=== PATIENT | male | born 1965 | race Caucasian/White ===

== ENCOUNTER 2019-07-18 13:20 | Inpatient (IN) | payer MEDICARE, OTHER ==
--- NOTE | 2019-07-18 14:57 | ED ---
Arrhythmia/Palpitations HPI - General Chief Complaint: Arrhythmia/Palpitations Stated Complaint: A FIB Time Seen by Provider: 07/18/19 13:25 Source: patient, EMS Mode of arrival: EMS Limitations: no limitations - History of Present Illness Initial Comments: The patient is a 54-year-old male with past medical history of coronary artery disease and reflux who presents to the emergency room from [facility]. He saw his primary care physician in office today. He was recently diagnosed with a peptic ulcer and gastritis. States that as of recently he's been having worsening reflux and trouble breathing. States that after food ingestion he will have acute left upper quadrant abdominal pain which is graded as 10 out of 10. It is causing decreased appetite. He is supposed been having a endoscopy by Dr. Skinner within the next month. Because his pain was getting worse he did go into his primary care office. This is where it was found the patient had an elevated heart rate. EKG is performed the patient was found to be in A. fib. Was sent into [facility] related place him on a Cardizem drip and transferred him to our facility. He denies any chest pain or shortness of breath even though transfer paperwork does demonstrate an elevated BNP and signs of fluid overload on chest x-ray. He denies any lower extremity swelling. Marino es any current abdominal pain. No ripping or tearing sensation to his back. He denies any palpitations. No fevers or chills. There are no other alleviating, Perceptin or modifying factors - Related Data Home Medications Medication Instructions Recorded Confirmed Levothyroxine Sodium [Synthroid] 50 mcg PO DAILY 08/28/17 07/18/19 Loratadine [Claritin] 10 mg PO DAILY 08/28/17 07/18/19 Multivitamins, Thera [Multivitamin 1 tab PO DAILY 08/28/17 07/18/19 (formulary)] Ascorbic Acid [Vitamin C] 500 mg PO DAILY 07/18/19 07/18/19 Atorvastatin [Lipitor] 20 mg PO DAILY 07/18/19 07/18/19 Esomeprazole Magnesium [NexIUM] 40 mg PO DAILY 07/18/19 07/18/19 Ranitidine HCl [Zantac] 150 mg PO DAILY 07/18/19 07/18/19 Sucralfate [Carafate] 1 gram PO AC-TID 07/18/19 07/18/19 Previous Rx's Medication Instructions Recorded Aspirin 325 mg PO DAILY tab 08/29/17 Carvedilol [Coreg] 6.25 mg PO BID-W/MEALS #60 tab 08/29/17 Enalapril [Vasotec] 2.5 mg PO DAILY #30 tab 08/29/17 Furosemide [Lasix] 20 mg PO DAILY #30 tab 08/29/17 Potassium Chloride [K-Tab ER] 10 meq PO DAILY #30 tablet.er 08/29/17 Allergies Allergy/AdvReac Type Severity Reaction Status Date / Time No Known Allergies Allergy Verified 07/18/19 14:31 Review of Systems ROS Statement: Those systems with pertinent positive or pertinent negative responses have been documented in the HPI. ROS Other: All systems not noted in ROS Statement are negative. Past Medical History Past Medical History: Coronary Artery Disease (CAD), Chest Pain / Angina, GERD/Reflux, Thyroid Disorder Additional Past Medical History / Comment(s): hypotension History of Any Multi-Drug Resistant Organisms: None Reported Past Surgical History: Coronary Bypass/CABG Additional Past Surgical History / Comment(s): Valve fixed, hiatal hernia Past Anesthesia/Blood Transfusion Reactions: No Reported Reaction Past Psychological History: No Psychological Hx Reported Smoking Status: Current every day smoker Past Alcohol Use History: None Reported Past Drug Use History: None Reported - Past Family History Mother Additional Family Medical History / Comment(s): heart conditions Father Family Medical History: Cancer Additional Family Medical History / Comment(s): Lung CA General Exam Limitations: no limitations Course Vital Signs 07/18/19 07/18/19 07/18/19 13:23 13:25 13:30 Temperature 97.7 F Pulse Rate 92 89 106 H Respiratory 18 18 17 Rate Blood Pressure 102/71 102/71 102/71 O2 Sat by Pulse 91 L 84 L 85 L Oximetry 07/18/19 07/18/19 07/18/19 14:00 14:30 15:00 Temperature Pulse Rate 106 H 83 Respiratory 19 20 21 Rate Blood Pressure 106/76 106/76 O2 Sat by Pulse 91 L Oximetry 07/18/19 07/18/19 07/18/19 15:03 15:30 16:00 Temperature 98.1 F Pulse Rate 112 H 100 70 Respiratory 18 18 23 Rate Blood Pressure 122/45 122/45 82/72 O2 Sat by Pulse 96 93 L 94 L Oximetry 07/18/19 07/18/19 07/18/19 16:30 17:00 17:30 Temperature Pulse Rate 92 80 83 Respiratory 26 H 21 20 Rate Blood Pressure 105/81 124/78 90/54 O2 Sat by Pulse 95 94 L 97 Oximetry 07/18/19 07/18/19 18:00 18:30 Temperature Pulse Rate 105 H 75 Respiratory 19 24 Rate Blood Pressure 86/57 112/76 O2 Sat by Pulse 95 95 Oximetry EKG Findings - EKG Comments: EKG Findings:: EKG demonstrates H or fibrillation with a rate of 110. QRS 106. QTC 470. Inverted T-wave and ST depression in leads V2 through V6. Compared to previous EKG from August of [address] depression T-wave inversions were similar in V4 through V6 Medical Decision Making - Medical Decision Making Upon arrival of the patient was placed into room 9. His transfer packet was reviewed. His chest x-ray demonstrated bilateral infiltrates and pleural effusions a cardio medically. Mag 2.5, phosphorus 4, CPK 149, BNP 6020, sodium 138, potassium 4.4, chloride 108, CO2 24, glucose 113, Min 20, creatinine 0.9, alkaline negative, INR 1.2, white blood cell count 6.6, hemoglobin 13.9, platelets 157, troponin 0.024, I did recommend repeat laboratory studies to include a troponin. CBC shows a platelet of 147. CMP is unremarkable. Troponin is 0.022. I did perform a rectal exam as the patient is reporting recent black stools within the past week. It is negative. Did continue the patient's order for Cardizem. His heart rate is improved in the 70s. I did recommend heparinizing the patient however he is refusing anticoagulation. Reports a history of peptic ulcer disease and states that he can't be on any blood thinners. I did recommend hospital admission for which the patient did agree. Call discuss case with Dr. Gaitan admission for the patient. Bridging order to place the patient was transferred form stable condition - Lab Data Result diagrams: 07/18/19 14:59 07/18/19 14:59 Lab Results 07/18/19 07/18/19 07/18/19 Range/Units 14:59 14:59 14:59 WBC 6.3 (3.8-10.6) k/uL RBC 4.70 (4.30-5.90) m/uL Hgb 14.5 (13.0-17.5) gm/dL Hct 44.1 (39.0-53.0) % MCV 93.9 (80.0-100.0) fL MCH 30.8 (25.0-35.0) pg MCHC 32.8 (31.0-37.0) g/dL RDW 13.4 (11.5-15.5) % Plt Count 147 L (150-450) k/uL Neutrophils % 65 % Lymphocytes % 23 % Monocytes % 9 % Eosinophils % 2 % Basophils % 1 % Neutrophils # 4.1 (1.3-7.7) k/uL Lymphocytes # 1.4 (1.0-4.8) k/uL Monocytes # 0.6 (0-1.0) k/uL Eosinophils # 0.1 (0-0.7) k/uL Basophils # 0.0 (0-0.2) k/uL PT (9.0-12.0) sec INR (<1.2) APTT (22.0-30.0) sec Sodium 140 (137-145) mmol/L Potassium 4.2 (3.5-5.1) mmol/L Chloride 111 H (98-107) mmol/L Carbon Dioxide 22 (22-30) mmol/L Anion Gap 7 mmol/L BUN 19 (9-20) mg/dL Creatinine 0.83 (0.66-1.25) mg/dL Est GFR (CKD-EPI)AfAm >90 (>60 ml/min/1.73 sqM) Est GFR (CKD-EPI)NonAf >90 (>60 ml/min/1.73 sqM) Glucose 93 (74-99) mg/dL Calcium 9.2 (8.4-10.2) mg/dL Troponin I 0.022 (0.000-0.034) ng/mL TSH 3.870 (0.465-4.680) mIU/L 07/18/19 Range/Units 14:59 WBC (3.8-10.6) k/uL RBC (4.30-5.90) m/uL Hgb (13.0-17.5) gm/dL Hct (39.0-53.0) % MCV (80.0-100.0) fL MCH (25.0-35.0) pg MCHC (31.0-37.0) g/dL RDW (11.5-15.5) % Plt Count (150-450) k/uL Neutrophils % % Lymphocytes % % Monocytes % % Eosinophils % % Basophils % % Neutrophils # (1.3-7.7) k/uL Lymphocytes # (1.0-4.8) k/uL Monocytes # (0-1.0) k/uL Eosinophils # (0-0.7) k/uL Basophils # (0-0.2) k/uL PT 11.2 (9.0-12.0) sec INR 1.1 (<1.2) APTT 26.1 (22.0-30.0) sec Sodium (137-145) mmol/L Potassium (3.5-5.1) mmol/L Chloride (98-107) mmol/L Carbon Dioxide (22-30) mmol/L Anion Gap mmol/L BUN (9-20) mg/dL Creatinine (0.66-1.25) mg/dL Est GFR (CKD-EPI)AfAm (>60 ml/min/1.73 sqM) Est GFR (CKD-EPI)NonAf (>60 ml/min/1.73 sqM) Glucose (74-99) mg/dL Calcium (8.4-10.2) mg/dL Troponin I (0.000-0.034) ng/mL TSH (0.465-4.680) mIU/L Disposition Clinical Impression: Atrial fibrillation, Abdominal pain Disposition: [facility] Condition: Stable Is patient prescribed a controlled substance at d/c from ED?: No Decision to Admit Reason: Admit from EC Decision Date: 07/18/19 Decision Time: 17:13
[2019-07-18] MEDS: DILTIAZEM 125 MG in SODIUM CHLORIDE 0.9% 100 ML IV SCH (15:01)
[2019-07-18 15:12] LABS: Basophils % (A) 1 %; Eosinophils # (A) 0.1 k/uL (0-0.7); Eosinophils % (A) 2 %; HCT 44.1 % (39.0-53.0); HGB 14.5 gm/dL (13.0-17.5); Lymphocytes # (A) 1.4 k/uL (1.0-4.8); Lymphocytes % (A) 23 %; MCH 30.8 pg (25.0-35.0); MCHC 32.8 g/dL (31.0-37.0); MCV 93.9 fL (80.0-100.0); Mean Platelet Volume 6.7; Monocytes # (A) 0.6 k/uL (0-1.0); Monocytes % (A) 9 %; Neutrophils # (A) 4.1 k/uL (1.3-7.7); Neutrophils % (A) 65 %; Platelet Count 147 k/uL (150-450); RDW 13.4 % (11.5-15.5); WBC 6.3 k/uL (3.8-10.6)
[2019-07-18 15:20] LABS: African American GFR (CKD) >90 (>60 ml/min/1.73 sqM); Anion Gap 7 mmol/L; Blood Urea Nitrogen 19 mg/dL (9-20); Calcium 9.2 mg/dL (8.4-10.2); Carbon Dioxide 22 mmol/L (22-30); Chloride 111 mmol/L (98-107); Glucose 93 mg/dL (74-99); INR 1.1 (<1.2); Non-African American GFR(CKD) >90 (>60 ml/min/1.73 sqM); Partial Thromboplastin Time 26.1 sec (22.0-30.0); Potassium 4.2 mmol/L (3.5-5.1); Prothrombin Time 11.2 sec (9.0-12.0); Sodium 140 mmol/L (137-145)
[2019-07-18] MEDS ORDERED: NALOXONE 0.4 MG/ML 1 ML VIAL IV PRN (17:28)
[2019-07-18] MEDS: SODIUM CHLORIDE 0.9% 1,000 ML IV SCH (17:40)
--- NOTE | 2019-07-18 21:11 | P.HPIM ---
History of Present Illness H&P Date: 07/18/19 Chief Complaint: Heart racing History of presenting complaint: This is a very pleasant 54-year-old patient of Dr. Smyth. Patient being troubled quite quite some time with GI symptoms that include abdominal distention and bloating severe heartburns a lot of burping. Occasionally getting diarrhea. States she had EGD about a year ago not sure where but did have a bleeding u lcer. Afraid patient GI symptoms have been bothering him more supposed to follow with Dr. Anabell Beltran. Went to see his family doctor. Was found to be in atrial fibrillation with a rapid ventricular rate send him to the ER. Patient started on IV Cardizem. Patient states she's had 2 valves repaired back in 2012. Cannot give any other details. Denies any coronary artery disease otherwise. Review of systems: GEN.: None EYES: Right a while see HEENT: None NECK: None RESPIRATORY: None CARDIOVASCULAR: Palpitation GASTROINTESTINAL: Heartburn and bloating as above GENITOURINARY: None MUSCULOSKELETAL: None LYMPHATICS: None HEMATOLOGICAL: None PSYCHIATRY: None NEUROLOGICAL: None Past medical history to include: GERD, bleeding peptic ulcer, 2 valves replaced, hypothyroid Social history: Smokes 7 cigarettes a day used to smoke much more for many years. . Does not drink alcohol. Not employed Physical examination: VITAL SIGNS: 97.7, 92, 18, 102/71, 91% room air GENERAL: 25.8 BMI, sitting up but anxious. EYES: Pupils equal. Conjunctiva brent, with right eye strabismus l. HEENT: External appearance of nose and ears normal, oral cavity grossly normal. NECK: JVD not raised; masses not palpable. HEART: Heart sounds irregular; no edema]. LUNGS: Respiratory rate normal; slightly decreased breath sounds. ABDOMEN: Soft, mild epigastric tenderness liver spleen not palpable, no masses palpable. PSYCH: [Alert and oriented x3; mood and affect anxious NEUROLOGICAL: Cranial nerves grossly intact; no facial asymmetry, power and sensation grossly intact. LYMPHATICS: No lymph nodes palpable in the axilla and neck INVESTIGATIONS, reviewed in the clinical context: EKG tracing personally reviewed by me-atrial fibrillation with a rate of 100 Assessment: -New diagnosis of atrial fibrillation, rate uncontrolled unknown about the onset. Patient declined anticoagulant ER because of bleeding peptic ulcer. In the past. -Peptic ulcer disease with increasing distention and bloating GERD -GERD uncontrolled -Chronic nicotine dependence patient cigarette smoker -Right eye strabismus -Hypothyroid, rule out over replacement Plan: Patient started and IV Cardizem drip in the ER. Continue on patient's home dose of Coreg. Anticoagulation is being held. Poor GI and cardiology or consulted. We'll order 2-D echocardiogram. Also check patient's thyroid status. Patient may be over replaced. Does not appear to be hypothyroid clinically. Smoke cessation counseling: This was done with the patient. Patient does not want nicotine patch. More than 3 minutes was spent for this Past Medical History Past Medical History: Coronary Artery Disease (CAD), Chest Pain / Angina, GERD/Reflux, Thyroid Disorder Additional Past Medical History / Comment(s): hypotension History of Any Multi-Drug Resistant Organisms: None Reported Past Surgical History: Coronary Bypass/CABG Additional Past Surgical History / Comment(s): Valve fixed 2012, hiatal hernia Past Anesthesia/Blood Transfusion Reactions: No Reported Reaction Past Psychological History: Bipolar Additional Psychological History / Comment(s): Pt states he was diagnosed as bipolar but no longer takes medication. Smoking Status: Current every day smoker Past Alcohol Use History: None Reported Past Drug Use History: None Reported - Past Family History Mother Family Medical History: COPD, Diabetes Mellitus, Osteoarthritis (OA) Additional Family Medical History / Comment(s): heart conditions Father Family Medical History: Cancer Additional Family Medical History / Comment(s): Lung CA Medications and Allergies Home Medications Medication Instructions Recorded Confirmed Type Levothyroxine Sodium [Synthroid] 50 mcg PO DAILY 08/28/17 07/18/19 History Loratadine [Claritin] 10 mg PO DAILY 08/28/17 07/18/19 History Multivitamins, Thera [Multivitamin 1 tab PO DAILY 08/28/17 07/18/19 History (formulary)] Aspirin 325 mg PO DAILY tab 08/29/17 07/18/19 Rx Carvedilol [Coreg] 6.25 mg PO BID-W/MEALS #60 tab 08/29/17 07/18/19 Rx Enalapril [Vasotec] 2.5 mg PO DAILY #30 tab 08/29/17 07/18/19 Rx Furosemide [Lasix] 20 mg PO DAILY #30 tab 08/29/17 07/18/19 Rx Potassium Chloride [K-Tab ER] 10 meq PO DAILY #30 tablet.er 08/29/17 07/18/19 Rx Ascorbic Acid [Vitamin C] 500 mg PO DAILY 07/18/19 07/18/19 History Atorvastatin [Lipitor] 20 mg PO DAILY 07/18/19 07/18/19 History Esomeprazole Magnesium [NexIUM] 40 mg PO DAILY 07/18/19 07/18/19 History Ranitidine HCl [Zantac] 150 mg PO DAILY 07/18/19 07/18/19 History Sucralfate [Carafate] 1 gram PO AC-TID 07/18/19 07/18/19 History Allergies Allergy/AdvReac Type Severity Reaction Status Date / Time No Known Allergies Allergy Verified 07/18/19 14:31 Physical Exam Vitals: Vital Signs Temp Pulse Resp BP Pulse Ox 07/18/19 18:30 75 24 112/76 95 07/18/19 18:00 105 H 19 86/57 95 07/18/19 17:30 83 20 90/54 97 07/18/19 17:00 80 21 124/78 94 L 07/18/19 16:30 92 26 H 105/81 95 07/18/19 16:00 70 23 82/72 94 L 07/18/19 15:30 100 18 122/45 93 L 07/18/19 15:03 98.1 F 112 H 18 122/45 96 07/18/19 15:00 83 21 07/18/19 14:30 106 H 20 106/76 91 L 07/18/19 14:00 19 106/76 07/18/19 13:30 106 H 17 102/71 85 L 07/18/19 13:25 89 18 102/71 84 L 07/18/19 13:23 97.7 F 92 18 102/71 91 L Intake and Output 07/18/19 07/18/19 07/18/19 06:59 14:59 22:59 Other: Weight 86.183 kg Results CBC & Chem 7: 07/18/19 14:59 07/18/19 14:59 Labs: Abnormal Lab Results - Last 24 Hours (Table) 07/18/19 07/18/19 Range/Units 14:59 14:59 Plt Count 147 L (150-450) k/uL Chloride 111 H (98-107) mmol/L Thrombosis Risk Factor Assmnt - Choose All That Apply Any of the Below Risk Factors Present?: Yes Each Factor Represents 1 point: Age 41-60 years Other Risk Factors: No Other congenital or acquired thrombophilia - If yes, enter type in comment: No Thrombosis Risk Factor Assessment Total Risk Factor Score: 1 Thrombosis Risk Factor Assessment Level: Low Risk
[2019-07-18] MEDS: PANTOPRAZOLE 40 MG TABLET PO SCH (22:31)
[2019-07-18] MEDS: CALCIUM CARBONATE LIQUID 500 MG/5 ML CUP PO SCH (22:31)
[2019-07-18] MEDS: CARVEDILOL 6.25 MG TAB PO SCH (22:31)
[2019-07-19 00:14] LABS: Magnesium 2.2 mg/dL (1.6-2.3); Potassium 3.7 mmol/L (3.5-5.1)
[2019-07-19 03:56] LABS: Basophils # (A) 0.1 k/uL (0-0.2); Basophils % (A) 1 %; Eosinophils # (A) 0.2 k/uL (0-0.7); Eosinophils % (A) 3 %; HCT 43.1 % (39.0-53.0); HGB 13.8 gm/dL (13.0-17.5); Lymphocytes # (A) 1.1 k/uL (1.0-4.8); Lymphocytes % (A) 20 %; MCH 30.3 pg (25.0-35.0); MCHC 32.1 g/dL (31.0-37.0); MCV 94.5 fL (80.0-100.0); Monocytes # (A) 0.5 k/uL (0-1.0); Monocytes % (A) 9 %; Neutrophils # (A) 3.7 k/uL (1.3-7.7); Neutrophils % (A) 65 %; Platelet Count 134 k/uL (150-450); RBC 4.56 m/uL (4.30-5.90); RDW 13.5 % (11.5-15.5); WBC 5.7 k/uL (3.8-10.6)
[2019-07-19 04:07] LABS: African American GFR (CKD) >90 (>60 ml/min/1.73 sqM); Anion Gap 4 mmol/L; Blood Urea Nitrogen 21 mg/dL (9-20); Calcium 9.1 mg/dL (8.4-10.2); Carbon Dioxide 27 mmol/L (22-30); Chloride 108 mmol/L (98-107); Glucose 95 mg/dL (74-99); Non-African American GFR(CKD) 88 (>60 ml/min/1.73 sqM); Potassium 4.3 mmol/L (3.5-5.1); Sodium 139 mmol/L (137-145)
[2019-07-19] MEDS: CALCIUM CARBONATE LIQUID 500 MG/5 ML CUP PO SCH ×4 (06:38→21:16)
[2019-07-19] MEDS: LEVOTHYROXINE 50 MCG TAB PO SCH (06:38)
[2019-07-19] MEDS: CARVEDILOL 6.25 MG TAB PO SCH ×2 (06:38→16:46)
[2019-07-19] MEDS: PANTOPRAZOLE 40 MG TABLET PO SCH ×2 (06:38→16:46)
[2019-07-19] MEDS: SODIUM CHLORIDE 0.9% 1,000 ML IV SCH (06:44)
[2019-07-19] MEDS ORDERED: PANTOPRAZOLE 40 MG TABLET PO SCH (07:30)
--- NOTE | 2019-07-19 07:42 | XR ---
EXAMINATION TYPE: XR chest 2V DATE OF EXAM: 07/19/2019 COMPARISON: Prior chest x-ray dated 07/18/2019, chest x-ray 08/28/2017 HISTORY: Cough, smoker TECHNIQUE: Frontal and lateral views of the chest are obtained. FINDINGS: Heart appears enlarged, patient is rotated which makes accentuate appearance. Patient is p ost median sternotomy. No evident pneumothorax. Patchy bibasilar increased density is noted. Intersti tium is increased. Central vascularity is similar. Patient shows cardiac valve replacement change. In creased AP diameter chest suggests underlying COPD with flattening of hemidiaphragms. IMPRESSION: Correlate for congestive heart failure although there is underlying interstitial lung di sease may be present. Pneumonia not excluded.
[2019-07-19] MEDS: ATORVASTATIN 20 MG TAB PO SCH (08:49)
[2019-07-19] MEDS ORDERED: ASPIRIN 325 MG TAB PO SCH (09:00)
[2019-07-19] MEDS ORDERED: FUROSEMIDE 20 MG TAB PO SCH (09:00)
[2019-07-19] MEDS ORDERED: FAMOTIDINE 20 MG TAB PO SCH (09:00)
--- NOTE | 2019-07-19 10:50 | P.CRDCN ---
History of Present Illness Consult date: 07/19/19 Chief complaint: Abdominal discomfort History of present illness: This is a pleasant 54-year-old gentleman who sees Dr. Beltran in the office on re gular basis with a past medical history significant for valvular heart disease with the patient underwent in the past valve surgery at [facility] and he states he underwent a surgery back in 2012, the details are unknown at this point, long-standing persistent atrial fibrillation not on any oral anticoagulation, as well as peptic ulcer disease, presented to the hospital complaining of abdominal discomfort. The patient was diagnosed with peptic ulcer disease in the past and for the last several months, he has been experiencing abdominal discomfort. The discomfort is in the mid abdomen without any radiation to the chest and without any associated symptoms. The patient scheduled to see a childhood teacher in July some time and he states he cannot wait that long and because of that he presented to the hospital. Upon presenting to the hospital, he was found to be in atrial fibrillation with slightly uncontrolled heart rate. The patient is known to have long-standing pe rsistent atrial fibrillation. He was started on Cardizem drip and subsequently the Cardizem drip was stopped and currently he is on Coreg 6.25 mg by mouth twice a day was controlled heart rate on it. The blood pressure seems to be within normal limits. The patient denies having any symptoms of chest pain or chest discomfort, shortness of breath, dizziness, heart racing, or lower extremities edema. The chest x-ray did not show any acute abnormalities. He does not look to be in any acute chest pain or chest discomfort nor in any congestive heart failure when he was seen and examined this morning. The troponin came in to be unremarkable. The EKG showed atrial fibrillation was controlled heart rate. The patient is quite concerned about his abdominal discomfort and he would like to see a childhood teacher as soon as possible. On examination, the abdomen is soft and nontender this morning. He was seen by our service back in 2018 where an echocardiogram revealed moderate to severe MR without any pointing toward repaired valve. At that point also he underwent a stress test which showed small area of ischemia. Subsequently the patient was seen by Dr. Beltran in the office. We'll obtain a copy of the previous medical records. Past Medical History Past Medical History: Coronary Artery Disease (CAD), Chest Pain / Angina, GERD/Reflux, Thyroid Disorder Additional Past Medical History / Comment(s): hypotension History of Any Multi-Drug Resistant Organisms: None Reported Past Surgical History: Coronary Bypass/CABG Additional Past Surgical History / Comment(s): Valve fixed 2012, hiatal hernia Past Anesthesia/Blood Transfusion Reactions: No Reported Reaction Past Psychological History: Bipolar Additional Psychological History / Comment(s): Pt states he was diagnosed as bipolar but no longer takes medication. Smoking Status: Current every day smoker Past Alcohol Use History: None Reported Past Drug Use History: None Reported - Past Family History Mother Family Medical History: COPD, Diabetes Mellitus, Osteoarthritis (OA) Additional Family Medical History / Comment(s): heart conditions Father Family Medical History: Cancer Additional Family Medical History / Comment(s): Lung CA Medications and Allergies Home Medications Medication Instructions Recorded Confirmed Type Levothyroxine Sodium [Synthroid] 50 mcg PO DAILY 08/28/17 07/18/19 History Loratadine [Claritin] 10 mg PO DAILY 08/28/17 07/18/19 History Multivitamins, Thera [Multivitamin 1 tab PO DAILY 08/28/17 07/18/19 History (formulary)] Aspirin 325 mg PO DAILY tab 08/29/17 07/18/19 Rx Carvedilol [Coreg] 6.25 mg PO BID-W/MEALS #60 tab 08/29/17 07/18/19 Rx Enalapril [Vasotec] 2.5 mg PO DAILY #30 tab 08/29/17 07/18/19 Rx Furosemide [Lasix] 20 mg PO DAILY #30 tab 08/29/17 07/18/19 Rx Potassium Chloride [K-Tab ER] 10 meq PO DAILY #30 tablet.er 08/29/17 07/18/19 Rx Ascorbic Acid [Vitamin C] 500 mg PO DAILY 07/18/19 07/18/19 History Atorvastatin [Lipitor] 20 mg PO DAILY 07/18/19 07/18/19 History Esomeprazole Magnesium [NexIUM] 40 mg PO DAILY 07/18/19 07/18/19 History Ranitidine HCl [Zantac] 150 mg PO DAILY 07/18/19 07/18/19 History Sucralfate [Carafate] 1 gram PO AC-TID 07/18/19 07/18/19 History Allergies Allergy/AdvReac Type Severity Reaction Status Date / Time No Known Allergies Allergy Verified 07/18/19 14:31 Physical Exam Vitals: Vital Signs Temp Pulse Pulse Resp BP BP Pulse Ox 07/19/19 08:00 96.3 F L 61 16 92/54 92 L 07/19/19 04:00 97.7 F 100 18 119/77 92 L 07/19/19 00:00 97.8 F 65 18 106/50 89 L 07/18/19 20:00 97.8 F 91 22 106/55 87 L 07/18/19 18:30 75 24 112/76 95 07/18/19 18:00 105 H 19 86/57 95 07/18/19 17:30 83 20 90/54 97 07/18/19 17:00 80 21 124/78 94 L 07/18/19 16:30 92 26 H 105/81 95 07/18/19 16:00 70 23 82/72 94 L 07/18/19 15:30 100 18 122/45 93 L 07/18/19 15:03 98.1 F 112 H 18 122/45 96 07/18/19 15:00 83 21 07/18/19 14:30 106 H 20 106/76 91 L 07/18/19 14:00 19 106/76 07/18/19 13:30 106 H 17 102/71 85 L 07/18/19 13:25 89 18 102/71 84 L 07/18/19 13:23 97.7 F 92 18 102/71 91 L Intake and Output 07/18/19 07/19/19 07/19/19 22:59 06:59 14:59 Intake Total 381.833 Output Total 500 Balance -118.167 Intake: Intake, IV Titration 381.833 Amount Diltiazem 125 mg In 81.833 Sodium Chloride 0.9% 100 ml @ 10 MG/HR 10 mls/hr IV .[id number] KAYLA Rx#: [id number] Sodium Chloride 0.9% 1, 300 000 ml @ 75 mls/hr IV . [id number] KAYLA Rx#:[id number] Output: Urine 500 Other: Voiding Method Toilet Toilet # Voids 1 # Bowel Movements 2 Weight 86.4 kg - Constitutional General appearance: no acute distress - Respiratory Respiratory: bilateral: CTA - Cardiovascular Rhythm: irregularly irregular Heart sounds: normal: S1, S2 Abnormal Heart Sounds: systolic murmur Results 07/19/19 03:14 07/19/19 03:14 Cardiac Enzymes 07/18/19 07/18/19 07/19/19 Range/Units 14:59 22:07 03:14 Troponin I 0.022 0.025 0.029 (0.000-0.034) ng/mL Coagulation 07/18/19 Range/Units 14:59 PT 11.2 (9.0-12.0) sec APTT 26.1 (22.0-30.0) sec CBC 07/18/19 07/19/19 Range/Units 14:59 03:14 WBC 6.3 5.7 (3.8-10.6) k/uL RBC 4.70 4.56 (4.30-5.90) m/uL Hgb 14.5 13.8 (13.0-17.5) gm/dL Hct 44.1 43.1 (39.0-53.0) % Plt Count 147 L 134 L (150-450) k/uL Comprehensive Metabolic Panel 07/18/19 07/18/19 07/19/19 Range/Units 14:59 23:42 03:14 Sodium 140 139 (137-145) mmol/L Potassium 4.2 3.7 4.3 (3.5-5.1) mmol/L Chloride 111 H 108 H (98-107) mmol/L Carbon Dioxide 22 27 (22-30) mmol/L BUN 19 21 H (9-20) mg/dL Creatinine 0.83 0.98 (0.66-1.25) mg/dL Glucose 93 95 (74-99) mg/dL Calcium 9.2 9.1 (8.4-10.2) mg/dL Current Medications Generic Name Dose Route Start Last Admin Trade Name Freq PRN Reason Stop Dose Admin Atorvastatin Calcium 20 mg 07/19/19 09:00 07/19/19 08:49 Lipitor PO 20 mg DAILY KAYLA Administration Calcium Carbonate/Glycine 500 mg 07/18/19 21:15 07/18/19 22:31 Tums Liquid PO 500 mg HS KAYLA Administration Calcium Carbonate/Glycine 500 mg 07/19/19 07:30 07/19/19 06:38 Tums Liquid PO 500 mg TID-W/MEALS KAYLA Administration Carvedilol 6.25 mg 07/18/19 21:15 07/19/19 06:38 Coreg PO 6.25 mg BID-W/MEALS KAYLA Administration Diltiazem HCl 125 mg/ Sodium 125 mls @ 10 mls/hr 07/18/19 14:45 07/18/19 23:12 Chloride IV 0 mg/hr .[id number] KAYLA 0 mls/hr Infusion 10 MG/HR Sodium Chloride 1,000 mls @ 75 mls/hr 07/18/19 17:30 07/19/19 06:44 Saline 0.9% IV 75 mls/hr .[id number] KAYLA Administration Levothyroxine Sodium 50 mcg 07/19/19 06:30 07/19/19 06:38 Synthroid PO 50 mcg DAILY@0630 KAYLA Administration Naloxone HCl 0.2 mg 07/18/19 17:28 Narcan IV Q2M PRN Opioid Reversal Pantoprazole Sodium 40 mg 07/18/19 21:15 07/19/19 06:38 Protonix PO 40 mg AC-BID KAYLA Administration Intake and Output 07/18/19 07/19/19 07/19/19 22:59 06:59 14:59 Intake Total 381.833 Output Total 500 Balance -118.167 Intake: Intake, IV Titration 381.833 Amount Diltiazem 125 mg In 81.833 Sodium Chloride 0.9% 100 ml @ 10 MG/HR 10 mls/hr IV .[id number] KAYLA Rx#: [id number] Sodium Chloride 0.9% 1, 300 000 ml @ 75 mls/hr IV . [id number] KAYLA Rx#:[id number] Output: Urine 500 Other: Voiding Method Toilet Toilet # Voids 1 # Bowel Movements 2 Weight 86.4 kg 07/19/19 03:14 07/19/19 03:14 Assessment and Plan Assessment: Assessment #1 abdominal discomfort #2 known peptic ulcer disease #3 long-standing persistent atrial fibrillation #4 valvular heart disease and status post open heart surgery #5 multiple comorbid conditions Plan #1 the patient is not a candidate to receive anticoagulation in view of the peptic ulcer disease #2 his heart rate seems to be under good control on the current dose of Coreg #3 he does not look in any overt congestive heart failure at this point #4 acute coronary event was ruled out #5 no need for any further cardiac workup at this point. We'll follow-up with the patient on when necessary case
--- NOTE | 2019-07-19 12:00 | ECHOF ---
Referral Reason:A. fib MEASUREMENTS -------- HEIGHT: 182.9 cm WEIGHT: 86.2 kg BP: 119/77 RVIDd: 3.8 cm (< 3.3) IVSd: 1.7 cm (0.6 - 1.1) LVIDd: 6.8 cm (3.9 - 5.3) LVPWd: 1.7 cm (0.6 - 1.1) IVSs: 2.1 cm LVIDs: 6.7 cm LVPWs: 2.0 cm LA Diam: 3.9 cm (2.7 - 3.8) LAESV Index (A-L): 77.93 ml/m Ao Diam: 3.7 cm (2.0 - 3.7) AV Cusp: 2.7 cm (1.5 - 2.6) MV EXCURSION: 19.297 mm (> 18.000) MV EF SLOPE: 86 mm/s (70 - 150) EPSS: 2.6 cm FINDINGS -------- Atrial fibrillation. This was a technically adequate study. The left ventricle is moderately dilated. There is severe concentric left ventricular hypertrophy. Overall left ventricular systolic function is severely impaired with, an EF between 20 - 25 %. The right ventricle is mild to moderately enlarged. LA is severely dilated >40 ml/m2 The right atrium is normal in size. Interatrial and interventricular septum intact. Aortic valve is trileaflet and is mildly thickened. Trace amount of aortic regurgitation. Moderate mitral regurgitation is present. The peak and mean MV gradients are 13.09mmHg 3.05mmHg as measured by doppler. Mild mitral stenosis. MV Repair. The pulmonic valve was not well visualized. The aortic root size is normal. Normal inferior vena cava with normal inspiratory collapse consistent with estimated right atrial pre ssure of 5 mmHg. The inferior vena cava is mildly dilated. There is no pericardial effusion. CONCLUSIONS -------- 1. Atrial fibrillation. 2. This was a technically adequate study. 3. The left ventricle is moderately dilated. 4. There is severe concentric left ventricular hypertrophy. 5. Overall left ventricular systolic function is severely impaired with, an EF between 20 - 25 %. 6. The right ventricle is mild to moderately enlarged. 7. LA is severely dilated >40 ml/m2 8. The right atrium is normal in size. 9. Interatrial and interventricular septum intact. 10. Aortic valve is trileaflet and is mildly thickened. 11. Trace amount of aortic regurgitation. 12. Moderate mitral regurgitation is present. 13. The peak and mean MV gradients are 13.09mmHg 3.05mmHg as measured by doppler. 14. Mild mitral stenosis. 15. MV Repair. 16. The pulmonic valve was not well visualized. 17. The aortic root size is normal. 18. Normal inferior vena cava with normal inspiratory collapse consistent with estimated right atrial pressure of 5 mmHg. 19. The inferior vena cava is mildly dilated. 20. There is no pericardial effusion. CLIENT CONSULTANT: MEG Yun
[2019-07-19] MEDS ORDERED: PROPOFOL 10 MG/ML 20 ML VIAL IV ONE (14:44)
[2019-07-19] MEDS ORDERED: ePHEDrine SULFATE/0.9% NACL/PF 50 MG/5 ML SYRINGE IV ONE (14:44)
[2019-07-19] MEDS ORDERED: KETAMINE 10 MG/ML 20 ML VIAL ONE (14:44)
[2019-07-19] MEDS ORDERED: LIDOCAINE 1% INJ 10MG/ML (20 ML MDV) ONE (14:44)
[2019-07-19] MEDS ORDERED: IV FLUID CONTINUATION 1,000 ML IV ONE (14:49)
--- NOTE | 2019-07-19 15:00 | P.PCN ---
Date of Procedure: 07/19/19 Procedure(s) Performed: BRIEF HISTORY: Patient is a 54-year-old, pleasant, white male admitted hospital with upper GI symptoms. He is complaining of epigastric pain, heartburn and abdominal bloating for the last 1 week duration. History of GERD and has been on now Nexium as well as Carafate an outpatient basis. He states he had an upper endoscopy revealed and was diagnosed with peptic ulcer disease.. PROCEDURE PERFORMED: Esophagogastroduodenoscopy with biopsy. PREOPERATIVE DIAGNOSIS: Epigastric pain/severe heartburn/abdominal bloating. IV sedation per anesthesia. PROCEDURE: After informed consent was obtained, the patient was brought into the endoscopy unit. IV sedation was administered by Anesthesia under continuous monitoring. Initially the Olympus GIF-140 video endoscope was inserted into the mouth. Esophagus intubated without any difficulty. It was gradually advanced into the stomach and duodenum and carefully examined. The bulb and the second part of the duodenum appeared normal. Biopsies were done from this area to rule out celiac disease.. The scope at this time was withdrawn to the stomach, adequately insufflated with air, and upon careful examination, mucosa of the antrum had minimal gastritis and biopsies were done from this area. The, body, cardia and the fundus appeared normal. The scope was then withdrawn into the esophagus. The GE junction was located at 39 cm from the incisors. It appeared regular but there was no evidence of esophagitis or Herrera's esophagus. The rest of the esophagus appeared normal. There were no erosions or ulcerations seen and the patient tolerated the procedure well. IMPRESSION: 1. Minimal antral gastritis. 2. No evidence of esophagitis or peptic ulcer disease. RECOMMENDATIONS: The findings of this examination were discussed with the patient. He will be continued on Protonix 40 mg daily and Carafate 1 g 4 times daily. Anticoagulation can be started if indicated for atrial fibrillation. Diet will be advanced as tolerated.
--- NOTE | 2019-07-19 15:29 | CONS ---
CONSULTATION DATE OF SERVICE: 07/19/2019 REASON FOR CONSULTATION: Heartburn, abdominal pain, abdominal distention. HISTORY OF PRESENT ILLNESS: The patient is a 54-year-old white male who was admitted to the hospital with AFIB and rapid ventricular heart rate. The patient has been having upper GI symptoms with abdominal pain, abdominal distention, severe heartburn, nausea but no emesis on and off for the last one week duration. Patient went to see his PCP, [GENARO] and he was noted to have AFIB with RVR and hence he was sent to the emergency room and subsequently admitted to the hospital for further evaluation. Patient has an appointment to see them in 2 weeks from now. In the meantime, because of his ongoing symptoms, we are consulted. The patient says that he was diagnosed with GERD in the past. On review of his records, he did have an upper endoscopy by Dr. Chavez in 2014 that showed erosive esophagitis. Patient thinks that he had an upper endoscopy about a year ago that revealed peptic ulcer disease. He denies any NSAID use. PAST MEDICAL HISTORY: Significant for GERD, peptic ulcer disease, valve replacement, hypothyroidism. PAST SURGICAL HISTORY: EGD in the past, valve repair. SOCIAL HISTORY: Chronic smoker. No alcohol use. FAMILY HISTORY: Mother had some heart conditions, father had lung cancer. MEDICATIONS: At home include Claritin, multivitamin, vitamin C, Lipitor, Nexium, Zantac, Carafate, and Synthroid. ALLERGIES: To ASPIRIN, COREG, VASOTEC, LASIX, and K-DUR. REVIEW OF SYSTEMS: CARDIOPULMONARY: Shortness of breath. GENITOURINARY: No dysuria, hematuria. MUSCULOSKELETAL: Unremarkable. SKIN: Unremarkable. ENDOCRINE: Unremarkable. PSYCHIATRIC: Unremarkable. NEUROLOGY: Unremarkable. ENT/VISION: Unremarkable. CONSTITUTIONAL: No recent weight loss. No fever, chills, night sweats. PHYSICAL EXAMINATION: He appears comfortable, in no apparent distress. Vital signs are stable, blood pressure is 130/82 pulse, pulse is 113 per minute and afebrile. HEENT: Examination unremarkable. Conjunctivae are pink, sclerae nonicteric. ORAL CAVITY: No lesions. NECK: No JVD or lymph node enlargement. CHEST: Clear to auscultation. HEART: Regular rate and rhythm. ABDOMEN: Soft. Bowel sounds are positive. Mild tenderness in the epigastric area. BOTH EXTREMITIES: No pedal edema. SKIN: No rashes. NEUROLOGIC: Alert and oriented x3. No focal deficits. LABS: WBC 5.7, hemoglobin 13.8, platelets normal. Basic metabolic panel is within normal limits. Stool occult blood was negative. IMPRESSION: 1. Atrial fibrillation with rapid ventricular rate, presently on Cardizem drip. 2. Upper gastrointestinal symptoms with epigastric discomfort, abdominal bloating, nausea and heartburn for the last 1 week duration. Patient has been on Nexium, Carafate on an outpatient basis, despite this continues to be asymptomatic. He thinks he had an upper endoscopy a year ago and was diagnosed with peptic ulcer disease. RECOMMENDATION: 1. Will proceed with an EGD today. Discussed with him risks, benefits, and complications of the procedure and he has agreed to do it. 2. In the meantime, continue with Protonix 40 mg daily and further recommendations will follow based on the . Thank you for this consultation. MMJOCELYN / KARINN: [id number] /
[2019-07-19] MEDS: DILTIAZEM 125 MG in SODIUM CHLORIDE 0.9% 100 ML IV SCH (15:55)
[2019-07-19] MEDS ORDERED: RIVAROXABAN 20 MG TAB PO SCH (17:30)
[2019-07-20 02:26] LABS: African American GFR (CKD) >90 (>60 ml/min/1.73 sqM); Anion Gap 4 mmol/L; Blood Urea Nitrogen 21 mg/dL (9-20); Calcium 8.8 mg/dL (8.4-10.2); Carbon Dioxide 27 mmol/L (22-30); Chloride 109 mmol/L (98-107); Glucose 93 mg/dL (74-99); Magnesium 2.1 mg/dL (1.6-2.3); Non-African American GFR(CKD) 83 (>60 ml/min/1.73 sqM); Potassium 4.1 mmol/L (3.5-5.1); Sodium 140 mmol/L (137-145)
[2019-07-20] MEDS: CALCIUM CARBONATE LIQUID 500 MG/5 ML CUP PO SCH (06:51)
[2019-07-20] MEDS: CARVEDILOL 6.25 MG TAB PO SCH (06:51)
[2019-07-20] MEDS: LEVOTHYROXINE 50 MCG TAB PO SCH (06:52)
[2019-07-20] MEDS: PANTOPRAZOLE 40 MG TABLET PO SCH (06:52)
[2019-07-20] MEDS: SODIUM CHLORIDE 0.9% 1,000 ML IV SCH (08:37)
[2019-07-20] MEDS: DILTIAZEM 125 MG in SODIUM CHLORIDE 0.9% 100 ML IV SCH (08:37)
[2019-07-20] MEDS: ATORVASTATIN 20 MG TAB PO SCH (08:39)
[2019-07-20 08:52] VITALS: BP 96/55; PULSE 90; RESP 18; TEMP 97.6
--- NOTE | 2019-07-22 15:37 | P.DS ---
Providers Date of admission: 07/18/19 17:28 Expected date of discharge: 07/20/19 Attending physician: Lamine Gaitan Consults: 07/18/19 17:28 Consult Physician Urgent Consulting Provider: [facility] Consult Reason/Comments: new onset afib with rvr Do you want consulting provider notified?: Yes 07/18/19 17:29 Consult Physician Urgent Consulting Provider: Shelbi Beltran Consult Reason/Comments: acute epigastric pain Do you want consulting provider notified?: Yes Primary care physician: [facility] Course: Chief Complaint: Heart racing History of presenting complaint: This is a very pleasant 54-year-old patient of Dr. Smyth. Patient being troubled quite quite some time with GI symptoms that include abdominal distention and bloating severe heartburns a lot of burping. Occasionally getting diarrhea. States she had EGD about a year ago not sure where but did have a bleeding ulcer. Afraid patient GI symptoms have been bothering him more supposed to follow with Dr. Anabell Beltran. Went to see his family doctor. Was found to be in atrial fibrillation with a rapid ventricular rate send him to the ER. Patient started on IV Cardizem. Patient states she's had 2 valves repaired back in 2012. Cannot give any other details. Denies any coronary artery disease otherwise. EGD showed mild gastritis. Patient was started on Xarelto. Consultation: Dr. Mayes from cardiology Dr. Anabell Beltran from GI. Physical examination: VITAL SIGNS: 97.5, 69, 16, 107/68, 93% on 2 L GENERAL: Sitting up, got in distress. EYES: Pupils equal. Conjunctiva brent, with right eye strabismus l. HEENT: External appearance of nose and ears normal, oral cavity grossly normal. NECK: JVD not raised; masses not palpable. HEART: Heart sounds irregular; no edema LUNGS: Respiratory rate normal; slightly decreased breath sounds. ABDOMEN: Soft, mild epigastric tenderness liver spleen not palpable, no masses palpable. PSYCH: Alert and oriented x3; mood and affect anxious INVESTIGATIONS, reviewed in the clinical context: EKG tracing personally reviewed by me-atrial fibrillation with a rate of 100 Hemoglobin 13.8 percussion 4.3 creatinine 0.98 TSH normal Assessment: -New diagnosis of atrial fibrillation, rate uncontrolled, unknown about the time of onset. . -GERD uncontrolled -Chronic nicotine dependence patient cigarette smoker -Right eye strabismus -Hypothyroid, rule out over replacement Disposition: Home Patient Condition at Discharge: Stable Plan - Discharge Summary Discharge Rx Participant: No New Discharge Prescriptions: New Rivaroxaban [Xarelto] 20 mg PO W/SUPPER #30 tab Continue Multivitamins, Thera [Multivitamin (formulary)] 1 tab PO DAILY Levothyroxine Sodium [Synthroid] 50 mcg PO DAILY Carvedilol [Coreg] 6.25 mg PO BID-W/MEALS #60 tab Esomeprazole Magnesium [NexIUM] 40 mg PO DAILY Ascorbic Acid [Vitamin C] 500 mg PO DAILY Atorvastatin [Lipitor] 20 mg PO DAILY Discontinued Loratadine [Claritin] 10 mg PO DAILY Aspirin 325 mg PO DAILY tab Enalapril [Vasotec] 2.5 mg PO DAILY #30 tab Furosemide [Lasix] 20 mg PO DAILY #30 tab Potassium Chloride [K-Tab ER] 10 meq PO DAILY #30 tablet.er Ranitidine HCl [Zantac] 150 mg PO DAILY Sucralfate [Carafate] 1 gram PO AC-TID Discharge Medication List Levothyroxine Sodium [Synthroid] 50 mcg PO DAILY 08/28/17 [History] Multivitamins, Thera [Multivitamin (formulary)] 1 tab PO DAILY 08/28/17 [History] Carvedilol [Coreg] 6.25 mg PO BID-W/MEALS #60 tab 08/29/17 [Rx] Ascorbic Acid [Vitamin C] 500 mg PO DAILY 07/18/19 [History] Atorvastatin [Lipitor] 20 mg PO DAILY 07/18/19 [History] Esomeprazole Magnesium [NexIUM] 40 mg PO DAILY 07/18/19 [History] Rivaroxaban [Xarelto] 20 mg PO W/SUPPER #30 tab 07/19/19 [Rx] Follow up Appointment(s)/Referral(s): Earnest Mayes MD [STAFF PHYSICIAN] - 3 Weeks ([employer] Engineer - please call for a follow up appointment for 2-3 weeks post hospital discharge. ) Juancoh Smyth MD [Primary Care Provider] - 3 Days (Please call on Monday and schedule follow up appointment with Dr. 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 ) [facility], [NON-STAFF] - () Patient Instructions/Handouts: A-fib (Atrial Fibrillation) (DC), Safe Use of Anticoagulants (DC) Discharge Disposition: HOME SELF-CARE
== END 2019-07-20 11:25 | disposition home health service (06) | DRG 310 ==
LOC: EC 13:20 → SUPCPDRO 13:20 → 3SCARD 17:28
PROVIDERS: ADMIT Hospitalist; ATTEND Hospitalist
PROC: 0DB78ZX Excision of Stomach, Pylorus, Via Natural or Artificial Opening Endoscopic, Diagnostic (ICD-10-PCS; 2019-07-19)
PROC: 0DB58ZX Excision of Esophagus, Via Natural or Artificial Opening Endoscopic, Diagnostic (ICD-10-PCS; 2019-07-19)
PROC: 0DB98ZX Excision of Duodenum, Via Natural or Artificial Opening Endoscopic, Diagnostic (ICD-10-PCS; principal; 2019-07-19 08:35)
DX: I48.11 Longstanding persistent atrial fibrillation (principal); E03.9 Hypothyroidism, unspecified; I25.10 Atherosclerotic heart disease of native coronary artery without angina pectoris; H50.9 Unspecified strabismus; K29.70 Gastritis, unspecified, without bleeding; K21.9 Gastro-esophageal reflux disease without esophagitis; F17.210 Nicotine dependence, cigarettes, uncomplicated; Z71.6 Tobacco abuse counseling; Z79.82 Long term (current) use of aspirin; Z79.890 Hormone replacement therapy; Z79.899 Other long term (current) drug therapy; Z95.1 Presence of aortocoronary bypass graft; Z95.2 Presence of prosthetic heart valve; Z87.19 Personal history of other diseases of the digestive system; Z80.1 Family history of malignant neoplasm of trachea, bronchus and lung; Z82.49 Family history of ischemic heart disease and other diseases of the circulatory system; Z82.5 Family history of asthma and other chronic lower respiratory diseases; Z83.3 Family history of diabetes mellitus; Z82.61 Family history of arthritis
CPT/HCPCS: 36415; 43239; 71046; 80048; 82272; 83735; 84132; 84443; 84484; 85025; 85610; 85730; 88305; 93005; 93306; 96365; 96366; 99285

== ENCOUNTER 2019-08-24 12:49 | Inpatient (IN) | payer MEDICARE, OTHER ==
--- NOTE | 2019-08-24 14:28 | ED ---
General Adult HPI - General Chief complaint: Shortness of Breath Stated complaint: pneumonia Time Seen by Provider: 08/24/19 13:00 Source: patient, RN notes reviewed, old records reviewed Mode of arrival: EMS Limitations: no limitations - History of Present Illness Initial comments: This is a 54-year-old male who was transferred from [facility] for bilateral pneumonia and mildly elevated troponin. Patient states started with left-sided chest pain this morning and difficulty breathing that is white went to the emergency department. Patient states currently he is having no chest pain or difficulty breathing. Patient denies any fever or chills. Patient denies any lightheadedness or dizziness. Patient has a swollen to the legs or calf tenderness. - Related Data Home Medications Medication Instructions Recorded Confirmed Levothyroxine Sodium [Synthroid] 50 mcg PO DAILY 08/28/17 07/18/19 Multivitamins, Thera [Multivitamin 1 tab PO DAILY 08/28/17 07/18/19 (formulary)] Ascorbic Acid [Vitamin C] 500 mg PO DAILY 07/18/19 07/18/19 Atorvastatin [Lipitor] 20 mg PO DAILY 07/18/19 07/18/19 Esomeprazole Magnesium [NexIUM] 40 mg PO DAILY 07/18/19 07/18/19 Previous Rx's Medication Instructions Recorded Carvedilol [Coreg] 6.25 mg PO BID-W/MEALS #60 tab 08/29/17 Rivaroxaban [Xarelto] 20 mg PO W/SUPPER #30 tab 07/19/19 Allergies Allergy/AdvReac Type Severity Reaction Status Date / Time No Known Allergies Allergy Verified 08/24/19 13:05 Review of Systems ROS Statement: Those systems with pertinent positive or pertinent negative responses have been documented in the HPI. ROS Other: All systems not noted in ROS Statement are negative. Past Medical History Past Medical History: Coronary Artery Disease (CAD), Chest Pain / Angina, GERD/Reflux, Thyroid Disorder Additional Past Medical History / Comment(s): hypotension History of Any Multi-Drug Resistant Organisms: None Reported Past Surgical History: Coronary Bypass/CABG Additional Past Surgical History / Comment(s): Valve fixed, hiatal hernia Past Anesthesia/Blood Transfusion Reactions: No Reported Reaction Past Psychological History: Anxiety, Depression Smoking Status: Current every day smoker Past Alcohol Use History: None Reported Past Drug Use History: None Reported - Past Family History Mother Additional Family Medical History / Comment(s): heart conditions Father Family Medical History: Cancer Additional Family Medical History / Comment(s): Lung CA General Exam - General Exam Comments Initial Comments: GENERAL: Patient is well-developed and well-nourished. Patient is nontoxic and well- hydrated and is in no acute distress. ENT: Neck is soft and supple. No significant lymphadenopathy is noted. Oropharynx is clear. Moist mucous membranes. Neck has full range of motion without eliciting any pain. EYES: The sclera were anicteric and conjunctiva were pink and moist. Extraocular movements were intact and pupils were equal round and reactive to light. Eyelids were unremarkable. PULMONARY: Unlabored respirations. Good breath sounds bilaterally. No audible rales rhonchi or wheezing was noted. CARDIOVASCULAR: There is a regular rate and rhythm without any murmurs gallops or rubs. ABDOMEN: Soft and nontender with normal bowel sounds. SKIN: Skin is clear with no lesions or rashes and otherwise unremarkable. NEUROLOGIC: Patient is alert and oriented x3. Cranial nerves II through XII are grossly intact. Motor and sensory are also intact. Normal speech, volume and content. Symmetrical smile. MUSCULOSKELETAL: Normal extremities with adequate strength and full range of motion. No lower extremity swelling or edema. No calf tenderness. LYMPHATICS: No significant lymphadenopathy is noted PSYCHIATRIC: Normal psychiatric evaluation. Limitations: no limitations Course Vital Signs 08/24/19 08/24/19 08/24/19 12:58 13:10 14:27 Temperature 97.1 F L Pulse Rate 99 78 Respiratory 20 20 Rate Blood Pressure 98/72 103/65 O2 Sat by Pulse 89 L 94 L 93 L Oximetry Medical Decision Making - Medical Decision Making I reviewed the material from [facility]. I also reviewed the chest x-ray I believe the chest x-ray is more consistent with congestive heart failure. BNP was ordered it was very elevated. I gave the patient Lasix and nitro glycerin. I spoke with Dr. moore takes agreed to admit the patient admitted the patient wrote admitting orders I consult cardiology. - Lab Data Lab Results 08/24/19 08/24/19 Range/Units 14:20 14:20 Troponin I 0.035 H* (0.000-0.034) ng/mL NT-Pro-B Natriuret Pep 60921 pg/mL Critical Care Time Critical Care Time: Yes Total Critical Care Time: 35 Disposition Clinical Impression: Acute pulmonary edema Disposition: ADMITTED IP TO THIS [facility] Referrals: Juancho Smyth MD [Primary Care Provider] - 1-2 days Time of Disposition: 15:25
[2019-08-24] MEDS ORDERED: NITROGLYCERIN OINT 1 INCH/GM PACKET TOPICAL STA (15:23)
[2019-08-24] MEDS ORDERED: FUROSEMIDE 10 MG/ML 10 ML VIAL IV STA (15:23)
[2019-08-24] MEDS ORDERED: ACETAMINOPHEN TAB 500 MG TAB PO PRN (21:29)
[2019-08-24] MEDS ORDERED: TEMAZEPAM 15 MG CAP PO PRN (21:29)
[2019-08-24 21:56] LABS: Chloride 113 mmol/L (98-107)
--- NOTE | 2019-08-24 22:01 | XR ---
EXAMINATION TYPE: XR chest 1V portable DATE OF EXAM: 08/24/2019 COMPARISON: Today HISTORY: Short of breath TECHNIQUE: Single view FINDINGS: There is pulmonary interstitial and alveolar edema. There are sternal wires. There are ches t leads. There is mild blunting of the costophrenic angles. Heart is probably enlarged. IMPRESSION: Pulmonary edema and pleural fluid consistent with congestive heart failure that is the sa me or slightly improved compared to exam this morning.
[2019-08-24] MEDS: DOXYCYCLINE 100 MG CAP PO SCH (22:12)
[2019-08-24] MEDS: RIVAROXABAN 20 MG TAB PO SCH (22:12)
[2019-08-24] MEDS: CARVEDILOL 6.25 MG TAB PO SCH (22:13)
[2019-08-24] MEDS: NITROGLYCERIN OINT 1 INCH/GM PACKET TOPICAL SCH (22:16)
[2019-08-24 22:46] LABS: ALT 39 U/L (4-49); AST 38 U/L (17-59); African American GFR (CKD) >90 (>60 ml/min/1.73 sqM); Albumin 3.2 g/dL (3.5-5.0); Alkaline Phosphatase 80 U/L (38-126); Anion Gap 7 mmol/L; Blood Urea Nitrogen 24 mg/dL (9-20); Calcium 8.8 mg/dL (8.4-10.2); Carbon Dioxide 20 mmol/L (22-30); Glucose 100 mg/dL (74-99); Non-African American GFR(CKD) 81 (>60 ml/min/1.73 sqM); Potassium 4.5 mmol/L (3.5-5.1); Sodium 140 mmol/L (137-145); Total Bilirubin 1.1 mg/dL (0.2-1.3); Total Protein 5.8 g/dL (6.3-8.2)
[2019-08-24 23:44] LABS: Magnesium 2.2 mg/dL (1.6-2.3)
--- NOTE | 2019-08-25 00:25 | HP ---
HISTORY AND PHYSICAL DATE OF SERVICE: 08/24/2019 CHIEF COMPLAINT: Shortness of breath and chest pain. HISTORY OF PRESENT ILLNESS: This 54-year-old gentleman with a past medical history of multiple medical problems including history of CAD, history of chest pain, GERD, hypothyroidism, hypertension, history of CAD, CABG, anxiety, depression, being followed by Dr. Smyth in the outpatient setting was complaining of shortness of breath, chest pain. Patient came to the [facility] and patient was subsequently referred to [facility] for further evaluation and treatment. Troponin mildly elevated at 0.035. NT proBNP is elevated at 12, 800. Chest x-ray showed features of CHF and Cardiology consultation was sought. Patient admitted for further evaluation and treatment. There is no history of fever, rigors or chills. No history of headache, loss of consciousness, seizures at this time. PAST MEDICAL HISTORY: History of CAD, history of chest pain, GERD, hypothyroidism, hypertension, CAD, CABG, anxiety, depression. MEDICATIONS: Home medications are: 1. Zestril 2.5 mg p.o. daily. 2. Lasix 20 mg q.48 hours. 3. Trazodone 25 mg q.h.s. 4. Xarelto 20 mg supper. 5. Multivitamins 1 p.o. daily. 6. Nexium 40 mg p.o. daily. 7. Lipitor 20 mg p.o. daily. 8. Synthroid 50 mcg p.o. 9. Coreg 6.25 mg p.o. b.i.d. 10.Doxycycline 100 mg p.o. b.i.d. 11.Albuterol inhaler 1-2 puffs q.4 p.r.n. ALLERGIES: None. FAMILY HISTORY: History of heart condition, cancer. SOCIAL HISTORY: History of smoking daily ongoing. REVIEW OF SYSTEMS: ENT: Diminished hearing, diminished vision. CARDIOVASCULAR SYSTEM: As mentioned earlier. RESPIRATORY: As mentioned earlier. GI no nausea or vomiting. no dysuria. CENTRAL NERVOUS SYSTEM: No numbness or weakness. ALLERGY/IMMUNOLOGY: No asthma or hay fever. MUSCULOSKELETAL as mentioned earlier. HEMATOLOGY/ONCOLOGY: No history of anemia. ENDOCRINE: No history of diabetes or hypothyroidism. CONSTITUTIONAL: As mentioned earlier. DERMATOLOGY: Negative. RHEUMATOLOGY: Negative. PSYCHIATRIC: As mentioned earlier. PHYSICAL EXAMINATION: Alert and oriented times three. Pulse 76, blood pressure 98/60, respirations 16, temperature 97.8, pulse ox 91 percent on 3 L. 89% on room air. HEENT is conjunctivae normal. Oral mucosa moist. NECK is no jugular venous distention. No carotid bruit. No lymph node enlargement. CARDIOVASCULAR: S1, S2 muffled. Otherwise lesions from murmur present. Chest is deformed, pectoris excavatum with healed scar also present. ABDOMEN: Soft, scaphoid, nontender. No mass palpable. LEGS: No edema. No swelling. NERVOUS SYSTEM: Higher functions as mentioned earlier. Moves all 4 limbs. No focal motor or sensory deficits. SKIN: No ulcer, no rash and no bleeding. JOINTS: No active deforming arthropathy. LABS: At this time shows troponin 0.06. NT proBNP is elevated. Other labs are noted as not available. ASSESSMENT: 1. Congestive heart failure acute exacerbation ejection fraction unknown. 2. Chest pain possible unstable angina. Rule out acute llo-XJ-hicdeid-elevation myocardial infarction with troponin 0.0335. 3. History of valve replacement coronary artery disease/coronary artery bypass grafting in [facility]. 4. History of gastroesophageal reflux disease. 5. Hypothyroidism. 6. History of hypertension. 7. Anxiety, depression. 8. History of bipolar. 9. History of continued ongoing nicotine dependence. RECOMMENDATIONS AND DISCUSSION: In this 54-year-old gentleman who presented with multiple complex medical issues, we will monitor the patient closely, continue the current medications, management and symptomatic treatment. Otherwise, I would recommend cardiology consultation. IV diuretics. Monitor fluid and electrolytes balance closely. Restrict fluid intake to 1200 mL per 24 hours. Resume the home medications. Guarded prognosis because of multiple complex medical issues. Further recommendations to follow. A copy of this dictation being forwarded to Dr. Smyth who is the primary physician. See orders for details. We will obtain a 2D echo with Doppler as well. Try to obtain old records regarding the cardiac surgery and followup as well. MMODL / IJN: [id number] / MTDD
[2019-08-25] MEDS: traZODone HCL 50 MG TAB PO SCH ×2 (00:49→21:34)
[2019-08-25] MEDS: FUROSEMIDE 10 MG/ML 4 ML VIAL IV SCH ×3 (00:50→12:48)
[2019-08-25] MEDS: ALPRAZolam 0.25 MG TAB PO PRN (03:35)
[2019-08-25 04:55] LABS: Appearance,Urine Clear (Clear); Bilirubin,Urine Negative (Negative); Blood,Urine Negative (Negative); Color,Urine Yellow; Glucose,Urine (UA) Negative (Negative); Ketones,Urine Negative (Negative); Leukocyte Esterase,Urine Negative (Negative); Nitrite,Urine Negative (Negative); PH, Urine 6.5 (5.0-8.0); Protein,Urine Negative (Negative); Specific Gravity,Urine 1.019 (1.001-1.035); Urobilinogen,Urine <2.0 mg/dL (<2.0)
[2019-08-25] MEDS: LEVOTHYROXINE 50 MCG TAB PO SCH (06:42)
[2019-08-25] MEDS: PANTOPRAZOLE 40 MG TABLET PO SCH (06:42)
[2019-08-25] MEDS: CARVEDILOL 6.25 MG TAB PO SCH (06:43)
[2019-08-25 07:18] LABS: Basophils % (A) 0 %; Eosinophils # (A) 0.1 k/uL (0-0.7); Eosinophils % (A) 2 %; HCT 44.2 % (39.0-53.0); HGB 13.8 gm/dL (13.0-17.5); Hypochromasia Slight; Lymphocytes # (A) 1.1 k/uL (1.0-4.8); Lymphocytes % (A) 17 %; MCH 28.6 pg (25.0-35.0); MCHC 31.1 g/dL (31.0-37.0); MCV 91.7 fL (80.0-100.0); Mean Platelet Volume 8.6; Monocytes # (A) 0.6 k/uL (0-1.0); Monocytes % (A) 9 %; Neutrophils # (A) 4.7 k/uL (1.3-7.7); Neutrophils % (A) 70 %; Platelet Count 121 k/uL (150-450); RBC 4.82 m/uL (4.30-5.90); WBC 6.7 k/uL (3.8-10.6)
[2019-08-25 07:37] LABS: Calcium 8.9 mg/dL (8.4-10.2); Potassium 4.5 mmol/L (3.5-5.1)
[2019-08-25] MEDS: NITROGLYCERIN OINT 1 INCH/GM PACKET TOPICAL SCH (08:18)
[2019-08-25] MEDS: NICOTINE 14MG/24HR PATCH TRANSDERM SCH (08:19)
[2019-08-25] MEDS: ATORVASTATIN 20 MG TAB PO SCH (08:23)
[2019-08-25] MEDS: DOXYCYCLINE 100 MG CAP PO SCH ×2 (08:23→21:34)
[2019-08-25] MEDS: MULTIVITAMINS, THERA 1 EACH TAB PO SCH (08:23)
[2019-08-25] MEDS ORDERED: LISINOPRIL 2.5 MG TAB PO SCH (09:00)
[2019-08-25] MEDS: CARVEDILOL 1.563 MG TAB PO SCH (13:25)
--- NOTE | 2019-08-25 14:53 | P.CNPUL ---
History of Present Illness Consult date: 08/25/19 Requesting physician: Alexa Barron Reason for consult: dyspnea Chief complaint: Shortness of breath and chest pain. History of present illness: This is a 54-year-old white male with history of multiple medical problems including valvular heart disease, ischemic cardiomyopathy and LV dysfunction, history of previous valve repair. At the [facility] back over 8 years ago, patient normally sees Dr. Skinner for his cardiac issues on a regular basis. 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 Patient has history of hypertension, presented to [facility] with 1 day history of increased shortness of breath and left-sided chest pain. Patient described the pain as severe, pressure over the left side of the chest, not associated with any diaphoresis. His chest x-ray showed evidence of pulmonary edema. BNP level was extremely elevated. EKG was supposedly done at [place], and was not repeated here in our facility. Patient was already seen by cardiology, and his admitting diagnosis is consistent with acute systolic congestive heart failure. And possible non-ST elevation myocardial infarction. Troponin level was 0.035. Patient was given Lasix by the ER physician, and he improved significantly with one dose of Lasix given earlier. Again his chest x-ray is clearly consistent with congestive heart failure/pulmonary edema. Looking back at a previous echocardiogram, patient clearly had history of LV dysfunction with ejection fraction of 25%. The echocardiogram was dated 07/19/2019. His echocardiogram also showed moderate mitral regurgitation, mild mitral stenosis, and clearly evidence of mitral valve repair. Based on previous documentation, patient had normal coronaries based on previous coronary angiography. This was in 2014, by the time I saw the patient, patient had no chest pain, he was on few liters nasal cannula, and he was feeling much better especially after he received a dose of Lasix. Patient is maintained on Lasix IV push every 8 hours, patient had no symptoms to suggest pneumonia, no fever no chills and no purulent sputum production. And there was no evidence of leukocytosis based on his CBC. Review of Systems Constitutional: Denies fever chills or weight loss. Describes generalized weakness. HEENT: Patient is hard of hearing, he had multiple facial surgeries on his nose, maxillofacial, vocal cords, and palate. Cardiac: As noted in HPI, Pulmonary: As noted in HPI. Neurologic: Denies any headache blurred vision dizziness. GI: Had recent EGD and biopsy showing mostly gastritis. Presently asymptomatic. No nausea no vomiting no abdominal pain no melena no hematemesis. Genitourinary: Denies any dysuria frequency hematuria or urgency. Skin: Denies any rashes. Endocrine: Denies any heat or cold intolerance. Musculoskeletal: Denies any myalgia, arthralgia, or any deformities. Psychiatric: Denies any symptoms of active depression Hematologic: Denies any clotting bleeding or bruising. Past Medical History Past Medical History: Coronary Artery Disease (CAD), Chest Pain / Angina, GERD/Reflux, Thyroid Disorder Additional Past Medical History / Comment(s): hypotension History of Any Multi-Drug Resistant Organisms: None Reported Past Surgical History: Coronary Bypass/CABG Additional Past Surgical History / Comment(s): Valve fixed, hiatal hernia Past Anesthesia/Blood Transfusion Reactions: No Reported Reaction Past Psychological History: Anxiety, Depression Additional Psychological History / Comment(s): Pt states he was diagnosed as bipolar but no longer takes medication. Smoking Status: Current every day smoker Past Alcohol Use History: None Reported Past Drug Use History: None Reported - Past Family History Mother Additional Family Medical History / Comment(s): heart conditions Father Family Medical History: Cancer Additional Family Medical History / Comment(s): Lung CA Medications and Allergies Home Medications Medication Instructions Recorded Confirmed Type Levothyroxine Sodium [Synthroid] 50 mcg PO DAILY@0600 08/28/17 08/24/19 History Multivitamins, Thera [Multivitamin 1 tab PO DAILY@0900 08/28/17 08/24/19 History (formulary)] Carvedilol [Coreg] 6.25 mg PO BID-W/MEALS #60 tab 08/29/17 08/24/19 Rx Atorvastatin [Lipitor] 20 mg PO DAILY@0900 07/18/19 08/24/19 History Esomeprazole Magnesium [NexIUM] 40 mg PO DAILY@0900 07/18/19 08/24/19 History Rivaroxaban [Xarelto] 20 mg PO W/SUPPER #30 tab 07/19/19 08/24/19 Rx Albuterol Inhaler [Ventolin Hfa 1 - 2 puff INHALATION RT-Q4H PRN 08/24/19 08/24/19 History Inhaler] Doxycycline Hyclate 100 mg PO BID 08/24/19 08/24/19 History Furosemide [Lasix] 20 mg PO Q48H 08/24/19 08/24/19 History Lisinopril [Zestril] 2.5 mg PO DAILY@0900 08/24/19 08/24/19 History traZODone HCL 25 mg PO HS 08/24/19 08/24/19 History Allergies Allergy/AdvReac Type Severity Reaction Status Date / Time No Known Allergies Allergy Verified 08/24/19 17:55 Physical Exam Vitals: Vital Signs Temp Pulse Pulse Resp BP BP Pulse Ox 08/25/19 12:00 63 16 109/44 92 L 08/25/19 08:00 97.1 F L 83 16 82/60 94 L 08/25/19 04:00 97.9 F 116 H 20 110/61 92 L 08/25/19 00:00 97.6 F 91 20 87/51 93 L 08/24/19 20:00 97.5 F L 64 18 100/56 88 L 08/24/19 17:17 76 16 98/69 91 L 08/24/19 16:38 81 18 105/88 93 L 08/24/19 15:45 97.8 F 80 20 98/73 93 L Intake and Output 08/24/19 08/25/19 08/25/19 22:59 06:59 14:59 Intake Total 240 Output Total 600 200 Balance 240 -600 -200 Intake: Oral 240 Output: Urine 600 200 Other: Voiding Method Toilet Toilet Toilet # Bowel Movements 1 Weight 86.046 kg 77.9 kg Physical exam revealed a 54-year-old white male, hard of hearing, garbled speech, in no form of respiratory distress, on 2 L nasal cannula. HEENT: Atraumatic, normocephalic, PERRLA, EOMI, no icterus, moist mucous membranes. Neck reveals no JVD, carotid bruits, or thyromegaly. CHEST EXAMINATION: Trachea is central. Symmetrical expansion. Crackles at the bases bilaterally. No rhonchi no wheezes. CARDIAC: Normal S1, S2 with no gallops. 2/6 systolic murmur thought the precordium. Best served at the left lower sternal border. ABDOMEN: Soft. Bowel sounds normal. No organomegaly. No abdominal bruits. Extremities: No clubbing edema or cyanosis. Good pulses bilaterally. Neurologic: Alert and oriented 3, no gross focal neurologic deficits. Skin: No rash or skin lesions. Psychiatric: Normal mood affect and normal mental status examination. Musculoskeletal: No joint swelling or deformity. Normal range of motion. Lymphatics: No lymphadenopathy. Results - Laboratory Findings CBC and BMP: 08/25/19 05:59 08/25/19 05:59 Abnormal lab findings: Abnormal Labs 08/24/19 08/24/19 08/25/19 14:20 14:20 05:59 Plt Count 121 L Chloride 113 H Carbon Dioxide 20 L BUN 24 H Glucose 100 H Troponin I 0.035 H* Total Protein 5.8 L Albumin 3.2 L 08/25/19 05:59 Plt Count Chloride 109 H Carbon Dioxide BUN 30 H Glucose 104 H Troponin I Total Protein Albumin - Diagnostic Findings Chest x-ray: image reviewed (Chest x-ray is mostly consistent with pulmonary edema.) Assessment and Plan Assessment: Impression: Acute hypoxic respiratory failure secondary to systolic congestive heart failure and LV dysfunction. Elevated troponin, cannot rule out non-ST elevation myocardial infarction, being addressed by cardiology. Chest pain consistent with unstable angina, again being addressed by cardiology. May eventually require cardiac catheterization. History of valvular heart disease, previous mitral valve repair at the [facility] in 2009. History of GERD and gastritis. 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 Recommendation: Continue diuretics. Continue cardiac meds. Including Coreg. Continue bronchodilators. Continue nicotine patch. Cardiology to address and possibly consider cardiac catheterization. Or at least repeat echocardiogram. His last echocardiogram did show evidence of severe LV dysfunction with ejection fraction of 25%. Continue Xarelto. Continue Protonix. Resume home meds including thyroid medication. Repeat chest x-ray in a.m. We'll continue to follow. Time with Patient: Greater than 30
[2019-08-25 15:20] VITALS: BMI 23.3
[2019-08-25] MEDS: RIVAROXABAN 20 MG TAB PO SCH (16:24)
--- NOTE | 2019-08-25 21:38 | PN ---
PROGRESS NOTE DATE OF SERVICE: 08/25/2019. This 54-year-old gentleman who was admitted with shortness of breath and chest pain has features of CHF. The patient also had hypotension last night. Medication adjusted today. The patient is slightly better. Patient had significant increased cardiac history previously with replacement of at least 2 valves and the patient also had a troponin elevated up to 0.035. Cardiology evaluation in progress at this time. PAST MEDICAL HISTORY: Reviewed. REVIEW OF SYSTEMS: CARDIOVASCULAR: As mentioned earlier. RESPIRATORY: As mentioned earlier. GI no nausea or vomiting. no dysuria. CENTRAL NERVOUS SYSTEM: No numbness or weakness. CURRENT MEDICATIONS: Reviewed and include: 1. Tylenol p.r.n. 2. Xanax 0.5 t.i.d. 3. Lipitor 20 mg p.o. 4. Coreg 1.63 p.o. b.i.d. 5. Vibramycin 100 mg p.o. b.i.d. 6. Lasix 40 mg IV q.h.s. 7. Synthroid 50 mcg daily. 8. Multivitamins. 9. Habitrol 14 daily. 10.Protonix 40 daily. 11.Xarelto 20 mg. 12.Restoril. 13.Desyrel. PHYSICAL EXAMINATION: The patient is alert and oriented x2. Pulse is 102. Blood pressure 105/49, respirations 16, temperature normal, pulse ox 93% on 4 L. HEENT is conjunctivae normal. NECK: No jugular venous distention. CARDIOVASCULAR: S1, S2 muffled. Ejection systolic murmur. Status post cardiac surgery RESPIRATION: Breath sounds diminished in the bases. Chest emphysematous, pectus excavatum present. Otherwise bilateral scattered rhonchi and crackles. ABDOMEN: Scaphoid. Nontender. No mass palpable. LEGS: No edema. No swelling. NERVOUS SYSTEM: Higher functions as mentioned earlier. Moves all four limbs. No focal motor or sensory deficits. LYMPHATICS: No lymph nodes palpable in the neck, axillae or groin. SKIN: No ulcer, rash or bleeding. JOINTS: No active deforming arthropathy. LABS: CBC normal except platelets 121. Troponin noted. Otherwise, chest x-ray which was personally reviewed by me showed evidence of CHF. ASSESSMENT: 1. Congestive heart failure, acute exacerbation with ejection fraction unknown. 2. Cardiogenic shock and hypotension. 3. Chest pain possible unstable angina. Rule out acute rln-NZ-bdagezu-elevation myocardial infarction with troponin 0.0335. 4. History of multiple valve replacement and possible coronary artery bypass grafting done at [facility]. 5. History of gastroesophageal reflux disease. 6. Hypothyroidism. 7. History of hypertension. 8. Anxiety/depression. 9. History of bipolar. 10.History of continued ongoing nicotine dependence. 11.Thrombocytopenia mild. 12.Increased BUN. RECOMMENDATIONS AND DISCUSSION: This 54-year-old gentleman who presented with multiple complex medical issues, we will monitor the patient closely, continue the current medications, management and symptomatic treatment. Continue the diuretics closely. Adjust medications. Coreg dose adjusted. DVT prophylaxis. Otherwise symptomatic treatment. Proton pump inhibitors. Guarded prognosis because of multiple complex medical issues. Closely follow with Cardiology and Pulmonology. Further recommendations to follow. We will try to obtain the old records also regarding the surgery as well. Further recommendations to follow. MMCOREYL / IJN: [id number] /
--- NOTE | 2019-08-25 22:23 | CONS ---
CONSULTATION Jun Mejia is a 54-year-old gentleman with a known history of what seems to be a nonischemic cardiomyopathy with a history of mitral and tricuspid valve repair in the past with ejection fraction in the 20-25%. He comes into the hospital with increasing shortness of breath transferred from [facility]. He is resting comfortably, but appears to be short of breath. He is on IV Lasix with modest improvement. He has underlying atrial fibrillation. He sees Dr. Beltran in the outpatient setting. He was last seen here in June of this year. His surgery was performed at the [facility] sometime in 2012 with a mitral and tricuspid valve repair. He is known to have congestive heart failure, recurrent episodes. He comes in this time with increasing shortness of breath. At the time of my evaluation he is still short of breath with activity, but at rest he seems to be comfortable. PAST MEDICAL HISTORY: Remarkable for nonischemic cardiomyopathy, evidence of prior mitral and tricuspid valve repair, unremarkable stress test in terms of ischemia about a year ago. MEDICATIONS: At home include Lasix, Zestril, trazodone, Xarelto, multivitamin, Synthroid, Lipitor, Coreg. PHYSICAL EXAMINATION: Blood pressure is about 98/60, pulse rate is about 63 per minute. EKG revealed atrial fib, controlled ventricular rate, nonspecific ST changes. HEENT unremarkable fundus was not examined by me. Neck is supple. There is JVD of 1-2 cm. No carotid bruit. Heart exam reveals S1, S2 with a regular rhythm. Short systolic murmur at the apex and left lower sternal border. Lungs reveal diminished air entry. Fine rales over both bases. Abdomen is soft. Lower extremities reveal bilateral 1+ edema. Central nervous system grossly no focal deficits. IMPRESSION: 1. Exacerbation of systolic heart failure in a patient with chronic systolic heart failure. 2. Probable associated pneumonia. 3. History of mitral and tricuspid valve repair. RECOMMENDATION: I am recommending that we continue IV Lasix, decrease Coreg and cautiously diurese him and based on clinical course I will make further recommendations. Prognosis remains quite poor given his multiple comorbid conditions. Thank you very much for the consult. MMODL / IJN: [id number] /
[2019-08-26] MEDS: FUROSEMIDE 10 MG/ML 4 ML VIAL IV SCH ×3 (00:20→22:03)
[2019-08-26] MEDS: ALPRAZolam 0.25 MG TAB PO PRN (04:21)
[2019-08-26 06:28] LABS: Basophils % (A) 0 %; Eosinophils # (A) 0.1 k/uL (0-0.7); Eosinophils % (A) 2 %; HCT 46.9 % (39.0-53.0); HGB 14.7 gm/dL (13.0-17.5); Hypochromasia Moderate; Lymphocytes # (A) 1.4 k/uL (1.0-4.8); Lymphocytes % (A) 16 %; MCH 28.5 pg (25.0-35.0); MCHC 31.3 g/dL (31.0-37.0); MCV 90.9 fL (80.0-100.0); Mean Platelet Volume 8.1; Monocytes # (A) 0.8 k/uL (0-1.0); Monocytes % (A) 9 %; Neutrophils # (A) 6.4 k/uL (1.3-7.7); Neutrophils % (A) 72 %; Platelet Count 152 k/uL (150-450); RBC 5.15 m/uL (4.30-5.90); RDW 13.8 % (11.5-15.5); WBC 8.9 k/uL (3.8-10.6)
[2019-08-26] MEDS: CARVEDILOL 1.563 MG TAB PO SCH ×2 (06:32→19:08)
[2019-08-26] MEDS: PANTOPRAZOLE 40 MG TABLET PO SCH (06:32)
[2019-08-26] MEDS: LEVOTHYROXINE 50 MCG TAB PO SCH (06:32)
[2019-08-26 06:38] LABS: African American GFR (CKD) >90 (>60 ml/min/1.73 sqM); Anion Gap 7 mmol/L; Blood Urea Nitrogen 28 mg/dL (9-20); Calcium 9.5 mg/dL (8.4-10.2); Carbon Dioxide 30 mmol/L (22-30); Chloride 103 mmol/L (98-107); Glucose 107 mg/dL (74-99); Non-African American GFR(CKD) 81 (>60 ml/min/1.73 sqM); Sodium 140 mmol/L (137-145)
[2019-08-26] MEDS: MULTIVITAMINS, THERA 1 EACH TAB PO SCH (09:11)
[2019-08-26] MEDS: DOXYCYCLINE 100 MG CAP PO SCH ×2 (09:11→22:04)
[2019-08-26] MEDS: ATORVASTATIN 20 MG TAB PO SCH (09:11)
[2019-08-26] MEDS: NICOTINE 14MG/24HR PATCH TRANSDERM SCH ×2 (09:11→09:13)
--- NOTE | 2019-08-26 11:10 | XR ---
EXAMINATION TYPE: XR chest 1V portable DATE OF EXAM: 08/26/2019 COMPARISON: 08/24/2019 HISTORY: Shortness of breath TECHNIQUE: Single frontal view of the chest is obtained. FINDINGS: The heart is enlarged and is postoperative change. Coarsened interstitium seen with tiny b ilateral effusions. No pneumothorax. Hyperinflation suggests COPD. IMPRESSION: 1. COPD with suspected mild pulmonary venous congestion slightly improved from the prior exam.
[2019-08-26 11:53] LABS: Glucose,Whole Blood 101 mg/dL (75-99)
[2019-08-26] MEDS ORDERED: IPRATROPIUM-ALBUTEROL 3 ML NEB INHALATION PRN ×2 (13:00)
[2019-08-26] MEDS ORDERED: SENNOSIDES 8.6 MG TAB PO PRN (13:02)
[2019-08-26] MEDS ORDERED: AMIODARONE 360 MG in DEXTROSE 5% IN WATER 200 ML IV ONE ×2 (14:03)
[2019-08-26] MEDS ORDERED: DEXTROSE 5% IN WATER 100 ML with AMIODARONE 150 MG IV ONE (14:03)
--- NOTE | 2019-08-26 15:26 | P.PN ---
Subjective Progress Note Date: 08/26/19 is a 54-year-old gentleman with known history of nonischemic cardio myopathy with history of mitral and tricuspid valve repair in the past at [facility], prior documented ejection fraction 20-25%. He presented to [facility] with symptoms of progressively worsening shortness of breath. 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 Patient does have history of paroxysmal atrial fibrillation, hypothyroidism, hypertension, hyperlipidemia.patient was transferred here to [facility], currently is receiving treatment for congestive cardiac failure, continues to be on IV Lasix at this time and appears to be diuresing well. He was noted on the monitor this afternoon to have runs of nonsustained ventricular tachycardia.his blood pressure continues to run on the low side, he 89/50, 98/60. Earlier today he was in A. fib with rapid ventricular response, after receiving his oral medications a heart rate came down nicely. He is currently 95% on 4 L of oxygen.his white blood cell count is 8.9, hemoglobin 14.7, platelet count 152. Sodium 140, potassium 5.0, BUN 28, and creatinine 1.0. Magnesium was 2.2 on the which we will repeat.patient's overall feeling quite well today, he denies any shortness of breath dizziness or lightheadedness, he states that he is having some yellow- colored diarrhea stools. Objective - Vital Signs Vital signs: Vital Signs Temp 97.3 F L 08/26/19 12:15 Pulse 127 H 08/26/19 12:15 Resp 18 08/26/19 12:15 BP 83/50 08/26/19 12:15 Pulse Ox 95 08/26/19 12:15 Intake & Output 08/25/19 08/26/19 08/26/19 18:59 06:59 18:59 Intake Total 402 1200 Output Total 1149 2024 100 Balance - 1100 Weight 77.9 kg 80.2 kg Intake: Oral 402 1200 Output: Urine 1149 2024 100 Other: Voiding Method Toilet Urinal # Voids 3 2 1 # Bowel Movements 2 1 - Exam Physical exam revealed a 54-year-old white male, hard of hearing, garbled speech, in no form of respiratory distress, on 2 L nasal cannula. HEENT: Atraumatic, normocephalic, PERRLA, EOMI, no icterus, moist mucous membranes. Neck reveals no JVD, carotid bruits, or thyromegaly. CHEST EXAMINATION: Trachea is central. Symmetrical expansion. Crackles at the bases bilaterally. No rhonchi no wheezes. CARDIAC: Normal S1, S2 with no gallops. 2/6 systolic murmur thought the precordium. Best served at the left lower sternal border. ABDOMEN: Soft. Bowel sounds normal. No organomegaly. No abdominal bruits. Extremities: No clubbing edema or cyanosis. Good pulses bilaterally. Neurologic: Alert and oriented 3, no gross focal neurologic deficits. Skin: No rash or skin lesions. Psychiatric: Normal mood affect and normal mental status examination. Musculoskeletal: No joint swelling or deformity. Normal range of motion. Lymphatics: No lymphadenopathy. - Labs CBC & Chem 7: 08/26/19 05:47 08/26/19 05:47 Labs: Abnormal Lab Results - Last 24 Hours (Table) 08/26/19 08/26/19 Range/Units 05:47 11:51 BUN 28 H (9-20) mg/dL Glucose 107 H (74-99) mg/dL POC Glucose (mg/dL) 101 H (75-99) mg/dL Assessment and Plan Plan: Impressionand plan: #1Acute hypoxic respiratory failure secondary to systolic congestive heart failure and LV dysfunction.acute on chronic #2Elevated troponin, cannot rule out non-ST elevation myocardial infarction #3History of valvular heart disease, previous mitral valve repair at the [facility] in 2009. #4History of GERD and gastritis. As well as esophagitis presently asymptomatic #History of hypothyroidism #6Benign essential hypertension #7History of bipolar disorder #8Nicotine dependence syndrome #9nonsustained ventricular tachycardia Plan We will start the patient on IV amiodarone discontinue IV Lasix, monitor the intake and output along with daily weights and daily lytes BUN and creatinine. We will also check a magnesium level. DNP note has been reviewed, I agree with a documented findings and plan of care. Patient was seen and examined.
--- NOTE | 2019-08-26 15:42 | P.PN ---
Subjective Progress Note Date: 08/26/19 Principal diagnosis: Shortness of breath This is a 54-year-old white male with history of multiple medical problems including valvular heart disease, ischemic cardiomyopathy and LV dysfunction, history of previous valve repair. At the [facility] back over 8 years ago, patient normally sees Dr. Skinner for his cardiac issues on a regular basis. 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 Patient has history of hypertension, presented to [facility] with 1 day history of increased shortness of breath and left-sided chest pain. Patient described the pain as severe, pressure over the left side of the chest, not associated with any diaphoresis. His chest x-ray showed evidence of pulmonary edema. BNP level was extremely elevated. EKG was supposedly done at [facility], and was not repeated here in our facility. Patient was already seen by cardiology, and his admitting diagnosis is consistent with acute systolic congestive heart failure. And possible non-ST elevation myocardial infarction. Troponin level was 0.035. Patient was given Lasix by the ER physician, and he improved significantly with one dose of Lasix given earlier. Again his chest x-ray is clearly consistent with congestive heart failure/pulmonary edema. Looking back at a previous echocardiogram, patient clearly had history of LV dysfunction with ejection fraction of 25%. The echocardiogram was dated 07/19/2019. His echocardiogram also showed moderate mitral regurgitation, mild mitral stenosis, and clearly evidence of mitral valve repair. Based on previous documentation, patient had normal coronaries based on previous coronary angiography. This was in 2014, by the time I saw the patient, patient had no chest pain, he was on few liters nasal cannula, and he was feeling much better especially after he received a dose of Lasix. Patient is maintained on Lasix IV push every 8 hours, patient had no symptoms to suggest pneumonia, no fever no chills and no purulent sputum production. And there was no evidence of leukocytosis based on his CBC. On 08/26/2019 patient has been seen and follow-up on selective care unit, he is awake and alert, in no acute distress, he is on 4 L of oxygen with a pulse ox of 92-95%, in no acute distress, he is afebrile, blood pressures 82/52, patient has been ambulating with therapy and a walker, tolerating activity very well. Denies any chest pain, denies any lightheadedness, denies any cough or congestion, follow-up chest x-ray today showed COPD with suspected mild pulmonary venous congestion. he continues on IV Lasix of 40 mg every 8 hours, patient is maintaining negative fluid balance, -2773 mL over the last 24 hours, no peripheral edema on today's exam. Today's labs have been reviewed, CBC is within normal limits, electrolytes are within normal limits, B1 is 28 creatinine is 1.05. Objective - Vital Signs Vital signs: Vital Signs Temp 97.3 F L 08/26/19 12:15 Pulse 127 H 08/26/19 12:15 Resp 18 08/26/19 12:15 BP 83/50 08/26/19 12:15 Pulse Ox 95 08/26/19 12:15 Intake & Output 08/25/19 08/26/19 08/26/19 18:59 06:59 18:59 Intake Total 402 1200 Output Total 1150 2024 100 Balance - 1100 Weight 77.9 kg 80.2 kg Intake: Oral 402 1200 Output: Urine 1150 2024 100 Other: Voiding Method Toilet Urinal # Voids 3 2 1 # Bowel Movements 2 1 - Exam GENERAL EXAM: Alert, very pleasant, 54-year-old white male, on 4 L of oxygen with a pulse ox of 94% comfortable in no apparent distress. HEAD: Normocephalic/atraumatic. EYES: Normal reaction of pupils, equal size. Conjunctiva pink, sclera white. NOSE: Clear with pink turbinates. THROAT: No erythema or exudates. NECK: No masses, no JVD, no thyroid enlargement, no adenopathy. CHEST: No chest wall deformity. Symmetrical expansion. LUNGS: Equal air entry with no crackles, wheeze, rhonchi or dullness. CVS: Regular rate and rhythm, normal S1 and S2, no gallops, no murmurs, no rubs ABDOMEN: Soft, nontender. No hepatosplenomegaly, normal bowel sounds, no guarding or rigidity. EXTREMITIES: No clubbing, no edema, no cyanosis, 2+ pulses and upper and lower extremities. MUSCULOSKELETAL: Muscle strength and tone normal. SPINE: No scoliosis or deformity SKIN: No rashes CENTRAL NERVOUS SYSTEM: Alert and oriented -3. No focal deficits, tone is normal in all 4 extremities. PSYCHIATRIC: Alert and oriented -3. Appropriate affect. Intact judgment and insight. - Labs CBC & Chem 7: 08/26/19 05:47 08/26/19 05:47 Labs: Abnormal Lab Results - Last 24 Hours (Table) 08/26/19 08/26/19 Range/Units 05:47 11:51 BUN 28 H (9-20) mg/dL Glucose 107 H (74-99) mg/dL POC Glucose (mg/dL) 101 H (75-99) mg/dL Assessment and Plan Plan: Assessment: #1. Acute hypoxic respiratory failure secondary to acute exacerbation of CHF with systolic dysfunction #2. Elevated troponin, cannot rule out non-ST elevated myocardial infarction, being followed by cardiology #3. Chest pain consistent with unstable angina, being addressed by cardiology #4. History of valvular heart disease, previous mitral valve repair at the [facility] in 2009 #5. History of GERD and gastritis and esophagitis, currently asymptomatic #6. History of hypothyroidism #7. History of benign essential hypertension #8. History of bipolar disorder #9. History of nicotine dependence syndrome #10. 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 Episode of V. tach, currently on amiodarone Plan: Patient is diuresing, maintaining negative fluid balance, breathing easier, no complaints of worsening shortness of breath or chest pain, myositis stable, weaning FiO2, patient is tolerating ambulation, no lightheadedness or dizziness, continue with diuretics, continue with nebulized bronchodilators, antibiotics, did have an episode of V. tach, and hypotension, we'll decrease the dose of IV Lasix to 40 mg every 12 hours, patient has been initiated on amiodarone drip per cardiology, we will continue to follow I performed a history & physical examination of the patient and discussed their management with my nurse practitioner, Tereza Javier. I reviewed the nurse practitioner's note and agree with the documented findings and plan of care. Lung sounds are positive for bibasilar crackles. The findings and the impression was discussed with the patient. I attest to the documentation by the nurse practitioner. Time with Patient: Less than 30
[2019-08-26] MEDS: IPRATROPIUM-ALBUTEROL 3 ML NEB INHALATION SCH ×2 (15:46→19:52)
[2019-08-26] MEDS: RIVAROXABAN 20 MG TAB PO SCH (19:09)
[2019-08-26] MEDS: traZODone HCL 50 MG TAB PO SCH (22:03)
[2019-08-26] MEDS: AMIODARONE 300 MG in DEXTROSE 5% IN WATER 250 ML IV SCH ×2 (22:31)
--- NOTE | 2019-08-27 00:08 | PN ---
PROGRESS NOTE DATE OF SERVICE: 08/26/2019 This 54-year-old gentleman who was admitted with CHF, acute exacerbation, is being closely monitored at this time. A 2D echo with Doppler which was done last month, June, showed ejection fraction about 20% to 25%, indicating severe systolic dysfunction. The patient also had mitral and tricuspid valve repair. The patient is being closely monitored at this time. Patient also has periodic hypotension. His renal function is well maintained except for some minimally elevated BUN. Cardiology is following the patient closely. The troponin is indeterminate at 0.035. Past medical history reviewed. The patient has had episodes of ventricular tachycardia. REVIEW OF SYSTEMS: CARDIOVASCULAR SYSTEM: No angina, palpitations. RESPIRATORY SYSTEM: As mentioned earlier. GI: As mentioned earlier. : No dysuria or retention. NERVOUS SYSTEM: No numbness, weakness. CURRENT MEDICATIONS: Reviewed. They include: 1. Tylenol p.r.n. 2. DuoNeb q.i.d. and p.r.n. 3. Xanax. 4. Amiodarone drip. 5. Lipitor 20 mg daily. 6. Coreg. 7. Lasix 40 mg IV b.i.d. 8. Synthroid 50 mcg daily. 9. Multivitamins 1 p.o. daily. 10.Habitrol 14 daily. 11.Protonix. 12.Xarelto 20 mg daily. 13.Restoril. 14.Desyrel. PHYSICAL EXAMINATION: Patient is alert, oriented x2. Pulse 79, blood pressure 99/60, respiration 18, pulse ox 93% on 4 L. HEENT: Conjunctivae normal. Oral mucosa moist. NECK: No jugular venous distention. No carotid bruit. No lymph node enlargement. CARDIOVASCULAR SYSTEM: S1, S2 muffled. Ejection systolic murmur present, especially in the apical area. Chest deformity present. RESPIRATORY SYSTEM: Breath sounds diminished at the bases. A few scattered rhonchi. No crackles. ABDOMEN: Soft, scaphoid. Non-tender. NERVOUS SYSTEM: No focal deficit. LABS: Labs at this time show WBC 8.9, hemoglobin 14.7. BUN is 28, creatinine 1.05, as mentioned earlier; otherwise glucose noted. ASSESSMENT: 1. Congestive heart failure, acute exacerbation, with acute on chronic systolic dysfunction with ejection fraction 20% to 25%. 2. Possible cardiomyopathy. 3. Status post mitral and tricuspid valve repair. 4. Cardiogenic shock and severe hypotension. 5. Chest pain; possible unstable angina. Rule out acute ixj-CG-[id number]-elevation myocardial infarction with troponin 0.035 with possible type 2 myocardial infarction. 6. History of gastroesophageal reflux disease. 7. Hypothyroidism. 8. History of hypertension. 9. Anxiety, depression. 10.History of bipolar. 11.Continued ongoing nicotine dependence. 12.History of thrombocytopenia, mild. 13.Increased BUN. 14.Symptomatic ventricular tachycardia. RECOMMENDATIONS AND DISCUSSION: In this 54-year-old gentleman who presented with multiple complex medical issues, we will monitor the patient closely, continue the current medications, continue symptomatic treatment. Otherwise at this time monitor blood pressure closely. Amiodarone drip was initiated for symptomatic ventricular tachycardia. Will closely monitor. Continue the rest of medications. Prognosis is guarded because of multiple complex medical issues. Further recommendations to follow. Closely follow with Pulmonary and Cardiology. MMODL / IJN: [id number] /
[2019-08-27] MEDS: CARVEDILOL 1.563 MG TAB PO SCH ×3 (06:47→17:44)
[2019-08-27] MEDS: PANTOPRAZOLE 40 MG TABLET PO SCH (06:47)
[2019-08-27] MEDS: LEVOTHYROXINE 50 MCG TAB PO SCH (06:47)
[2019-08-27] MEDS: IPRATROPIUM-ALBUTEROL 3 ML NEB INHALATION SCH ×4 (06:55→19:06)
--- NOTE | 2019-08-27 07:18 | ECHOF ---
Referral Reason:chf MEASUREMENTS -------- HEIGHT: 182.9 cm WEIGHT: 79.8 kg BP: 99/58 IVSd: 2.4 cm (0.6 - 1.1) LVIDd: 6.2 cm (3.9 - 5.3) LVPWd: 2.5 cm (0.6 - 1.1) IVSs: 2.9 cm LVIDs: 5.0 cm LVPWs: 2.6 cm IVSd: 1.1 cm (0.6 - 1.1) LVIDd: 7.7 cm (3.9 - 5.3) LVPWd: 1.3 cm (0.6 - 1.1) IVSs: 1.9 cm LVIDs: 6.3 cm LVPWs: 2.3 cm EDV(Teich): 317 ml ESV(Teich): 202 ml EF(Teich): 36 % %FS: 18 % SV(Teich): 116 ml FINDINGS -------- Atrial fibrillation. Limited Study There is severe global hypokinesis of LV . Overall left ventricular systolic function is severely i mpaired with, an EF between 20 - 25 %. [id number] mitral regurgitation is present. Mitral ring annulloplasty is in place. CONCLUSIONS -------- 1. Atrial fibrillation. 2. Limited Study 3. There is severe global hypokinesis of LV . 4. Overall left ventricular systolic function is severely impaired with, an EF between 20 - 25 %. 5. Yjlqfhkx-ik-oaspiw mitral regurgitation is present. 6. Mitral ring annulloplasty is in place. INSULATION CUPOLA CHARGER: Fern Cooper RDCS
[2019-08-27 07:39] LABS: African American GFR (CKD) >90 (>60 ml/min/1.73 sqM); Anion Gap 8 mmol/L; Blood Urea Nitrogen 30 mg/dL (9-20); Calcium 9.7 mg/dL (8.4-10.2); Carbon Dioxide 31 mmol/L (22-30); Chloride 101 mmol/L (98-107); Glucose 110 mg/dL (74-99); Non-African American GFR(CKD) 79 (>60 ml/min/1.73 sqM); Potassium 4.1 mmol/L (3.5-5.1); Sodium 140 mmol/L (137-145)
[2019-08-27 07:49] LABS: Basophils % (A) 0 %; Eosinophils # (A) 0.2 k/uL (0-0.7); Eosinophils % (A) 2 %; HCT 51.1 % (39.0-53.0); HGB 15.7 gm/dL (13.0-17.5); Hypochromasia Slight; Lymphocytes # (A) 1.6 k/uL (1.0-4.8); Lymphocytes % (A) 17 %; MCH 27.9 pg (25.0-35.0); MCHC 30.6 g/dL (31.0-37.0); Mean Platelet Volume 8.6; Monocytes # (A) 0.7 k/uL (0-1.0); Monocytes % (A) 8 %; Neutrophils # (A) 6.7 k/uL (1.3-7.7); Neutrophils % (A) 71 %; Platelet Count 178 k/uL (150-450); RBC 5.62 m/uL (4.30-5.90); RDW 14.1 % (11.5-15.5); WBC 9.4 k/uL (3.8-10.6)
[2019-08-27] MEDS: AMIODARONE 300 MG in DEXTROSE 5% IN WATER 250 ML IV SCH ×2 (09:11)
[2019-08-27] MEDS: ATORVASTATIN 20 MG TAB PO SCH (10:01)
[2019-08-27] MEDS: NICOTINE 14MG/24HR PATCH TRANSDERM SCH ×2 (10:01→10:02)
[2019-08-27] MEDS: MULTIVITAMINS, THERA 1 EACH TAB PO SCH (10:01)
[2019-08-27] MEDS: FUROSEMIDE 10 MG/ML 4 ML VIAL IV SCH (10:01)
[2019-08-27 11:08] LABS: Glucose,Whole Blood 140 mg/dL (75-99)
[2019-08-27 11:33] VITALS: RESP 18
[2019-08-27] MEDS: AMIODARONE 200 MG TAB PO SCH ×3 (11:34→21:41)
--- NOTE | 2019-08-27 14:16 | P.PN ---
Subjective Progress Note Date: 08/27/19 is a 54-year-old gentleman with known history of nonischemic cardio myopathy with history of mitral and tricuspid valve repair in the past at [facility], prior documented ejection fraction 20-25%. He presented to [facility] with symptoms of progressively worsening shortness of breath. 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 Patient does have history of paroxysmal atrial fibrillation, hypothyroidism, hypertension, hyperlipidemia.patient was transferred here to [facility], currently is receiving treatment for congestive cardiac failure, continues to be on IV Lasix at this time and appears to be diuresing well. He was noted on the monitor this afternoon to have runs of nonsustained ventricular tachycardia.his blood pressure continues to run on the low side, he 89/50, 98/60. Earlier today he was in A. fib with rapid ventricular response, after receiving his oral medications a heart rate came down nicely. He is currently 95% on 4 L of oxygen.his white blood cell count is 8.9, hemoglobin 14.7, platelet count 152. Sodium 140, potassium 5.0, BUN 28, and creatinine 1.0. Magnesium was 2.2 on the which we will repeat.patient's overall feeling quite well today, he denies any shortness of breath dizziness or lightheadedness, he states that he is having some yellow- colored diarrhea stools. 08/27/2019 Patient was seen and examined this morning, he diuresed very well through the night last night. His weight is down 1 kg today.White blood cell count 9.4, hemoglobin 15.7, platelet count 178. Sodium 140, potassium 4.1, BUN 30, creati nine 1.0.once the IV amiodarone has infused we will start the patient on 200 mg of amiodarone 3 times a day. We'll discontinue the IV Lasix today and record changer to oral diuretics. And discontinue to monitor for another 24 hours. Objective - Vital Signs Vital signs: Vital Signs Temp 96.2 F L 08/27/19 08:21 Pulse 56 L 08/27/19 11:34 Resp 18 12/31/19 11:34 BP 94/44 08/27/19 11:31 Pulse Ox 99 08/27/19 11:31 Intake & Output 08/26/19 08/27/19 08/27/19 18:59 06:59 18:59 Intake Total 1440 850 Output Total 100 1700 950 Balance 1340 -1700 -100 Weight 79.2 kg Intake: Intake, IV Titration 250 Amount Amiodarone 300 mg In 250 Dextrose 5% in Water 250 ml @ 0.5 MG/MIN 25 mls/hr IV .Q10H KAYLA Rx#: [id number] Oral 1440 600 Output: Urine 100 1700 950 Other: # Voids 1 1 1 - Exam Physical exam revealed a 54-year-old white male, hard of hearing, garbled speech, in no form of respiratory distress, on 2 L nasal cannula. HEENT: Atraumatic, normocephalic, PERRLA, EOMI, no icterus, moist mucous membranes. Neck reveals no JVD, carotid bruits, or thyromegaly. CHEST EXAMINATION: Trachea is central. Symmetrical expansion. Crackles at the bases bilaterally. No rhonchi no wheezes. CARDIAC: Normal S1, S2 with no gallops. 2/6 systolic murmur thought the precordium. Best served at the left lower sternal border. ABDOMEN: Soft. Bowel sounds normal. No organomegaly. No abdominal bruits. Extremities: No clubbing edema or cyanosis. Good pulses bilaterally. Neurologic: Alert and oriented 3, no gross focal neurologic deficits. Skin: No rash or skin lesions. Psychiatric: Normal mood affect and normal mental status examination. Musculoskeletal: No joint swelling or deformity. Normal range of motion. Lymphatics: No lymphadenopathy. - Labs CBC & Chem 7: 08/27/19 05:39 08/27/19 05:39 Labs: Abnormal Lab Results - Last 24 Hours (Table) 08/27/19 08/27/19 08/27/19 Range/Units 05:39 05:39 11:05 MCHC 30.6 L (31.0-37.0) g/dL Carbon Dioxide 31 H (22-30) mmol/L BUN 30 H (9-20) mg/dL Glucose 110 H (74-99) mg/dL POC Glucose (mg/dL) 140 H (75-99) mg/dL Assessment and Plan Plan: Impressionand plan: #1Acute hypoxic respiratory failure secondary to systolic congestive heart failure and LV dysfunction.acute on chronic #2Elevated troponin, cannot rule out non-ST elevation myocardial infarction #3History of valvular heart disease, previous mitral valve repair at the [facility] in 2009. #4History of GERD and gastritis. As well as esophagitis presently asymptomatic #History of hypothyroidism #6Benign essential hypertension #7History of bipolar disorder #8Nicotine dependence syndrome #9nonsustained ventricular tachycardia Plan once the IV amiodarone has been confused, we will start the patient on amiodarone 100 mg one tablet by mouth 3 times a day. Discontinue IV Lasix today and start the patient on oral diuretics. DNP note has been reviewed, I agree with a documented findings and plan of care. Patient was seen and examined.
--- NOTE | 2019-08-27 14:17 | P.PN ---
Subjective Progress Note Date: 08/27/19 Principal diagnosis: Acute hypoxic respiratory failure secondary to an acute exacerbation of systolic congestive heart failure This is a 54-year-old white male with history of multiple medical problems including valvular heart disease, ischemic cardiomyopathy and LV dysfunction, history of previous valve repair. At the [facility] back over 8 years ago, patient normally sees Dr. Skinner for his cardiac issues on a regular basis. 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 Patient has history of hypertension, presented to [facility] with 1 day history of increased shortness of breath and left-sided chest pain. Patient described the pain as severe, pressure over the left side of the chest, not associated with any diaphoresis. His chest x-ray showed evidence of pulmonary edema. BNP level was extremely elevated. EKG was supposedly done at [place], and was not repeated here in our facility. Patient was already seen by cardiology, and his admitting diagnosis is consistent with acute systolic congestive heart failure. And possible non-ST elevation myocardial infarction. Troponin level was 0.035. Patient was given Lasix by the ER physician, and he improved significantly with one dose of Lasix given earlier. Again his chest x-ray is clearly consistent with congestive heart failure/pulmonary edema. Looking back at a previous echocardiogram, patient clearly had history of LV dysfunction with ejection fraction of 25%. The echocardiogram was dated 07/19/2019. His echocardiogram also showed moderate mitral regurgitation, mild mitral stenosis, and clearly evidence of mitral valve repair. Based on previous documentation, patient had normal coronaries based on previous coronary angiography. This was in 2014, by the time I saw the patient, patient had no chest pain, he was on few liters nasal cannula, and he was feeling much better especially after he received a dose of Lasix. Patient is maintained on Lasix IV push every 8 hours, patient had no symptoms to suggest pneumonia, no fever no chills and no purulent sputum production. And there was no evidence of leukocytosis based on his CBC. On 08/26/2019 patient has been seen and follow-up on selective care unit, he is awake and alert, in no acute distress, he is on 4 L of oxygen with a pulse ox of 92-95%, in no acute distress, he is afebrile, blood pressures 82/52, patient has been ambulating with therapy and a walker, tolerating activity very well. Denies any chest pain, denies any lightheadedness, denies any cough or congestion, follow-up chest x-ray today showed COPD with suspected mild pulmonary venous congestion. he continues on IV Lasix of 40 mg every 8 hours, patient is maintaining negative fluid balance, -2773 mL over the last 24 hours, no peripheral edema on today's exam. Today's labs have been reviewed, CBC is within normal limits, electrolytes are within normal limits, B1 is 28 creatinine is 1.05. The patient is seen today 08/27/2019 in follow-up on the selective care unit. He is currently sitting up in a chair at the bedside. Awake and alert in no a cute distress. Maintaining good O2 saturations in the upper 90s on room air. He's been afebrile. White count 9.4. Hemoglobin 15.7. Creatinine 1.07. Continued on bronchodilators, IV diuretics, anticoagulated with Xarelto. NicoDerm patch is in place Objective - Vital Signs Vital signs: Vital Signs Temp 96.2 F L 08/27/19 08:21 Pulse 56 L 08/27/19 11:34 Resp 18 08/27/19 11:34 BP 94/44 08/27/19 11:31 Pulse Ox 99 08/27/19 11:31 Intake & Output 08/26/19 08/27/19 08/27/19 18:59 06:59 18:59 Intake Total 1440 850 Output Total 100 1700 950 Balance 1340 -1700 -100 Weight 79.2 kg Intake: Intake, IV Titration 250 Amount Amiodarone 300 mg In 250 Dextrose 5% in Water 250 ml @ 0.5 MG/MIN 25 mls/hr IV .Q10H KAYLA Rx#: [id number] Oral 1440 600 Output: Urine 100 1700 950 Other: # Voids 1 1 1 - Exam GENERAL EXAM: Alert, very pleasant, 54-year-old male patient, on room air, comfortable in no apparent distress. HEAD: Normocephalic/atraumatic. EYES: Normal reaction of pupils, equal size. Conjunctiva pink, sclera white. NOSE: Clear with pink turbinates. THROAT: No erythema or exudates. NECK: No masses, no JVD, no thyroid enlargement, no adenopathy. CHEST: No chest wall deformity. Symmetrical expansion. LUNGS: Equal air entry with crackles in the posterior bases CVS: Regular rate and rhythm, normal S1 and S2, no gallops, no murmurs, no rubs ABDOMEN: Soft, nontender. No hepatosplenomegaly, normal bowel sounds, no guarding or rigidity. EXTREMITIES: No clubbing, no edema, no cyanosis, 2+ pulses and upper and lower extremities. MUSCULOSKELETAL: Muscle strength and tone normal. SPINE: No scoliosis or deformity SKIN: No rashes CENTRAL NERVOUS SYSTEM: No focal deficits, tone is normal in all 4 extremities. PSYCHIATRIC: Alert and oriented -3. Appropriate affect. Intact judgment and insight. - Labs CBC & Chem 7: 08/27/19 05:39 08/27/19 05:39 Labs: Abnormal Lab Results - Last 24 Hours (Table) 08/27/19 08/27/19 08/27/19 Range/Units 05:39 05:39 11:05 MCHC 30.6 L (31.0-37.0) g/dL Carbon Dioxide 31 H (22-30) mmol/L BUN 30 H (9-20) mg/dL Glucose 110 H (74-99) mg/dL POC Glucose (mg/dL) 140 H (75-99) mg/dL Assessment and Plan Assessment: #1. Acute hypoxic respiratory failure secondary to acute exacerbation of systolic congestive heart failure, severely impaired left ventricular systolic function with ejection fraction 20-25% #2. Elevated troponin, cannot rule out non-ST elevated myocardial infarction, being followed by cardiology #3. Chest pain consistent with unstable angina, being addressed by cardiology #4. History of valvular heart disease, previous mitral valve repair at the [facility] in 2009, recent echo reveals moderate to severe mitral regurgitation #5. History of GERD and gastritis and esophagitis, currently asymptomatic #6. History of hypothyroidism #7. History of benign essential hypertension #8. History of bipolar disorder #9. History of nicotine dependence syndrome #10. 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 Episode of V. tach, currently on amiodarone Plan: The patient was seen and evaluated by Dr. Foote. He is currently stable from the pulmonary standpoint. Maintaining O2 saturations in the 90s on room air. Recent chest x-ray showed improvement. We'll continue with the current treatment plan. Increase his activity as tolerated. We'll continue to follow. I, the cosigning physician, performed a history & physical examination of the patient. Lungs sounds with crackles in the posterior bases Maintaining good O2 saturations in the 90s on room air. I discussed the assessment and plan of care with my nurse practitioner, Jennifer Thakur. I attest to the above note as dictated by her.
[2019-08-27] MEDS: FUROSEMIDE 40 MG TAB PO SCH (15:13)
[2019-08-27] MEDS: RIVAROXABAN 20 MG TAB PO SCH (17:44)
[2019-08-27] MEDS: traZODone HCL 50 MG TAB PO SCH (21:41)
--- NOTE | 2019-08-27 22:15 | PN ---
PROGRESS NOTE DATE OF SERVICE: 08/27/2019 This 54-year-old gentleman who was admitted with CHF, acute exacerbation, also had possible cardiomyopathy. The patient is being closely monitored at this time. The patient has also issues with hypotension, which is improving at this time. No fever. No cough. PHYSICAL EXAMINATION: Alert and oriented x2. Pulse is 79, blood pressure 105/53, respiration 18, temperature 97 degrees, pulse ox ntd. HEENT: Conjunctivae normal. NECK: No jugular venous distention. CARDIOVASCULAR SYSTEM: S1, S2 muffled. Ejection systolic murmur present. RESPIRATORY SYSTEM: Breath sounds diminished at the bases. A few scattered rhonchi and crackles. ABDOMEN: Soft, non-tender. NERVOUS SYSTEM: Diffusely weak. LABS: CBC within normal limits. Sodium 140, potassium 4.1. ASSESSMENT: 1. Congestive heart failure, acute exacerbation, with acute on chronic systolic dysfunction, ejection fraction 20% to 25%. 2. Possible cardiomyopathy. 3. Status post mitral and tricuspid valve repair. 4. Cardiogenic shock and severe hypotension, present on admission. 5. Chest pain; possible unstable angina or type 2 myocardial infarction with troponin 0.035. 6. History of gastroesophageal reflux disease. 7. Hypothyroidism. 8. History of hypertension. 9. Anxiety, depression, history of bipolar. 10.Continued ongoing nicotine dependence. 11.History of thrombocytopenia, mild. 12.Increased BUN. 13.Symptomatic ventricular tachycardia. RECOMMENDATIONS AND DISCUSSION: I recommend to continue current medications, continue with the monitoring, symptomatic treatment. Cardiology input appreciated. Otherwise, we will continue to monitor. Adjust the blood pressure medications. P.o. diuretics. If the patient is stable, the patient might be able to be discharged in the next 24 to 48 hours. Guarded prognosis. Further recommendations to follow. MMODL / IJN: [id number] / MTDD
[2019-08-28] MEDS: PANTOPRAZOLE 40 MG TABLET PO SCH (07:04)
[2019-08-28] MEDS: LEVOTHYROXINE 50 MCG TAB PO SCH (07:04)
[2019-08-28] MEDS: CARVEDILOL 1.563 MG TAB PO SCH (07:04)
[2019-08-28] MEDS: IPRATROPIUM-ALBUTEROL 3 ML NEB INHALATION SCH ×2 (09:19→12:49)
[2019-08-28] MEDS: FUROSEMIDE 40 MG TAB PO SCH (09:21)
[2019-08-28] MEDS: AMIODARONE 200 MG TAB PO SCH (09:21)
[2019-08-28] MEDS: ATORVASTATIN 20 MG TAB PO SCH (09:21)
[2019-08-28] MEDS: MULTIVITAMINS, THERA 1 EACH TAB PO SCH (09:21)
[2019-08-28] MEDS: NICOTINE 14MG/24HR PATCH TRANSDERM SCH (09:22)
[2019-08-28] MEDS ORDERED: METOPROLOL TARTRATE 12.5 MG TAB PO ONE (09:30)
[2019-08-28 12:08] VITALS: BP 117/69; TEMP 98.1
[2019-08-28 13:00] VITALS: PULSE 80
--- NOTE | 2019-08-28 13:55 | P.PN ---
Subjective Patient is resting comfortably in bed. He has no symptoms no chest discomfort dizziness or lightheadedness. He remains in atrial fibrillation with heart rates that are somewhat elevated Afebrile 98.1F pulse rate in the 80s, respirations Blood pressure 117/69 mmHg Breath sounds are difficult to no rhonchi no crackles Systolic murmur audible over the precordium Rhythm is irregular Abdomen soft and extremity are warm no edema Impression atrial fibrillation with RVR Nonischemic cardiomyopathy Mitral and tricuspid valve repair Ejection fraction 20-35% Presented with increased shortness of breath Found to be in atrial fibrillation with RVR He also had runs of nonsustained ventricular tachycardia Borderline low blood pressure Yesterday IV Lasix was switched to by mouth Lasix Is currently on amiodarone We will switch to by mouth metoprolol for better rate control and reduce dose of oral amiodarone Continue VIJI Patient to go home from a cardiac standpoint and follow up with cardiology within 1 week Objective - Vital Signs Vital signs: Vital Signs Temp 98.1 F 08/28/19 12:03 Pulse 80 08/28/19 13:00 Resp 18 08/28/19 12:03 BP 117/69 08/28/19 12:03 Pulse Ox 96 08/28/19 12:03 Intake & Output 08/27/19 08/28/19 08/28/19 18:59 06:59 18:59 Intake Total 1330 120 Output Total 1500 600 600 Balance -170 -600 -480 Weight 77.8 kg Intake: Intake, IV Titration 250 Amount Amiodarone 300 mg In 250 Dextrose 5% in Water 250 ml @ 0.5 MG/MIN 25 mls/hr IV .Q10H KAYLA Rx#: [id number] Oral 1080 120 Output: Urine 1500 600 600 Other: Voiding Method Urinal # Voids 1 1 2 - Labs CBC & Chem 7: 08/27/19 05:39 08/27/19 05:39
--- NOTE | 2019-08-28 16:00 | P.PN ---
Subjective Progress Note Date: 08/28/19 Principal diagnosis: Acute hypoxic respiratory failure secondary to an acute exacerbation of systolic congestive heart failure This is a 54-year-old white male with history of multiple medical problems including valvular heart disease, ischemic cardiomyopathy and LV dysfunction, history of previous valve repair. At the [facility] back over 8 years ago, patient normally sees Dr. Skinner for his cardiac issues on a regular basis. 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 Patient has history of hypertension, presented to [facility] with 1 day history of increased shortness of breath and left-sided chest pain. Patient described the pain as severe, pressure over the left side of the chest, not associated with any diaphoresis. His chest x-ray showed evidence of pulmonary edema. BNP level was extremely elevated. EKG was supposedly done at [place], and was not repeated here in our facility. Patient was already seen by cardiology, and his admitting diagnosis is consistent with acute systolic congestive heart failure. And possible non-ST elevation myocardial infarction. Troponin level was 0.035. Patient was given Lasix by the ER physician, and he improved significantly with one dose of Lasix given earlier. Again his chest x-ray is clearly consistent with congestive heart failure/pulmonary edema. Looking back at a previous echocardiogram, patient clearly had history of LV dysfunction with ejection fraction of 25%. The echocardiogram was dated 07/19/2019. His echocardiogram also showed moderate mitral regurgitation, mild mitral stenosis, and clearly evidence of mitral valve repair. Based on previous documentation, patient had normal coronaries based on previous coronary angiography. This was in 2014, by the time I saw the patient, patient had no chest pain, he was on few liters nasal cannula, and he was feeling much better especially after he received a dose of Lasix. Patient is maintained on Lasix IV push every 8 hours, patient had no symptoms to suggest pneumonia, no fever no chills and no purulent sputum production. And there was no evidence of leukocytosis based on his CBC. On 08/26/2019 patient has been seen and follow-up on selective care unit, he is awake and alert, in no acute distress, he is on 4 L of oxygen with a pulse ox of 92-95%, in no acute distress, he is afebrile, blood pressures 82/52, patient has been ambulating with therapy and a walker, tolerating activity very well. Denies any chest pain, denies any lightheadedness, denies any cough or congestion, follow-up chest x-ray today showed COPD with suspected mild pulmonary venous congestion. he continues on IV Lasix of 40 mg every 8 hours, patient is maintaining negative fluid balance, -2773 mL over the last 24 hours, no peripheral edema on today's exam. Today's labs have been reviewed, CBC is within normal limits, electrolytes are within normal limits, B1 is 28 creatinine is 1.05. The patient is seen today 08/27/2019 in follow-up on the selective care unit. He is currently sitting up in a chair at the bedside. Awake and alert in no a cute distress. Maintaining good O2 saturations in the upper 90s on room air. He's been afebrile. White count 9.4. Hemoglobin 15.7. Creatinine 1.07. Continued on bronchodilators, IV diuretics, anticoagulated with Xarelto. NicoDerm patch is in place. The patient is seen today 08/28/2019 in follow-up on the selective care unit. He is awake and alert in no acute distress sitting up at the bedside. Maintaining good O2 saturations in the 90s on room air. He denies any shortness of breath, cough or congestion. No chills or night sweats. He is afebrile. Hemodynamically stable. He is anxious to go home. Objective - Vital Signs Vital signs: Vital Signs Temp 98.1 F 08/28/19 12:03 Pulse 80 08/28/19 13:00 Resp 18 08/28/19 12:03 BP 117/69 08/28/19 12:03 Pulse Ox 96 08/28/19 12:03 Intake & Output 08/27/19 08/28/19 08/28/19 18:59 06:59 18:59 Intake Total 1330 120 Output Total 1500 600 600 Balance -170 -600 -480 Weight 77.8 kg Intake: Intake, IV Titration 250 Amount Amiodarone 300 mg In 250 Dextrose 5% in Water 250 ml @ 0.5 MG/MIN 25 mls/hr IV .Q10H KAYLA Rx#: [id number] Oral 1080 120 Output: Urine 1500 600 600 Other: Voiding Method Urinal # Voids 1 1 2 - Exam GENERAL EXAM: Alert, very pleasant, 54-year-old male patient, on room air, comfortable in no apparent distress. HEAD: Normocephalic/atraumatic. EYES: Normal reaction of pupils, equal size. Conjunctiva pink, sclera white. NOSE: Clear with pink turbinates. THROAT: No erythema or exudates. NECK: No masses, no JVD, no thyroid enlargement, no adenopathy. CHEST: No chest wall deformity. Symmetrical expansion. LUNGS: Equal air entry with crackles in the posterior bases CVS: Regular rate and rhythm, normal S1 and S2, no gallops, no murmurs, no rubs ABDOMEN: Soft, nontender. No hepatosplenomegaly, normal bowel sounds, no guarding or rigidity. EXTREMITIES: No clubbing, no edema, no cyanosis, 2+ pulses and upper and lower extremities. MUSCULOSKELETAL: Muscle strength and tone normal. SPINE: No scoliosis or deformity SKIN: No rashes CENTRAL NERVOUS SYSTEM: No focal deficits, tone is normal in all 4 extremities. PSYCHIATRIC: Alert and oriented -3. Appropriate affect. Intact judgment and insight. - Labs CBC & Chem 7: 08/27/19 05:39 08/27/19 05:39 Assessment and Plan Assessment: #1. Acute hypoxic respiratory failure secondary to acute exacerbation of systolic congestive heart failure, severely impaired left ventricular systolic function with ejection fraction 20-25% #2. Elevated troponin, cannot rule out non-ST elevated myocardial infarction, being followed by cardiology #3. Chest pain consistent with unstable angina, being addressed by cardiology #4. History of valvular heart disease, previous mitral valve repair at the [facility] in 2009, recent echo reveals moderate to severe mitral regurgitation #5. History of GERD and gastritis and esophagitis, currently asymptomatic #6. History of hypothyroidism #7. History of benign essential hypertension #8. History of bipolar disorder #9. History of nicotine dependence syndrome #10. 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 Episode of V. tach, currently on amiodarone Plan: The patient was seen and evaluated by Dr. Foote. He is currently stable from the pulmonary standpoint. Maintaining O2 saturations in the 90s on room air. He is cleared for discharge from pulmonary standpoint. I, the cosigning physician, performed a history & physical examination of the patient. Lungs sounds with crackles in the posterior bases Maintaining good O2 saturations in the 90s on room air. I discussed the assessment and plan of care with my nurse practitioner, Jennifer Thakur. I attest to the above note as dictated by her.
[2019-08-28] MEDS ORDERED: METOPROLOL TARTRATE 12.5 MG TAB PO SCH (21:00)
--- NOTE | 2019-08-29 11:18 | DS ---
DISCHARGE SUMMARY DATE OF SERVICE: 08/28/2019. FINAL DIAGNOSES: 1. Congestive heart failure acute exacerbation with acute on chronic systolic dysfunction, ejection fraction 20% to 25%. 2. Possible cardiomyopathy. 3. Status post mitral and tricuspid valve repair. 4. Cardiogenic shock and severe hypotension, present on admission. 5. Chest pain possible unstable angina or type 2 myocardial infarction with troponin 0.035. 6. History of gastroesophageal reflux disease. 7. Hypothyroidism. 8. History of hypertension. 9. History of anxiety, depression. 10.History of bipolar. 11.Continued ongoing nicotine dependence. 12.History of thrombocytopenia, mild. 13.Increased BUN. 14.Asymptomatic ventricular tachycardia. DISCHARGE DISPOSITION: The patient will be discharged in stable condition with guarded prognosis. HISTORY OF PRESENT ILLNESS: This 54-year-old gentleman with a past medical history of multiple medical problems admitted with CHF acute exacerbation and multiple other complex medical issues as listed above. The patient monitored closely. Cardiology saw the patient and patient improved significantly. Medication adjusted. Cardiology recommended amiodarone otherwise. On exam, vitals are stable. CARDIOVASCULAR: S1, S2 muffled. ABDOMEN: Soft. NERVOUS SYSTEM: No focal deficit. Pulmonary also saw the patient. DISCHARGE ADVICE AND MEDICATIONS: 1. Diet is cardiac. 2. Activity limited followup. 3. Follow up with Dr. Smyth in 2 to 3 days. 4. Follow up with Cardiology as recommended. MEDICATIONS: 1. Lasix 20 mg p.o. q.48h hours. 2. Lipitor 20 mg p.o. daily. 3. Multivitamins 1 p.o. daily. 4. Esomeprazole 40 mg p.o. daily. 5. Synthroid 50 mcg p.o. daily. 6. Trazodone 25 mg at bedtime. 7. Albuterol 1 to 2 puffs q.6 p.r.n. 8. DuoNeb q.i.d. and p.r.n. 9. Lasix 40 mg p.o. b.i.d. 10.Lopressor 12.5 mg p.o. b.i.d. 11.Senokot 8.6 mg p.o. daily. 12.Xarelto 20 mg with supper. Amiodarone taper per Cardiology. MMODL / IJN: [id number] / [facility]
== END 2019-08-28 15:53 | disposition home health service (06) | DRG 280 ==
LOC: EC 12:49 → 3SCARD 15:25
PROVIDERS: ADMIT Internal Medicine; ATTEND Internal Medicine
DX: I11.0 Hypertensive heart disease with heart failure (principal); J18.9 Pneumonia, unspecified organism; I21.A1 Myocardial infarction type 2; J96.01 Acute respiratory failure with hypoxia; R57.0 Cardiogenic shock; I47.2 Ventricular tachycardia; D69.6 Thrombocytopenia, unspecified; E03.9 Hypothyroidism, unspecified; E78.5 Hyperlipidemia, unspecified; F17.200 Nicotine dependence, unspecified, uncomplicated; F31.9 Bipolar disorder, unspecified; F41.9 Anxiety disorder, unspecified; I25.110 Atherosclerotic heart disease of native coronary artery with unstable angina pectoris; I25.5 Ischemic cardiomyopathy; I34.0 Nonrheumatic mitral (valve) insufficiency; I42.8 Other cardiomyopathies; I48.0 Paroxysmal atrial fibrillation; I50.23 Acute on chronic systolic (congestive) heart failure; K20.9 Esophagitis, unspecified; Z79.01 Long term (current) use of anticoagulants; Z79.890 Hormone replacement therapy; Z79.899 Other long term (current) drug therapy; Z80.1 Family history of malignant neoplasm of trachea, bronchus and lung; Z95.1 Presence of aortocoronary bypass graft; Z95.2 Presence of prosthetic heart valve
CPT/HCPCS: 36415; 71045; 80048; 80053; 81003; 83735; 83880; 84132; 84484; 85025; 93308; 94640; 94760; 96374; 99291

== ENCOUNTER 2019-09-19 16:45 | Inpatient (IN) | payer MEDICARE, OTHER ==
[2019-09-19] MEDS ORDERED: ASPIRIN 81 MG PO STA (17:17)
[2019-09-19] MEDS ORDERED: NALOXONE 0.4 MG/ML 1 ML VIAL IV PRN (17:18)
[2019-09-19] MEDS ORDERED: POTASSIUM CHLORIDE ER 20 MEQ TAB.ER PO STA (17:25)
--- NOTE | 2019-09-19 17:25 | ED ---
General Adult HPI - General Chief complaint: Chest Pain Stated complaint: chest pain Time Seen by Provider: 09/19/19 16:59 Source: patient, EMS, RN notes reviewed, old records reviewed Mode of arrival: EMS Limitations: no limitations - History of Present Illness Initial comments: 54-year-old presenting for evaluation of chest pain. Patient was transferred from an outside facility for evaluation by cardiology. He is a known patient cardiology, he has congestive heart failure with plans for AICD placement. He is currently on Xarelto. He had an episode of chest pain this morning which was nonexertional. He has been chest pain-free since the time of transfer. He has no complaints time my evaluation. He states the chest pain was left-sided rad iating to his left arm. He was found to have a troponin elevation of 0.057. - Related Data Home Medications Medication Instructions Recorded Confirmed Levothyroxine Sodium [Synthroid] 50 mcg PO DAILY@0600 08/28/17 08/24/19 Multivitamins, Thera [Multivitamin 1 tab PO DAILY@0900 08/28/17 08/24/19 (formulary)] Atorvastatin [Lipitor] 20 mg PO DAILY@0900 07/18/19 08/24/19 Esomeprazole Magnesium [NexIUM] 40 mg PO DAILY@0900 07/18/19 08/24/19 Albuterol Inhaler [Ventolin Hfa 1 - 2 puff INHALATION RT-Q4H PRN 08/24/19 08/24/19 Inhaler] Furosemide [Lasix] 20 mg PO Q48H 08/24/19 08/24/19 traZODone HCL 25 mg PO HS 08/24/19 08/24/19 Previous Rx's Medication Instructions Recorded Rivaroxaban [Xarelto] 20 mg PO W/SUPPER #30 tab 07/19/19 Furosemide [Lasix] 40 mg PO BID@0900,1600 #60 tab 08/28/19 Ipratropium-Albuterol Nebulize 3 ml INHALATION RT-QID ampul.neb 08/28/19 [Duoneb 0.5 mg-3 mg/3 ml Soln] Metoprolol Tartrate [Lopressor] 12.5 mg PO BID #60 tab 08/28/19 Sennosides [Senokot] 8.6 mg PO DAILY PRN #30 tab 08/28/19 Allergies Allergy/AdvReac Type Severity Reaction Status Date / Time No Known Allergies Allergy Verified 09/19/19 17:00 Review of Systems ROS Statement: Those systems with pertinent positive or pertinent negative responses have been documented in the HPI. ROS Other: All systems not noted in ROS Statement are negative. Past Medical History Past Medical History: Coronary Artery Disease (CAD), Chest Pain / Angina, GERD/Reflux, Thyroid Disorder Additional Past Medical History / Comment(s): hypotension History of Any Multi-Drug Resistant Organisms: None Reported Past Surgical History: Coronary Bypass/CABG Additional Past Surgical History / Comment(s): Valve fixed, hiatal hernia Past Anesthesia/Blood Transfusion Reactions: No Reported Reaction Past Psychological History: Anxiety, Depression Smoking Status: Current every day smoker Past Alcohol Use History: None Reported Past Drug Use History: None Reported - Past Family History Mother Additional Family Medical History / Comment(s): heart conditions Father Family Medical History: Cancer Additional Family Medical History / Comment(s): Lung CA General Exam Limitations: no limitations General appearance: alert Head exam: Present: atraumatic, normocephalic Eye exam: Present: normal appearance, PERRL ENT exam: Present: normal exam Neck exam: Present: normal inspection. Absent: tenderness, meningismus Respiratory exam: Present: rales. Absent: respiratory distress Cardiovascular Exam: Present: tachycardia, irregular rhythm GI/Abdominal exam: Present: soft. Absent: distended, tenderness, guarding Extremities exam: Present: pedal edema Neurological exam: Present: alert, oriented X3, CN II-XII intact. Absent: motor sensory deficit Psychiatric exam: Present: normal affect, normal mood Skin exam: Present: warm, dry, intact. Absent: cyanosis, diaphoretic Course Vital Signs 09/19/19 17:00 Temperature 97.9 F Pulse Rate 109 H Respiratory 17 Rate Blood Pressure 105/69 O2 Sat by Pulse 91 L Oximetry EKG Findings - EKG Comments: EKG Findings:: EKG: A. fib with frequent PVC, rate of 112, QRS duration 106, QTC 45, no ST segment elevation ST segment depression and T-wave inversion in the lateral precordial leads. Medical Decision Making - Medical Decision Making 54-year-old male transferred with troponin elevation, episode of chest pain. Patient is chest pain-free at the time my evaluation. Medical record is reviewed. Patient had a stable hemoglobin 13.7, potassium 3.3 which will be rep laced. Creatinine was 1.3. Troponin was 0.057. He had a chest x-ray showing COPD, cardiomyopathy and bilateral trace effusions and edema. I will repeat all laboratory testing including serial troponins. He will be admitted to telemetry. He is anticoagulated and chest pain-free at the time my evaluation. Cardiology placed on consult, case discussed with the admitting physician Dr. Orozco Disposition Clinical Impression: Chest pain, Atrial fibrillation, Acute non-ST elevation myocardial infarction (NSTEMI), CHF (congestive heart failure) Disposition: ADMITTED IP TO THIS HOSP Condition: Stable Is patient prescribed a controlled substance at d/c from ED?: No Referrals: Madi Mcdonald DO [Primary Care Provider] - 1-2 days Decision to Admit Reason: Admit from EC Decision Date: 09/19/19 Decision Time: 17:25
[2019-09-19 18:21] LABS: Basophils % (A) 0 %; Eosinophils # (A) 0.1 k/uL (0-0.7); Eosinophils % (A) 2 %; HCT 43.6 % (39.0-53.0); HGB 13.4 gm/dL (13.0-17.5); Lymphocytes # (A) 1.5 k/uL (1.0-4.8); Lymphocytes % (A) 24 %; MCH 27.2 pg (25.0-35.0); MCHC 30.8 g/dL (31.0-37.0); MCV 88.5 fL (80.0-100.0); Mean Platelet Volume 9.1; Monocytes # (A) 0.5 k/uL (0-1.0); Monocytes % (A) 8 %; Neutrophils % (A) 64 %; Platelet Count 109 k/uL (150-450); RBC 4.92 m/uL (4.30-5.90); RDW 15.3 % (11.5-15.5); WBC 6.3 k/uL (3.8-10.6)
[2019-09-19 18:30] LABS: INR 1.2 (<1.2); Partial Thromboplastin Time 26.5 sec (22.0-30.0); Prothrombin Time 12.4 sec (9.0-12.0)
[2019-09-19 18:42] LABS: Albumin 3.6 g/dL (3.5-5.0); Calcium 8.6 mg/dL (8.4-10.2); Magnesium 2.4 mg/dL (1.6-2.3); Total Bilirubin 0.8 mg/dL (0.2-1.3); Total Protein 6.2 g/dL (6.3-8.2)
[2019-09-19 18:55] LABS: Potassium 3.6 mmol/L (3.5-5.1)
--- NOTE | 2019-09-19 20:23 | P.HPIM ---
History of Present Illness H&P Date: 09/19/19 Chief Complaint: chest pain Patient is a 54-year-old male with a past medical history of systolic congestive heart failure with ejection fraction 20-25%, coronary artery disease with prior myocardial infarction, GERD, valvular heart disease with mitral and tricuspid repair, hypothyroidism, and tobacco abuse who presented to the emergency department at [facility] with complaints of chest pain. Laboratory analysis done [facility] showed an elevated troponin at 0.057, CBC showed white blood cell count 7.6, hemoglobin 13.7, hematocrit 42.9, and platelets of 135. His PT/INR was slightly elevated at 13.8/1.32. His basic metabolic profile sodium showed 138, potassium 3.3, chloride 105, CO2 26, BUN 32, creatinine 1.3. X-ray was completed which showed mild emphysematous changes with cardiomegaly and tiny bilateral pleural effusions along with interstitial edema and/or infiltrates. He was subsequently transferred here for further cardiac evaluation secondary to his non-STEMI. On arrival to the ER here he is mildly tachycardic with a pulse of 109. He had already been given a dose of potassium, no Aspirin due to hx of severe GI bleed and being on xarelto. Arrangements are made for admission. Patient seen and examined at bedside. He reports that he had some chest pain with radiation to his left arm and shoulder, he felt very dizzy, sweaty, and short of breath. He was sitting down and resting when it started. He reports it did not go away until he got to our hospital here. He has never had anything like this before. He has been taking all his medications as prescribed, he started 2 new medications today. No aspirin and was taken off this due to bleeding. One time during this episode his eyes went black and he tought he was going to pass out but he shook his head and it went away. He was seen by Dr. Smith yesterday started on new medications, he reports a plan for stress test on October 01 and ICD on October 27. Patient overall is a poor historian. A record review view was done and his recent hospital stay from 08/24/19 through 08/28/19. He is admitted from [facility] 10 point in time secondary to non-STEMI and acute exacerbation of congestive heart failure. He also had a hospitalization in June 2019 secondary to GI bleed and underwent EGD at that point in time. Review of Systems Pertinent positives and negatives as discussed in HPI, a complete review of systems was performed and all other systems are negative. Past Medical History Past Medical History: Coronary Artery Disease (CAD), Chest Pain / Angina, GERD/Reflux, Thyroid Disorder Additional Past Medical History / Comment(s): hypotension, nonischemic cardiomyopathy with checking fraction 25-30%, atrial fibrillation, GI bleed, thrombocytopenia, ventricular tachycardia History of Any Multi-Drug Resistant Organisms: None Reported Additional Past Surgical History / Comment(s): Mitral and tricuspid heart valve repair no bypassed arteries, hiatal hernia Past Anesthesia/Blood Transfusion Reactions: No Reported Reaction Past Psychological History: Anxiety, Depression Smoking Status: Current every day smoker Past Alcohol Use History: None Reported Past Drug Use History: None Reported Additional History: Lives with his in apartment, uses a walker - Past Family History Mother Additional Family Medical History / Comment(s): heart conditions Father Family Medical History: Cancer Additional Family Medical History / Comment(s): Lung CA Medications and Allergies Home Medications Medication Instructions Recorded Confirmed Type Levothyroxine Sodium [Synthroid] 50 mcg PO DAILY@0600 08/28/17 08/24/19 History Multivitamins, Thera [Multivitamin 1 tab PO DAILY@0900 08/28/17 08/24/19 History (formulary)] Atorvastatin [Lipitor] 20 mg PO DAILY@0900 07/18/19 08/24/19 History Esomeprazole Magnesium [NexIUM] 40 mg PO DAILY@0900 07/18/19 08/24/19 History Rivaroxaban [Xarelto] 20 mg PO W/SUPPER #30 tab 07/19/19 08/24/19 Rx Albuterol Inhaler [Ventolin Hfa 1 - 2 puff INHALATION RT-Q4H PRN 08/24/19 08/24/19 History Inhaler] Furosemide [Lasix] 20 mg PO Q48H 08/24/19 08/24/19 History traZODone HCL 25 mg PO HS 08/24/19 08/24/19 History Furosemide [Lasix] 40 mg PO BID@0900,1600 #60 tab 08/28/19 Rx Ipratropium-Albuterol Nebulize 3 ml INHALATION RT-QID ampul.neb 08/28/19 Rx [Duoneb 0.5 mg-3 mg/3 ml Soln] Metoprolol Tartrate [Lopressor] 12.5 mg PO BID #60 tab 08/28/19 Rx Sennosides [Senokot] 8.6 mg PO DAILY PRN #30 tab 08/28/19 Rx Allergies Allergy/AdvReac Type Severity Reaction Status Date / Time No Known Allergies Allergy Verified 09/19/19 17:00 Physical Exam Osteopathic Statement: *. No significant issues noted on an osteopathic structural exam other than those noted in the History and Physical/Consult. Vitals: Vital Signs Temp Pulse Resp BP Pulse Ox 09/19/19 17:00 97.9 F 109 H 17 105/69 91 L Intake and Output 09/19/19 09/19/19 09/19/19 06:59 14:59 22:59 Other: Weight 81.647 kg General: non toxic, no distress, appears at stated age, normal weight Derm: no unusual rashes/lesions no unusual ecchymoses, warm, dry Head: atraumatic, normocephalic, symmetric Eyes: EOMI, no lid lag, anicteric sclera, pupils equal round reactive to light ENT: Nose and ears atraumatic, no thrush, no pharyngeal erythema Neck: No thyromegaly, no cervical lymphadenopathy, trachea midline, supple Mouth: no lip lesion, mucus membranes moist, poor dentition Cardiovascular: S1S2 irreg, no murmur, positive posterior tibial pulse bilateral, trace edema, capillary refill less than 2 seconds Lungs: CTA bilateral, no rhonchi, no rales , no accessory muscle use Abdominal: soft, nontender to palpation, no guarding, no appreciable organomegaly, normal bowel sounds Ext: no gross muscle atrophy, muscle strength 5 out of 5 in all 4 extremities grossly, no contractures, Neuro: CN II-XI grossly intact, light touch intact all 4 extremities, finger to nose within normal limits, Psych: Alert, oriented, appropriate affect Results CBC & Chem 7: 09/19/19 18:10 09/19/19 18:10 Comments: EKG as reviewed by me shows NSR at 112, with PVC and fusion complex with no significant ST-T changes Chest x-ray: report reviewed Thrombosis Risk Factor Assmnt - DVT/VTE Prophylaxis DVT/VTE Prophylaxis: Pharmacologic Prophylaxis ordered Assessment and Plan Assessment: Chest pain with elevated troponin - nitro - no ASA due to recent GI bleed - BB - statin - serial troponins - cardio consult - tele - obtain recent echo from cardio office Compensated systolic CHF with EF 20-25% - resume lopressor, and lasix, nott on ACEI at baseline and will not add at this point in time Hypokalemia - replace and recheck in AM Hypothyroidism - synthroid Hx of A fib currently in sinus - tele - xarelto - lopressor DVT prophylaxis: Xarelto Discussed with: Patient, ed physician Anticipated discharge: 1-[address]: home with home health A total of 65 minutes was spent on the care of this complex patient more than 50% of the time was spent in counseling and care coordination.
[2019-09-19] MEDS: METOPROLOL TARTRATE 12.5 MG TAB PO SCH (21:32)
--- NOTE | 2019-09-19 22:47 | XR ---
EXAMINATION TYPE: XR chest 1V DATE OF EXAM: 09/19/2019 COMPARISON: Today HISTORY: Short of breath TECHNIQUE: Single view FINDINGS: Heart is enlarged. There is pulmonary edema. There are sternal wires. There is slight blunt ing of the costophrenic angles. IMPRESSION: Congestive heart failure and pulmonary edema and pleural fluid appear worse than exam ear lier today from [facility].
[2019-09-19] MEDS: IPRATROPIUM-ALBUTEROL 3 ML NEB INHALATION PRN (23:18)
[2019-09-19] MEDS ORDERED: HEPARIN SOD,PORK IN 0.45% NACL 25,000 UNIT in 0.45% NACL 1 250ML.BAG IV ONE (23:20)
[2019-09-19] MEDS ORDERED: FUROSEMIDE 10 MG/ML 4 ML VIAL IV STA (23:29)
[2019-09-19] MEDS ORDERED: HEPARIN SOD,PORK IN 0.45% NACL 25,000 UNIT in 0.45% NACL 1 250ML.BAG IV SCH (23:45)
[2019-09-19] MEDS ORDERED: HEPARIN SODIUM,PORCINE 5,000 UNIT/ML 1 ML VIAL IV PRN (23:49)
[2019-09-20] MEDS: AMIODARONE 200 MG TAB PO SCH ×3 (01:44→20:51)
[2019-09-20 06:47] LABS: Basophils % (A) 0 %; Eosinophils % (A) 1 %; HCT 42.5 % (39.0-53.0); HGB 13.2 gm/dL (13.0-17.5); Hypochromasia Slight; Lymphocytes # (A) 1.1 k/uL (1.0-4.8); Lymphocytes % (A) 17 %; MCH 28.1 pg (25.0-35.0); MCV 90.5 fL (80.0-100.0); Mean Platelet Volume 8.9; Monocytes # (A) 0.5 k/uL (0-1.0); Monocytes % (A) 8 %; Neutrophils # (A) 4.8 k/uL (1.3-7.7); Neutrophils % (A) 73 %; Platelet Count 111 k/uL (150-450); RDW 15.1 % (11.5-15.5); WBC 6.6 k/uL (3.8-10.6)
[2019-09-20 06:57] LABS: Calcium 8.6 mg/dL (8.4-10.2); Magnesium 2.4 mg/dL (1.6-2.3); Potassium 4.4 mmol/L (3.5-5.1)
[2019-09-20] MEDS: IPRATROPIUM-ALBUTEROL 3 ML NEB INHALATION PRN ×2 (07:55→11:23)
[2019-09-20] MEDS: METOPROLOL TARTRATE 12.5 MG TAB PO SCH ×2 (08:38→20:51)
[2019-09-20] MEDS: ATORVASTATIN 20 MG TAB PO SCH (08:38)
--- NOTE | 2019-09-20 08:40 | XR ---
EXAMINATION TYPE: XR chest 1V portable DATE OF EXAM: 09/20/2019 COMPARISON: 09/19/2019 HISTORY: Shortness of breath TECHNIQUE: Single frontal view of the chest is obtained. FINDINGS: FINDINGS: The heart is enlarged and is postoperative change. Coarsened interstitium seen w ith tiny bilateral effusions. No pneumothorax. Bibasilar subsegmental consolidation. Hyperinflation s uggests COPD IMPRESSION: COPD with suspected mild pulmonary venous congestion suspected from the prior exam. Diff erential diagnosis also includes interstitial pneumonitis
[2019-09-20] MEDS ORDERED: DOCUSATE 100 MG CAP PO PRN (16:56)
[2019-09-20] MEDS ORDERED: ALBUTEROL NEBULIZED 2.5 MG/3 ML INHALATION PRN (17:44)
--- NOTE | 2019-09-20 17:46 | P.PN ---
Subjective Progress Note Date: 09/20/19 (delayed charting seen at 1030) Principal diagnosis: chest pain Patient is a 54-year-old male with a past medical history of systolic congestive heart failure with ejection fraction 20-25%, coronary artery disease with prior myocardial infarction, GERD, valvular heart disease with mitral and tricuspid repair, hypothyroidism, and tobacco abuse who presented to the [facility] at [place] with complaints of chest pain. Laboratory analysis done [place] showed an elevated troponin at 0.057, CBC showed white blood cell count 7.6, hemoglobin 13.7, hematocrit 42.9, and platelets of 135. His PT/INR was slightly elevated at 13.8/1.32. His basic metabolic profile sodium showed 138, potassium 3.3, chloride 105, CO2 26, BUN 32, creatinine 1.3. X-ray was completed which showed mild emphysematous changes with cardiomegaly and tiny bilateral pleural effusions along with interstitial edema and/or infiltrates. He was subsequently transferred here for further cardiac evaluation secondary to his non-STEMI. On arrival to the ER here he is mildly tachycardic with a pulse of 109. He had already been given a dose of potassium, no Aspirin due to hx of severe GI bleed and being on xarelto. Arrangements were made for admission. His chest pain resolved after admission. Patient seen and examined at bedside. No chest pain or shortness of breath this morning, no palpitations, no nausea or vomiting. Objective - Vital Signs Vital signs: Vital Signs Temp 97.4 F L 09/20/19 16:00 Pulse 99 09/20/19 16:00 Resp 20 09/20/19 16:00 BP 142/49 09/20/19 16:00 Pulse Ox 90 L 09/20/19 16:00 Intake & Output 09/19/19 09/20/19 09/20/19 18:59 06:59 18:59 Intake Total 384.916 Output Total 925 1325 Balance -925 -940.084 Weight 81.647 kg 85 kg Intake: IV 60 0.9 NS 60 Intake, IV Titration 84.916 Amount Heparin Sod,Pork in 0.45% 84.916 NaCl 25,000 unit In 0.45 % NaCl 1 250ml.bag @ 12 UNITS/KG/HR 9.798 mls/hr IV .Q24H KAYLA Rx#: [id number] Oral 240 Output: Urine 925 1325 Other: Voiding Method Urinal Urinal # Voids 1 1 - Exam General: non toxic, no distress, appears older than stated age Derm: warm, dry Head: atraumatic, normocephalic, symmetric Eyes: EOMI, no lid lag, anicteric sclera Mouth: no lip lesion, mucus membranes moist, no teeth Cardiovascular: S1S2 reg, no murmur, positive posterior tibial pulse bilateral, Lungs: Decreased breath sounds bilateral, no rhonchi, no rales , no accessory muscle use Abdominal: soft, nontender to palpation, no guarding, no appreciable organomegaly Ext: no gross muscle atrophy, no edema, no contractures Neuro: CN II-XI grossly intact, no focal neuro deficits Psych: Alert, oriented, appropriate affect - Labs CBC & Chem 7: 09/20/19 06:23 09/20/19 06:23 Labs: Abnormal Lab Results - Last 24 Hours (Table) 09/19/19 09/19/19 09/19/19 Range/Units 18:10 18:10 18:10 MCHC 30.8 L (31.0-37.0) g/dL Plt Count 109 L (150-450) k/uL PT 12.4 H (9.0-12.0) sec INR 1.2 H (<1.2) APTT (22.0-30.0) sec Chloride (98-107) mmol/L BUN 31 H (9-20) mg/dL Glucose (74-99) mg/dL Magnesium 2.4 H (1.6-2.3) mg/dL Troponin I (0.000-0.034) ng/mL Total Protein 6.2 L (6.3-8.2) g/dL 09/19/19 09/19/19 09/20/19 Range/Units 18:10 22:10 00:27 MCHC (31.0-37.0) g/dL Plt Count (150-450) k/uL PT (9.0-12.0) sec INR (<1.2) APTT (22.0-30.0) sec Chloride (98-107) mmol/L BUN (9-20) mg/dL Glucose (74-99) mg/dL Magnesium (1.6-2.3) mg/dL Troponin I 0.060 H* 0.058 H* 0.056 H* (0.000-0.034) ng/mL Total Protein (6.3-8.2) g/dL 09/20/19 09/20/19 09/20/19 Range/Units 06:23 06:23 06:23 MCHC (31.0-37.0) g/dL Plt Count 111 L (150-450) k/uL PT (9.0-12.0) sec INR (<1.2) APTT (22.0-30.0) sec Chloride 109 H (98-107) mmol/L BUN 29 H (9-20) mg/dL Glucose 108 H (74-99) mg/dL Magnesium 2.4 H (1.6-2.3) mg/dL Troponin I 0.039 H* (0.000-0.034) ng/mL Total Protein (6.3-8.2) g/dL 09/20/19 Range/Units 06:23 MCHC (31.0-37.0) g/dL Plt Count (150-450) k/uL PT (9.0-12.0) sec INR (<1.2) APTT 35.9 H (22.0-30.0) sec Chloride (98-107) mmol/L BUN (9-20) mg/dL Glucose (74-99) mg/dL Magnesium (1.6-2.3) mg/dL Troponin I (0.000-0.034) ng/mL Total Protein (6.3-8.2) g/dL Assessment and Plan Assessment: Chest pain with elevated troponin - nitro off - no ASA due to recent GI bleed - BB - statin - serial troponins negative - cardio recs pending - tele Compensated systolic CHF with EF 20-25% - resume lopressor, and lasix, resume home cozaar - hx of hypotension, will monitor BP closelt Hypothyroidism - synthroid Hx of A fib currently in sinus - tele - xarelto - lopressor Hypokalemia - resolved DVT prophylaxis: Xarelto Anticipated discharge: 1-[address]: home with home health A total of 35 minutes was spent on the care of this complex patient more than 50% of the time was spent in counseling and care coordination.
[2019-09-20] MEDS: RIVAROXABAN 20 MG TAB PO SCH (17:47)
[2019-09-20] MEDS: IPRATROPIUM-ALBUTEROL 3 ML NEB INHALATION SCH (19:05)
[2019-09-20] MEDS: traZODone HCL 50 MG TAB PO SCH (20:50)
[2019-09-20] MEDS: LOSARTAN 25 MG TAB PO SCH (20:50)
[2019-09-21] MEDS: LEVOTHYROXINE 50 MCG TAB PO SCH (05:54)
[2019-09-21 06:59] LABS: Basophils % (A) 0 %; Eosinophils # (A) 0.1 k/uL (0-0.7); Eosinophils % (A) 2 %; HCT 43.6 % (39.0-53.0); HGB 13.2 gm/dL (13.0-17.5); Hypochromasia Marked; Lymphocytes # (A) 0.9 k/uL (1.0-4.8); Lymphocytes % (A) 18 %; MCH 27.6 pg (25.0-35.0); MCHC 30.3 g/dL (31.0-37.0); Mean Platelet Volume 8.7; Monocytes # (A) 0.4 k/uL (0-1.0); Monocytes % (A) 8 %; Neutrophils # (A) 3.7 k/uL (1.3-7.7); Neutrophils % (A) 70 %; Platelet Count 135 k/uL (150-450); RBC 4.79 m/uL (4.30-5.90); RDW 14.9 % (11.5-15.5); WBC 5.3 k/uL (3.8-10.6)
[2019-09-21] MEDS: IPRATROPIUM-ALBUTEROL 3 ML NEB INHALATION SCH ×3 (07:16→20:32)
[2019-09-21 07:36] LABS: African American GFR (CKD) >90 (>60 ml/min/1.73 sqM); Anion Gap 8 mmol/L; Blood Urea Nitrogen 25 mg/dL (9-20); Calcium 8.7 mg/dL (8.4-10.2); Carbon Dioxide 25 mmol/L (22-30); Chloride 107 mmol/L (98-107); Glucose 91 mg/dL (74-99); Non-African American GFR(CKD) 81 (>60 ml/min/1.73 sqM); Potassium 3.9 mmol/L (3.5-5.1); Sodium 140 mmol/L (137-145)
[2019-09-21] MEDS: METOPROLOL TARTRATE 12.5 MG TAB PO SCH (09:17)
[2019-09-21] MEDS: FUROSEMIDE 40 MG TAB PO SCH ×2 (09:17→16:21)
[2019-09-21] MEDS: ATORVASTATIN 20 MG TAB PO SCH (09:17)
[2019-09-21] MEDS: MULTIVITAMINS, THERA 1 EACH TAB PO SCH (09:17)
[2019-09-21] MEDS: AMIODARONE 200 MG TAB PO SCH (09:17)
[2019-09-21] MEDS: PANTOPRAZOLE 40 MG TABLET PO SCH (09:17)
[2019-09-21] MEDS ORDERED: BENZOCAINE/MENTHOL LOZENG 1 EACH LOZENGE MUCOUS MEM PRN (10:18)
--- NOTE | 2019-09-21 14:07 | P.PN ---
Subjective Progress Note Date: 09/21/19 (delayed charting seen at 1030) Principal diagnosis: chest pain Patient is a 54-year-old male with a past medical history of systolic congestive heart failure with ejection fraction 20-25%, coronary artery disease with prior myocardial infarction, GERD, valvular heart disease with mitral and tricuspid repair, hypothyroidism, and tobacco abuse who presented to the [facility] department at [place] with complaints of chest pain. Laboratory analysis done [place] showed an elevated troponin at 0.057, CBC showed white blood cell count 7.6, hemoglobin 13.7, hematocrit 42.9, and platelets of 135. His PT/INR was slightly elevated at 13.8/1.32. His basic metabolic profile sodium showed 138, potassium 3.3, chloride 105, CO2 26, BUN 32, creatinine 1.3. X-ray was completed which showed mild emphysematous changes with cardiomegaly and tiny bilateral pleural effusions along with interstitial edema and/or infiltrates. He was subsequently transferred here for further cardiac evaluation secondary to his non-STEMI. On arrival to the ER here he is mildly tachycardic with a pulse of 109. He had already been given a dose of potassium, no Aspirin due to hx of severe GI bleed and being on xarelto. Arrangements were made for admission. His chest pain resolved after admission. His troponin remained flat not consistent with ischemic origin. He did have some frequent PVCs. Patient seen and examined at bedside. Compaains of cough and nasal congestion, no chest pain, breathing at baseline, smiling and happy. Objective - Vital Signs Vital signs: Vital Signs Temp 97.9 F 09/21/19 13:45 Pulse 91 09/21/19 13:45 Resp 16 09/21/19 13:45 BP 91/62 09/21/19 13:45 Pulse Ox 92 L 09/21/19 13:45 Intake & Output 09/20/19 09/21/19 09/21/19 18:59 06:59 18:59 Intake Total 624.916 300 360 Output Total 1325 700 150 Balance -700.084 -400 210 Weight 82.6 kg Intake: IV 60 0.9 NS 60 Intake, IV Titration 84.916 Amount Heparin Sod,Pork in 0.45% 84.916 NaCl 25,000 unit In 0.45 % NaCl 1 250ml.bag @ 12 UNITS/KG/HR 9.798 mls/hr IV .Q24H KAYLA Rx#: [id number] Oral 480 300 360 Output: Urine 1325 700 150 Other: Voiding Method Urinal Urinal Urinal # Voids 1 1 1 # Bowel Movements 1 - Exam General: non toxic, no distress, appears older than stated age Derm: warm, dry Head: atraumatic, normocephalic, symmetric Eyes: EOMI, no lid lag, anicteric sclera Mouth: no lip lesion, mucus membranes moist, no teeth Cardiovascular: S1S2 reg, no murmur, positive posterior tibial pulse bilateral, Lungs: Decreased breath sounds bilateral, no rhonchi, no rales , no accessory muscle use Abdominal: soft, nontender to palpation, no guarding, no appreciable organomegaly Ext: no gross muscle atrophy, no edema, no contractures Neuro: CN II-XI grossly intact, no focal neuro deficits Psych: Alert, oriented, appropriate affect + loud deep dry cough - Labs CBC & Chem 7: 09/21/19 05:48 09/21/19 05:48 Labs: Abnormal Lab Results - Last 24 Hours (Table) 09/21/19 09/21/19 Range/Units 05:48 05:48 MCHC 30.3 L (31.0-37.0) g/dL Plt Count 135 L (150-450) k/uL Lymphocytes # 0.9 L (1.0-4.8) k/uL BUN 25 H (9-20) mg/dL Assessment and Plan Assessment: Chest pain with elevated troponin, trop flat and not consistent with ACS - nitro off - no ASA due to recent GI bleed - BB - statin - serial troponins negative - cardio recs pending - tele NSVT - on BB and amio - cardio recs upper respiratory tract infection - no indication for abx at this point in time - claritin, flonase, and cepachol Acute hypoxic respiratory failure - pulm hygiene - Wean O2 as able Systolic CHF with EF 20-25% - lopressor, lasix, cozaar - hx of hypotension, will monitor BP closely Hypothyroidism - synthroid Hx of A fib currently in sinus - tele - xarelto - lopressor Hypokalemia - resolved DVT prophylaxis: Xarelto Anticipated discharge: 1-[address]: home with home health A total of 35 minutes was spent on the care of this complex patient more than 50% of the time was spent in counseling and care coordination.
--- NOTE | 2019-09-21 16:16 | P.CRDCN ---
History of Present Illness History of present illness: This is Dr. 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 fib with RVR, flat trend PLAN: Increase metoprolol to 50 mrem by mouth daily Continue losartan in the evening Discontinue amiodarone Low dose digoxin 0.125 mg by mouth daily since his blood pressures in the low normal range Continue heart failure cardiac medications TSH HPI patient presented with chest discomfort the left arm and shoulder. He felt dizzy sweaty and short of breath he also felt very dizzy on occasion Past medical history of chronic systolic heart failure with ejection fraction of 20 and 25% history of PA history of mitral valve and tricuspid valve repair Presented to [facility] with abnormal troponin ROS: No fever chills or rigors, no cough, phlegm or expectoration, no nausea, vomiting or diarrhea, no hematuria, dysuria, no musculoskeletal complaints, no strokes or seizures, no skin lesions. EXAMINATION: On examination Blood pressure 110/60. His mercury Pulse rate in the 90s Afebrile 97.9F Systolic murmur audible over the precordium breath sounds are clear no rhonchi no crackles Abdomen soft nontender REVIEW OF LABS, ECG & MEDICAL DATA Abnormal cardiac enzymes, very borderline 0.06, 0.058, 0.056 0.039 Sodium 140 potassium 3.9 BUN 25 creatinine 1.05 Past Medical History Past Medical History: Coronary Artery Disease (CAD), Chest Pain / Angina, GERD/Reflux, Thyroid Disorder Additional Past Medical History / Comment(s): hypotension, nonischemic cardiomyopathy with checking fraction 25-30%, atrial fibrillation, GI bleed, thrombocytopenia, ventricular tachycardia History of Any Multi-Drug Resistant Organisms: None Reported Past Surgical History: Coronary Bypass/CABG Additional Past Surgical History / Comment(s): Mitral and tricuspid heart valve repair no bypassed arteries, hiatal hernia Past Anesthesia/Blood Transfusion Reactions: No Reported Reaction Past Psychological History: Anxiety, Depression Additional Psychological History / Comment(s): Pt states he was diagnosed as bipolar but no longer takes medication. Smoking Status: Current every day smoker Past Alcohol Use History: None Reported Past Drug Use History: None Reported - Past Family History Mother Additional Family Medical History / Comment(s): heart conditions Father Family Medical History: Cancer Additional Family Medical History / Comment(s): Lung CA Medications and Allergies Home Medications Medication Instructions Recorded Confirmed Type Levothyroxine Sodium [Synthroid] 50 mcg PO DAILY@0600 08/28/17 09/19/19 History Multivitamins, Thera [Multivitamin 1 tab PO DAILY 08/28/17 09/19/19 History (formulary)] Atorvastatin [Lipitor] 20 mg PO PC-BRKFST@0900 07/18/19 09/19/19 History Esomeprazole Magnesium [NexIUM] 40 mg PO PC-BRKFST@0900 07/18/19 09/19/19 History Albuterol Inhaler [Ventolin Hfa 1 - 2 puff INHALATION RT-Q4H PRN 08/24/19 09/19/19 History Inhaler] traZODone HCL 25 mg PO HS 08/24/19 09/19/19 History Acetaminophen Tab [Tylenol Tab] 500 - 1,000 mg PO Q6H PRN 09/19/19 09/19/19 History Furosemide [Lasix] 40 mg PO AC-BID@0900,1730 09/19/19 09/19/19 History Ipratropium-Albuterol Nebulize 3 ml INHALATION RT-TID 09/19/19 09/19/19 History [Duoneb 0.5 mg-3 mg/3 ml Soln] Losartan [Cozaar] 25 mg PO HS 09/19/19 09/19/19 History Rivaroxaban [Xarelto] 20 mg PO AC-SUPPER 09/19/19 09/19/19 History Metoprolol Succinate (ER) [Toprol 25 mg PO DAILY 09/20/19 09/20/19 History XL] Allergies Allergy/AdvReac Type Severity Reaction Status Date / Time No Known Allergies Allergy Verified 09/19/19 20:29 Physical Exam Vitals: Vital Signs Temp Pulse Pulse Resp BP BP Pulse Ox 09/21/19 13:45 97.9 F 91 16 91/62 92 L 09/21/19 13:21 84 09/21/19 13:12 88 09/21/19 12:00 97.9 F 91 16 92 L 09/21/19 08:00 97.9 F 85 14 115/87 95 09/21/19 07:30 86 09/21/19 07:20 82 94 L 09/21/19 04:00 97.8 F 103 H 19 90/59 93 L 09/20/19 23:58 81 19 09/20/19 23:50 97.9 F 81 19 103/64 09/20/19 20:00 98.2 F 76 18 113/71 92 L 09/20/19 19:15 110 H 16 09/20/19 19:05 108 H 16 Intake and Output 09/21/19 09/21/19 09/21/19 06:59 14:59 22:59 Intake Total 300 360 Output Total 500 150 840 Balance -200 210 -840 Intake: Oral 300 360 Output: Urine 500 150 840 Other: Voiding Method Urinal Urinal # Voids 1 1 # Bowel Movements 1 Weight 82.6 kg Results 09/21/19 05:48 09/21/19 05:48 CBC 09/21/19 Range/Units 05:48 WBC 5.3 (3.8-10.6) k/uL RBC 4.79 (4.30-5.90) m/uL Hgb 13.2 (13.0-17.5) gm/dL Hct 43.6 (39.0-53.0) % Plt Count 135 L (150-450) k/uL Comprehensive Metabolic Panel 09/21/19 Range/Units 05:48 Sodium 140 (137-145) mmol/L Potassium 3.9 (3.5-5.1) mmol/L Chloride 107 (98-107) mmol/L Carbon Dioxide 25 (22-30) mmol/L BUN 25 H (9-20) mg/dL Creatinine 1.05 (0.66-1.25) mg/dL Glucose 91 (74-99) mg/dL Calcium 8.7 (8.4-10.2) mg/dL Current Medications Generic Name Dose Route Start Last Admin Trade Name Freq PRN Reason Stop Dose Admin Albuterol Sulfate 2.5 mg 09/20/19 17:44 Ventolin Nebulized INHALATION RT-Q4H PRN Shortness Of Breath Albuterol/Ipratropium 3 ml 09/19/19 21:40 09/20/19 11:23 Duoneb 0.5 Mg-3 Mg/3 Ml Soln INHALATION 3 ml RT-QID PRN Administration Shortness Of Breath Or Wheezing Albuterol/Ipratropium 3 ml 09/20/19 20:00 09/21/19 13:10 Duoneb 0.5 Mg-3 Mg/3 Ml Soln INHALATION 3 ml RT-TID KAYLA Administration Atorvastatin Calcium 20 mg 09/20/19 09:00 09/21/19 09:17 Lipitor PO 20 mg DAILY@0900 KAYLA Administration Benzocaine/Menthol 1 each 09/21/19 10:18 Cepacol Lozenge MUCOUS MEM Q4HR PRN Cough Docusate Sodium 100 mg 09/20/19 16:56 09/20/19 17:47 Colace PO 100 mg BID PRN Administration Constipation Fluticasone Propionate 2 spray 09/21/19 10:30 Flonase Nasal [place] EA NOSTRIL DAILY [facility] Furosemide 40 mg 09/21/19 09:00 09/21/19 09:17 Lasix PO 40 mg AC-BID@0900,1730 KAYLA Administration Levothyroxine Sodium 50 mcg 09/21/19 06:00 09/21/19 05:54 Synthroid PO 50 mcg DAILY@0600 KAYLA Administration Loratadine 10 mg 09/21/19 10:30 Claritin PO DAILY [facility] Losartan Potassium 25 mg 09/20/19 21:00 09/20/19 20:50 Cozaar PO 25 mg HS KAYLA Administration Multivitamins 1 each 09/21/19 09:00 09/21/19 09:17 Theragran PO 1 each DAILY KAYLA Administration Naloxone HCl 0.2 mg 09/19/19 17:18 Narcan IV Q2M PRN Opioid Reversal Pantoprazole Sodium 40 mg 09/21/19 09:00 09/21/19 09:17 Protonix PO 40 mg PC-BRKFST@0900 KAYLA Administration Rivaroxaban 20 mg 09/20/19 17:30 09/20/19 17:47 Xarelto PO 20 mg AC-SUPPER KAYLA Administration Trazodone HCl 25 mg 09/20/19 21:00 09/20/19 20:50 Desyrel PO 25 mg HS KAYLA Administration Intake and Output 09/21/19 09/21/19 09/21/19 06:59 14:59 22:59 Intake Total 300 360 Output Total 500 150 840 Balance -200 210 -840 Intake: Oral 300 360 Output: Urine 500 150 840 Other: Voiding Method Urinal Urinal # Voids 1 1 # Bowel Movements 1 Weight 82.6 kg 09/21/19 05:48 09/21/19 05:48
[2019-09-21] MEDS: FLUTICASONE 50MCG/SPRAY NASAL 16GM EA NOSTRIL SCH (16:20)
[2019-09-21] MEDS: LORATADINE 10 MG TAB PO SCH (16:21)
[2019-09-21] MEDS: RIVAROXABAN 20 MG TAB PO SCH (16:21)
[2019-09-21] MEDS: LOSARTAN 25 MG TAB PO SCH (20:38)
[2019-09-21] MEDS: traZODone HCL 50 MG TAB PO SCH (20:38)
[2019-09-22] MEDS: LEVOTHYROXINE 50 MCG TAB PO SCH (06:30)
[2019-09-22 06:51] LABS: Basophils % (A) 0 %; Eosinophils # (A) 0.1 k/uL (0-0.7); Eosinophils % (A) 2 %; HCT 42.1 % (39.0-53.0); HGB 12.8 gm/dL (13.0-17.5); Hypochromasia Slight; Lymphocytes % (A) 14 %; MCH 27.2 pg (25.0-35.0); MCHC 30.3 g/dL (31.0-37.0); MCV 89.9 fL (80.0-100.0); Mean Platelet Volume 8.6; Monocytes # (A) 0.6 k/uL (0-1.0); Monocytes % (A) 9 %; Neutrophils # (A) 5.1 k/uL (1.3-7.7); Neutrophils % (A) 73 %; Platelet Count 107 k/uL (150-450); RBC 4.69 m/uL (4.30-5.90); RDW 15.4 % (11.5-15.5)
[2019-09-22] MEDS: IPRATROPIUM-ALBUTEROL 3 ML NEB INHALATION SCH ×3 (07:12→20:45)
[2019-09-22] MEDS: PANTOPRAZOLE 40 MG TABLET PO SCH (09:19)
[2019-09-22] MEDS: LORATADINE 10 MG TAB PO SCH (09:19)
[2019-09-22] MEDS: MULTIVITAMINS, THERA 1 EACH TAB PO SCH (09:19)
[2019-09-22] MEDS: FUROSEMIDE 40 MG TAB PO SCH ×2 (09:19→18:21)
[2019-09-22] MEDS: ATORVASTATIN 20 MG TAB PO SCH (09:19)
[2019-09-22] MEDS: FLUTICASONE 50MCG/SPRAY NASAL 16GM EA NOSTRIL SCH (09:20)
[2019-09-22] MEDS: DIGOXIN 125 MCG TAB PO SCH (10:23)
[2019-09-22] MEDS: METOPROLOL SUCCINATE (ER) 50 MG TAB.ER.24H PO SCH (10:50)
--- NOTE | 2019-09-22 14:38 | P.PN ---
Subjective Progress Note Date: 09/22/19 (delayed charting seen at 1045) Principal diagnosis: chest pain Patient is a 54-year-old male with a past medical history of systolic congestive heart failure with ejection fraction 20-25%, coronary artery disease with prior myocardial infarction, GERD, valvular heart disease with mitral and tricuspid repair, hypothyroidism, and tobacco abuse who presented to the [facility] department at [place] with complaints of chest pain. Laboratory analysis done [place] showed an elevated troponin at 0.057, CBC showed white blood cell count 7.6, hemoglobin 13.7, hematocrit 42.9, and platelets of 135. His PT/INR was slightly elevated at 13.8/1.32. His basic metabolic profile sodium showed 138, potassium 3.3, chloride 105, CO2 26, BUN 32, creatinine 1.3. X-ray was completed which showed mild emphysematous changes with cardiomegaly and tiny bilateral pleural effusions along with interstitial edema and/or infiltrates. He was subsequently transferred here for further cardiac evaluation secondary to his non-STEMI. On arrival to the ER here he is mildly tachycardic with a pulse of 109. He had already been given a dose of potassium, no Aspirin due to hx of severe GI bleed and being on xarelto. Arrangements were made for admission. His chest pain resolved after admission. His troponin remained flat not consistent with ischemic origin. He did have some frequent PVCs. His heart rate medications were adjusted, he became slightly hypotensive and these were readj usted by cardio. Patient seen and examined at bedside. No chest pain, no shortness of breath, less runny nose. Anxious to go home. but afraid of his blood pressure droppin as he has had multiple episodes of this before. Objective - Vital Signs Vital signs: Vital Signs Temp 97.6 F 09/22/19 12:00 Pulse 74 09/22/19 13:35 Resp 16 09/22/19 12:00 BP 83/56 09/22/19 12:00 Pulse Ox 95 09/22/19 12:00 Intake & Output 09/21/19 09/22/19 09/22/19 18:59 06:59 18:59 Intake Total 1200 480 Output Total 990 695 Balance 210 -695 480 Weight 81.6 kg Intake: Oral 1200 480 Output: Urine 990 695 Other: Voiding Method Urinal Urinal Urinal # Voids 1 - Exam General: non toxic, no distress, appears older than stated age Derm: warm, dry Head: atraumatic, normocephalic, symmetric Eyes: EOMI, no lid lag, anicteric sclera Mouth: no lip lesion, mucus membranes moist, no teeth Cardiovascular: S1S2 reg, no murmur, positive posterior tibial pulse bilateral, Lungs: CTA bilateral, no rhonchi, no rales , no accessory muscle use Abdominal: soft, nontender to palpation, no guarding, no appreciable organomegaly Ext: no gross muscle atrophy, no edema, no contractures Neuro: CN II-XI grossly intact, no focal neuro deficits Psych: Alert, oriented, appropriate affect - Labs CBC & Chem 7: 09/22/19 05:44 09/21/19 05:48 Labs: Abnormal Lab Results - Last 24 Hours (Table) 09/21/19 09/22/19 Range/Units 05:48 05:44 Hgb 12.8 L (13.0-17.5) gm/dL MCHC 30.3 L (31.0-37.0) g/dL Plt Count 107 L (150-450) k/uL TSH 6.540 H (0.465-4.680) mIU/L Assessment and Plan Assessment: Chest pain with elevated troponin, trop flat and not consistent with ACS - no ASA due to recent GI bleed - BB - statin - serial troponins negative - cardio recs appreciated - tele A fib with RVR with frequent PVCs - increased 09/22 and cozaar decreased with borderline hypotension, added on digoxin - tele - xarelto - lopressor upper respiratory tract infection - no indication for abx at this point in time - claritin, flonase, and cepachol Thrmobocytopenia - mild - follow CBC - undetermined etiology Acute hypoxic respiratory failure - pulm hygiene - Wean O2 as able Systolic CHF with EF 20-25% - lopressor, lasix, cozaar - hx of hypotension, will monitor BP closely Hypothyroidism - synthroid Hypokalemia - resolved Home in AM if BP stable DVT prophylaxis: Xarelto Anticipated discharge: in AM Anticipated discharge place: home A total of 35 minutes was spent on the care of this complex patient more than 50% of the time was spent in counseling and care coordination.
--- NOTE | 2019-09-22 14:41 | P.PN ---
Subjective Patient evaluated and examined He has cardio myopathy and he is awaiting single-chamber ICD implant However he has atrial fibrillation with RVR and has low blood pressure and his rates are very difficult to control. I have increased metoprolol to 50 g by mouth daily long-acting and also added digoxin 0.125 g by mouth daily Because of his low blood pressure and backed off on the dose of lisinopril If his rates are not well controlled I would recommend a biventricular ICD followed by AV node ablation Please see full dictation by Ivis Sparks NP Objective - Vital Signs Vital signs: Vital Signs Temp 97.6 F 09/22/19 12:00 Pulse 74 09/22/19 13:35 Resp 16 09/22/19 12:00 BP 83/56 09/22/19 12:00 Pulse Ox 95 09/22/19 12:00 Intake & Output 09/21/19 09/22/19 09/22/19 18:59 06:59 18:59 Intake Total 1200 480 Output Total 990 695 Balance 210 -695 480 Weight 81.6 kg Intake: Oral 1200 480 Output: Urine 990 695 Other: Voiding Method Urinal Urinal Urinal # Voids 1 - Labs CBC & Chem 7: 09/22/19 05:44 09/21/19 05:48 Labs: Abnormal Lab Results - Last 24 Hours (Table) 09/21/19 09/22/19 Range/Units 05:48 05:44 Hgb 12.8 L (13.0-17.5) gm/dL MCHC 30.3 L (31.0-37.0) g/dL Plt Count 107 L (150-450) k/uL TSH 6.540 H (0.465-4.680) mIU/L
--- NOTE | 2019-09-22 15:38 | P.PN ---
Subjective Progress Note Date: 09/22/19 The patient is currently resting comfortably in bed. He is currently on 8 L high flow nasal cannula. He states he would like to get up and walk the halls, as he is feeling well. He denies any chest pain or chest pressure, palpitations, dizziness, or lightheadedness. He does have some shortness of breath with exertion, however he has been able to exert himself. GENERAL: Well-appearing, well-nourished and in no acute distress. NECK: Supple without JVD or thyromegaly. LUNGS: Breath sounds diminished to auscultation bilaterally. Respiration equal and unlabored. No wheezes, rales or rhonchi. HEART: Irregular rate and rhythm without murmurs, rubs or gallops. S1 and S2 heard. Elevated heart rate EXTREMITIES: Normal range of motion, no edema. No clubbing or cyanosis. Peripheral pulses intact and strong. Telemetry reading show A. fib/atrial tachycardia with RVR. Rates consistently in the 130s to 150s with one 9 beat run of NSVT. Twelve-lead EKG shows atrial flutter with RVR Labs: WBC 7.0, hemoglobin 12.8, hematocrit 42.1, platelet 107 Impression/plan: #1 elevated troponins, likely related to A. fib with RVR #2 persistent atrial fibrillation/atrial tachycardia with RVR, currently on digoxin and beta blockers #3 systolic heart failure, EF 20-25% #4 valvular heart disease, status post mitral valve and tricuspid valve repair #5 hypertension #6 hypothyroidism #7 current smoker Plan: Continue current medication regimen. Patient will undergo biventricular AICD with follow-up AV node ablation, as his atrial flutter/atrial fibrillation is uncontrolled with antiarrhythmic and beta skyler therapy. Objective - Vital Signs Vital signs: Vital Signs Temp 97.6 F 09/22/19 12:00 Pulse 74 09/22/19 13:35 Resp 16 09/22/19 12:00 BP 83/56 09/22/19 12:00 Pulse Ox 95 09/22/19 12:00 Intake & Output 09/21/19 09/22/19 09/22/19 18:59 06:59 18:59 Intake Total 1200 480 Output Total 257 392 7609 Balance 210 -292 -486 Weight 81.6 kg Intake: Oral 1200 480 Output: Urine 957 168 9278 Other: Voiding Method Urinal Urinal Urinal # Voids 1 - Labs CBC & Chem 7: 09/22/19 05:44 09/21/19 05:48 Labs: Abnormal Lab Results - Last 24 Hours (Table) 09/21/19 09/22/19 Range/Units 05:48 05:44 Hgb 12.8 L (13.0-17.5) gm/dL MCHC 30.3 L (31.0-37.0) g/dL Plt Count 107 L (150-450) k/uL TSH 6.540 H (0.465-4.680) mIU/L
[2019-09-22] MEDS: RIVAROXABAN 20 MG TAB PO SCH (18:21)
[2019-09-22] MEDS ORDERED: LOSARTAN 25 MG TAB PO SCH (21:00)
[2019-09-22] MEDS: traZODone HCL 50 MG TAB PO SCH (21:21)
[2019-09-23] MEDS: LEVOTHYROXINE 50 MCG TAB PO SCH (05:51)
[2019-09-23 07:01] LABS: HCT 44.4 % (39.0-53.0); HGB 13.2 gm/dL (13.0-17.5); Hypochromasia Slight; MCH 26.5 pg (25.0-35.0); MCHC 29.7 g/dL (31.0-37.0); MCV 89.5 fL (80.0-100.0); Mean Platelet Volume 8.3; Platelet Count 119 k/uL (150-450); RBC 4.96 m/uL (4.30-5.90); RDW 15.5 % (11.5-15.5); WBC 6.9 k/uL (3.8-10.6)
[2019-09-23] MEDS: IPRATROPIUM-ALBUTEROL 3 ML NEB INHALATION SCH ×2 (07:11→11:27)
[2019-09-23] MEDS: DIGOXIN 125 MCG TAB PO SCH (08:35)
[2019-09-23] MEDS: MULTIVITAMINS, THERA 1 EACH TAB PO SCH (08:35)
[2019-09-23] MEDS: ATORVASTATIN 20 MG TAB PO SCH (08:35)
[2019-09-23] MEDS: PANTOPRAZOLE 40 MG TABLET PO SCH (08:35)
[2019-09-23] MEDS: METOPROLOL SUCCINATE (ER) 50 MG TAB.ER.24H PO SCH (08:36)
[2019-09-23] MEDS: LORATADINE 10 MG TAB PO SCH (08:36)
[2019-09-23] MEDS: FLUTICASONE 50MCG/SPRAY NASAL 16GM EA NOSTRIL SCH (08:36)
[2019-09-23] MEDS: FUROSEMIDE 40 MG TAB PO SCH (08:36)
--- NOTE | 2019-09-23 10:42 | P.PN ---
Subjective Chart was reviwed and pt examined. He has no complaints. He wants to go home. He wants me to call his daughter in law to come and pick him up. He states that his ICD placement was scheduled for beginning of October. Objective - Vital Signs Vital signs: Vital Signs Temp 97.7 F 09/23/19 04:00 Pulse 70 09/23/19 07:18 Resp 17 09/23/19 04:00 BP 110/71 09/23/19 04:00 Pulse Ox 96 09/23/19 04:00 Intake & Output 09/22/19 09/23/19 09/23/19 18:59 06:59 18:59 Intake Total 480 320 Output Total 2400 1150 Balance -1920 -1150 320 Weight 78.9 kg Intake: Oral 480 320 Output: Urine 2400 1150 Other: Voiding Method Urinal Urinal # Voids 1 1 - Exam Vital Signs: I have reviewed the vital signs. GENERAL: Well-nourished, Well-developed , no apparent distress, cooperative Eyes: PERRL, extraoculry movements intact, clear conjunctiva Head: : Atraumatic external nose and ears, oropharyngeal mucosa is moist without lesions or exudates Neck: Symmetric, trachea midline, No thyromegaly, no masses or neck vain pulsation, no neck rigidity CVS: +S1/S2, No murmurs or gallops. Peripheral pulses 2+ and equal in all extremities. RESP: Unlabored respiratory effort. Clear to auscultation bilaterally. Abdomen: Bowel sounds present in all 4 quadrants, Soft to palpation, Nontender/Nondistended, No hepatosplenomegaly, no hernias or masses, no CVA tnderness Musculoskeletal: Extremities w/o deformity, No cyanosis or clubbing, no joint swelling - Labs CBC & Chem 7: 09/23/19 05:47 09/21/19 05:48 Labs: Abnormal Lab Results - Last 24 Hours (Table) 09/23/19 Range/Units 05:47 MCHC 29.7 L (31.0-37.0) g/dL Plt Count 119 L (150-450) k/uL Assessment and Plan Assessment: Chest pain with elevated troponin, trop flat and not consistent with ACS - no ASA due to recent GI bleed - BB - statin - serial troponins negative - cardio recs appreciated - tele A fib with RVR with frequent PVCs - increased 09/22 and cozaar decreased with borderline hypotension, added on digoxin - tele - xarelto - lopressor upper respiratory tract infection - no indication for abx at this point in time - claritin, flonase, and cepachol Thrmobocytopenia - mild - follow CBC - undetermined etiology This has been stable Acute hypoxic respiratory failure - pulm hygiene - Wean O2 as able Systolic CHF with EF 20-25% - lopressor, lasix, cozaar - hx of hypotension, will monitor BP closely Hypothyroidism - synthroid Hypokalemia - resolved
[2019-09-23 11:00] VITALS: RESP 14; TEMP 98
--- NOTE | 2019-09-23 11:07 | P.PN ---
Subjective Progress Note Date: 09/23/19 This is a 54-year-old gentleman with known history of valvular heart disease, history of mitral and tricuspid valve repair, nonischemic cardiomyopathy, chronic congestive heart failure, persistent atrial fibrillation, who presented to [facility] with symptoms of chest discomfort and left arm and shoulder discomfort. Patient was found to be in atrial fibrillation with a rapid ventricular response, he was also noted to have abnormality in troponin with no significant rise and fall pattern, not suggestive of acute coronary syndrome. The patient was seen by Dr. Smith in consultation, his metoprolol was increased, amiodarone was discontinued, patient was also given a low dose of Lanoxin. The patient was seen and examined this morning, overall he feels well, he is quite eager to be discharged home. Blood pressure 110/70 with a heart rate of 116 this morning, 96% on 4 L nasal cannula. White blood cell count 6.9, hemoglobin 13.2, platelet count 119. Objective - Vital Signs Vital signs: Vital Signs Temp 97.7 F 09/23/19 04:00 Pulse 70 09/23/19 07:18 Resp 17 09/23/19 04:00 BP 110/71 09/23/19 04:00 Pulse Ox 96 09/23/19 04:00 Intake & Output 09/22/19 09/23/19 09/23/19 18:59 06:59 18:59 Intake Total 480 320 Output Total 2400 1150 Balance -1920 -1150 320 Weight 78.9 kg Intake: Oral 480 320 Output: Urine 2400 1150 Other: Voiding Method Urinal Urinal # Voids 1 1 - Exam PHYSICAL EXAMINATION: GENERAL: 54-year-old gentleman in no acute distress at the time of my examination HEENT: Head is atraumatic, normocephalic. Pupils equal, round. Sclera anicteric. Conjunctiva are clear. Mucous membranes of the mouth are moist. Neck is supple. There is no elevated jugular venous pressure. No carotid bruit is heard. HEART EXAMINATION: Heart S1, S2 irregularly irregular a systolic murmur is heard . CHEST EXAMINATION: Lungs are clear to auscultation and precussion. No chest wall tenderness is noted on palpation or with deep breathing. ABDOMEN: Soft, nontender. Bowel sounds are heard. No organomegaly noted. EXTREMITIES: 2+ peripheral pulses with no evidence of peripheral edema and no calf tenderness noted. NEUROLOGIC patient is awake, alert and oriented 3 . . - Labs CBC & Chem 7: 09/23/19 05:47 09/21/19 05:48 Labs: Abnormal Lab Results - Last 24 Hours (Table) 09/23/19 Range/Units 05:47 MCHC 29.7 L (31.0-37.0) g/dL Plt Count 119 L (150-450) k/uL Assessment and Plan Plan: Impression/plan: #1 elevated troponins, likely related to A. fib with RVR, not suggestive of acute coronary syndrome with no significant rise and fall pattern #2 persistent atrial fibrillation/atrial tachycardia with RVR, currently on dig oxin and beta blockers #3 systolic heart failure, EF 20-25% #4 valvular heart disease, status post mitral valve and tricuspid valve repair #5 hypertension #6 hypothyroidism #7 current smoker Plan From cardiology's perspective, patient may be able to be discharged home today. He will undergo by [facility] as an outpatient with follow-up AV node ablation. Follow-up in the office with Dr. Beltran. DNP note has been reviewed, I agree with a documented findings and plan of care. Patient was seen and examined.
[2019-09-23 12:25] VITALS: BP 86/61; PULSE 112
--- NOTE | 2019-09-25 15:52 | P.DS ---
Providers Date of admission: 09/19/19 17:18 Attending physician: Fabiola Orozco DO Consults: 09/19/19 17:19 Consult Physician Routine Consulting Provider: Abhijeet Beltran Consult Reason/Comments: CHF, troponin elevation Do you want consulting provider notified?: Yes Primary care physician: MAURY Villela Hospital Course: Date of admission: 09/19/2019 Date of discharge: 09/23/19 Admission diagnosis: Chest pain Discharge diagnosis Chest pain, atypical Atrial fibrillation with RVR Elevated troponin with a flat trend likely related to A. fib with RVR Chronic systolic CHF with EF of 20-25%, compensated Coronary artery disease History of mitral and tricuspid valve repair Recent GI bleed Hypothyroidism URI Mild trauma cytopenia Acute on chronic hypoxic respiratory failure of unclear etiology resolved with pulmonary toilet Consults: Dr. Ortega cardiology History of present illness: 54-year-old male with extensive cardiac history was transferred from outside hospital due to chest pain and elevated troponin. Chest pain was defined as a midsternal discomfort with radiation to the left arm and shoulder. He had some dizziness and sweating and shortness of breath occasionally. Hospital course: Cardiology valid to the patient and felt that troponin elevation and chest discomfort were related to A. fib with RVR. Metoprolol was increased to 50 mg twice a day, losartan dose was decreased to allow more space for blood pressure, amiodarone discontinued and patient started on a low dose of digoxin of 0.125 mg daily. Patient was continued off of antiplatelets due to recent GI bleed. Xarelto was continued. With this management his symptoms are controlled and today of discharge in shortness of breath or chest discomfort. He was cleared by cardiology for discharge Disposition and plan: Patient was discharged home with family care He is to follow with Dr. Skinner for V AICD and AV node ablation as scheduled. 45 minutes spent with the discharge Patient Condition at Discharge: Stable Plan - Discharge Summary Discharge Rx Participant: No New Discharge Prescriptions: New Digoxin [Lanoxin] 62.5 mcg PO DAILY #30 tab Metoprolol Succinate (ER) [Toprol XL] 50 mg PO DAILY #30 tab.er.24h Losartan [Cozaar] 12.5 mg PO HS tab Continue Multivitamins, Thera [Multivitamin (formulary)] 1 tab PO DAILY Levothyroxine Sodium [Synthroid] 50 mcg PO DAILY@0600 Esomeprazole Magnesium [NexIUM] 40 mg PO PC-BRKFST@0900 Atorvastatin [Lipitor] 20 mg PO PC-BRKFST@0900 traZODone HCL 25 mg PO HS Albuterol Inhaler [Ventolin Hfa Inhaler] 1 - 2 puff INHALATION RT-Q4H PRN PRN Reason: Shortness Of Breath Acetaminophen Tab [Tylenol] 500 - 1,000 mg PO Q6H PRN PRN Reason: Severe Pain Ipratropium-Albuterol Nebulize [Duoneb 0.5 mg-3 mg/3 ml Soln] 3 ml INHALATION RT-TID Rivaroxaban [Xarelto] 20 mg PO AC-SUPPER Furosemide [Lasix] 40 mg PO AC-BID@0900,173 Discontinued Losartan [Cozaar] 25 mg PO HS Metoprolol Succinate (ER) [Toprol XL] 25 mg PO DAILY Discharge Medication List Levothyroxine Sodium [Synthroid] 50 mcg PO DAILY@0600 08/28/17 [History] Multivitamins, Thera [Multivitamin (formulary)] 1 tab PO DAILY 08/28/17 [His tory] Atorvastatin [Lipitor] 20 mg PO PC-BRKFST@0900 07/18/19 [History] Esomeprazole Magnesium [NexIUM] 40 mg PO PC-BRKFST@0900 07/18/19 [History] Albuterol Inhaler [Ventolin Hfa Inhaler] 1 - 2 puff INHALATION RT-Q4H PRN 08/24/19 [History] traZODone HCL 25 mg PO HS 08/24/19 [History] Acetaminophen Tab [Tylenol] 500 - 1,000 mg PO Q6H PRN 09/19/19 [History] Furosemide [Lasix] 40 mg PO AC-BID@09,1730 09/19/19 [History] Ipratropium-Albuterol Nebulize [Duoneb 0.5 mg-3 mg/3 ml Soln] 3 ml INHALATION RT-TID 09/19/19 [History] Rivaroxaban [Xarelto] 20 mg PO AC-SUPPER 09/19/19 [History] Digoxin [Lanoxin] 62.5 mcg PO DAILY #30 tab 09/23/19 [Rx] Losartan [Cozaar] 12.5 mg PO HS tab 09/23/19 [Rx] Metoprolol Succinate (ER) [Toprol XL] 50 mg PO DAILY #30 tab.er.24h 09/23/19 [Rx] Follow up Appointment(s)/Referral(s): Abida Talley NPC [Primary Care Provider] - 09/26/19 2:30 pm () [facility], [NON-STAFF] - Abhijeet Beltran MD [STAFF PHYSICIAN] - 10/01/19 9:45 am (Stress test of October 01 at 9:45 Then hospital follow up with Dr. Beltran in afternoon at 2:30 PM. AICD October 27- Defibrillator implant.) Ambulatory/Diagnostic Orders: Basic Metabolic Panel [LAB.AMB] Time Frame: 2 Days, Location: None Selected Magnesium [LAB.AMB] Location: None Selected Patient Instructions/Handouts: Heart Failure (DC), Implantable Cardioverter Defibrillator (GEN) Discharge Disposition: HOME SELF-CARE
== END 2019-09-23 15:27 | disposition home health service (06) | DRG 308 ==
LOC: EC 16:45 → 3SCARD 17:18
PROVIDERS: ADMIT Internal Medicine; ATTEND Internal Medicine
DX: I48.19 Other persistent atrial fibrillation (principal); J96.21 Acute and chronic respiratory failure with hypoxia; I50.22 Chronic systolic (congestive) heart failure; I48.92 Unspecified atrial flutter; I49.3 Ventricular premature depolarization; D69.6 Thrombocytopenia, unspecified; E03.9 Hypothyroidism, unspecified; E87.6 Hypokalemia; F17.210 Nicotine dependence, cigarettes, uncomplicated; F41.9 Anxiety disorder, unspecified; F31.9 Bipolar disorder, unspecified; I11.0 Hypertensive heart disease with heart failure; I25.10 Atherosclerotic heart disease of native coronary artery without angina pectoris; I25.2 Old myocardial infarction; I42.8 Other cardiomyopathies; I47.1 Supraventricular tachycardia; J06.9 Acute upper respiratory infection, unspecified; J43.9 Emphysema, unspecified; Z79.01 Long term (current) use of anticoagulants; Z79.890 Hormone replacement therapy; Z79.899 Other long term (current) drug therapy; Z80.1 Family history of malignant neoplasm of trachea, bronchus and lung; Z95.1 Presence of aortocoronary bypass graft; I08.1 Rheumatic disorders of both mitral and tricuspid valves; R79.89 Other specified abnormal findings of blood chemistry; Z87.19 Personal history of other diseases of the digestive system; Z82.49 Family history of ischemic heart disease and other diseases of the circulatory system
CPT/HCPCS: 71045; 80048; 80053; 80061; 83735; 83880; 84443; 84484; 85025; 85027; 85610; 85730; 93005; 94640; 94660; 94760; 96374; 99285

== ENCOUNTER 2019-10-19 18:14 | Observation (INO) | payer MEDICARE, OTHER ==
[2019-10-19] MEDS ORDERED: ALBUTEROL NEBULIZED 2.5 MG/3 ML INHALATION PRN (21:18)
[2019-10-19] MEDS ORDERED: traZODone HCL 50 MG TAB PO SCH (22:00)
[2019-10-19] MEDS ORDERED: RIVAROXABAN 20 MG TAB PO SCH (22:00)
[2019-10-19] MEDS ORDERED: ACETAMINOPHEN TAB 500 MG TAB PO PRN (22:00)
[2019-10-19] MEDS ORDERED: LOSARTAN 25 MG TAB PO SCH (22:00)
[2019-10-19 22:20] VITALS: RESP 18
[2019-10-19] MEDS: FUROSEMIDE 40 MG TAB PO SCH (22:36)
[2019-10-20] MEDS ORDERED: LEVOTHYROXINE 50 MCG TAB PO SCH (06:00)
[2019-10-20 06:04] LABS: Basophils % (A) 0 %; Eosinophils # (A) 0.1 k/uL (0-0.7); Eosinophils % (A) 2 %; HCT 43.7 % (39.0-53.0); HGB 13.6 gm/dL (13.0-17.5); Hypochromasia Slight; Lymphocytes # (A) 1.1 k/uL (1.0-4.8); Lymphocytes % (A) 16 %; MCH 27.1 pg (25.0-35.0); MCHC 31.1 g/dL (31.0-37.0); MCV 87.1 fL (80.0-100.0); Mean Platelet Volume 7.8; Monocytes # (A) 0.5 k/uL (0-1.0); Monocytes % (A) 7 %; Neutrophils # (A) 5.1 k/uL (1.3-7.7); Neutrophils % (A) 73 %; Platelet Count 151 k/uL (150-450); RBC 5.02 m/uL (4.30-5.90); RDW 15.7 % (11.5-15.5)
[2019-10-20 06:20] LABS: ALT 22 U/L (4-49); AST 33 U/L (17-59); African American GFR (CKD) >90 (>60 ml/min/1.73 sqM); Albumin 3.5 g/dL (3.5-5.0); Alkaline Phosphatase 87 U/L (38-126); Anion Gap 8 mmol/L; Blood Urea Nitrogen 24 mg/dL (9-20); Calcium 8.7 mg/dL (8.4-10.2); Carbon Dioxide 25 mmol/L (22-30); Chloride 105 mmol/L (98-107); Glucose 96 mg/dL (74-99); Non-African American GFR(CKD) >90 (>60 ml/min/1.73 sqM); Sodium 138 mmol/L (137-145); Total Bilirubin 0.7 mg/dL (0.2-1.3); Total Protein 6.3 g/dL (6.3-8.2)
--- NOTE | 2019-10-20 08:13 | P.CRDCN ---
History of Present Illness Consult date: 10/20/19 Requesting physician: Rae Stevens Consult reason: chest pain Chief complaint: Chest pain History of present illness: This is a 54-year-old gentleman who follows with Dr. Skinner in the [facility]. Patient has known nonischemic cardiomyopathy, persistent atrial fibrillation, patient also has a history of hypertension, COPD, hyperlipidemia, hypothyroidism, borderline diabetes. history of mitral and tricuspid valve repair, this is his third recent admission to the hospital. He is also s cheduled this to undergo implantation of an AICD. His most recent echo was performed in July 2019 which revealed an ejection fraction of 20-25% moderate to severe mitral regurgitation mitral ring annuloplasty is in place. He presented to [facility] with symptoms of midsternal chest discomfort he states that on Monday he had this discomfort off and on throughout the day, on Monday the pain was more persistent, mainly in the epigastric area radiating through to his back. His blood pressure on arrival to [place] 100/70, heart rate in the 90s, afebrile laboratory data from [place] showed a troponin of 0.036, white blood cell count 6.1 hemoglobin 12.9, hematocrit 41.2, platelet count 149, sodium 135, potassium 3.5, chloride 106, CO2 24, BUN 24, creatinine 0.9, magnesium 2.2, BNP level 8820. He was transferred here to [facility] for further evaluation and treatment. His EKG performed at [facility] showed atrial fibrillation with PACs and PVCs, nonspecific ST-T wave changes. Chest x-ray performed there showed increased interstitial infiltrates in the lower lobes and small pleural effusions. Lab data on arrival here, white blood cell count 7.0, hemoglobin 13.6, platelet count 151. Sodium 138, potassium 4.0, BUN 24, creatinine 0.9. No troponins performed here. No EKG performed. At the time of my examination this morning, patient is sitting up in bed, comfortable, denies any chest discomfort. Blood pressure this morning 132/70 with a heart rate in the 50s, 98% on 4 L of oxygen. Past Medical History Past Medical History: Coronary Artery Disease (CAD), Chest Pain / Angina, GERD/Reflux, Thyroid Disorder Additional Past Medical History / Comment(s): hypotension, nonischemic cardi omyopathy with ejection fraction 25-30%, atrial fibrillation, GI bleed, thrombocytopenia, ventricular tachycardia History of Any Multi-Drug Resistant Organisms: None Reported Past Surgical History: Coronary Bypass/CABG Additional Past Surgical History / Comment(s): Mitral and tricuspid heart valve repair no bypassed arteries, hiatal hernia Past Anesthesia/Blood Transfusion Reactions: No Reported Reaction Past Psychological History: Anxiety, Depression Additional Psychological History / Comment(s): Pt states he was diagnosed as bipolar but no longer takes medication. Smoking Status: Current every day smoker Past Alcohol Use History: None Reported Past Drug Use History: None Reported - Past Family History Mother Additional Family Medical History / Comment(s): heart conditions Father Family Medical History: Cancer Additional Family Medical History / Comment(s): Lung CA Medications and Allergies Home Medications Medication Instructions Recorded Confirmed Type Levothyroxine Sodium [Synthroid] 50 mcg PO DAILY@0600 08/28/17 09/19/19 History Multivitamins, Thera [Multivitamin 1 tab PO DAILY 08/28/17 09/19/19 History (formulary)] Atorvastatin [Lipitor] 20 mg PO PC-BRKFST@0900 07/18/19 09/19/19 History Esomeprazole Magnesium [NexIUM] 40 mg PO PC-BRKFST@0900 07/18/19 09/19/19 History Albuterol Inhaler [Ventolin Hfa 1 - 2 puff INHALATION RT-Q4H PRN 08/24/19 09/19/19 History Inhaler] traZODone HCL 25 mg PO HS 08/24/19 09/19/19 History Acetaminophen Tab [Tylenol] 500 - 1,000 mg PO Q6H PRN 09/19/19 09/19/19 History Furosemide [Lasix] 40 mg PO AC-BID@0900,1730 09/19/19 09/19/19 History Ipratropium-Albuterol Nebulize 3 ml INHALATION RT-TID 09/19/19 09/19/19 History [Duoneb 0.5 mg-3 mg/3 ml Soln] Rivaroxaban [Xarelto] 20 mg PO AC-SUPPER 09/19/19 09/19/19 History Digoxin [Lanoxin] 62.5 mcg PO DAILY #30 tab 09/23/19 Rx Losartan [Cozaar] 12.5 mg PO HS tab 09/23/19 Rx Metoprolol Succinate (ER) [Toprol 50 mg PO DAILY #30 tab.er.24h 09/23/19 Rx XL] Allergies Allergy/AdvReac Type Severity Reaction Status Date / Time aspirin Allergy Unknown Verified 10/19/19 20:43 NSAIDS (Non-Steroidal Allergy Unknown Verified 10/19/19 20:43 Anti-Inflamma Physical Exam Vitals: Vital Signs Temp Pulse Resp BP Pulse Ox 10/20/19 03:11 98 F 57 L 18 132/71 98 10/19/19 23:10 98.4 F 61 18 94/60 97 10/19/19 20:30 98.3 F 69 18 100/63 93 L Intake and Output 10/19/19 10/20/19 10/20/19 22:59 06:59 14:59 Output Total 1800 Balance -1800 Output: Urine 1800 Other: Weight 73 kg 78.4 kg PHYSICAL EXAMINATION: GENERAL: 44-year-old gentleman in no acute distress at the time of my examination HEENT: Head is atraumatic, normocephalic. Pupils equal, round. Sclera anicteric. Conjunctiva are clear. Mucous membranes of the mouth are moist. Neck is supple. There is no elevated jugular venous pressure. No carotid bruit is heard. HEART EXAMINATION: S1 and S2 irregularly irregular a systolic murmur is heard CHEST EXAMINATION: Lungs are clear with mild diminished air entry to the bases . No chest wall tenderness is noted on palpation or with deep breathing. ABDOMEN: Soft, nontender. Bowel sounds are heard. No organomegaly noted. EXTREMITIES: 2+ peripheral pulses with no evidence of peripheral edema and no calf tenderness noted. NEUROLOGIC patient is awake, alert and oriented 3 . . Results 10/20/19 05:38 10/20/19 05:38 Cardiac Enzymes 10/20/19 Range/Units 05:38 AST 33 (17-59) U/L CBC 10/20/19 Range/Units 05:38 WBC 7.0 (3.8-10.6) k/uL RBC 5.02 (4.30-5.90) m/uL Hgb 13.6 (13.0-17.5) gm/dL Hct 43.7 (39.0-53.0) % Plt Count 151 (150-450) k/uL Comprehensive Metabolic Panel 10/20/19 Range/Units 05:38 Sodium 138 (137-145) mmol/L Potassium 4.0 (3.5-5.1) mmol/L Chloride 105 (98-107) mmol/L Carbon Dioxide 25 (22-30) mmol/L BUN 24 H (9-20) mg/dL Creatinine 0.92 (0.66-1.25) mg/dL Glucose 96 (74-99) mg/dL Calcium 8.7 (8.4-10.2) mg/dL AST 33 (17-59) U/L ALT 22 (4-49) U/L Alkaline Phosphatase 87 (38-126) U/L Total Protein 6.3 (6.3-8.2) g/dL Albumin 3.5 (3.5-5.0) g/dL Current Medications Generic Name Dose Route Start Last Admin Trade Name Freq PRN Reason Stop Dose Admin Acetaminophen 1,000 mg 10/19/19 22:00 Tylenol Tab PO Q6H PRN Severe Pain Albuterol Sulfate 2.5 mg 10/19/19 21:18 Ventolin Nebulized INHALATION RT-Q4H PRN Shortness Of Breath Albuterol/Ipratropium 3 ml 10/20/19 08:00 Duoneb 0.5 Mg-3 Mg/3 Ml Soln INHALATION RT-TID [facility] Atorvastatin Calcium 20 mg 10/20/19 09:00 Lipitor PO PC-BRKFST@0900 [facility] Digoxin 62.5 mcg 10/20/19 09:00 Lanoxin PO DAILY [facility] Furosemide 40 mg 10/19/19 22:00 10/19/19 22:36 Lasix PO 40 mg AC-BID@0900,1730 [facility] Administration Levothyroxine Sodium 50 mcg 10/20/19 06:00 10/20/19 05:57 Synthroid PO 50 mcg DAILY@0600 [facility] Administration Losartan Potassium 12.5 mg 10/19/19 22:00 10/19/19 22:36 Cozaar PO 12.5 mg HS [facility] Administration Metoprolol Succinate 50 mg 10/20/19 09:00 Toprol Xl PO DAILY [facility] Multivitamins 1 each 10/20/19 09:00 Theragran PO DAILY [facility] Pantoprazole Sodium 40 mg 10/20/19 09:00 Protonix PO PC-BRKFST@0900 [facility] Rivaroxaban 20 mg 10/19/19 22:00 10/19/19 22:36 Xarelto PO 20 mg AC-SUPPER [facility]AYLA Administration Trazodone HCl 25 mg 10/19/19 22:00 10/19/19 22:36 Desyrel PO 25 mg HS [facility]LA Administration Intake and Output 10/19/19 10/20/19 10/20/19 22:59 06:59 14:59 Output Total 1800 Balance -1800 Output: Urine 1800 Other: Weight 73 kg 78.4 kg 10/20/19 05:38 10/20/19 05:38 EKG Interpretations (text) EKG at [place] revealed atrial fibrillation with occasional PVCs and PACs Assessment and Plan Plan: Assessment and plan #1 chest pain, atypical in nature troponins 0.03, 0.03. EKG shows atrial fibrillation with occasional PVCs and PACs. On review of recent hospitalizations, patient is noted to have abnormality in troponin within the same range. #2 persistent atrial fibrillation #3 systolic heart failure, acute on chronic EF 20-25%. Patient is scheduled to undergo implantation of an AICD on October 27 #4 valvular heart disease, status post mitral valve and tricuspid valve repair #5 hypertension #6 hypothyroidism #7 current smoker Plan We will obtain a subsequent troponin here. Patient just recently had an echo performed in July we will not repeat that on this admission. It revealed an ejection fraction of 20-25% with severe mitral regurgitation. We will also obtain an EKG. Continue current medications. Further recommendations to follow. DNP note has been reviewed, I agree with a documented findings and plan of care. Patient was seen and examined.
[2019-10-20] MEDS: IPRATROPIUM-ALBUTEROL 3 ML NEB INHALATION SCH ×2 (08:50→13:10)
[2019-10-20 08:54] VITALS: BP 95/60; TEMP 98.1
[2019-10-20] MEDS ORDERED: DIGOXIN 125 MCG TAB PO SCH (09:00)
[2019-10-20] MEDS ORDERED: PANTOPRAZOLE 40 MG TABLET PO SCH (09:00)
[2019-10-20] MEDS ORDERED: MULTIVITAMINS, THERA 1 EACH TAB PO SCH (09:00)
[2019-10-20] MEDS ORDERED: ATORVASTATIN 20 MG TAB PO SCH (09:00)
[2019-10-20] MEDS ORDERED: METOPROLOL SUCCINATE (ER) 50 MG TAB.ER.24H PO SCH (09:00)
[2019-10-20] MEDS: FUROSEMIDE 40 MG TAB PO SCH (09:17)
[2019-10-20] MEDS ORDERED: FUROSEMIDE 10 MG/ML 4 ML VIAL IV STA (10:51)
--- NOTE | 2019-10-20 10:53 | P.HPIM ---
History of Present Illness 54-year-old male with nonischemic myopathy scheduled for AICD placement the next Monday came in because of chest pain nonspecific episodic and characterizable nonradiating mild chest pain which resolved at this time. Patient doesn't have any significant EKG changes patient is not in heart failure at this time patient chest pain is in with left-sided chest area just above the epigastric area just pain is nonpleuritic not associated with food not get gastroesophageal reflux disease. Patient has been completely resolved BNP is bit elevated but clinically patient is not in heart failure exacerbation patient has a small pleural effusions bilaterally patient was evaluated by cardiology. Cleared him for discharge asked him to take Tylenol as-needed basis for chest pain. Patient has musculoskeletal chest pain patient is not wearing also at this time. Patient will be discharged today to follow up on Monday for AICD. Patient's troponins are mildly elevated but that chronic elevations Review of Systems REVIEW OF SYSTEMS: CONSTITUTIONAL: No fever, no malaise, no fatigue. HEENT: No recent visual problems or hearing problems. Denied any sore throat. CARDIOVASCULAR: No orthopnea, PND, no palpitations, no syncope. PULMONARY: No shortness of breath, no cough, no hemoptysis. GASTROINTESTINAL: No diarrhea, no nausea, no vomiting, no abdominal pain. NEUROLOGICAL: No headaches, no weakness, no numbness. HEMATOLOGICAL: Denies any bleeding or petechiae. GENITOURINARY: Denies any burning micturition, frequency, or urgency. MUSCULOSKELETAL/RHEUMATOLOGICAL: Denies any joint pain, swelling, or any muscle pain. ENDOCRINE: Denies any polyuria or polydipsia. The rest of the 14-point review of systems is negative. Past Medical History Past Medical History: Coronary Artery Disease (CAD), Chest Pain / Angina, GERD/Reflux, Thyroid Disorder Additional Past Medical History / Comment(s): hypotension, nonischemic cardio myopathy with ejection fraction 25-30%, atrial fibrillation, GI bleed, thrombocytopenia, ventricular tachycardia History of Any Multi-Drug Resistant Organisms: None Reported Past Surgical History: Coronary Bypass/CABG Additional Past Surgical History / Comment(s): Mitral and tricuspid heart valve repair no bypassed arteries, hiatal hernia Past Anesthesia/Blood Transfusion Reactions: No Reported Reaction Past Psychological History: Anxiety, Depression Additional Psychological History / Comment(s): Pt states he was diagnosed as bipolar but no longer takes medication. Smoking Status: Current every day smoker Past Alcohol Use History: None Reported Past Drug Use History: None Reported - Past Family History Mother Additional Family Medical History / Comment(s): heart conditions Father Family Medical History: Cancer Additional Family Medical History / Comment(s): Lung CA Medications and Allergies Home Medications Medication Instructions Recorded Confirmed Type Levothyroxine Sodium [Synthroid] 50 mcg PO DAILY@0600 08/28/17 09/19/19 History Multivitamins, Thera [Multivitamin 1 tab PO DAILY 08/28/17 09/19/19 History (formulary)] Atorvastatin [Lipitor] 20 mg PO PC-BRKFST@0900 07/18/19 09/19/19 History Esomeprazole Magnesium [NexIUM] 40 mg PO PC-BRKFST@0900 07/18/19 09/19/19 History Albuterol Inhaler [Ventolin Hfa 1 - 2 puff INHALATION RT-Q4H PRN 08/24/19 09/19/19 History Inhaler] traZODone HCL 25 mg PO HS 08/24/19 09/19/19 History Acetaminophen Tab [Tylenol] 500 - 1,000 mg PO Q6H PRN 09/19/19 09/19/19 History Furosemide [Lasix] 40 mg PO AC-BID@0900,1730 09/19/19 09/19/19 History Ipratropium-Albuterol Nebulize 3 ml INHALATION RT-TID 09/19/19 09/19/19 History [Duoneb 0.5 mg-3 mg/3 ml Soln] Rivaroxaban [Xarelto] 20 mg PO AC-SUPPER 09/19/19 09/19/19 History Digoxin [Lanoxin] 62.5 mcg PO DAILY #30 tab 09/23/19 Rx Losartan [Cozaar] 12.5 mg PO HS tab 09/23/19 Rx Metoprolol Succinate (ER) [Toprol 50 mg PO DAILY #30 tab.er.24h 09/23/19 Rx XL] Allergies Allergy/AdvReac Type Severity Reaction Status Date / Time aspirin Allergy Unknown Verified 10/19/19 20:43 NSAIDS (Non-Steroidal Allergy Unknown Verified 10/19/19 20:43 Anti-Inflamma Physical Exam Vitals: Vital Signs Temp Pulse Pulse Resp BP Pulse Ox 10/20/19 09:03 66 10/20/19 08:53 62 96 10/20/19 08:00 98.1 F 62 18 95/60 96 10/20/19 03:11 98 F 57 L 18 132/71 98 10/19/19 23:10 98.4 F 61 18 94/60 97 10/19/19 20:30 98.3 F 69 18 100/63 93 L Intake and Output 10/19/19 10/20/19 10/20/19 22:59 06:59 14:59 Intake Total 240 Output Total 1800 Balance -1800 240 Intake: Oral 240 Output: Urine 1800 Other: Weight 73 kg 78.4 kg PHYSICAL EXAMINATION: GENERAL: The patient is alert and oriented x3, not in any acute distress. Well developed, well nourished. HEENT: Pupils are round and equally reacting to light. EOMI. No scleral icterus. No conjunctival pallor. Normocephalic, atraumatic. No pharyngeal erythema. No thyromegaly. CARDIOVASCULAR: S1 and S2 present. No murmurs, rubs, or gallops. PULMONARY: Chest is clear to auscultation, no wheezing or crackles. ABDOMEN: Soft, nontender, nondistended, normoactive bowel sounds. No palpable organomegaly. MUSCULOSKELETAL: No joint swelling or deformity. EXTREMITIES: No cyanosis, clubbing, or pedal edema. NEUROLOGICAL: Gross neurological examination did not reveal any focal deficits. SKIN: No rashes. Results CBC & Chem 7: 10/20/19 05:38 10/20/19 05:38 Labs: Abnormal Lab Results - Last 24 Hours (Table) 10/20/19 10/20/19 Range/Units 05:38 05:38 RDW 15.7 H (11.5-15.5) % BUN 24 H (9-20) mg/dL Thrombosis Risk Factor Assmnt - Choose All That Apply Any of the Below Risk Factors Present?: Yes Each Factor Represents 1 point: Age 41-60 years, Medical pt on bed rest Other Risk Factors: No Other congenital or acquired thrombophilia - If yes, enter type in comment: No Thrombosis Risk Factor Assessment Total Risk Factor Score: 2 Thrombosis Risk Factor Assessment Level: Low Risk Assessment and Plan Plan: -chest pain rule out acute coronary syndromes with musculoskeletal origin patient was cleared by cardiology patient will be discharged - congestive heart failure EF of 25-30% not in significant exacerbation may be mild. Which we'll give a dose of IV Lasix after that patient will be resumed on his home dose and will be discharged atrial fibrillation chronic patient is still in A. fib but rate controlled. Patient will continue his anti-correlation and continue the present regimen -hypothyroidism next -Hypertension -COPD without any acute exacerbation Mitral valvular disc and tricuspid valvular disease with repair next and heparin coronary disease history of CABG in the past
--- NOTE | 2019-10-20 10:53 | P.DS ---
Providers Date of admission: 10/19/19 20:15 Attending physician: Rae Stevens MD Consults: 10/19/19 21:58 Consult Physician Routine Consulting Provider: Earnest Mayes Consult Reason/Comments: chest pain, CHF Do you want consulting provider notified?: Yes, Notify in am Primary care physician: Stated None Hospital Course: please refer to [facility] further details Plan - Discharge Summary Discharge Rx Participant: No New Discharge Prescriptions: Continue Multivitamins, Thera [Multivitamin (formulary)] 1 tab PO DAILY Levothyroxine Sodium [Synthroid] 50 mcg PO DAILY@0600 Esomeprazole Magnesium [NexIUM] 40 mg PO PC-BRKFST@0900 Atorvastatin [Lipitor] 20 mg PO PC-BRKFST@0900 traZODone HCL 25 mg PO HS Albuterol Inhaler [Ventolin Hfa Inhaler] 1 - 2 puff INHALATION RT-Q4H PRN PRN Reason: Shortness Of Breath Acetaminophen Tab [Tylenol] 500 - 1,000 mg PO Q6H PRN PRN Reason: Severe Pain Ipratropium-Albuterol Nebulize [Duoneb 0.5 mg-3 mg/3 ml Soln] 3 ml INHALATION RT-TID Rivaroxaban [Xarelto] 20 mg PO AC-SUPPER Furosemide [Lasix] 40 mg PO AC-BID@0900,1730 Digoxin [Lanoxin] 62.5 mcg PO DAILY #30 tab Metoprolol Succinate (ER) [Toprol XL] 50 mg PO DAILY #30 tab.er.24h Losartan [Cozaar] 12.5 mg PO HS tab Discharge Medication List Levothyroxine Sodium [Synthroid] 50 mcg PO DAILY@0600 08/28/17 [History] Multivitamins, Thera [Multivitamin (formulary)] 1 tab PO DAILY 08/28/17 [History] Atorvastatin [Lipitor] 20 mg PO PC-BRKFST@0900 07/18/19 [History] Esomeprazole Magnesium [NexIUM] 40 mg PO PC-BRKFST@0900 07/18/19 [History] Albuterol Inhaler [Ventolin Hfa Inhaler] 1 - 2 puff INHALATION RT-Q4H PRN 08/24/19 [History] traZODone HCL 25 mg PO HS 08/24/19 [History] Acetaminophen Tab [Tylenol] 500 - 1,000 mg PO Q6H PRN 09/19/19 [History] Furosemide [Lasix] 40 mg PO AC-BID@0900,1730 09/19/19 [History] Ipratropium-Albuterol Nebulize [Duoneb 0.5 mg-3 mg/3 ml Soln] 3 ml INHALATION RT-TID 09/19/19 [History] Rivaroxaban [Xarelto] 20 mg PO AC-SUPPER 09/19/19 [History] Digoxin [Lanoxin] 62.5 mcg PO DAILY #30 tab 09/23/19 [Rx] Losartan [Cozaar] 12.5 mg PO HS tab 09/23/19 [Rx] Metoprolol Succinate (ER) [Toprol XL] 50 mg PO DAILY #30 tab.er.24h 09/23/19 [Rx] Discharge Disposition: HOME SELF-CARE
[2019-10-20 13:22] VITALS: PULSE 60
== END 2019-10-20 14:05 | disposition home or self-care (01) ==
LOC: INTOOBSV 20:15 → 3SCARD 20:15 → OBSVTOIN 20:15 → UNDODISIN 10-20 14:05 → UNDODISOB 10-20 14:05
PROVIDERS: ADMIT Internal Medicine; ATTEND Internal Medicine
DX: R07.89 Other chest pain (principal); R10.13 Epigastric pain; I48.19 Other persistent atrial fibrillation; I42.8 Other cardiomyopathies; J44.9 Chronic obstructive pulmonary disease, unspecified; E78.5 Hyperlipidemia, unspecified; E03.9 Hypothyroidism, unspecified; R73.03 Prediabetes; I11.0 Hypertensive heart disease with heart failure; I50.23 Acute on chronic systolic (congestive) heart failure; R79.89 Other specified abnormal findings of blood chemistry; I25.10 Atherosclerotic heart disease of native coronary artery without angina pectoris; K21.9 Gastro-esophageal reflux disease without esophagitis; I49.3 Ventricular premature depolarization; I08.1 Rheumatic disorders of both mitral and tricuspid valves; I47.2 Ventricular tachycardia; Z95.1 Presence of aortocoronary bypass graft; F41.9 Anxiety disorder, unspecified; F31.9 Bipolar disorder, unspecified; F17.200 Nicotine dependence, unspecified, uncomplicated; Z87.19 Personal history of other diseases of the digestive system; Z79.890 Hormone replacement therapy; Z79.899 Other long term (current) drug therapy; Z79.01 Long term (current) use of anticoagulants; Z88.8 Allergy status to other drugs, medicaments and biological substances; Z88.6 Allergy status to analgesic agent; Z80.1 Family history of malignant neoplasm of trachea, bronchus and lung; D69.6 Thrombocytopenia, unspecified; Z82.49 Family history of ischemic heart disease and other diseases of the circulatory system
CPT/HCPCS: 94640 ×2; 94760; 80053; 85025; G0378 ×2; G0379

== ENCOUNTER 2019-10-28 13:50 | Day surgery (SDC) | payer MEDICARE, OTHER ==
[~2019-10-28 13:50] MED LIST: LACTATED RINGERS 1,000 ML IV SCH; ceFAZolin 1,000 MG in SODIUM CHLORIDE 0.9% IRRIGATIO 250 ML IRRIGATION ONE
[2019-10-28] MEDS: SODIUM CHLORIDE 0.9% 1,000 ML IV SCH (14:27)
[2019-10-28] MEDS ORDERED: LIDOCAINE 1% INJ 10MG/ML (20 ML MDV) ONE ×3 (18:14→18:56)
[2019-10-28] MEDS ORDERED: fentaNYL (PF) 50 MCG/ML 2 ML AMP ONE (18:56)
[2019-10-28] MEDS ORDERED: PROPOFOL 10 MG/ML 20 ML VIAL IV ONE (18:56)
[2019-10-28] MEDS ORDERED: MIDAZOLAM 2 MG/2 ML VIAL ONE (18:56)
[2019-10-28] MEDS ORDERED: IOPAMIDOL-250 50ML BTL IV ONE (19:14)
[2019-10-28] MEDS ORDERED: LIDOCAINE 1% INJ 10MG/ML (20 ML MDV) SQ ONE ×3 (19:39→19:47)
[2019-10-28] MEDS ORDERED: ACETAMINOPHEN TAB 325 MG TAB PO PRN (20:47)
--- NOTE | 2019-10-28 20:47 | P.PCN ---
Preoperative Diagnosis: Clarification from Dr. Smith Mr. Jun Diana was admitted for treatment of risk of future sudden cardiac and I had obtained informed consent for single-chamber ICD. He has severe cardio myopathy ejection fraction 25% secondary to valvular heart disease, nonischemic with occasional PVCs and class II CHF. [facility] there was an error. A biventricular ICD was mistakenly entered history of single chamber ICD. The original consent the patient had given was for single-chamber ICD At the time of " timeout" I reevaluated the need for ICD implant and proceeded with a single chamber ICD as per my original consent. BEATRISS TO OUR TIMEOUT!!
[2019-10-28] MEDS ORDERED: traZODone HCL 50 MG TAB PO SCH (21:00)
[2019-10-28] MEDS ORDERED: LOSARTAN 25 MG TAB PO SCH (21:00)
[2019-10-28] MEDS ORDERED: ACETAMINOPHEN IV (For NPO) 1,000 MG in EMPTY BAG 1 BAG IVPB ONE (21:00)
[2019-10-28] MEDS: FUROSEMIDE 40 MG TAB PO SCH (23:05)
[2019-10-29] MEDS: SODIUM CHLORIDE 0.9% 1,000 ML IV SCH (02:53)
[2019-10-29] MEDS: HYDROcodone/APAP 5-325MG 1 EACH TAB PO PRN ×2 (05:57→16:02)
[2019-10-29] MEDS ORDERED: LEVOTHYROXINE 50 MCG TAB PO SCH (06:00)
[2019-10-29] MEDS: IPRATROPIUM-ALBUTEROL 3 ML NEB INHALATION SCH ×2 (07:42→16:30)
--- NOTE | 2019-10-29 07:56 | XR ---
EXAMINATION TYPE: XR chest 2V DATE OF EXAM: 10/29/2019 COMPARISON: 09/20/2019 TECHNIQUE: PA and lateral views submitted. HISTORY: Shortness of breath FINDINGS: Diffuse interstitial pattern seen with small bilateral effusions and cardiomegaly. Cardiac device and postsurgical changes. No pneumothorax. Hyperinflation suggests COPD. Persistent stable elevation lef t hemidiaphragm. Degenerative changes of the spine. IMPRESSION: 1. COPD with superimposed CHF favored over interstitial pneumonitis stable in appearance.
[2019-10-29 08:00] VITALS: RESP 18
--- NOTE | 2019-10-29 08:15 | CE ---
CARDIAC ELECTROPHYSIOLOGY REPORT This is a 54-year-old male patient with valvular heart disease with mitral and tricuspid valve repair with severe cardiomyopathy, class 2 CHF, brought in for single- chamber ICD implantation. He has permanent atrial fibrillation, rate controlled and has PVCs. Patient was brought to the EP lab in a fasting state. Written informed consent was obtained prior to the procedure. The left shoulder area was prepped and draped as per protocol and 1% lidocaine was used for local anesthesia. A 4 cm incision was made parallel to the deltopectoral groove and incision was carried down to the level of the pectoralis muscle. A subfascial pocket was made. Hemostasis was assured. The left axillary vein was accessed at a single point under fluoroscopy via an appropriately- sized introducer sheath. The lead was positioned in the low RV septum. It was unstable in the high RV septum. The lead was very stable post implant. R-waves were 4 to 5 mV with a current of injury present. Pacing threshold 0.7 V at 0.5 milliseconds. Ten volt test negative. A single coil ICD lead was placed. This was a [employer], model #[id number], 58 cm in length and serial #[id number]. The lead was secured to the underlying pectoralis muscle using 2 nonabsorbable sutures. Pocket was irrigated with antibiotic solution. Lead was connected to a 36 joule ICD generator. When DFT testing was performed, high DFTs were found and unsuccessful shock at 20 joules in anodal configuration as well as in cathodal configuration. Therefore, the device was changed to a high-output device. This was a [employer] [address], model #CD 2357-40Q, serial #[id number]. The lead and the generator were then placed in subfascial pocket. The wound was closed in 3 layers and dressed per protocol. DFT testing was once again performed and this time in the cathodal polarity a 25 joule shock defibrillated the patient successfully with a type 2 conversion. Shocking impedance 68 ohms. Charge time 4.8 seconds. No post shock noise. No drop outs. The device was then programmed to the MADIT-RIT programming with VVI 40 pacing on backup. Appropriate antitachycardia pacing, cardioversion defibrillation was programmed. Maximum output shocks were programmed. The patient tolerated the procedure well without any acute complications. IMPRESSION: 1. Single-chamber ICD implantation for valvular heart disease. 2. High DFT. PLAN: Yearly DFTs. MMCOREYL / KARINN: [id number] /
--- NOTE | 2019-10-29 08:21 | LTR ---
October 28, 2019 Re: Jun eMjia Dear Dr. Cummings: Jun Mejia underwent a single-chamber ICD implantation for primary prevention of sudden cardiac . He will continue to see you and Dr. Beltran as before and will continue his cardiac medications unchanged. Thank you for entrusting us with the care of your patient. Warm regards. Sincerely, MD LUDWIG Abdul / BEST: [id number] /
[2019-10-29] MEDS ORDERED: ATORVASTATIN 20 MG TAB PO SCH (09:00)
[2019-10-29] MEDS ORDERED: METOPROLOL SUCCINATE (ER) 50 MG TAB.ER.24H PO SCH (09:00)
[2019-10-29] MEDS: FUROSEMIDE 40 MG TAB PO SCH (09:08)
[2019-10-29 11:51] VITALS: BMI 23.5
--- NOTE | 2019-10-29 12:02 | P.DS ---
Providers Attending physician: Leo Smith Primary care physician: [facility] Course: Patient is a 54-year-old male with valvular heart disease status post mitral and tricuspid valve repair, severe cardiomyopathy, CHF class II, persistent atrial fibrillation who presented for single-chamber ICD implantation. Yesterday he underwent successful implantation of a single-chamber ICD. DFT testing was performed and high DFTs were noted. Patient has done well post procedure. Patient seen and examined resting in bed. States his shoulder is mildly sore. Denies any difficulty breathing. No chest pain. No dizziness or syncope. Chest x-ray today does not show any pneumothorax. Device check today shows normally functioning device Patient is afebrile, pulse in the 60s, respirations 18, blood pressure 99/57, oxygen saturation 91% on room air Patient seen and examined resting in bed, in no acute distress Dressing clean dry and intact Lungs clear to auscultation bilaterally Heart is irregular, systolic murmur audible No elevated JVD or lower extremity edema Impression Severe cardiomyopathy status post single-chamber ICD implantation high DFT Class II chronic CHF, systolic Persistent atrial fibrillation and anticoagulated with Xarelto valvular heart disease status post mitral and tricuspid valve repair Plan Continue cardiomyopathy medications, patient educated and instructed on the importance of compliance with his heart medications including his metoprolol Follow-up in the device clinic and follow-up with his primary clinical researcher Yearly DFTs Plan - Discharge Summary Discharge Rx Participant: No New Discharge Prescriptions: Continue Multivitamins, Thera [Multivitamin (formulary)] 1 tab PO DAILY Levothyroxine Sodium [Synthroid] 50 mcg PO DAILY@0600 Esomeprazole Magnesium [NexIUM] 40 mg PO DAILY Atorvastatin [Lipitor] 20 mg PO PC-BRKFST@0900 traZODone HCL 25 mg PO HS Acetaminophen Tab [Tylenol] 500 - 1,000 mg PO Q6H PRN PRN Reason: Severe Pain Ipratropium-Albuterol Nebulize [Duoneb 0.5 mg-3 mg/3 ml Soln] 3 ml INHALATION RT-TID Rivaroxaban [Xarelto] 20 mg PO AC-SUPPER Furosemide [Lasix] 40 mg PO BID Digoxin [Lanoxin] 62.5 mcg PO DAILY #30 tab Losartan [Cozaar] 12.5 mg PO HS tab Cholecalciferol [Vitamin D3 (25 Mcg = 1000 Iu)] 2,000 unit PO DAILY Esomeprazole Magnesium [NexIUM] 40 mg PO DAILY Metoprolol Succinate [Toprol XL] 50 mg PO DAILY Discharge Medication List Levothyroxine Sodium [Synthroid] 50 mcg PO DAILY@0600 08/28/17 [History] Multivitamins, Thera [Multivitamin (formulary)] 1 tab PO DAILY 08/28/17 [History] Atorvastatin [Lipitor] 20 mg PO PC-BRKFST@0900 07/18/19 [History] Esomeprazole Magnesium [NexIUM] 40 mg PO DAILY 07/18/19 [History] traZODone HCL 25 mg PO HS 08/24/19 [History] Acetaminophen Tab [Tylenol] 500 - 1,000 mg PO Q6H PRN 09/19/19 [History] Furosemide [Lasix] 40 mg PO BID 09/19/19 [History] Ipratropium-Albuterol Nebulize [Duoneb 0.5 mg-3 mg/3 ml Soln] 3 ml INHALATION R T-TID 09/19/19 [History] Rivaroxaban [Xarelto] 20 mg PO AC-SUPPER 09/19/19 [History] Digoxin [Lanoxin] 62.5 mcg PO DAILY #30 tab 09/23/19 [Rx] Losartan [Cozaar] 12.5 mg PO HS tab 09/23/19 [Rx] Cholecalciferol [Vitamin D3 (25 Mcg = 1000 Iu)] 2,000 unit PO DAILY 10/20/19 [History] Esomeprazole Magnesium [NexIUM] 40 mg PO DAILY 10/28/19 [History] Metoprolol Succinate [Toprol XL] 50 mg PO DAILY 10/28/19 [History] Follow up Appointment(s)/Referral(s): Leo Smith MD [STAFF PHYSICIAN] - As Needed (As needed only) Abhijeet Beltran MD [STAFF PHYSICIAN] - 1 Week (Device clinic follow-up within [address] Beltran as previously scheduled) Activity/Diet/Wound Care/Special Instructions: PATIENT EDUCATION MATERIAL Instructions following a heart rhythm device implant. 1. Keep dressing DRY for 5 DAYS. You may cover the area with Saran or Cling Wrap, prior to a shower. 2. The dressing will be removed in the Device Clinic at [facility]. Absorbable sutures were used to close the wound. 3. Avoid raising the left arm above the shoulder level. 4 week restriction 4. Avoid arm movements, like backscratching, rubbing the head, or pulling on a cord. 4 weeks restriction 5. Gentle range of motion movements of the shoulder, closest to the incision should be performed to avoid a frozen shoulder. (Pendulum exercises of the shoulder) 6. The opposite arm may be used freely. 7. Avoid driving for 7 days. 8. Avoid activities such as golfing, swimming, weed whacking, lifting more than 10 pounds weight, bowling, gymnastics and weight training/lifting. (6 weeks restriction) 9. Activities such as wood chopping with an axe, pull-ups in the gymnasium, power lifting, arc-welding, being close to home induction cooktops will always be a problem. 10. Arm sling is only a reminder not to raise the arm above the head. You do not need to keep the arm completely immobilized. Your free to move the arm and use it and for normal activities. In case of any problems, please call [facility], Miguel Hernandez, @ [phone], Attention: Device Clinic Device clinic follow-up in 5 days Follow-up with primary clinical researcher in 2-3 months No change in that
[2019-10-29 15:39] VITALS: BP 84/60; TEMP 98.4
[2019-10-29 16:34] VITALS: PULSE 62
[2019-10-29] MEDS ORDERED: RIVAROXABAN 20 MG TAB PO SCH (17:30)
== END 2019-10-29 17:47 | disposition home or self-care (01) ==
LOC: CATHEP 13:50 → 1SOBS 20:43 → CATHEP 10-29 17:47
PROVIDERS: ATTEND Internal Medicine Clinical Cardiac Electrophysiology
DX: I42.0 Dilated cardiomyopathy (principal); I49.3 Ventricular premature depolarization; I50.22 Chronic systolic (congestive) heart failure; I48.19 Other persistent atrial fibrillation; F17.200 Nicotine dependence, unspecified, uncomplicated; E07.9 Disorder of thyroid, unspecified; K21.9 Gastro-esophageal reflux disease without esophagitis; I34.0 Nonrheumatic mitral (valve) insufficiency; E78.5 Hyperlipidemia, unspecified; Z79.899 Other long term (current) drug therapy; Z79.890 Hormone replacement therapy; Z79.01 Long term (current) use of anticoagulants; Z98.890 Other specified postprocedural states; Z97.2 Presence of dental prosthetic device (complete) (partial); Z82.49 Family history of ischemic heart disease and other diseases of the circulatory system
CPT/HCPCS: 94640 ×2; 93641; 33249; 71046; C1769; C1892; C1722; C1721; C1777; J2250; J0690 ×3; J2001; J3010; J0131; J2704; Q9966

== ENCOUNTER 2021-09-18 22:53 | Inpatient (IN) | payer MEDICARE, OTHER ==
[2021-09-19 00:15] LABS: Basophils % (A) 1 %; Eosinophils % (A) 0 %; HCT 46.6 % (39.0-53.0); HGB 15.6 gm/dL (13.0-17.5); Lymphocytes # (A) 0.4 k/uL (1.0-4.8); Lymphocytes % (A) 9 %; MCH 32.4 pg (25.0-35.0); MCHC 33.4 g/dL (31.0-37.0); MCV 97.1 fL (80.0-100.0); Mean Platelet Volume 8.2; Monocytes # (A) 0.8 k/uL (0-1.0); Monocytes % (A) 16 %; Neutrophils # (A) 3.7 k/uL (1.3-7.7); Neutrophils % (A) 73 %; Platelet Count 115 k/uL (150-450); RBC 4.81 m/uL (4.30-5.90); WBC 5.1 k/uL (3.8-10.6)
[2021-09-19 00:27] LABS: Calcium 8.7 mg/dL (8.4-10.2)
--- NOTE | 2021-09-19 01:04 | CT ---
EXAMINATION TYPE: CT brain cspine wo con DATE OF EXAM: 09/19/2021 COMPARISON: None HISTORY: fall CT DLP: 1411.8 mGycm Automated exposure control for dose reduction was used. Images of the brain and cervical spine obtained without contrast. Ventricles have normal size. There is no mass effect or midline shift. There is no sign of intracrani al hemorrhage. Calvarium is intact. Skull base is intact. There is incomplete pneumatization of the m astoid sinuses. This could be some mastoiditis. There is mucous retention cyst left maxillary sinus. The cervical vertebra have normal alignment. Posterior elements are intact. There is no compression f racture. Disc spaces are normal. Facet joints are intact. IMPRESSION: Normal CT scan of the cervical spine. Negative CT scan of the brain. There is probably some bilateral mastoiditis.
--- NOTE | 2021-09-19 01:06 | XR ---
EXAMINATION TYPE: XR chest 1V portable DATE OF EXAM: 09/19/2021 COMPARISON: 04/03/2021 HISTORY: Fall. Injury. TECHNIQUE: Single view FINDINGS: Heart appears enlarged. There are sternal wires. There is coarse interstitial density in th e lungs. There is left axillary pacemaker. There is no definite pleural effusion. There is no pneumot horax. IMPRESSION: Cardiomegaly. Congestive heart failure and interstitial edema mostly cleared compared to old exam.
[2021-09-19] MEDS ORDERED: FUROSEMIDE 10 MG/ML 4 ML VIAL IV STA (04:13)
[2021-09-19] MEDS ORDERED: MORPHINE SULFATE 4 MG/ML SYRINGE IV STA (04:13)
[2021-09-19] MEDS ORDERED: ONDANSETRON 4 MG/2 ML VIAL IVP PRN (05:20)
[2021-09-19] MEDS ORDERED: NALOXONE 0.4 MG/ML 1 ML VIAL IV PRN (05:20)
[2021-09-19] MEDS ORDERED: ACETAMINOPHEN TAB 325 MG TAB PO PRN (05:20)
[2021-09-19] MEDS ORDERED: SODIUM CHLORIDE 0.9% 1,000 ML IV SCH ×2 (05:30→17:30)
[2021-09-19] MEDS ORDERED: DIGOXIN 125 MCG TAB PO SCH (11:00)
[2021-09-19] MEDS: ALBUTEROL HFA INHALER INHALATION PRN (11:55)
[2021-09-19] MEDS: SYMBICORT 80-4.5 MCG INHALER INHALATION SCH ×2 (11:55→21:07)
[2021-09-19] MEDS: ASCORBIC ACID 500 MG TAB PO SCH (12:14)
[2021-09-19] MEDS: LEVOTHYROXINE 50 MCG TAB PO SCH (12:14)
[2021-09-19] MEDS: CALCIUM CARB-VIT D 500 MG-5 MCG TAB PO SCH (12:14)
[2021-09-19] MEDS ORDERED: LACTULOSE 20 GM/30 ML CUP PO PRN (17:30)
[2021-09-19] MEDS ORDERED: CALCIUM CARBONATE 500 MG CHEWABLE PO PRN (17:30)
[2021-09-19] MEDS ORDERED: MELATONIN 3 MG TABLET PO PRN (17:30)
[2021-09-19] MEDS: PANTOPRAZOLE 40 MG TABLET PO SCH ×2 (17:49→17:50)
[2021-09-19] MEDS: RIVAROXABAN 20 MG TAB PO SCH (17:51)
[2021-09-19] MEDS: ATORVASTATIN 20 MG TAB PO SCH (17:53)
--- NOTE | 2021-09-19 19:39 | P.HPIM ---
History of Present Illness H&P Date: 09/19/21 Chief Complaint: Past out History of presenting complaint: This is a very pleasant 56-year-old patient of Dr. Smyth. Chronic stable medical conditions include hypothyroid, hyperlipidemia, bipolar disorder, hypertension, dilated cardiomyopathy 20-25%, paroxysmal atrial fibrillation, GERD, some rectal prolapse. Patient has some mental impairment. Lives by himself. Yesterday evening patient of flesh-colored bit lightheaded and dizzy. Sent down. Put his head between his legs. Didn't feel right decided to get up next thing he knew he had gone down. When he caught a preventative the bathroom he had a gash between the forehead and the bridge of the nose. No chest pain or palpitation. No fever no chills. His appetite is good. No change in bowel pattern. He also tested positive for COVID-19 in the ER. Denies any respiratory symptoms. No fever no chills. No loss of taste or smell. No diarrhea. Blood pressure was noted to be in the lower side. Patient had no focal weakness. No changes each vision. Review of systems: GEN.: Tired EYES: Right eye deviated laterally HEENT: Bruising on the forehead and breakdown of skin on the upper part of the bridge of the nose NECK: None RESPIRATORY: As above CARDIOVASCULAR: None GASTROINTESTINAL: Heartburn GENITOURINARY: None MUSCULOSKELETAL: None LYMPHATICS: None HEMATOLOGICAL: None PSYCHIATRY: Anxious NEUROLOGICAL: No tongue biting. No incontinence. No focal symptoms. Past medical history to include: GERD, bleeding peptic ulcer, mitral and tricuspid valve repair, hypothyroid, hyperlipidemia, bipolar, dilated cardiomyopathy EF 20-25%, paroxysmal atrial fibrillation, GERD rectal prolapse, pacemaker Social history: Smokes about 8 cigarettes a day used to smoke much more for many years. Has some help at home. Does not drink alcohol. Not employed Physical examination: VITAL SIGNS: 99.9, 56, 18, 102/66, 94% room air GENERAL: BMI 24.4 declining in bed, slightly anxious EYES: Pupils equal. Conjunctiva normal, with right eye strabismus . HEENT: External appearance of nose and ears normal, oral cavity grossly normal.Breakdown of skin on the upper part of the bridge of the nose. Bruising on the forehead. NECK: JVD not raised; masses not palpable. HEART: Heart sounds irregular; no edema]. LUNGS: Respiratory rate normal. breath sounds decreased ABDOMEN: Soft, mild epigastric tenderness liver spleen not palpable, no masses palpable. PSYCH: Alert and oriented x3; mood and affect anxious NEUROLOGICAL: Cranial nerves grossly intact; no facial asymmetry, power and sensation grossly intact. LYMPHATICS: No lymph nodes palpable in the axilla and neck INVESTIGATIONS, reviewed in the clinical context: White count 5.1 hemoglobin 15.6 platelets 115 potassium 4 creatinine 1.11 Troponin I 0.059, 0.069, 0.074 ProBNP 28511 Coronavirus [PCR]: Detected EKG tracing personally reviewed by me-left bundle-branch block. Frequent PVCs Chest x-ray film personally reviewed by me-cardiomegaly. Questionable peripheral infiltrate Previous testin-D echocardiogram [February 2021] EF 20-25% severe MR mild to moderate TR Assessment and plan: -This is a patient is feeling lightheaded and dizzy then passed out. No focal neurological symptoms. No tongue biting or incontinence. No other neurological symptoms. Patient is noted to be hypotensive. Most likely vasovagal. Rule out bradycardia. Telemetry. -Hypotension from volume loss likely from diuretics Hold Lasix today. Gentle hydration. Reevaluate in the morning. - chronic congestive heart failure, from systolic dysfunction EF 20-25%: Improved Aldactone 25 mg. Hold Lasix until blood pressure comes up -Persistent atrial fibrillation, rate controlled, Telemetry. DC digoxin. Lopressor 12.5 by mouth twice a day. Xarelto 20 mg with supper -COPD in a current smoker Symbicort. Ventolin HFA -GERD Protonix -Chronic nicotine dependence patient cigarette smoker Nicotine patch -Right eye strabismus -Hypothyroid Synthroid 50 g -Moderate to severe mitral and tricuspid regurgitation Follow clinically Gentle hydration. Telemetry. Hold Lasix. Saline at 50 mL an hour overnight. DC digoxin. Continue Aldactone. Other medications to continue. Discussed with patient. Past Medical History Past Medical History: Atrial Fibrillation, Coronary Artery Disease (CAD), Chest Pain / Angina, GERD/Reflux, Thyroid Disorder Additional Past Medical History / Comment(s): hypotension, nonischemic cardiomyopathy with ejection fraction 25-30%, atrial fibrillation, GI bleed, thrombocytopenia, ventricular tachycardia History of Any Multi-Drug Resistant Organisms: None Reported Past Surgical History: Coronary Bypass/CABG, Pacemaker, Tonsillectomy Additional Past Surgical History / Comment(s): Mitral and tricuspid heart valve repair no bypassed arteries, hiatal hernia Past Anesthesia/Blood Transfusion Reactions: No Reported Reaction Type of Cardiac Device: Permanent Pacemaker Device Placement Date:: october 2019 Past Psychological History: Anxiety, Depression Additional Psychological History / Comment(s): Pt states he was diagnosed as bipolar but no longer takes medication. Smoking Status: Current every day smoker Past Alcohol Use History: None Reported Additional Past Alcohol Use History / Comment(s): started smoking at age 12,<1ppd Past Drug Use History: None Reported - Past Family History Mother Additional Family Medical History / Comment(s): heart conditions Father Family Medical History: Cancer Additional Family Medical History / Comment(s): Lung CA Medications and Allergies Home Medications Medication Instructions Recorded Confirmed Type Levothyroxine Sodium [Synthroid] 50 mcg PO AC-BRKFST 08/28/17 09/19/21 History Atorvastatin [Lipitor] 20 mg PO W/SUPPER 07/18/19 09/19/21 History Furosemide [Lasix] 40 mg PO AC-BID 09/19/19 09/19/21 History Rivaroxaban [Xarelto] 20 mg PO W/SUPPER 09/19/19 09/19/21 History traZODone HCL 25 mg PO HS 05/19/20 09/19/21 History Digoxin [Lanoxin] 125 mcg PO DAILY 02/08/21 09/19/21 History Gabapentin [Neurontin] 100 mg PO HS 02/08/21 09/19/21 History Loratadine [Claritin] 10 mg PO HS 02/08/21 09/19/21 History Losartan [Cozaar] 12.5 mg PO W/SUPPER 02/09/21 09/19/21 History Pantoprazole [Protonix] 40 mg PO AC-BID #60 tablet. 02/12/21 09/19/21 Rx Calcium Carbonate/Vitamin D3 1 tab PO DAILY 04/03/21 09/19/21 History [Calcium 600 mg-Vit D3 5 mcg (200 unit)] Metoprolol Succinate (ER) [Toprol 25 mg PO DAILY 04/03/21 09/19/21 History XL] Metoprolol Succinate (ER) [Toprol 50 mg PO W/SUPPER 04/03/21 09/19/21 History XL] Spironolactone [Aldactone] 25 mg PO DAILY #30 tablet 04/05/21 09/19/21 Rx Albuterol Sulfate [Albuterol 1 puff INHALATION RT-Q4H PRN 09/19/21 09/19/21 History Sulfate Hfa] Ascorbic Acid [Vitamin C] 500 mg PO DAILY 09/19/21 09/19/21 History Budesonide/Formoterol Fumarate 1 puff INHALATION RT-BID 09/19/21 09/19/21 History [Symbicort 80-4.5 Mcg Inhaler] Dicyclomine [Bentyl] 10 mg PO TID PRN 09/19/21 09/19/21 History Allergies Allergy/AdvReac Type Severity Reaction Status Date / Time aspirin Allergy "has Verified 09/19/21 09:14 stomach problems" NSAIDS (Non-Steroidal Allergy "has Verified 09/19/21 09:14 Anti-Inflamma stomach problems" Physical Exam Vitals: Vital Signs Temp Pulse Pulse Resp BP BP Pulse Ox 09/19/21 09:47 99.9 F H 56 L 18 102/66 94 L 09/19/21 08:17 94 L 09/19/21 08:00 18 09/19/21 07:00 99.9 F H 47 L 16 102/66 91 L 09/19/21 04:40 76 18 100/75 94 L 09/19/21 03:04 88 18 120/80 94 L 09/19/21 01:09 62 20 100/60 95 09/18/21 22:56 97.7 F 82 18 149/119 92 L Intake and Output 09/18/21 09/19/21 09/19/21 22:59 06:59 14:59 Other: Weight 81.647 kg 81.647 kg Results CBC & Chem 7: 09/19/21 00:04 09/19/21 00:04 Labs: Abnormal Lab Results - Last 24 Hours (Table) 09/19/21 09/19/21 09/19/21 Range/Units 00:04 00:04 00:04 Plt Count 115 L (150-450) k/uL Lymphocytes # 0.4 L (1.0-4.8) k/uL Sodium 136 L (137-145) mmol/L BUN 22 H (9-20) mg/dL Troponin I 0.059 H* (0.000-0.034) ng/mL Coronavirus (PCR) (Not Detectd) 09/19/21 09/19/21 09/19/21 Range/Units 05:41 06:16 08:50 Plt Count (150-450) k/uL Lymphocytes # (1.0-4.8) k/uL Sodium (137-145) mmol/L BUN (9-20) mg/dL Troponin I 0.069 H* 0.074 H* (0.000-0.034) ng/mL Coronavirus (PCR) Detected A (Not Detectd) Thrombosis Risk Factor Assmnt - Choose All That Apply Each Factor Represents 1 point: Age 41-60 years Other Risk Factors: No Thrombosis Risk Factor Assessment Total Risk Factor Score: 1 Thrombosis Risk Factor Assessment Level: Low Risk
[2021-09-19] MEDS ORDERED: METOPROLOL TARTRATE 25 MG TAB PO SCH (21:00)
[2021-09-19] MEDS: traZODone HCL 50 MG TAB PO SCH (21:20)
[2021-09-19] MEDS: GABAPENTIN 100 MG CAP PO SCH (21:21)
[2021-09-19] MEDS: DICYCLOMINE 10 MG CAP PO PRN (21:34)
[2021-09-19] MEDS: METOPROLOL TARTRATE 12.5 MG TAB PO SCH (23:00)
[2021-09-20] MEDS: ALBUTEROL HFA INHALER INHALATION PRN (08:53)
[2021-09-20] MEDS: SYMBICORT 80-4.5 MCG INHALER INHALATION SCH ×2 (08:53→19:53)
[2021-09-20] MEDS: SPIRONOLACTONE 25 MG TAB PO SCH (10:00)
[2021-09-20] MEDS: METOPROLOL TARTRATE 12.5 MG TAB PO SCH ×2 (10:01→21:35)
[2021-09-20] MEDS: ASCORBIC ACID 500 MG TAB PO SCH (10:04)
[2021-09-20] MEDS: CALCIUM CARB-VIT D 500 MG-5 MCG TAB PO SCH (10:04)
[2021-09-20] MEDS: LEVOTHYROXINE 50 MCG TAB PO SCH ×2 (10:04→10:14)
[2021-09-20 13:56] LABS: Glucose,Whole Blood 122 mg/dL (75-99)
[2021-09-20] MEDS: CEPHALEXIN 500 MG CAP PO SCH ×3 (14:04→21:35)
[2021-09-20] MEDS: RIVAROXABAN 20 MG TAB PO SCH (17:25)
[2021-09-20] MEDS: CALCIUM CARBONATE LIQUID 500 MG/5 ML CUP PO SCH (17:25)
[2021-09-20] MEDS: ATORVASTATIN 20 MG TAB PO SCH (17:25)
[2021-09-20] MEDS: PANTOPRAZOLE 40 MG TABLET PO SCH (17:25)
--- NOTE | 2021-09-20 18:10 | P.PN ---
Progress Note - Text Progress Note Date: 09/20/21 Chief Complaint: Past out History of presenting complaint: This is a very pleasant 56-year-old patient of Dr. Smyth. Chronic stable medical conditions include hypothyroid, hyperlipidemia, bipolar disorder, hypertension, dilated cardiomyopathy 20-25%, paroxysmal atrial fibrillation, GERD, some rectal prolapse. Patient has some mental impairment. Lives by himself. Does use a walker at baseline Yesterday evening patient of flesh-colored bit lightheaded and dizzy. Sent down. Put his head between his legs. Didn't feel right decided to get up next thing he knew he had gone down. When he caught a preventative the bathroom he had a gash between the forehead and the bridge of the nose. No chest pain or palpitation. No fever no chills. His appetite is good. No change in bowel pattern. He also tested positive for COVID-19 in the ER. Denies any respiratory symptoms. No fever no chills. No loss of taste or smell. No diarrhea. Blood pressure was noted to be in the lower side. Patient had no focal weakness. No changes each vision. Patient presented because of syncope felt to be vasovagal and also hypotension. Dose of beta skyler cutback. Lasix held. Gentle IV hydration done. September 20: Lasix continues to be held. Aldactone was resumed. We will add oral Keflex for abrasion on the bridge nose. Blood pressure runs on the lower side. Patient does use a walker at baseline. Have the patient sit up in a chair. Patient's had no chest pain. Not a 2-D echocardiogram and a cardiology assessment. Patient does not have any cardiac symptoms . Troponinemia is felt to be from hemodynamic mismatch from hypotension. Patient is eating well Review of systems: Was done for constitutional, cardiovascular, GI, pulmonary. relevant finding as above Active Medications Acetaminophen (Acetaminophen Tab 325 Mg Tab) 650 mg PO Q6HR PRN PRN Reason: Mild Pain or Fever > 100.5 Albuterol Sulfate (Albuterol Hfa Inhaler) 1 puff INHALATION RT-Q4H PRN PRN Reason: Wheezing Last Admin: 09/20/21 08:53 Dose: 1 puff Documented by: Ascorbic Acid (Ascorbic Acid 500 Mg Tab) 500 mg PO DAILY KAYLA Last Admin: 09/20/21 10:04 Dose: 500 mg Documented by: Atorvastatin Calcium (Atorvastatin 20 Mg Tab) 20 mg PO W/SUPPER [facility] Last Admin: 09/20/21 17:25 Dose: 20 mg Documented by: Budesonide/Formoterol Fumarate (Symbicort 80-4.5 Mcg Inhaler) 1 puff INHALATION RT-BID [facility] Last Admin: 09/20/21 08:53 Dose: 1 puff Documented by: Calcium Carbonate (Calcium Carb-Vit D 500 Mg-5 Mcg Tab) 1 each PO DAILY [facility] Last Admin: 09/20/21 10:04 Dose: 1 each Documented by: Calcium Carbonate/Glycine (Calcium Carbonate Liquid 500 Mg/5 Ml Cup) 500 mg PO TID-W/MEALS [facility] Last Admin: 09/20/21 17:25 Dose: 500 mg Documented by: Cephalexin (Cephalexin 500 Mg Cap) 500 mg PO QID [facility] Last Admin: 09/20/21 17:25 Dose: 500 mg Documented by: Dicyclomine HCl (Dicyclomine 10 Mg Cap) 10 mg PO TID PRN PRN Reason: ibs/bloating Last Admin: 09/19/21 21:34 Dose: 10 mg Documented by: Gabapentin (Gabapentin 100 Mg Cap) 100 mg PO HS [facility] Last Admin: 09/19/21 21:21 Dose: 100 mg Documented by: Lactulose (Lactulose 20 Gm/30 Ml Cup) 20 gm PO DAILY PRN PRN Reason: Constipation Levothyroxine Sodium (Levothyroxine 50 Mcg Tab) 50 mcg PO AC-BRKFST [facility] Last Admin: 09/20/21 10:14 Dose: Not Given Documented by: Melatonin (Melatonin 3 Mg Tablet) 3 mg PO HS PRN PRN Reason: Insomnia Metoprolol Tartrate (Metoprolol Tartrate 12.5 Mg Tab) 12.5 mg PO BID [facility] Last Admin: 09/20/21 10:01 Dose: Not Given Documented by: Naloxone HCl (Naloxone 0.4 Mg/Ml 1 Ml Vial) 0.2 mg IV Q2M PRN PRN Reason: Opioid Reversal Ondansetron HCl (Ondansetron 4 Mg/2 Ml Vial) 4 mg IVP Q8HR PRN PRN Reason: Nausea And Vomiting Pantoprazole Sodium (Pantoprazole 40 Mg Tablet) 40 mg PO AC-BID [facility] Last Admin: 09/20/21 17:25 Dose: 40 mg Documented by: Rivaroxaban (Rivaroxaban 20 Mg Tab) 20 mg PO W/SUPPER [facility]; Protocol Last Admin: 09/20/21 17:25 Dose: 20 mg Documented by: Silver Sulfadiazine (Silver Sulfadiazine 1% Cream 25 Gm Tube) 1 applic TOPICAL BID [facility]; Protocol Last Admin: 09/20/21 09:13 Dose: Not Given Documented by: Spironolactone (Spironolactone 25 Mg Tab) 25 mg PO DAILY [facility] Last Admin: 09/20/21 10:00 Dose: Not Given Documented by: Trazodone HCl (Trazodone Hcl 50 Mg Tab) 25 mg PO HS [facility] Last Admin: 09/19/21 21:20 Dose: 25 mg Documented by: Past medical history to include: GERD, bleeding peptic ulcer, mitral and tricuspid valve repair, hypothyroid, hyperlipidemia, bipolar, dilated cardiomyopathy EF 20-25%, paroxysmal atrial fibrillation, GERD rectal prolapse, pacemaker Social history: Smokes about 8 cigarettes a day used to smoke much more for many years. Has some help at home. Does not drink alcohol. Not employed Physical examination: VITAL SIGNS: 98.2, 50, 16, 96/57, 95% on 2 L GENERAL:reclining in bed, anxious EYES: Pupils equal. Conjunctiva normal, with right eye strabismus . HEENT: External appearance of nose and ears normal, oral cavity grossly normal.Breakdown of skin on the upper part of the bridge of the nose. Bruising on the forehead. NECK: JVD not raised; masses not palpable. HEART: Heart sounds irregular; no edema]. LUNGS: Respiratory rate normal. breath sounds decreased ABDOMEN: Soft, mild epigastric tenderness liver spleen not palpable, no masses palpable. PSYCH: Alert and oriented x3; mood and affect anxious NEUROLOGICAL: Cranial nerves grossly intact; no facial asymmetry, power and sensation grossly intact. LYMPHATICS: No lymph nodes palpable in the axilla and neck INVESTIGATIONS, reviewed in the clinical context: White count 5.1 hemoglobin 15.6 platelets 115 potassium 4 creatinine 1.11 Troponin I 0.059, 0.069, 0.074 ProBNP 75444 Coronavirus [PCR]: Detected EKG tracing personally reviewed by me-left bundle-branch block. Frequent PVCs Chest x-ray film personally reviewed by me-cardiomegaly. Questionable peripheral infiltrate Previous testin-D echocardiogram [February 2021] EF 20-25% severe MR mild to moderate TR Assessment and plan: -Syncope: This is a patient is feeling lightheaded and dizzy then passed out. No focal neurological symptoms. No tongue biting or incontinence. No other neurological symptoms. hypotensive. Most likely vasovagal. Lasix held. Gentle hydration. -Hypotension from volume loss likely from diuretics Lasix held. Given IV fluids overnight. Aldactone resume. - chronic congestive heart failure, from systolic dysfunction EF 20-25%: Stable Aldactone 25 mg. Hold Lasix for now -Persistent atrial fibrillation, rate controlled, Telemetry. DC digoxin. Lopressor 12.5 by mouth twice a day. Xarelto 20 mg with supper -COPD in a current smoker Symbicort. Ventolin HFA -Area of skin breakdown at the top of the bridge of the nose. Silvadene cream dressing. Oral Keflex -GERD Protonix -Chronic gait dysfunction uses a walker at baseline Fall precautions -Chronic nicotine dependence patient cigarette smoker Nicotine patch -Right eye strabismus -Hypothyroid Synthroid 50 g -Moderate to severe mitral and tricuspid regurgitation Follow clinically IV fluids stopped this morning. Increase activity. Up in a chair. Oral Keflex. 2-D echocardiogram. Patient has no cardiac symptoms. Get cardiology opinion. Start Lasix 20 mg a twice a day in the morning.
[2021-09-20] MEDS ORDERED: CEPHALEXIN 500 MG CAP PO SCH (21:00)
[2021-09-20] MEDS: traZODone HCL 50 MG TAB PO SCH (21:34)
[2021-09-20] MEDS: DICYCLOMINE 10 MG CAP PO PRN (21:34)
[2021-09-20] MEDS: GABAPENTIN 100 MG CAP PO SCH (21:34)
[2021-09-21] MEDS: CALCIUM CARBONATE LIQUID 500 MG/5 ML CUP PO SCH ×3 (08:23→17:53)
[2021-09-21] MEDS: CALCIUM CARB-VIT D 500 MG-5 MCG TAB PO SCH (08:23)
[2021-09-21] MEDS: FUROSEMIDE 20 MG TAB PO SCH ×2 (08:23→16:17)
[2021-09-21] MEDS: ASCORBIC ACID 500 MG TAB PO SCH (08:23)
[2021-09-21] MEDS: CEPHALEXIN 500 MG CAP PO SCH ×4 (08:23→22:14)
[2021-09-21] MEDS: PANTOPRAZOLE 40 MG TABLET PO SCH ×2 (08:24→17:52)
[2021-09-21] MEDS: LEVOTHYROXINE 50 MCG TAB PO SCH (08:24)
[2021-09-21] MEDS: SYMBICORT 80-4.5 MCG INHALER INHALATION SCH ×2 (09:04→21:28)
--- NOTE | 2021-09-21 09:14 | P.CRDCN ---
History of Present Illness History of present illness: This is a 55-year-old male with a past medical history significant for paroxysmal atrial fibrillation, systolic congestive heart failure, cardiomyopathy s/p single chamber ICD 10/2019, and mitral regurgitation with history of mitral valve repair in 2014. Patient follows in the office with Dr. Beltran. We have been asked to see the patient in consultation for elevated troponin. Patient presents emergency department 09/19/2021 with a fall and episode of lightheadedness and dizziness, patient states that on 09/18/21, he had an episode of lightheadedness and dizziness, he proceeded to put his head between his legs and then sat up and had a fall at home. He hit his head between and forehead and bridge of nose. He had no focal neurological symptoms, no incontinence. He was found to be hypotensive and positive orthostatic vital signs. Started on IV fluids. EKG revealed underlying atrial fibrillation with frequent PVCs. His antihypertensives have been held and Lasix was held. He denies any chest pain, palpitations, symptoms of orthopnea or PND. DIAGNOSTICS Telemetry reveals atrial fibrillation with PVCs. Chest xray cardiomegaly, interstitial edema improved compared to old exam Laboratory data: Troponin 0.05, 0.06, 0.07, CBC unremarkable, sodium 136, potassium 4.0, BUN 22, serum creatinine 1.1, proBNP 13,900, Covid positive Current home cardiac medications include Xarelto 20 mg daily, metoprolol succinate 25 mg in the morning and 50mg at night, losartan 12.5 mg daily, Lasix 40 mg twice a day, digoxin 125mcg daily, Lipitor 20 mg daily, spironolactone 25 mg daily Most recent echocardiogram obtained in January 2021 revealed ejection fraction 20- 25%, severe global hypokinesis, severe mitral regurgitation with mitral valve repair noted, [id number] tricuspid regurgitation with tricuspid valve repair noted Cardiac catheterization history includes: 2012 revealed normal coronary arteries, cardiomyopathy with moderate left ventricular systolic function, 3+ mitral regurgitation REVIEW OF SYSTEMS: At the time of my exam: CONSTITUTIONAL: Denies fever or chills. HEENT: Denies blurred vision, vision changes, or eye pain. Denies hemoptysis CARDIOVASCULAR: Denies chest pain. Denies orthopnea. Denies PND. Denies palpitations RESPIRATORY: Denies shortness of breath. GASTROINTESTINAL: Denies abdominal pain. Denies nausea or vomiting. HEMATOLOGIC: Denies bleeding disorders. GENITOURINARY: Denies any blood in urine. SKIN: Denies pruitis. Denies rash. PHYSICAL EXAM: VITAL SIGNS: Reviewed. GENERAL: Well-developed in no acute distress. HEENT: Neck supple. No JVD LUNGS: Respirations even and unlabored. HEART: Irregular rate and rhythm. ABDOMEN: Soft. Nondistended. Nontender. EXTREMITIES: Normal range of motion. NEUROLOGIC: Awake and alert. Oriented x 3. ASSESSMENT: Covid-19 Infection Syncope, likely vasovagal, rule out cardiac cause Abnormal troponins, not suggestive of acute coronary syndrome Chronic systolic congestive heart failure Long standing persistent atrial fibrillation, on anticoagulation with Xarelto History of nonischemic cardiomyopathy with known EF 25%, with previous AICD implantation Nonrheumatic mitral insufficiency status post repair in 2014 Hypotension PLAN: -Interrogate patient's device -No need to repeat echocardiogram at this time -Ok to hold digoxin, metoprolol, spironolactone due to hypotension -Continue Xarelto -Lasix restarted -Continue to monitor blood pressure and orthostatics -Further recommendations based on clinical course Nurse practitioner note has been reviewed by physician. Signing provider agrees with the documented findings, assessment, and plan of care. Past Medical History Past Medical History: Atrial Fibrillation, Coronary Artery Disease (CAD), Chest Pain / Angina, GERD/Reflux, Thyroid Disorder Additional Past Medical History / Comment(s): hypotension, nonischemic cardiomyopathy with ejection fraction 25-30%, atrial fibrillation, GI bleed, thrombocytopenia, ventricular tachycardia History of Any Multi-Drug Resistant Organisms: None Reported Past Surgical History: Coronary Bypass/CABG, Pacemaker, Tonsillectomy Additional Past Surgical History / Comment(s): Mitral and tricuspid heart valve repair no bypassed arteries, hiatal hernia Past Anesthesia/Blood Transfusion Reactions: No Reported Reaction Type of Cardiac Device: Permanent Pacemaker Device Placement Date:: october 2019 Past Psychological History: Anxiety, Depression Additional Psychological History / Comment(s): Pt states he was diagnosed as bipolar but no longer takes medication. Smoking Status: Current every day smoker Past Alcohol Use History: None Reported Additional Past Alcohol Use History / Comment(s): started smoking at age 12,<1ppd Past Drug Use History: None Reported - Past Family History Mother Additional Family Medical History / Comment(s): heart conditions Father Family Medical History: Cancer Additional Family Medical History / Comment(s): Lung CA Medications and Allergies Home Medications Medication Instructions Recorded Confirmed Type Levothyroxine Sodium [Synthroid] 50 mcg PO AC-BRKFST 08/28/17 09/19/21 History Atorvastatin [Lipitor] 20 mg PO W/SUPPER 07/18/19 09/19/21 History Furosemide [Lasix] 40 mg PO AC-BID 09/19/19 09/19/21 History Rivaroxaban [Xarelto] 20 mg PO W/SUPPER 09/19/19 09/19/21 History traZODone HCL 25 mg PO HS 05/19/20 09/19/21 History Digoxin [Lanoxin] 125 mcg PO DAILY 02/08/21 09/19/21 History Gabapentin [Neurontin] 100 mg PO HS 02/08/21 09/19/21 History Loratadine [Claritin] 10 mg PO HS 02/08/21 09/19/21 History Losartan [Cozaar] 12.5 mg PO W/SUPPER 02/09/21 09/19/21 History Pantoprazole [Protonix] 40 mg PO AC-BID #60 tablet. 02/12/21 09/19/21 Rx Calcium Carbonate/Vitamin D3 1 tab PO DAILY 04/03/21 09/19/21 History [Calcium 600 mg-Vit D3 5 mcg (200 unit)] Metoprolol Succinate (ER) [Toprol 25 mg PO DAILY 04/03/21 09/19/21 History XL] Metoprolol Succinate (ER) [Toprol 50 mg PO W/SUPPER 04/03/21 09/19/21 History XL] Spironolactone [Aldactone] 25 mg PO DAILY #30 tablet 04/05/21 09/19/21 Rx Albuterol Sulfate [Albuterol 1 puff INHALATION RT-Q4H PRN 09/19/21 09/19/21 History Sulfate Hfa] Ascorbic Acid [Vitamin C] 500 mg PO DAILY 09/19/21 09/19/21 History Budesonide/Formoterol Fumarate 1 puff INHALATION RT-BID 09/19/21 09/19/21 Histor y [Symbicort 80-4.5 Mcg Inhaler] Dicyclomine [Bentyl] 10 mg PO TID PRN 09/19/21 09/19/21 History Allergies Allergy/AdvReac Type Severity Reaction Status Date / Time aspirin Allergy "has Verified 09/19/21 09:14 stomach problems" NSAIDS (Non-Steroidal Allergy "has Verified 09/19/21 09:14 Anti-Inflamma stomach problems" Physical Exam Vitals: Vital Signs Temp Pulse Pulse Resp BP BP BP 09/21/21 03:24 09/21/21 02:41 98.6 F 53 L 20 73/57 09/21/21 01:58 53 L 09/20/21 21:53 57 L 09/20/21 20:00 54 L 20 09/20/21 18:55 98.3 F 54 L 20 09/20/21 14:01 98.2 F 57 L 17 96/68 09/20/21 14:00 57 L 41 L 17 09/20/21 13:18 90/54 78/56 88/56 09/20/21 08:00 47 L 16 BP Pulse Ox 09/21/21 03:24 92/56 09/21/21 02:41 93 L 09/21/21 01:58 09/20/21 21:53 90/54 09/20/21 20:00 09/20/21 18:55 82/57 96 09/20/21 14:01 97 09/20/21 14:00 09/20/21 13:18 09/20/21 08:00 Intake and Output 09/20/21 09/21/21 09/21/21 22:59 06:59 14:59 Intake Total 222 Balance 222 Intake: Oral 222 Other: # Voids 1 1 Results 09/19/21 00:04 09/19/21 00:04 Current Medications Generic Name Dose Route Start Last Admin Trade Name Freq PRN Reason Stop Dose Admin Acetaminophen 650 mg 09/19/21 05:20 Acetaminophen Tab 325 Mg Tab PO Q6HR PRN Mild Pain or Fever > 100.5 Albuterol Sulfate 1 puff 09/19/21 10:56 09/20/21 08:53 Albuterol Hfa Inhaler INHALATION 1 puff RT-Q4H PRN Administration Wheezing Ascorbic Acid 500 mg 09/19/21 11:00 09/20/21 10:04 Ascorbic Acid 500 Mg Tab PO 500 mg DAILY KAYLA Administration Atorvastatin Calcium 20 mg 09/19/21 17:30 09/20/21 17:25 Atorvastatin 20 Mg Tab PO 20 mg W/SUPPER KAYLA Administration Budesonide/Formoterol Fumarate 1 puff 09/19/21 10:56 09/20/21 19:53 Symbicort 80-4.5 Mcg Inhaler INHALATION 1 puff RT-BID KAYLA Administration Calcium Carbonate 1 each 09/19/21 11:00 09/20/21 10:04 Calcium Carb-Vit D 500 Mg-5 Mcg Tab PO 1 each DAILY KAYLA Administration Calcium Carbonate/Glycine 500 mg 09/20/21 17:30 09/20/21 17:25 Calcium Carbonate Liquid 500 Mg/5 Ml Cup PO 500 mg TID-W/MEALS KAYLA Administration Cephalexin 500 mg 09/20/21 13:00 09/20/21 21:35 Cephalexin 500 Mg Cap PO 500 mg QID KAYLA Administration Dicyclomine HCl 10 mg 09/19/21 10:56 09/20/21 21:34 Dicyclomine 10 Mg Cap PO 10 mg TID PRN Administration ibs/bloating Furosemide 20 mg 09/21/21 09:00 Furosemide 20 Mg Tab PO BID@0900,1600 [facility] Gabapentin 100 mg 09/19/21 21:00 09/20/21 21:34 Gabapentin 100 Mg Cap PO 100 mg HS KAYLA Administration Lactulose 20 gm 09/19/21 17:30 Lactulose 20 Gm/30 Ml Cup PO DAILY PRN Constipation Levothyroxine Sodium 50 mcg 09/19/21 11:00 09/20/21 10:14 Levothyroxine 50 Mcg Tab PO Not Given AC-BRKFST [facility] Melatonin 3 mg 09/19/21 17:30 Melatonin 3 Mg Tablet PO HS PRN Insomnia Metoprolol Tartrate 12.5 mg 09/19/21 21:00 09/20/21 21:35 Metoprolol Tartrate 12.5 Mg Tab PO Not Given BID KAYLA Naloxone HCl 0.2 mg 09/19/21 05:20 Naloxone 0.4 Mg/Ml 1 Ml Vial IV Q2M PRN Opioid Reversal Ondansetron HCl 4 mg 09/19/21 05:20 Ondansetron 4 Mg/2 Ml Vial IVP Q8HR PRN Nausea And Vomiting Pantoprazole Sodium 40 mg 09/19/21 17:30 09/20/21 17:25 Pantoprazole 40 Mg Tablet PO 40 mg AC-BID KAYLA Administration Rivaroxaban 20 mg 09/19/21 17:30 09/20/21 17:25 Rivaroxaban 20 Mg Tab PO 20 mg W/SUPPER [facility] Administration Protocol Silver Sulfadiazine 1 applic 09/19/21 21:00 09/20/21 21:48 Silver Sulfadiazine 1% Cream 25 Gm Tube TOPICAL 1 applic BID [facility] Administration Protocol Spironolactone 25 mg 09/20/21 09:00 09/20/21 10:00 Spironolactone 25 Mg Tab PO Not Given DAILY [facility] Trazodone HCl 25 mg 09/19/21 21:00 09/20/21 21:34 Trazodone Hcl 50 Mg Tab PO 25 mg HS [facility] Administration Intake and Output 09/20/21 09/21/21 09/21/21 22:59 06:59 14:59 Intake Total 222 Balance 222 Intake: Oral 222 Other: # Voids 1 1 09/19/21 00:04 09/19/21 00:04
[2021-09-21] MEDS: METOPROLOL TARTRATE 12.5 MG TAB PO SCH ×2 (09:37→22:02)
[2021-09-21] MEDS: SPIRONOLACTONE 25 MG TAB PO SCH (09:37)
--- NOTE | 2021-09-21 14:31 | P.PN ---
Progress Note - Text Progress Note Date: 09/21/21 Chief Complaint: Past out History of presenting complaint: This is a very pleasant 56-year-old patient of Dr. Smyth. Chronic stable medical conditions include hypothyroid, hyperlipidemia, bipolar disorder, hypertension, dilated cardiomyopathy 20-25%, paroxysmal atrial fibrillation, GERD, some rectal prolapse. Patient has some mental impairment. Lives by himself. Does use a walker at baseline Yesterday evening patient of flesh-colored bit lightheaded and dizzy. Sent down. Put his head between his legs. Didn't feel right decided to get up next thing he knew he had gone down. When he caught a preventative the bathroom he had a gash between the forehead and the bridge of the nose. No chest pain or palpitation. No fever no chills. His appetite is good. No change in bowel pattern. He also tested positive for COVID-19 in the ER. Denies any respiratory symptoms. No fever no chills. No loss of taste or smell. No diarrhea. Blood pressure was noted to be in the lower side. Patient had no focal weakness. No changes each vision. Patient presented because of syncope felt to be vasovagal and also hypotension. Dose of beta skyler cutback. Lasix held. Gentle IV hydration done. September 20: Lasix continues to be held. Aldactone was resumed. We will add oral Keflex for abrasion on the bridge nose. Blood pressure runs on the lower side. Patient does use a walker at baseline. Have the patient sit up in a chair. Patient's had no chest pain. Not a 2-D echocardiogram and a cardiology assessment. Patient does not have any cardiac symptoms . Troponinemia is felt to be from hemodynamic mismatch from hypotension. Patient is eating well September 21: Patient up in a chair. Eating well. On oral Keflex. No dizziness. Up to the bathroom with walker. Patient had a recent pacemaker check at the office. Another pacemaker check today showed possibly another event. Patient be UP for the per cardiology. Continue current medications. Patient's heart rate is in the 70s. Because of PVCs it is being recorded wrongly. Review of systems: Was done for constitutional, cardiovascular, GI, pulmonary. relevant finding as above Active Medications Acetaminophen (Acetaminophen Tab 325 Mg Tab) 650 mg PO Q6HR PRN PRN Reason: Mild Pain or Fever > 100.5 Albuterol Sulfate (Albuterol Hfa Inhaler) 1 puff INHALATION RT-Q4H PRN PRN Reason: Wheezing Last Admin: 09/20/21 08:53 Dose: 1 puff Documented by: Ascorbic Acid (Ascorbic Acid 500 Mg Tab) 500 mg PO DAILY [facility] Last Admin: 09/21/21 08:23 Dose: 500 mg Documented by: Atorvastatin Calcium (Atorvastatin 20 Mg Tab) 20 mg PO W/SUPPER [facility] Last Admin: 09/20/21 17:25 Dose: 20 mg Documented by: Budesonide/Formoterol Fumarate (Symbicort 80-4.5 Mcg Inhaler) 1 puff INHALATION RT-BID [facility] Last Admin: 09/21/21 09:04 Dose: Not Given Documented by: Calcium Carbonate (Calcium Carb-Vit D 500 Mg-5 Mcg Tab) 1 each PO DAILY [facility] Last Admin: 09/21/21 08:23 Dose: 1 each Documented by: Calcium Carbonate/Glycine (Calcium Carbonate Liquid 500 Mg/5 Ml Cup) 500 mg PO TID-W/MEALS [facility] Last Admin: 09/21/21 13:09 Dose: 500 mg Documented by: Cephalexin (Cephalexin 500 Mg Cap) 500 mg PO QID [facility] Last Admin: 09/21/21 13:09 Dose: 500 mg Documented by: Dicyclomine HCl (Dicyclomine 10 Mg Cap) 10 mg PO TID PRN PRN Reason: ibs/bloating Last Admin: 09/20/21 21:34 Dose: 10 mg Documented by: Furosemide (Furosemide 20 Mg Tab) 20 mg PO BID@0900,1600 [facility] Last Admin: 09/21/21 08:23 Dose: 20 mg Documented by: Gabapentin (Gabapentin 100 Mg Cap) 100 mg PO HS [facility] Last Admin: 09/20/21 21:34 Dose: 100 mg Documented by: Lactulose (Lactulose 20 Gm/30 Ml Cup) 20 gm PO DAILY PRN PRN Reason: Constipation Levothyroxine Sodium (Levothyroxine 50 Mcg Tab) 50 mcg PO AC-BRKFST [facility] Last Admin: 09/21/21 08:24 Dose: 50 mcg Documented by: Melatonin (Melatonin 3 Mg Tablet) 3 mg PO HS PRN PRN Reason: Insomnia Metoprolol Tartrate (Metoprolol Tartrate 12.5 Mg Tab) 12.5 mg PO BID [facility] Last Admin: 09/21/21 09:37 Dose: Not Given Documented by: Naloxone HCl (Naloxone 0.4 Mg/Ml 1 Ml Vial) 0.2 mg IV Q2M PRN PRN Reason: Opioid Reversal Ondansetron HCl (Ondansetron 4 Mg/2 Ml Vial) 4 mg IVP Q8HR PRN PRN Reason: Nausea And Vomiting Pantoprazole Sodium (Pantoprazole 40 Mg Tablet) 40 mg PO AC-BID [facility] Last Admin: 09/21/21 08:24 Dose: 40 mg Documented by: Rivaroxaban (Rivaroxaban 20 Mg Tab) 20 mg PO W/SUPPER [facility]; Protocol Last Admin: 09/20/21 17:25 Dose: 20 mg Documented by: Silver Sulfadiazine (Silver Sulfadiazine 1% Cream 25 Gm Tube) 1 applic TOPICAL BID [facility]; Protocol Last Admin: 09/21/21 08:24 Dose: 1 applic Documented by: Spironolactone (Spironolactone 25 Mg Tab) 25 mg PO DAILY [facility] Last Admin: 09/21/21 09:37 Dose: Not Given Documented by: Trazodone HCl (Trazodone Hcl 50 Mg Tab) 25 mg PO HS [facility] Last Admin: 09/20/21 21:34 Dose: 25 mg Documented by: Past medical history to include: GERD, bleeding peptic ulcer, mitral and tricuspid valve repair, hypothyroid, hyperlipidemia, bipolar, dilated cardiomyopathy EF 20-25%, paroxysmal atrial fibrillation, GERD rectal prolapse, pacemaker Social history: Smokes about 8 cigarettes a day used to smoke much more for many years. Has some help at home. Does not drink alcohol. Not employed Physical examination: VITAL SIGNS: 98.3, 70s, 17, 90 with 63, 97% on 2 L GENERAL: Up in a chair, awake EYES: Pupils equal. Conjunctiva normal, with right eye strabismus . HEENT: External appearance of nose and ears normal, oral cavity grossly normal.Breakdown of skin on the upper part of the bridge of the nose. Bruising on the forehead. NECK: JVD not raised; masses not palpable. HEART: Heart sounds irregular; no edema]. LUNGS: Respiratory rate normal. breath sounds decreased ABDOMEN: Soft, mild epigastric tenderness liver spleen not palpable, no masses palpable. PSYCH: Alert and oriented x3; mood and affect anxious NEUROLOGICAL: Cranial nerves grossly intact; no facial asymmetry, power and sensation grossly intact. LYMPHATICS: No lymph nodes palpable in the axilla and neck INVESTIGATIONS, reviewed in the clinical context: White count 5.1 hemoglobin 15.6 platelets 115 potassium 4 creatinine 1.11 Troponin I 0.059, 0.069, 0.074 ProBNP 67327 Coronavirus [PCR]: Detected EKG tracing personally reviewed by me-left bundle-branch block. Frequent PVCs Chest x-ray film personally reviewed by me-cardiomegaly. Questionable peripheral infiltrate Previous testin-D echocardiogram [February 2021] EF 20-25% severe MR mild to moderate TR Assessment and plan: -Syncope: This is a patient is feeling lightheaded and dizzy then passed out. No focal neurological symptoms. No tongue biting or incontinence. No other neurological symptoms. hypotensive. Most likely vasovagal. Lasix held. Receive some IV fluids. -Hypotension from volume loss likely from diuretics Lasix dose cut back to 20 mg twice a day.. She sits in some IV fluids. Aldactone resume. Does a beta skyler cutback. - chronic congestive heart failure, from systolic dysfunction EF 20-25%: Stable Aldactone 25 mg. Lasix 20 mg twice a day -Persistent atrial fibrillation, rate controlled, Telemetry. DC digoxin. Lopressor 12.5 by mouth twice a day. Xarelto 20 mg with supper -COPD in a current smoker Symbicort. Ventolin HFA -Area of skin breakdown at the top of the bridge of the nose. Silvadene cream dressing. Oral Keflex -GERD Protonix -Chronic gait dysfunction uses a walker at baseline Fall precautions -Chronic nicotine dependence patient cigarette smoker Nicotine patch -Right eye strabismus -Hypothyroid Synthroid 50 g -Moderate to severe mitral and tricuspid regurgitation Follow clinically Pacemaker check. Continue current medications. Patient to be observed on telemetry as per cardiology.
[2021-09-21] MEDS: RIVAROXABAN 20 MG TAB PO SCH (17:52)
[2021-09-21] MEDS: ATORVASTATIN 20 MG TAB PO SCH (17:52)
[2021-09-21] MEDS: ALBUTEROL HFA INHALER INHALATION PRN (21:28)
[2021-09-21] MEDS: traZODone HCL 50 MG TAB PO SCH (22:14)
[2021-09-21] MEDS: GABAPENTIN 100 MG CAP PO SCH (22:14)
[2021-09-22] MEDS: LEVOTHYROXINE 50 MCG TAB PO SCH (08:22)
[2021-09-22] MEDS: CALCIUM CARB-VIT D 500 MG-5 MCG TAB PO SCH (08:22)
[2021-09-22] MEDS: CEPHALEXIN 500 MG CAP PO SCH ×4 (08:22→21:25)
[2021-09-22] MEDS: CALCIUM CARBONATE LIQUID 500 MG/5 ML CUP PO SCH ×3 (08:22→17:28)
[2021-09-22] MEDS: ASCORBIC ACID 500 MG TAB PO SCH (08:22)
[2021-09-22] MEDS: PANTOPRAZOLE 40 MG TABLET PO SCH ×2 (08:22→17:28)
[2021-09-22] MEDS: FUROSEMIDE 20 MG TAB PO SCH ×2 (08:23→16:18)
[2021-09-22] MEDS: AMIODARONE 200 MG TAB PO SCH ×3 (09:39→21:26)
--- NOTE | 2021-09-22 11:05 | P.PN ---
Subjective This is a 55-year-old male with a past medical history significant for paroxysmal atrial fibrillation, systolic congestive heart failure, cardiomyopa thy s/p single chamber ICD 10/2019, and mitral regurgitation with history of mitral valve repair in 2014. Patient follows in the office with Dr. Beltran. We have been asked to see the patient in consultation for elevated troponin. Patient presents emergency department 09/19/2021 with a fall and episode of lightheadedness and dizziness, patient states that on 09/18/21, he had an episode of lightheadedness and dizziness, he proceeded to put his head between his legs and then sat up and had a fall at home. He hit his head between and forehead and bridge of nose. He had no focal neurological symptoms, no incontinence. He was found to be hypotensive and positive orthostatic vital signs. Started on IV fluids. EKG revealed underlying atrial fibrillation with frequent PVCs. His cardiac medications have been held due to hypotension. Device was interrogated, patient had numerous episodes of NSVT and episode of Vtach and Vfib on 09/18/21 with a shock delivered. 09/22/21 Patient seen and examined at bedside, no acute distress. On telemetry, he continues to be in atrial fibrillation with frequent PVCs, episodes of NSVT, HRs 70-80s. No bradycardia. Blood pressure 82/48. 95% on 2L nasal cannula. He denies shortness of breath. He does have a cough. No chest pain. No fever or chills. All cardiac medications have been held. Is he on Xarelto 20mg daily. PHYSICAL EXAM: VITAL SIGNS: Reviewed. GENERAL: Well-developed in no acute distress. HEENT: Neck supple. No JVD LUNGS: Respirations even and unlabored. HEART: Irregular rate and rhythm. ABDOMEN: Soft. Nondistended. Nontender. EXTREMITIES: Normal range of motion. NEUROLOGIC: Awake and alert. Oriented x 3. ASSESSMENT: Covid-19 Infection Syncope Episode of ventricular tachycardia and ventricular fibrillation on 09/18/21 with shock delivered Abnormal troponins, not suggestive of acute coronary syndrome Chronic systolic congestive heart failure Long standing persistent atrial fibrillation, on anticoagulation with Xarelto History of nonischemic cardiomyopathy with known EF 25%, with previous AICD implantation Nonrheumatic mitral insufficiency status post repair in 2014 Hypotension PLAN: -Start amiodarone loading at 400mg TID -No need to repeat echocardiogram at this time -Ok to hold digoxin, metoprolol, spironolactone, and lasix due to hypotension -Continue Xarelto -Continue to monitor blood pressure and orthostatics -Further recommendations based on clinical course Nurse practitioner note has been reviewed by physician. Signing provider agrees with the documented findings, assessment, and plan of care. Objective - Vital Signs Vital signs: Vital Signs Temp 97.7 F 09/22/21 07:00 Pulse 56 L 09/22/21 07:00 Resp 18 09/22/21 07:00 BP 82/48 09/22/21 07:00 Pulse Ox 95 09/22/21 07:00 Intake & Output 09/21/21 09/22/21 09/22/21 18:59 06:59 18:59 Intake Total 222 Output Total 300 800 225 Balance -78 -800 -225 Intake: Oral 222 Output: Urine 300 800 225 Other: Voiding Method Urinal # Voids 1 1 # Bowel Movements 0 - Labs CBC & Chem 7: 09/19/21 00:04 09/19/21 00:04
[2021-09-22] MEDS: RIVAROXABAN 20 MG TAB PO SCH (17:28)
[2021-09-22] MEDS: ATORVASTATIN 20 MG TAB PO SCH (17:28)
--- NOTE | 2021-09-22 18:21 | P.PN ---
Progress Note - Text Progress Note Date: 09/22/21 Chief Complaint: Past out History of presenting complaint: This is a very pleasant 56-year-old patient of Dr. Smyth. Chronic stable medical conditions include hypothyroid, hyperlipidemia, bipolar disorder, hypertension, dilated cardiomyopathy 20-25%, paroxysmal atrial fibrillation, GERD, some rectal prolapse. Patient has some mental impairment. Lives by himself. Does use a walker at baseline Yesterday evening patient of flesh-colored bit lightheaded and dizzy. Sent down. Put his head between his legs. Didn't feel right decided to get up next thing he knew he had gone down. When he caught a preventative the bathroom he had a gash between the forehead and the bridge of the nose. No chest pain or palpitation. No fever no chills. His appetite is good. No change in bowel pattern. He also tested positive for COVID-19 in the ER. Denies any respiratory symptoms. No fever no chills. No loss of taste or smell. No diarrhea. Blood pressure was noted to be in the lower side. Patient had no focal weakness. No changes each vision. Patient presented because of syncope felt to be vasovagal and also hypotension. Dose of beta skyler cutback. Lasix held. Gentle IV hydration done. September 20: Lasix continues to be held. Aldactone was resumed. We will add oral Keflex for abrasion on the bridge nose. Blood pressure runs on the lower side. Patient does use a walker at baseline. Have the patient sit up in a chair. Patient's had no chest pain. Not a 2-D echocardiogram and a cardiology assessment. Patient does not have any cardiac symptoms . Troponinemia is felt to be from hemodynamic mismatch from hypotension. Patient is eating well September 21: Patient up in a chair. Eating well. On oral Keflex. No dizziness. Up to the bathroom with walker. Patient had a recent pacemaker check at the office. Another pacemaker check today showed possibly another event. Patient be UP for the per cardiology. Continue current medications. Patient's heart rate is in the 70s. Because of PVCs it is being recorded wrongly. September 22: Yesterday his device was interrogated: Numerous episodes of nonsustained V. tach an episode of V. tach and V. fib with a shock delivered. This was on September 18. Patient be loaded with amiodarone. Patient denies any chest pain or palpitations. Questions answered. Review of systems: Was done for constitutional, cardiovascular, GI, pulmonary. relevant finding as above Active Medications Acetaminophen (Acetaminophen Tab 325 Mg Tab) 650 mg PO Q6HR PRN PRN Reason: Mild Pain or Fever > 100.5 Albuterol Sulfate (Albuterol Hfa Inhaler) 1 puff INHALATION RT-Q4H PRN PRN Reason: Wheezing Last Admin: 09/21/21 21:28 Dose: 1 puff Documented by: Amiodarone HCl (Amiodarone 200 Mg Tab) 400 mg PO TID [facility] Last Admin: 09/22/21 16:18 Dose: 400 mg Documented by: Ascorbic Acid (Ascorbic Acid 500 Mg Tab) 500 mg PO DAILY [facility] Last Admin: 09/22/21 08:22 Dose: 500 mg Documented by: Atorvastatin Calcium (Atorvastatin 20 Mg Tab) 20 mg PO W/SUPPER [facility] Last Admin: 09/22/21 17:28 Dose: 20 mg Documented by: Budesonide/Formoterol Fumarate (Symbicort 80-4.5 Mcg Inhaler) 1 puff INHALATION RT-BID [facility] Last Admin: 09/21/21 21:28 Dose: 1 puff Documented by: Calcium Carbonate (Calcium Carb-Vit D 500 Mg-5 Mcg Tab) 1 each PO DAILY [facility] Last Admin: 09/22/21 08:22 Dose: 1 each Documented by: Calcium Carbonate/Glycine (Calcium Carbonate Liquid 500 Mg/5 Ml Cup) 500 mg PO TID-W/MEALS [facility] Last Admin: 09/22/21 17:28 Dose: 500 mg Documented by: Cephalexin (Cephalexin 500 Mg Cap) 500 mg PO QID [facility] Last Admin: 09/22/21 17:28 Dose: 500 mg Documented by: Dicyclomine HCl (Dicyclomine 10 Mg Cap) 10 mg PO TID PRN PRN Reason: ibs/bloating Last Admin: 09/20/21 21:34 Dose: 10 mg Documented by: Furosemide (Furosemide 20 Mg Tab) 20 mg PO BID@0900,1600 [facility] Last Admin: 09/22/21 16:18 Dose: Not Given Documented by: Gabapentin (Gabapentin 100 Mg Cap) 100 mg PO HS [facility] Last Admin: 09/21/21 22:14 Dose: 100 mg Documented by: Lactulose (Lactulose 20 Gm/30 Ml Cup) 20 gm PO DAILY PRN PRN Reason: Constipation Levothyroxine Sodium (Levothyroxine 50 Mcg Tab) 50 mcg PO AC-BRKFST [facility] Last Admin: 09/22/21 08:22 Dose: 50 mcg Documented by: Melatonin (Melatonin 3 Mg Tablet) 3 mg PO HS PRN PRN Reason: Insomnia Naloxone HCl (Naloxone 0.4 Mg/Ml 1 Ml Vial) 0.2 mg IV Q2M PRN PRN Reason: Opioid Reversal Ondansetron HCl (Ondansetron 4 Mg/2 Ml Vial) 4 mg IVP Q8HR PRN PRN Reason: Nausea And Vomiting Pantoprazole Sodium (Pantoprazole 40 Mg Tablet) 40 mg PO AC-BID [facility] Last Admin: 09/22/21 17:28 Dose: 40 mg Documented by: Rivaroxaban (Rivaroxaban 20 Mg Tab) 20 mg PO W/SUPPER [facility]; Protocol Last Admin: 09/22/21 17:28 Dose: 20 mg Documented by: Silver Sulfadiazine (Silver Sulfadiazine 1% Cream 25 Gm Tube) 1 applic TOPICAL BID [facility]; Protocol Last Admin: 09/22/21 09:39 Dose: 1 applic Documented by: Trazodone HCl (Trazodone Hcl 50 Mg Tab) 25 mg PO HS [facility] Last Admin: 09/21/21 22:14 Dose: 25 mg Documented by: Past medical history to include: GERD, bleeding peptic ulcer, mitral and tricuspid valve repair, hypothyroid, hyperlipidemia, bipolar, dilated cardiomyopathy EF 20-25%, paroxysmal atrial fibrillation, GERD rectal prolapse, pacemaker Social history: Smokes about 8 cigarettes a day used to smoke much more for many years. Has some help at home. Does not drink alcohol. Not employed Physical examination: VITAL SIGNS: 98.1, 60, 16, 99/64, 93% on room air GENERAL: Up in bed, awake EYES: Pupils equal. Conjunctiva normal, with right eye strabismus . HEENT: External appearance of nose and ears normal, oral cavity grossly normal.Breakdown of skin on the upper part of the bridge of the nose. Bruising on the forehead. NECK: JVD not raised; masses not palpable. HEART: Heart sounds irregular; no edema]. LUNGS: Respiratory rate normal. breath sounds decreased ABDOMEN: Soft, mild epigastric tenderness liver spleen not palpable, no masses palpable. PSYCH: Alert and oriented x3; mood and affect anxious NEUROLOGICAL: Cranial nerves grossly intact; no facial asymmetry, power and sensation grossly intact. INVESTIGATIONS, reviewed in the clinical context: Device interrogation: Multiple episodes of NSVT. One episode of V. tach and V. fib. Patient was shocked on 09/18 White count 5.1 hemoglobin 15.6 platelets 115 potassium 4 creatinine 1.11 Troponin I 0.059, 0.069, 0.074 ProBNP [id number] Coronavirus [PCR]: Detected EKG tracing personally reviewed by me-left bundle-branch block. Frequent PVCs Chest x-ray film personally reviewed by me-cardiomegaly. Questionable peripheral infiltrate Previous testin-D echocardiogram [February 2021] EF 20-25% severe MR mild to moderate TR Assessment and plan: -Syncope: From arrhythmias. -Multiple episodes of NSVT and one episode of V. tach V. fib on 09/18. Patient being loaded with amiodarone -Hypotension from volume loss likely from diuretics Decrease Lasix 20 mg a day.. Aldactone beta skyler discontinued - chronic congestive heart failure, from systolic dysfunction EF 20-25%: Stable Aldactone 25 mg. Lasix 20 mg a day -Persistent atrial fibrillation, rate controlled, Stop digoxin and Lopressor. Xarelto 20 mg with supper -COPD in a current smoker Symbicort. Ventolin HFA -Area of skin breakdown at the top of the bridge of the nose. Silvadene cream dressing. Oral Keflex -GERD Protonix -Chronic gait dysfunction uses a walker at baseline Fall precautions -Chronic nicotine dependence patient cigarette smoker Nicotine patch -Right eye strabismus -Hypothyroid Synthroid 50 g -Moderate to severe mitral and tricuspid regurgitation Follow clinically Beta skyler discontinued. Amiodarone loading. Discussed with the patient. Other medications to continue. Follow with cardiology. Patient changed to inpatient , to stay in the hospital at least 2 nights. Decrease Lasix to 20 mg once daily. Blood pressure running low.
[2021-09-22] MEDS: SYMBICORT 80-4.5 MCG INHALER INHALATION SCH (20:18)
[2021-09-22] MEDS: ALBUTEROL HFA INHALER INHALATION PRN (20:21)
[2021-09-22] MEDS: traZODone HCL 50 MG TAB PO SCH (21:25)
[2021-09-22] MEDS: GABAPENTIN 100 MG CAP PO SCH (21:25)
[2021-09-23 07:29] LABS: African American GFR (CKD) >90 (>60 ml/min/1.73 sqM); Anion Gap 5 mmol/L; Blood Urea Nitrogen 20 mg/dL (9-20); Calcium 8.5 mg/dL (8.4-10.2); Carbon Dioxide 25 mmol/L (22-30); Chloride 106 mmol/L (98-107); Glucose 104 mg/dL (74-99); Non-African American GFR(CKD) >90 (>60 ml/min/1.73 sqM); Potassium 4.4 mmol/L (3.5-5.1); Sodium 136 mmol/L (137-145)
[2021-09-23] MEDS: CALCIUM CARBONATE LIQUID 500 MG/5 ML CUP PO SCH ×3 (08:04→17:27)
[2021-09-23] MEDS: CALCIUM CARB-VIT D 500 MG-5 MCG TAB PO SCH (08:05)
[2021-09-23] MEDS: CEPHALEXIN 500 MG CAP PO SCH ×4 (08:05→21:09)
[2021-09-23] MEDS: AMIODARONE 200 MG TAB PO SCH ×3 (08:05→21:09)
[2021-09-23] MEDS: ASCORBIC ACID 500 MG TAB PO SCH (08:05)
[2021-09-23] MEDS: PANTOPRAZOLE 40 MG TABLET PO SCH ×2 (08:05→17:27)
[2021-09-23] MEDS: LEVOTHYROXINE 50 MCG TAB PO SCH (08:05)
[2021-09-23] MEDS: SYMBICORT 80-4.5 MCG INHALER INHALATION SCH ×2 (09:34→19:30)
[2021-09-23] MEDS: ALBUTEROL HFA INHALER INHALATION PRN ×2 (09:34→15:56)
--- NOTE | 2021-09-23 12:06 | P.PN ---
Subjective This is a 55-year-old male with a past medical history significant for paroxysmal atrial fibrillation, systolic congestive heart failure, cardiomyopa thy s/p single chamber ICD 10/2019, and mitral regurgitation with history of mitral valve repair in 2014. Patient follows in the office with Dr. Beltran. We have been asked to see the patient in consultation for elevated troponin. Patient presents emergency department 09/19/2021 with a fall and episode of lightheadedness and dizziness, patient states that on 09/18/21, he had an episode of lightheadedness and dizziness, he proceeded to put his head between his legs and then sat up and had a fall at home. He hit his head between and forehead and bridge of nose. He had no focal neurological symptoms, no incontinence. He was found to be hypotensive and positive orthostatic vital signs. Started on IV fluids. EKG revealed underlying atrial fibrillation with frequent PVCs. His cardiac medications have been held due to hypotension. Device was interrogated, patient had numerous episodes of NSVT and episode of Vtach and Vfib on 09/18/21 with a shock delivered. 09/23/21 Patient seen and examined at bedside, no acute distress. He was started on amiodarone 400mg TID on 09/22/21, all other cardiac medications have been held. On telemetry, he continues to be in atrial fibrillation with PVCs, His episodes of NSVT has improved. He did have one episode of NSVT 7 beats overnight. HR 60s- 90. No bradycardia. Blood pressure has improved 93/59. SpO2 >92% on 2L nasal cannula. He denies shortness of breath. He does have a cough. No chest pain. No fever or chills. All cardiac medications have been held. Is he on Xarelto 20mg daily and amiodarone 400mg TID PHYSICAL EXAM: VITAL SIGNS: Reviewed. GENERAL: Well-developed in no acute distress. HEENT: Neck supple. No JVD LUNGS: Respirations even and unlabored. HEART: Irregular rate and rhythm. ABDOMEN: Soft. Nondistended. Nontender. EXTREMITIES: Normal range of motion. NEUROLOGIC: Awake and alert. Oriented x 3. ASSESSMENT: Covid-19 Infection Syncope Episode of ventricular tachycardia and ventricular fibrillation on 09/18/21 with shock delivered Non-sustained ventricular tachycardia Premature ventricular complexes Abnormal troponins, not suggestive of acute coronary syndrome Chronic systolic congestive heart failure Long standing persistent atrial fibrillation, on anticoagulation with Xarelto History of nonischemic cardiomyopathy with known EF 25%, with previous AICD implantation Nonrheumatic mitral insufficiency status post repair in 2014 Hypotension PLAN: -We will continue amiodarone 400mg TID today -Ok to hold digoxin, metoprolol, spironolactone, and lasix due to hypotension -Continue Xarelto -Continue to monitor blood pressure and cardiac telemetry -We will monitor patient on amiodarone and telemetry for additional 24 hours, hopefully discharge tomorrow 09/24/21 -Further recommendations based on clinical course Nurse practitioner note has been reviewed by physician. Signing provider agrees with the documented findings, assessment, and plan of care. Objective - Vital Signs Vital signs: Vital Signs Temp 98.3 F 09/23/21 07:00 Pulse 81 09/23/21 07:00 Resp 16 09/23/21 07:00 BP 93/59 09/23/21 07:00 Pulse Ox 92 L 09/23/21 07:00 Intake & Output 09/22/21 09/23/21 09/23/21 18:59 06:59 18:59 Intake Total 800 Output Total 525 1300 Balance 275 -1300 Intake: Oral 800 Output: Urine 525 1300 Other: Voiding Method Urinal # Voids 2 1 # Bowel Movements 0 - Labs CBC & Chem 7: 09/19/21 00:04 09/23/21 06:53 Labs: Abnormal Lab Results - Last 24 Hours (Table) 09/23/21 Range/Units 06:53 Sodium 136 L (137-145) mmol/L Glucose 104 H (74-99) mg/dL
[2021-09-23] MEDS: FUROSEMIDE 20 MG TAB PO SCH (12:21)
[2021-09-23 14:24] VITALS: BMI 24.4
[2021-09-23] MEDS: RIVAROXABAN 20 MG TAB PO SCH (17:27)
[2021-09-23] MEDS: ATORVASTATIN 20 MG TAB PO SCH (17:27)
--- NOTE | 2021-09-23 20:54 | P.PN ---
Progress Note - Text Progress Note Date: 09/23/21 Chief Complaint: Past out History of presenting complaint: This is a very pleasant 56-year-old patient of Dr. Smyth. Chronic stable medical conditions include hypothyroid, hyperlipidemia, bipolar disorder, hypertension, dilated cardiomyopathy 20-25%, paroxysmal atrial fibrillation, GERD, some rectal prolapse. Patient has some mental impairment. Lives by himself. Does use a walker at baseline Yesterday evening patient of flesh-colored bit lightheaded and dizzy. Sent down. Put his head between his legs. Didn't feel right decided to get up next thing he knew he had gone down. When he caught a preventative the bathroom he had a gash between the forehead and the bridge of the nose. No chest pain or palpitation. No fever no chills. His appetite is good. No change in bowel pattern. He also tested positive for COVID-19 in the ER. Denies any respiratory symptoms. No fever no chills. No loss of taste or smell. No diarrhea. Blood pressure was noted to be in the lower side. Patient had no focal weakness. No changes each vision. Patient presented because of syncope felt to be vasovagal and also hypotension. Dose of beta skyler cutback. Lasix held. Gentle IV hydration done. September 20: Lasix continues to be held. Aldactone was resumed. We will add oral Keflex for abrasion on the bridge nose. Blood pressure runs on the lower side. Patient does use a walker at baseline. Have the patient sit up in a chair. Patient's had no chest pain. Not a 2-D echocardiogram and a cardiology assessment. Patient does not have any cardiac symptoms . Troponinemia is felt to be from hemodynamic mismatch from hypotension. Patient is eating well September 21: Patient up in a chair. Eating well. On oral Keflex. No dizziness. Up to the bathroom with walker. Patient had a recent pacemaker check at the office. Another pacemaker check today showed possibly another event. Patient be UP for the per cardiology. Continue current medications. Patient's heart rate is in the 70s. Because of PVCs it is being recorded wrongly. September 22: Yesterday his device was interrogated: Numerous episodes of nonsustained V. tach an episode of V. tach and V. fib with a shock delivered. This was on September 18. Patient be loaded with amiodarone. Patient denies any chest pain or palpitations. Questions answered. September 23: No dizziness, lightheadedness. Breathing stable. Aldactone Lopressor discontinued. On amiodarone. Had 7 beat run of NSVT overnight. Discussed with patient. Follow with cardiology. Review of systems: Was done for constitutional, cardiovascular, GI, pulmonary. relevant finding as above Active Medications Acetaminophen (Acetaminophen Tab 325 Mg Tab) 650 mg PO Q6HR PRN PRN Reason: Mild Pain or Fever > 100.5 Albuterol Sulfate (Albuterol Hfa Inhaler) 1 puff INHALATION RT-Q4H PRN PRN Reason: Wheezing Last Admin: 09/23/21 15:56 Dose: 1 puff Documented by: Amiodarone HCl (Amiodarone 200 Mg Tab) 400 mg PO TID [facility] Last Admin: 09/23/21 16:12 Dose: 400 mg Documented by: Ascorbic Acid (Ascorbic Acid 500 Mg Tab) 500 mg PO DAILY [facility] Last Admin: 09/23/21 08:05 Dose: 500 mg Documented by: Atorvastatin Calcium (Atorvastatin 20 Mg Tab) 20 mg PO W/SUPPER [facility] Last Admin: 09/23/21 17:27 Dose: 20 mg Documented by: Budesonide/Formoterol Fumarate (Symbicort 80-4.5 Mcg Inhaler) 1 puff INHALATION RT-BID [facility] Last Admin: 09/23/21 19:30 Dose: 1 puff Documented by: Calcium Carbonate (Calcium Carb-Vit D 500 Mg-5 Mcg Tab) 1 each PO DAILY [facility] Last Admin: 09/23/21 08:05 Dose: 1 each Documented by: Calcium Carbonate/Glycine (Calcium Carbonate Liquid 500 Mg/5 Ml Cup) 500 mg PO TID-W/MEALS [facility] Last Admin: 09/23/21 17:27 Dose: 500 mg Documented by: Cephalexin (Cephalexin 500 Mg Cap) 500 mg PO QID [facility] Last Admin: 09/23/21 17:27 Dose: 500 mg Documented by: Dicyclomine HCl (Dicyclomine 10 Mg Cap) 10 mg PO TID PRN PRN Reason: ibs/bloating Last Admin: 09/20/21 21:34 Dose: 10 mg Documented by: Furosemide (Furosemide 20 Mg Tab) 20 mg PO DAILY [facility] Last Admin: 09/23/21 12:21 Dose: Not Given Documented by: Gabapentin (Gabapentin 100 Mg Cap) 100 mg PO HS [facility] Last Admin: 09/22/21 21:25 Dose: 100 mg Documented by: Lactulose (Lactulose 20 Gm/30 Ml Cup) 20 gm PO DAILY PRN PRN Reason: Constipation Levothyroxine Sodium (Levothyroxine 50 Mcg Tab) 50 mcg PO AC-BRKFST [facility] Last Admin: 09/23/21 08:05 Dose: 50 mcg Documented by: Melatonin (Melatonin 3 Mg Tablet) 3 mg PO HS PRN PRN Reason: Insomnia Naloxone HCl (Naloxone 0.4 Mg/Ml 1 Ml Vial) 0.2 mg IV Q2M PRN PRN Reason: Opioid Reversal Ondansetron HCl (Ondansetron 4 Mg/2 Ml Vial) 4 mg IVP Q8HR PRN PRN Reason: Nausea And Vomiting Pantoprazole Sodium (Pantoprazole 40 Mg Tablet) 40 mg PO AC-BID [facility] Last Admin: 09/23/21 17:27 Dose: 40 mg Documented by: Rivaroxaban (Rivaroxaban 20 Mg Tab) 20 mg PO W/SUPPER [facility]; Protocol Last Admin: 09/23/21 17:27 Dose: 20 mg Documented by: Silver Sulfadiazine (Silver Sulfadiazine 1% Cream 25 Gm Tube) 1 applic TOPICAL BID [facility]; Protocol Last Admin: 09/23/21 12:21 Dose: Not Given Documented by: Trazodone HCl (Trazodone Hcl 50 Mg Tab) 25 mg PO [facility] Last Admin: 09/22/21 21:25 Dose: 25 mg Documented by: Past medical history to include: GERD, bleeding peptic ulcer, mitral and tricuspid valve repair, hypothyroid, hyperlipidemia, bipolar, dilated cardiomyopathy EF 20-25%, paroxysmal atrial fibrillation, GERD rectal prolapse, pacemaker Social history: Smokes about 8 cigarettes a day used to smoke much more for many years. Has some help at home. Does not drink alcohol. Not employed Physical examination: VITAL SIGNS: 98.3, 71, 17, 105/63, 91% room air GENERAL: He planning in bed, comfortable EYES: Pupils equal. Conjunctiva normal, with right eye strabismus . HEENT: External appearance of nose and ears normal, oral cavity grossly normal.Breakdown of skin on the upper part of the bridge of the nose. Bruising on the forehead. NECK: JVD not raised; masses not palpable. HEART: Heart sounds irregular; no edema]. LUNGS: Respiratory rate normal. breath sounds decreased ABDOMEN: Soft, mild epigastric tenderness liver spleen not palpable, no masses palpable. PSYCH: Alert and oriented x3; mood and affect anxious NEUROLOGICAL: Cranial nerves grossly intact; no facial asymmetry, power and sensation grossly intact. INVESTIGATIONS, reviewed in the clinical context: September 23: Potassium 4.4 creatinine 0.88 Device interrogation: Multiple episodes of NSVT. One episode of V. tach and V. fib. Patient was shocked on 09/18 White count 5.1 hemoglobin 15.6 platelets 115 potassium 4 creatinine 1.11 Troponin I 0.059, 0.069, 0.074 ProBNP 24246 Coronavirus [PCR]: Detected EKG tracing personally reviewed by me-left bundle-branch block. Frequent PVCs Chest x-ray film personally reviewed by me-cardiomegaly. Questionable peripheral infiltrate Previous testin-D echocardiogram [February 2021] EF 20-25% severe MR mild to moderate TR Assessment and plan: -Syncope: From arrhythmias. -Multiple episodes of NSVT and one episode of V. tach V. fib on 09/18 with device interrogation.. Patient being loaded with amiodarone -Hypotension from volume loss likely from diuretics Lasix 20 mg a day.. Aldactone beta skyler discontinued - chronic congestive heart failure, from systolic dysfunction EF 20-25%: Stable Lasix 20 mg a day -Persistent atrial fibrillation, rate controlled, Stop digoxin and Lopressor. Xarelto 20 mg with supper -COPD in a current smoker Symbicort. Ventolin HFA -Area of skin breakdown at the top of the bridge of the nose. Silvadene cream dressing. Oral Keflex -GERD Protonix -Chronic gait dysfunction uses a walker at baseline Fall precautions -Chronic nicotine dependence patient cigarette smoker Nicotine patch -Right eye strabismus -Hypothyroid Synthroid 50 g -Moderate to severe mitral and tricuspid regurgitation Follow clinically Patient on amiodarone oral loading. Patient remains off Aldactone, Lopressor. Discussed with patient. Oral antibiotic. No chronic symptoms. Follow with cardiology.
[2021-09-23] MEDS: GABAPENTIN 100 MG CAP PO SCH (21:09)
[2021-09-23] MEDS: traZODone HCL 50 MG TAB PO SCH (23:05)
[2021-09-24] MEDS: SYMBICORT 80-4.5 MCG INHALER INHALATION SCH (07:43)
[2021-09-24] MEDS: LEVOTHYROXINE 50 MCG TAB PO SCH (07:44)
[2021-09-24 07:47] LABS: Magnesium 2.1 mg/dL (1.6-2.3); Potassium 4.7 mmol/L (3.5-5.1)
[2021-09-24] MEDS: ASCORBIC ACID 500 MG TAB PO SCH (09:02)
[2021-09-24] MEDS: CEPHALEXIN 500 MG CAP PO SCH (09:02)
[2021-09-24] MEDS: CALCIUM CARBONATE LIQUID 500 MG/5 ML CUP PO SCH (09:02)
[2021-09-24] MEDS: PANTOPRAZOLE 40 MG TABLET PO SCH (09:02)
[2021-09-24] MEDS: AMIODARONE 200 MG TAB PO SCH (09:03)
[2021-09-24] MEDS: FUROSEMIDE 20 MG TAB PO SCH (09:03)
--- NOTE | 2021-09-24 12:35 | P.PN ---
Subjective This is a 55-year-old male with a past medical history significant for paroxysmal atrial fibrillation, systolic congestive heart failure, cardiomyopa thy s/p single chamber ICD 10/2019, and mitral regurgitation with history of mitral valve repair in 2014. Patient follows in the office with Dr. Beltran. We have been asked to see the patient in consultation for elevated troponin. Patient presents emergency department 09/19/2021 with a fall and episode of lightheadedness and dizziness, patient states that on 09/18/21, he had an episode of lightheadedness and dizziness, he proceeded to put his head between his legs and then sat up and had a fall at home. He hit his head between and forehead and bridge of nose. He had no focal neurological symptoms, no incontinence. He was found to be hypotensive and positive orthostatic vital signs. Started on IV fluids. EKG revealed underlying atrial fibrillation with frequent PVCs. His cardiac medications have been held due to hypotension. Device was interrogated, patient had numerous episodes of NSVT and episode of Vtach and Vfib on 09/18/21 with a shock delivered. 09/24/21 Patient seen at bedside, no acute distress. He is resting comfortably, no chest pain no shortness of breath. He was started on amiodarone 400mg TID on 09/22/21, all other cardiac medications have been held. On telemetry, he continues to be in atrial fibrillation, His episodes of NSVT has improved. He did have two episode of NSVT 4 beats overnight, no additional shocks noted. Heart rates controlled. No bradycardia. Blood pressure has improved 100/60. SpO2 98% on room air. All cardiac medications have been held. Is he on Xarelto 20mg daily and amiodarone 400mg TID PHYSICAL EXAM: VITAL SIGNS: Reviewed. GENERAL: Well-developed in no acute distress. HEENT: Neck supple. No JVD LUNGS: Respirations even and unlabored. HEART: Irregular rate and rhythm. ABDOMEN: Soft. Nondistended. Nontender. EXTREMITIES: Normal range of motion. NEUROLOGIC: Awake and alert. Oriented x 3. ASSESSMENT: Covid-19 Infection Syncope Episode of ventricular tachycardia and ventricular fibrillation on 09/18/21 with shock delivered Non-sustained ventricular tachycardia Premature ventricular complexes Abnormal troponins, not suggestive of acute coronary syndrome Chronic systolic congestive heart failure Long standing persistent atrial fibrillation, on anticoagulation with Xarelto History of nonischemic cardiomyopathy with known EF 25%, with previous AICD implantation Nonrheumatic mitral insufficiency status post repair in 2014 Hypotension PLAN: -We will continue amiodarone 400mg TID today for total of 2 weeks -Ok to hold digoxin, metoprolol,lasix due to hypotension -Continue spironolactone -Continue Xarelto -From a cardiology perspective, patient is stable to be discharged home today. Follow up outpatient with Dr. Beltran on 10/04/2021 Nurse practitioner note has been reviewed by physician. Signing provider agrees with the documented findings, assessment, and plan of care. Objective - Vital Signs Vital signs: Vital Signs Temp 98.2 F 09/24/21 07:00 Pulse 72 09/24/21 07:00 Resp 18 09/24/21 07:00 BP 100/60 09/24/21 07:00 Pulse Ox 98 09/24/21 07:00 Intake & Output 09/23/21 09/24/21 09/24/21 18:59 06:59 18:59 Intake Total 358 240 Output Total 400 250 Balance -42 -250 240 Weight 81.647 kg Intake: Oral 358 240 Output: Urine 400 250 Other: Voiding Method Urinal # Voids 3 - Labs CBC & Chem 7: 09/19/21 00:04 09/24/21 06:50
[2021-09-24 14:31] VITALS: BP 101/59; PULSE 69; RESP 16; TEMP 98.3
--- NOTE | 2021-09-24 19:32 | P.DS ---
Providers Date of admission: 09/22/21 10:42 Attending physician: Lamine Gaitan Consults: 09/20/21 18:00 Consult Physician Routine Consulting Provider: Abhijeet Beltran Consult Reason/Comments: Positive troponin Do you want consulting provider notified?: Yes Primary care physician: Juancho Smyth Hospital Course: Diagnoses: Syncope secondary to ventricular arrhythmia of NSVT and one episode of VF on 09/18, shocks delivered Elevated troponin with no evidence of coronary artery disease per cage unloader Covid infection with no pneumonia or hypoxia Status post pacemaker Running systolic CHF with ejection fraction of 20-25% Persistent atrial fibrillation on Xarelto Nicotine dependence Hypothyroidism Moderate to severe mitral and tricuspid regurgitation History of GERD COPD, not in acute exacerbation Hospital course: This is a very pleasant 56-year-old patient of Dr. Smyth. Chronic stable medical conditions include hypothyroid, hyperlipidemia, bipolar disorder, hypertension, dilated cardiomyopathy 20-25%, paroxysmal atrial fibrillation, GERD, some rectal prolapse. Patient has some mental impairment. Lives by himself. Does use a walker at baseline He presents because of syncope and dizziness and found to have nonsustained V. tach and ventricular fibrillation on one time on 09/22 pressure was delivered. Cardiology are following him, he was treated with amiodarone and discharge on oral dose of 400 mg 3 times a day for 2 weeks, because his blood pressure was borderline his antihypertensives were discontinued including beta skyler, and others see discharge instructions. Patient is on Aldactone per cage unloader recommendation. Patient informed. Also patient continued on Xarelto and he said he has it at home Also patient continued on antibiotics On the day of discharge patient was fully awake and oriented, he was moving freely in bed with no difficulty. He denies chest pain or dyspnea or coughing. No change in urine or bowel habits. No fever. Patient was cleared for cartilage team today, I discussed the case with them Problems and management plan were discussed with the patient and he verbalized understanding and acceptance Patient was found stable and can be discharged home however he needs follow-up as an outpatient. Patient was instructed to follow up with PCP Dr. Dawkins within one week and patient agrees Patient also was instructed to follow up with his cage unloader Dr. Beltran, he already told me he has an appointment on 10/04 at 2 PM, which is covered by staff, it, he will follow-up. Physical exam Gen: patient is a AAOx3, no distress CVS: S1-S2, RRR, no murmur Lungs: B/L CTA, no wheezing Abdomen: soft, no distention, no tenderness, positive bowel sounds Extremity: no leg edema or induration Time spent more than 35 minutes Plan - Discharge Summary Discharge Rx Participant: Yes New Discharge Prescriptions: New SILVER sulfADIAZINE CREAM [Silvadene Cream] 1 applic TOPICAL BID cream Amiodarone [Cordarone] 400 mg PO TID 120 Days #240 tab Cephalexin [Keflex] 500 mg PO QID #20 cap Continue Levothyroxine Sodium [Synthroid] 50 mcg PO AC-BRKFST Atorvastatin [Lipitor] 20 mg PO W/SUPPER Rivaroxaban [Xarelto] 20 mg PO W/SUPPER traZODone HCL 25 mg PO HS Pantoprazole [Protonix] 40 mg PO AC-BID #60 tablet. Calcium Carbonate/Vitamin D3 [Calcium 600 mg-Vit D3 5 mcg (200 unit)] 1 tab PO DAILY Spironolactone [Aldactone] 25 mg PO DAILY #30 tablet Dicyclomine [Bentyl] 10 mg PO TID PRN PRN Reason: ibs/bloating Gabapentin [Neurontin] 100 mg PO HS Albuterol Sulfate [Albuterol Sulfate Hfa] 1 puff INHALATION RT-Q4H PRN PRN Reason: Wheezing Ascorbic Acid [Vitamin C] 500 mg PO DAILY Budesonide/Formoterol Fumarate [Symbicort 80-4.5 Mcg Inhaler] 1 puff INHALATION RT-BID Discontinued Furosemide [Lasix] 40 mg PO AC-BID Loratadine [Claritin] 10 mg PO HS Digoxin [Lanoxin] 125 mcg PO DAILY Losartan [Cozaar] 12.5 mg PO W/SUPPER Metoprolol Succinate (ER) [Toprol XL] 25 mg PO DAILY Metoprolol Succinate (ER) [Toprol XL] 50 mg PO W/SUPPER Discharge Medication List Levothyroxine Sodium [Synthroid] 50 mcg PO AC-BRKFST 08/28/17 [History] Atorvastatin [Lipitor] 20 mg PO W/SUPPER 07/18/19 [History] Rivaroxaban [Xarelto] 20 mg PO W/SUPPER 09/19/19 [History] traZODone HCL 25 mg PO HS 05/19/20 [History] Gabapentin [Neurontin] 100 mg PO HS 02/08/21 [History] Pantoprazole [Protonix] 40 mg PO AC-BID #60 tablet. 02/12/21 [Rx] Calcium Carbonate/Vitamin D3 [Calcium 600 mg-Vit D3 5 mcg (200 unit)] 1 tab PO DAILY 04/03/21 [History] Spironolactone [Aldactone] 25 mg PO DAILY #30 tablet 04/05/21 [Rx] Albuterol Sulfate [Albuterol Sulfate Hfa] 1 puff INHALATION RT-Q4H PRN 09/19/21 [History] Ascorbic Acid [Vitamin C] 500 mg PO DAILY 09/19/21 [History] Budesonide/Formoterol Fumarate [Symbicort 80-4.5 Mcg Inhaler] 1 puff INHALATION RT-BID 09/19/21 [History] Dicyclomine [Bentyl] 10 mg PO TID PRN 09/19/21 [History] Cephalexin [Keflex] 500 mg PO QID #20 cap 09/21/21 [Rx] SILVER sulfADIAZINE CREAM [Silvadene Cream] 1 applic TOPICAL BID cream 09/21/21 [Rx] Amiodarone [Cordarone] 400 mg PO TID 120 Days #240 tab 09/24/21 [Rx] Follow up Appointment(s)/Referral(s): Juancho Smyth MD [Primary Care Provider] - 1 Week Abhijeet Beltran MD [STAFF PHYSICIAN] - 10/04/21 2:00 pm (appointment made at the [facility] ) Patient Instructions/Handouts: Coronavirus Disease 2019 (COVID-19), How to Stop Smoking (DC), Vertigo (GEN) Activity/Diet/Wound Care/Special Instructions: Heart healthy diet Activity is restricted till you see your doctor Please follow up with Dr. Beltran on 10/04/2021 at 2:00PM Amiodarone Taper Instructions: Please take Amiodarone 200mg Three times a Day for 2 weeks (09/22/21-10/07/21) Then taken Amiodarone 200mg Twice a day (morning and night) Thereafter Further changes from your cage unloader Dr. Beltran in the office. Discharge Disposition: HOME SELF-CARE
--- NOTE | 2021-11-05 07:48 | ED ---
Syncope HPI - General Chief Complaint: Fall Stated Complaint: Fall Time Seen by Provider: 09/18/21 23:35 Source: patient, EMS Mode of arrival: EMS Limitations: no limitations - History of Present Illness Initial Comments: Patient is a 56-year-old man who presents to be evaluated after he had a syncopal episode. Patient states that he had not been feeling entirely well. He was going to use the bathroom and was feeling lightheaded so he did sit down and put his head between his legs. He felt a little better and then when he straightened back up, he felt lightheaded and then remembers waking up after having fallen. The patient believes she had struck his face. He has a little bit of tenderness at the bridge of the nose. He is currently denying headache. No chest pain currently. MD Complaint: collapsed -: minutes(s) Prodromal Symptoms: lightheaded, palpitations -: second(s) Injuries Sustained Associated with Event: Face Current Symptoms: lightheaded Context: standing up Treatments Prior to Arrival: none - Related Data Home Medications Medication Instructions Recorded Confirmed Levothyroxine Sodium [Synthroid] 50 mcg PO AC-BRKFST 08/28/17 10/02/21 Atorvastatin [Lipitor] 20 mg PO W/SUPPER 07/18/19 10/02/21 Rivaroxaban [Xarelto] 20 mg PO W/SUPPER 09/19/19 10/02/21 traZODone HCL 25 mg PO HS 05/19/20 10/02/21 Gabapentin [Neurontin] 100 mg PO HS 02/08/21 10/02/21 Calcium Carbonate/Vitamin D3 1 tab PO DAILY 04/03/21 10/02/21 [Calcium 600 mg-Vit D3 5 mcg (200 unit)] Albuterol Sulfate [Albuterol 1 puff INHALATION RT-Q4H PRN 09/19/21 10/02/21 Sulfate Hfa] Ascorbic Acid [Vitamin C] 500 mg PO DAILY 09/19/21 10/02/21 Budesonide/Formoterol Fumarate 1 puff INHALATION RT-BID 09/19/21 10/02/21 [Symbicort 80-4.5 Mcg Inhaler] Dicyclomine [Bentyl] 10 mg PO TID PRN 09/19/21 10/02/21 Amiodarone [Cordarone] See Taper PO DIRECTED 10/02/21 10/02/21 SILVER sulfADIAZINE CREAM 1 applic TOPICAL BID 10/02/21 10/02/21 [Silvadene Cream] Previous Rx's Medication Instructions Recorded Pantoprazole [Protonix] 40 mg PO AC-BID #60 tablet. 02/12/21 Spironolactone [Aldactone] 25 mg PO DAILY #30 tablet 04/05/21 Allergies Allergy/AdvReac Type Severity Reaction Status Date / Time aspirin AdvReac "has Verified 10/02/21 21:19 stomach problems" NSAIDS (Non-Steroidal AdvReac "has Verified 10/02/21 21:19 Anti-Inflamma stomach problems" Review of Systems ROS Statement: Those systems with pertinent positive or pertinent negative responses have been documented in the HPI. ROS Other: All systems not noted in ROS Statement are negative. Constitutional: Reports: weakness. Denies: fever, chills Respiratory: Reports: dyspnea. Denies: cough, wheezes Cardiovascular: Reports: syncope. Denies: chest pain, palpitations, orthopnea, edema Gastrointestinal: Denies: abdominal pain, vomiting, diarrhea Genitourinary: Denies: dysuria, hematuria Musculoskeletal: Denies: back pain Skin: Denies: rash Neurological: Denies: headache, weakness, numbness Past Medical History Past Medical History: Atrial Fibrillation, Coronary Artery Disease (CAD), Chest Pain / Angina, GERD/Reflux, Thyroid Disorder Additional Past Medical History / Comment(s): hypotension, nonischemic cardiomyopathy with ejection fraction 25-30%, atrial fibrillation, GI bleed, thr ombocytopenia, ventricular tachycardia History of Any Multi-Drug Resistant Organisms: None Reported Past Surgical History: Coronary Bypass/CABG, Pacemaker, Tonsillectomy Additional Past Surgical History / Comment(s): Mitral and tricuspid heart valve repair no bypassed arteries, hiatal hernia Past Anesthesia/Blood Transfusion Reactions: No Reported Reaction Type of Cardiac Device: Permanent Pacemaker Device Placement Date:: october 2019 Past Psychological History: Anxiety, Depression Additional Psychological History / Comment(s): Pt states he was diagnosed as bipolar but no longer takes medication. Smoking Status: Current every day smoker Past Alcohol Use History: None Reported Additional Past Alcohol Use History / Comment(s): started smoking at age 12,<1ppd Past Drug Use History: None Reported - Past Family History Mother Additional Family Medical History / Comment(s): heart conditions Father Family Medical History: Cancer Additional Family Medical History / Comment(s): Lung CA General Exam General appearance: alert, in no apparent distress Head exam: Present: atraumatic, normocephalic Eye exam: Present: normal appearance, PERRL, EOMI. Absent: scleral icterus, conjunctival injection, nystagmus ENT exam: Present: normal oropharynx, other (Abrasion and contusion to bridge of nose.) Neck exam: Present: normal inspection, full ROM. Absent: tenderness Respiratory exam: Present: normal lung sounds bilaterally. Absent: respiratory distress, wheezes, rales, rhonchi, stridor Cardiovascular Exam: Present: regular rate, normal rhythm, normal heart sounds. Absent: systolic murmur, diastolic murmur, rubs, gallop GI/Abdominal exam: Present: soft. Absent: distended, tenderness, guarding, rebound, rigid, mass, hernia Extremities exam: Present: normal inspection, normal capillary refill. Absent: pedal edema, calf tenderness Back exam: Present: normal inspection. Absent: CVA tenderness (R), CVA tenderne ss (L) Neurological exam: Present: alert, oriented X3, CN II-XII intact Skin exam: Present: warm, dry, intact, normal color, abrasion Course Vital Signs 09/18/21 09/19/21 09/19/21 22:56 01:09 03:04 Temperature 97.7 F Pulse Rate 82 62 88 Pulse Rate [ Right] Respiratory 18 20 18 Rate Blood Pressure 149/119 100/60 120/80 Blood Pressure [Right Arm] O2 Sat by Pulse 92 L 95 94 L Oximetry 09/19/21 09/19/21 04:40 07:00 Temperature 99.9 F H Pulse Rate 76 Pulse Rate [ 47 L Right] Respiratory 18 16 Rate Blood Pressure 100/75 Blood Pressure 102/66 [Right Arm] O2 Sat by Pulse 94 L 91 L Oximetry Medical Decision Making - Medical Decision Making Patient is a 56-year-old man presenting here after having had syncopal episode. Patient found to be cultured positive. In addition his cardiac device is interrogated and does reveal runs of V. tach and defibrillator discharge. Patient be admitted for cardiology evaluation. - Lab Data Result diagrams: 09/19/21 00:04 09/24/21 06:50 Lab Results 09/19/21 09/19/21 09/19/21 Range/Units 00:04 00:04 00:04 WBC 5.1 (3.8-10.6) k/uL RBC 4.81 (4.30-5.90) m/uL Hgb 15.6 (13.0-17.5) gm/dL Hct 46.6 (39.0-53.0) % MCV 97.1 (80.0-100.0) fL MCH 32.4 (25.0-35.0) pg MCHC 33.4 (31.0-37.0) g/dL RDW 13.0 (11.5-15.5) % Plt Count 115 L (150-450) k/uL MPV 8.2 Neutrophils % 73 % Lymphocytes % 9 % Monocytes % 16 % Eosinophils % 0 % Basophils % 1 % Neutrophils # 3.7 (1.3-7.7) k/uL Lymphocytes # 0.4 L (1.0-4.8) k/uL Monocytes # 0.8 (0-1.0) k/uL Eosinophils # 0.0 (0-0.7) k/uL Basophils # 0.0 (0-0.2) k/uL Sodium 136 L (137-145) mmol/L Potassium 4.0 (3.5-5.1) mmol/L Chloride 103 (98-107) mmol/L Carbon Dioxide 24 (22-30) mmol/L Anion Gap 9 mmol/L BUN 22 H (9-20) mg/dL Creatinine 1.11 (0.66-1.25) mg/dL Est GFR (CKD-EPI)AfAm 86 (>60 ml/min/1.73 sqM) Est GFR (CKD-EPI)NonAf 74 (>60 ml/min/1.73 sqM) Glucose 97 (74-99) mg/dL POC Glucose (mg/dL) (75-99) mg/dL POC Glu Third Rigger ID Calcium 8.7 (8.4-10.2) mg/dL Troponin I 0.059 H* (0.000-0.034) ng/mL NT-Pro-B Natriuret Pep pg/mL Coronavirus (PCR) (Not Detectd) 09/19/21 09/19/21 09/19/21 Range/Units 00:04 05:41 06:16 WBC (3.8-10.6) k/uL RBC (4.30-5.90) m/uL Hgb (13.0-17.5) gm/dL Hct (39.0-53.0) % MCV (80.0-100.0) fL MCH (25.0-35.0) pg MCHC (31.0-37.0) g/dL RDW (11.5-15.5) % Plt Count (150-450) k/uL MPV Neutrophils % % Lymphocytes % % Monocytes % % Eosinophils % % Basophils % % Neutrophils # (1.3-7.7) k/uL Lymphocytes # (1.0-4.8) k/uL Monocytes # (0-1.0) k/uL Eosinophils # (0-0.7) k/uL Basophils # (0-0.2) k/uL Sodium (137-145) mmol/L Potassium (3.5-5.1) mmol/L Chloride (98-107) mmol/L Carbon Dioxide (22-30) mmol/L Anion Gap mmol/L BUN (9-20) mg/dL Creatinine (0.66-1.25) mg/dL Est GFR (CKD-EPI)AfAm (>60 ml/min/1.73 sqM) Est GFR (CKD-EPI)NonAf (>60 ml/min/1.73 sqM) Glucose (74-99) mg/dL POC Glucose (mg/dL) (75-99) mg/dL POC Glu Third Rigger ID Calcium (8.4-10.2) mg/dL Troponin I 0.069 H* (0.000-0.034) ng/mL NT-Pro-B Natriuret Pep [id number] pg/mL Coronavirus (PCR) Detected A (Not Detectd) 09/19/21 09/20/21 Range/Units 08:50 13:53 WBC (3.8-10.6) k/uL RBC (4.30-5.90) m/uL Hgb (13.0-17.5) gm/dL Hct (39.0-53.0) % MCV (80.0-100.0) fL MCH (25.0-35.0) pg MCHC (31.0-37.0) g/dL RDW (11.5-15.5) % Plt Count (150-450) k/uL MPV Neutrophils % % Lymphocytes % % Monocytes % % Eosinophils % % Basophils % % Neutrophils # (1.3-7.7) k/uL Lymphocytes # (1.0-4.8) k/uL Monocytes # (0-1.0) k/uL Eosinophils # (0-0.7) k/uL Basophils # (0-0.2) k/uL Sodium (137-145) mmol/L Potassium (3.5-5.1) mmol/L Chloride (98-107) mmol/L Carbon Dioxide (22-30) mmol/L Anion Gap mmol/L BUN (9-20) mg/dL Creatinine (0.66-1.25) mg/dL Est GFR (CKD-EPI)AfAm (>60 ml/min/1.73 sqM) Est GFR (CKD-EPI)NonAf (>60 ml/min/1.73 sqM) Glucose (74-99) mg/dL POC Glucose (mg/dL) 122 H (75-99) mg/dL POC Glu Third Rigger ID Antoinette Quezada Calcium (8.4-10.2) mg/dL Troponin I 0.074 H* (0.000-0.034) ng/mL NT-Pro-B Natriuret Pep pg/mL Coronavirus (PCR) (Not Detectd) Disposition Clinical Impression: Fall, Syncope, Elevated troponin Disposition: ADMITTED IP TO THIS [facility] Condition: Serious Is patient prescribed a controlled substance at d/c from ED?: No
== END 2021-09-24 15:49 | disposition home or self-care (01) | DRG 308 ==
LOC: EC 22:53 → 6NMEDSUR 09-19 05:21 → OBSVTOIN 09-22 10:42
PROVIDERS: ADMIT Hospitalist; ATTEND Hospitalist
DX: I47.2 Ventricular tachycardia (principal); U07.1 COVID-19; I42.0 Dilated cardiomyopathy; I50.22 Chronic systolic (congestive) heart failure; I48.11 Longstanding persistent atrial fibrillation; I49.01 Ventricular fibrillation; I49.3 Ventricular premature depolarization; K21.9 Gastro-esophageal reflux disease without esophagitis; J44.9 Chronic obstructive pulmonary disease, unspecified; I25.10 Atherosclerotic heart disease of native coronary artery without angina pectoris; I11.0 Hypertensive heart disease with heart failure; K62.3 Rectal prolapse; I08.1 Rheumatic disorders of both mitral and tricuspid valves; E03.9 Hypothyroidism, unspecified; E78.5 Hyperlipidemia, unspecified; F17.210 Nicotine dependence, cigarettes, uncomplicated; F31.9 Bipolar disorder, unspecified; F41.9 Anxiety disorder, unspecified; H50.9 Unspecified strabismus; Z91.81 History of falling; Z79.01 Long term (current) use of anticoagulants; Z79.51 Long term (current) use of inhaled steroids; Z79.890 Hormone replacement therapy; Z79.899 Other long term (current) drug therapy; Z80.1 Family history of malignant neoplasm of trachea, bronchus and lung; Z95.1 Presence of aortocoronary bypass graft; Z95.810 Presence of automatic (implantable) cardiac defibrillator; Z60.2 Problems related to living alone; Z88.6 Allergy status to analgesic agent
CPT/HCPCS: 36415; 70450; 71045; 72125; 80048; 83735; 83880; 84132; 84484; 85025; 87635; 93005; 94640; 96374; 96375; 99285

== ENCOUNTER 2021-10-02 19:45 | Inpatient (IN) | payer MEDICARE, OTHER ==
--- NOTE | 2021-10-02 20:24 | ED ---
General Adult HPI - General Chief complaint: Weakness Stated complaint: Dizziness Time Seen by Provider: 10/02/21 19:50 Source: patient, EMS Mode of arrival: EMS Limitations: no limitations - History of Present Illness Initial comments: Patient presents to the ED by ambulance for evaluation. Patient states that he has felt "lightheaded" all day today. Patient states that his symptoms are worse with standing and ambulating. Patient states that he was admitted to the hospital for similar symptoms and just discharged home last week. Patient states that he had a syncopal episode prior to his last admission, but he denies having any syncope today. Patient denies decreased PO intake. Patient denies having any pain, fever or chills, headache, focal numbness/weakness/neuro deficit, visual changes, chest pain or pressure, dyspnea, cough or cold sy mptoms, palpitations, abdominal pain, nausea/vomiting/diarrhea, bloody or melanotic stool, dysuria or urinary symptoms, leg or calf swelling or pain, or any other symptoms or complaints. - Related Data Home Medications Medication Instructions Recorded Confirmed Levothyroxine Sodium [Synthroid] 50 mcg PO AC-BRKFST 08/28/17 10/02/21 Atorvastatin [Lipitor] 20 mg PO W/SUPPER 07/18/19 10/02/21 Rivaroxaban [Xarelto] 20 mg PO W/SUPPER 09/19/19 10/02/21 traZODone HCL 25 mg PO HS 05/19/20 10/02/21 Gabapentin [Neurontin] 100 mg PO HS 02/08/21 10/02/21 Calcium Carbonate/Vitamin D3 1 tab PO DAILY 04/03/21 10/02/21 [Calcium 600 mg-Vit D3 5 mcg (200 unit)] Albuterol Sulfate [Albuterol 1 puff INHALATION RT-Q4H PRN 09/19/21 10/02/21 Sulfate Hfa] Ascorbic Acid [Vitamin C] 500 mg PO DAILY 09/19/21 10/02/21 Budesonide/Formoterol Fumarate 1 puff INHALATION RT-BID 09/19/21 10/02/21 [Symbicort 80-4.5 Mcg Inhaler] Dicyclomine [Bentyl] 10 mg PO TID PRN 09/19/21 10/02/21 Amiodarone [Cordarone] See Taper PO DIRECTED 10/02/21 10/02/21 SILVER sulfADIAZINE CREAM 1 applic TOPICAL BID 10/02/21 10/02/21 [Silvadene Cream] Previous Rx's Medication Instructions Recorded Pantoprazole [Protonix] 40 mg PO AC-BID #60 tablet. 02/12/21 Spironolactone [Aldactone] 25 mg PO DAILY #30 tablet 04/05/21 Allergies Allergy/AdvReac Type Severity Reaction Status Date / Time aspirin AdvReac "has Verified 10/02/21 21:19 stomach problems" NSAIDS (Non-Steroidal AdvReac "has Verified 10/02/21 21:19 Anti-Inflamma stomach problems" Review of Systems ROS Statement: Those systems with pertinent positive or pertinent negative responses have been documented in the HPI. ROS Other: All systems not noted in ROS Statement are negative. Past Medical History Past Medical History: Atrial Fibrillation, Coronary Artery Disease (CAD), Chest Pain / Angina, GERD/Reflux, Thyroid Disorder Additional Past Medical History / Comment(s): hypotension, nonischemic cardiomyopathy with ejection fraction 25-30%, atrial fibrillation, GI bleed, thrombocytopenia, ventricular tachycardia History of Any Multi-Drug Resistant Organisms: None Reported Past Surgical History: Coronary Bypass/CABG, Pacemaker, Tonsillectomy Additional Past Surgical History / Comment(s): Mitral and tricuspid heart valve repair no bypassed arteries, hiatal hernia Past Anesthesia/Blood Transfusion Reactions: No Reported Reaction Type of Cardiac Device: Permanent Pacemaker Device Placement Date:: october 2019 Past Psychological History: Anxiety, Depression Smoking Status: Current every day smoker Past Alcohol Use History: None Reported Past Drug Use History: None Reported - Past Family History Mother Additional Family Medical History / Comment(s): heart conditions Father Family Medical History: Cancer Additional Family Medical History / Comment(s): Lung CA General Exam Limitations: no limitations General appearance: alert, in no apparent distress Head exam: Present: atraumatic, normocephalic Eye exam: Present: normal appearance, PERRL, EOMI. Absent: nystagmus ENT exam: Present: mucous membranes moist Neck exam: Present: other (Trachea is in midline) Respiratory exam: Present: normal lung sounds bilaterally. Absent: respiratory distress, wheezes, rales, rhonchi, stridor Cardiovascular Exam: Present: regular rate, irregular rhythm, normal heart sounds, other (Normal radial pulses bilaterally) GI/Abdominal exam: Present: soft. Absent: distended, tenderness, guarding Extremities exam: Present: other (Negative Homans sign bilaterally). Absent: tenderness, pedal edema, calf tenderness Neurological exam: Present: alert, oriented X3, CN II-XII intact. Absent: motor sensory deficit Psychiatric exam: Present: normal mood Skin exam: Present: warm, dry, intact, normal color Course Vital Signs 10/02/21 10/02/21 10/02/21 19:48 20:54 22:00 Temperature 98.7 F Pulse Rate 48 L 71 Respiratory 16 18 Rate Blood Pressure 94/69 96/74 O2 Sat by Pulse 89 L 93 L 91 L Oximetry 10/02/21 10/03/21 22:39 01:54 Temperature Pulse Rate 78 Respiratory 18 Rate Blood Pressure 97/56 98/65 O2 Sat by Pulse 96 Oximetry - Reevaluation(s) Reevaluation #1: 10/02/21 21:24 Patient was endorsed to Dr. Tapia (secondary to shift change) with the patient's labs still pending. Dr. Tapia to take over care of the patient at this time. EKG Findings - EKG Comments: EKG Findings:: Atrial fibrillation with premature ventricular or aberrantly conducted complexes, ventricular rate of 71 bpm, left bundle branch block, QRS duration of 174 ms, QTc interval of 525 ms, leftward axis, no significant change when compared to 09/18/2021 EKG Medical Decision Making - Lab Data Result diagrams: 10/10/21 20:45 10/10/21 20:45 Lab Results 10/02/21 10/02/21 10/02/21 Range/Units 20:11 20:11 20:11 WBC 7.6 (3.8-10.6) k/uL RBC 4.59 (4.30-5.90) m/uL Hgb 14.5 (13.0-17.5) gm/dL Hct 45.3 (39.0-53.0) % MCV 98.6 (80.0-100.0) fL MCH 31.5 (25.0-35.0) pg MCHC 32.0 (31.0-37.0) g/dL RDW 14.1 (11.5-15.5) % Plt Count 228 (150-450) k/uL MPV 8.3 Neutrophils % 79 % Lymphocytes % 12 % Monocytes % 6 % Eosinophils % 1 % Basophils % 0 % Neutrophils # 6.1 (1.3-7.7) k/uL Lymphocytes # 0.9 L (1.0-4.8) k/uL Monocytes # 0.5 (0-1.0) k/uL Eosinophils # 0.1 (0-0.7) k/uL Basophils # 0.0 (0-0.2) k/uL Hypochromasia Moderate PT (9.0-12.0) sec INR (<1.2) APTT (22.0-30.0) sec Sodium 135 L (137-145) mmol/L Potassium (3.5-5.1) mmol/L Chloride 108 H (98-107) mmol/L Carbon Dioxide 19 L (22-30) mmol/L Anion Gap 8 mmol/L BUN 20 (9-20) mg/dL Creatinine 0.95 (0.66-1.25) mg/dL Est GFR (CKD-EPI)AfAm >90 (>60 ml/min/1.73 sqM) Est GFR (CKD-EPI)NonAf 90 (>60 ml/min/1.73 sqM) Glucose 127 H (74-99) mg/dL Calcium 8.2 L (8.4-10.2) mg/dL Total Bilirubin 2.4 H (0.2-1.3) mg/dL AST 74 H (17-59) U/L ALT 29 (4-49) U/L Alkaline Phosphatase 55 (38-126) U/L Troponin I 0.050 H* (0.000-0.034) ng/mL NT-Pro-B Natriuret Pep pg/mL Total Protein 7.1 (6.3-8.2) g/dL Albumin 4.0 (3.5-5.0) g/dL Procalcitonin (0.02-0.09) ng/mL Urine Color Urine Appearance (Clear) Urine pH (5.0-8.0) Ur Specific [place] (1.001-1.035) Urine Protein (Negative) Urine Glucose (UA) (Negative) Urine Ketones (Negative) Urine Blood (Negative) Urine Nitrite (Negative) Urine Bilirubin (Negative) Urine Urobilinogen (<2.0) mg/dL Ur Leukocyte Esterase (Negative) Coronavirus (PCR) (Not Detectd) 10/02/21 10/02/21 10/03/21 Range/Units 21:01 22:00 05:02 WBC (3.8-10.6) k/uL RBC (4.30-5.90) m/uL Hgb (13.0-17.5) gm/dL Hct (39.0-53.0) % MCV (80.0-100.0) fL MCH (25.0-35.0) pg MCHC (31.0-37.0) g/dL RDW (11.5-15.5) % Plt Count (150-450) k/uL MPV Neutrophils % % Lymphocytes % % Monocytes % % Eosinophils % % Basophils % % Neutrophils # (1.3-7.7) k/uL Lymphocytes # (1.0-4.8) k/uL Monocytes # (0-1.0) k/uL Eosinophils # (0-0.7) k/uL Basophils # (0-0.2) k/uL Hypochromasia PT 16.8 H (9.0-12.0) sec INR 1.6 H (<1.2) APTT 38.4 H (22.0-30.0) sec Sodium (137-145) mmol/L Potassium (3.5-5.1) mmol/L Chloride (98-107) mmol/L Carbon Dioxide (22-30) mmol/L Anion Gap mmol/L BUN (9-20) mg/dL Creatinine (0.66-1.25) mg/dL Est GFR (CKD-EPI)AfAm (>60 ml/min/1.73 sqM) Est GFR (CKD-EPI)NonAf (>60 ml/min/1.73 sqM) Glucose (74-99) mg/dL Calcium (8.4-10.2) mg/dL Total Bilirubin (0.2-1.3) mg/dL AST (17-59) U/L ALT (4-49) U/L Alkaline Phosphatase (38-126) U/L Troponin I (0.000-0.034) ng/mL NT-Pro-B Natriuret Pep pg/mL Total Protein (6.3-8.2) g/dL Albumin (3.5-5.0) g/dL Procalcitonin (0.02-0.09) ng/mL Urine Color Yellow Urine Appearance Clear (Clear) Urine pH 5.5 (5.0-8.0) Ur Specific [place] 1.022 (1.001-1.035) Urine Protein Trace H (Negative) Urine Glucose (UA) Negative (Negative) Urine Ketones Negative (Negative) Urine Blood Negative (Negative) Urine Nitrite Negative (Negative) Urine Bilirubin Negative (Negative) Urine Urobilinogen <2.0 (<2.0) mg/dL Ur Leukocyte Esterase Negative (Negative) Coronavirus (PCR) Not Detected (Not Detectd) 10/04/21 10/04/21 10/04/21 Range/Units 06:06 06:06 06:06 WBC (3.8-10.6) k/uL RBC (4.30-5.90) m/uL Hgb (13.0-17.5) gm/dL Hct (39.0-53.0) % MCV (80.0-100.0) fL MCH (25.0-35.0) pg MCHC (31.0-37.0) g/dL RDW (11.5-15.5) % Plt Count (150-450) k/uL MPV Neutrophils % % Lymphocytes % % Monocytes % % Eosinophils % % Basophils % % Neutrophils # (1.3-7.7) k/uL Lymphocytes # (1.0-4.8) k/uL Monocytes # (0-1.0) k/uL Eosinophils # (0-0.7) k/uL Basophils # (0-0.2) k/uL Hypochromasia PT (9.0-12.0) sec INR (<1.2) APTT (22.0-30.0) sec Sodium 137 (137-145) mmol/L Potassium 4.7 (3.5-5.1) mmol/L Chloride 106 (98-107) mmol/L Carbon Dioxide 27 (22-30) mmol/L Anion Gap 4 mmol/L BUN 19 (9-20) mg/dL Creatinine 1.06 (0.66-1.25) mg/dL Est GFR (CKD-EPI)AfAm >90 (>60 ml/min/1.73 sqM) Est GFR (CKD-EPI)NonAf 79 (>60 ml/min/1.73 sqM) Glucose 98 (74-99) mg/dL Calcium 8.7 (8.4-10.2) mg/dL Total Bilirubin (0.2-1.3) mg/dL AST (17-59) U/L ALT (4-49) U/L Alkaline Phosphatase (38-126) U/L Troponin I (0.000-0.034) ng/mL NT-Pro-B Natriuret Pep 07327 pg/mL Total Protein (6.3-8.2) g/dL Albumin (3.5-5.0) g/dL Procalcitonin 0.05 (0.02-0.09) ng/mL Urine Color Urine Appearance (Clear) Urine pH (5.0-8.0) Ur Specific [place] (1.001-1.035) Urine Protein (Negative) Urine Glucose (UA) (Negative) Urine Ketones (Negative) Urine Blood (Negative) Urine Nitrite (Negative) Urine Bilirubin (Negative) Urine Urobilinogen (<2.0) mg/dL Ur Leukocyte Esterase (Negative) Coronavirus (PCR) (Not Detectd) - Radiology Data Chest x-ray: Cardiomegaly and mild pulmonary vascular congestion. Correlate with BNP for congestive heart failure. Superimposed airspace disease is not entirely excluded. Disposition Clinical Impression: Dizziness, Atrial fibrillation Disposition: ADMITTED IP TO THIS HOSP Is patient prescribed a controlled substance at d/c from ED?: No
--- NOTE | 2021-10-02 20:42 | XR ---
EXAMINATION TYPE: XR chest 1V portable DATE OF EXAM: 10/02/2021 8:24 PM COMPARISON:Chest radiographs from 09/19/2021 TECHNIQUE: Frontal view of the chest. CLINICAL INDICATION:Male, 56 years old with history of dizziness; FINDINGS: Lungs/Pleura: There is no evidence of pleural effusion, focal consolidation, or pneumothorax. Pulmonary vascularity: Pulmonary vascular congestion. Heart/mediastinum: Cardiomediastinal silhouette is enlarged and stable. Single-lead cardiac conductio n device overlying the left hemithorax with lead projecting over the right ventricle. Musculoskeletal: No acute osseous pathology. Midline sternotomy wires and surgical clips project over the mediastinum. IMPRESSION: Cardiomegaly and mild pulmonary vascular congestion. Correlate with BNP for congestive heart failure. Superimposed airspace disease is not entirely excluded.
[2021-10-02 21:02] LABS: ALT 29 U/L (4-49); AST 74 U/L (17-59); African American GFR (CKD) >90 (>60 ml/min/1.73 sqM); Alkaline Phosphatase 55 U/L (38-126); Anion Gap 8 mmol/L; Blood Urea Nitrogen 20 mg/dL (9-20); Calcium 8.2 mg/dL (8.4-10.2); Carbon Dioxide 19 mmol/L (22-30); Chloride 108 mmol/L (98-107); Glucose 127 mg/dL (74-99); Non-African American GFR(CKD) 90 (>60 ml/min/1.73 sqM); Sodium 135 mmol/L (137-145); Total Bilirubin 2.4 mg/dL (0.2-1.3); Total Protein 7.1 g/dL (6.3-8.2)
[2021-10-02 21:25] LABS: Basophils % (A) 0 %; Eosinophils # (A) 0.1 k/uL (0-0.7); Eosinophils % (A) 1 %; HCT 45.3 % (39.0-53.0); HGB 14.5 gm/dL (13.0-17.5); Hypochromasia Moderate; Lymphocytes # (A) 0.9 k/uL (1.0-4.8); Lymphocytes % (A) 12 %; MCH 31.5 pg (25.0-35.0); MCV 98.6 fL (80.0-100.0); Mean Platelet Volume 8.3; Monocytes # (A) 0.5 k/uL (0-1.0); Monocytes % (A) 6 %; Neutrophils # (A) 6.1 k/uL (1.3-7.7); Neutrophils % (A) 79 %; Platelet Count 228 k/uL (150-450); RBC 4.59 m/uL (4.30-5.90); RDW 14.1 % (11.5-15.5); WBC 7.6 k/uL (3.8-10.6)
[2021-10-02 22:42] LABS: INR 1.6 (<1.2); Partial Thromboplastin Time 38.4 sec (22.0-30.0); Prothrombin Time 16.8 sec (9.0-12.0)
[2021-10-03] MEDS ORDERED: NALOXONE 0.4 MG/ML 1 ML VIAL IV PRN (00:53)
[2021-10-03] MEDS ORDERED: SODIUM CHLORIDE 0.9% 1,000 ML IV SCH (01:00)
[2021-10-03 05:19] LABS: Appearance,Urine Clear (Clear); Bilirubin,Urine Negative (Negative); Blood,Urine Negative (Negative); Color,Urine Yellow; Glucose,Urine (UA) Negative (Negative); Ketones,Urine Negative (Negative); Leukocyte Esterase,Urine Negative (Negative); Nitrite,Urine Negative (Negative); PH, Urine 5.5 (5.0-8.0); Protein,Urine Trace (Negative); Specific Gravity,Urine 1.022 (1.001-1.035); Urobilinogen,Urine <2.0 mg/dL (<2.0)
[2021-10-03] MEDS ORDERED: ALBUTEROL NEBULIZED 2.5 MG/3 ML INHALATION PRN (12:27)
--- NOTE | 2021-10-03 13:48 | P.CRDCN ---
History of Present Illness Consult date: 10/03/21 History of present illness: The patient is a 56-year-old male with a known history of paroxysmal atrial fibrillation, cardiomyopathy, prior history of congestive heart failure and status post mitral valve repair and ICD implantation who presented with symptoms of dizziness and progressive dyspnea. He is followed on a regular basis by Dr. Beltran. He was recently in the hospital with a syncopal episode with injury to his head and was found to have ventricular tachycardia. He was started on amiodarone. At home yesterday he felt lightheaded and dizzy but had no syncope but he is feeling progressively fatigued with lack of energy and progressively dyspneic. He has no chest discomfort and no palpitations. There is no evidence of ventricular tachycardia and he is in atrial fibrillation at the time of admission. He has no PND, orthopnea or peripheral edema. His echocardiogram in January of last year showed an ejection fraction of 20-25% with global hypokinesis and severe mitral regurgitation was mild to moderate tricuspid regurgitation. The patient was diagnosed with COVID-19 recently. He has underwent a cardiac catheterization in 2011 that showed no evidence of obstructive disease with nonischemic cardiomyopathy and mitral regurgitation. The patient activity is limited and he is quite concerned about his progressive fatigue and dyspnea. He has been maintained on anticoagulation. He has a history of hyperlipidemia, he stopped smoking 3 weeks ago. He has no history of diabetes her His medications at the time of admission include spironolactone 25 mg daily, Xarelto 20 mg daily, Lipitor 20 mg daily, amiodarone, levothyroxine, Symbicort, albuterol. REVIEW OF SYSTEMS: CONSTITUTIONAL: Reports normal sleep, Denies weight loss. CARDIOVASCULAR: Has symptoms of dizziness but no recent palpitations or chest discomfort RESPIRATORY: Has chronic dyspnea on exertion with cough and a history of COPD GASTROINTESTINAL: Denies change in appetite, denies abdominal pain, or bleeding. GENITOURINARY: Denies hematuria, denies infections. MUSKULOSKELETAL: Denies pain, denies swelling. INTEGUMENTARY: Denies rash, denies eczema. NEUROLOGICAL: Denies history of seizure or stroke. At the recent syncope 56-year-old male, appears older than stated age, blood pressure 112/60 with mild orthostasis, heart rate in the 60s Head: Normocephalic. Eyes: Sclerae nonicteric. Neck: Good carotid upstroke, no bruit, no jugular venous distention. Lungs: Decreased air exchange bilaterally, no wheezes Heart: Irregular rate and rhythm, S1-S2, no S3, no rub. Holosystolic murmur at the base Abdomen: Soft nontender, positive bowel sounds no organomegaly. Extremities: No edema, intact distal pulses. Lab data: BUN 20, creatinine 0.95, troponin 0.050, INR 1.6, hemoglobin 14.5, white blood cell 7.6. EKG shows atrial fibrillation with left bundle branch block and left axis deviation with rare paced rhythm. Chest x-ray shows mild congestion Impression: 1. Symptoms of dizziness, no evidence of syncope, could be related to hypotension 2. Recent episode of ventricular tachycardia, no documented recurrence 3. Atrial fibrillation, anticoagulated 4. Severe cardiomyopathy and chronic dyspnea on exertion with chronic CHF, no evidence of decompensation 5. Prior history of smoking until 3 weeks ago 6. Status post ICD implantation 7. Status post mitral valve repair Plan: 1. Continue amiodarone 2. Follow blood pressure and if stable add [place] inhibitor 3. Follow renal functions 4. Increase physical activity gradually 5. Consider inpatient rehab. Thank you for this consult we will follow with you. Past Medical History Past Medical History: Atrial Fibrillation, Coronary Artery Disease (CAD), Chest Pain / Angina, GERD/Reflux, Thyroid Disorder Additional Past Medical History / Comment(s): hypotension, nonischemic cardiomyopathy with ejection fraction 25-30%, atrial fibrillation, GI bleed, thrombocytopenia, ventricular tachycardia History of Any Multi-Drug Resistant Organisms: None Reported Past Surgical History: Coronary Bypass/CABG, Pacemaker, Tonsillectomy Additional Past Surgical History / Comment(s): Mitral and tricuspid heart valve repair no bypassed arteries, hiatal hernia. Pt is unsure if he has an AICD or a pacemaker. Past Anesthesia/Blood Transfusion Reactions: No Reported Reaction Type of Cardiac Device: Permanent Pacemaker Device Placement Date:: october 2019 Past Psychological History: Anxiety, Depression Additional Psychological History / Comment(s): Pt states he was diagnosed as bipolar but no longer takes medication. Smoking Status: Former smoker Past Alcohol Use History: None Reported Additional Past Alcohol Use History / Comment(s): Pt states he quit smoking a few weeks ago. Past Drug Use History: None Reported - Past Family History Mother Additional Family Medical History / Comment(s): heart conditions Father Family Medical History: Cancer Additional Family Medical History / Comment(s): Lung CA Medications and Allergies Home Medications Medication Instructions Recorded Confirmed Type Levothyroxine Sodium [Synthroid] 50 mcg PO AC-BRKFST 08/28/17 10/02/21 History Atorvastatin [Lipitor] 20 mg PO W/SUPPER 07/18/19 10/02/21 History Rivaroxaban [Xarelto] 20 mg PO W/SUPPER 09/19/19 10/02/21 History traZODone HCL 25 mg PO HS 05/19/20 10/02/21 History Gabapentin [Neurontin] 100 mg PO HS 02/08/21 10/02/21 History Pantoprazole [Protonix] 40 mg PO AC-BID #60 tablet. 02/12/21 10/02/21 Rx Calcium Carbonate/Vitamin D3 1 tab PO DAILY 04/03/21 10/02/21 History [Calcium 600 mg-Vit D3 5 mcg (200 unit)] Spironolactone [Aldactone] 25 mg PO DAILY #30 tablet 04/05/21 10/02/21 Rx Albuterol Sulfate [Albuterol 1 puff INHALATION RT-Q4H PRN 09/19/21 10/02/21 History Sulfate Hfa] Ascorbic Acid [Vitamin C] 500 mg PO DAILY 09/19/21 10/02/21 History Budesonide/Formoterol Fumarate 1 puff INHALATION RT-BID 09/19/21 10/02/21 History [Symbicort 80-4.5 Mcg Inhaler] Dicyclomine [Bentyl] 10 mg PO TID PRN 09/19/21 10/02/21 History Amiodarone [Cordarone] See Taper PO DIRECTED 10/02/21 10/02/21 History SILVER sulfADIAZINE CREAM 1 applic TOPICAL BID 10/02/21 10/02/21 History [Silvadene Cream] Allergies Allergy/AdvReac Type Severity Reaction Status Date / Time aspirin AdvReac "has Verified 10/02/21 21:19 stomach problems" NSAIDS (Non-Steroidal AdvReac "has Verified 10/02/21 21:19 Anti-Inflamma stomach problems" Physical Exam Vitals: Vital Signs Temp Pulse Pulse Pulse Pulse Pulse Resp 10/03/21 07:10 97.7 F 58 L 69 51 L 20 10/03/21 02:51 10/03/21 02:45 18 10/03/21 02:10 97.4 F L 52 L 19 10/03/21 01:54 78 18 10/02/21 22:39 10/02/21 22:00 10/02/21 20:54 71 18 10/02/21 19:48 98.7 F 48 L 16 BP BP BP BP BP Pulse Ox 10/03/21 07:10 112/66 95/56 97/63 90 L 10/03/21 02:51 85 L 10/03/21 02:45 10/03/21 02:10 102/70 90 L 10/03/21 01:54 98/65 96 10/02/21 22:39 97/56 10/02/21 22:00 91 L 10/02/21 20:54 96/74 93 L 10/02/21 19:48 94/69 89 L Intake and Output 10/02/21 10/03/21 10/03/21 22:59 06:59 14:59 Other: Voiding Method Urinal # Voids 1 Weight 81.647 kg 81.647 kg Results 10/02/21 20:11 10/02/21 20:11 Cardiac Enzymes 10/02/21 10/02/21 Range/Units 20:11 20:11 AST 74 H (17-59) U/L Troponin I 0.050 H* (0.000-0.034) ng/mL Coagulation 10/02/21 Range/Units 22:00 PT 16.8 H (9.0-12.0) sec APTT 38.4 H (22.0-30.0) sec CBC 10/02/21 Range/Units 20:11 WBC 7.6 (3.8-10.6) k/uL RBC 4.59 (4.30-5.90) m/uL Hgb 14.5 (13.0-17.5) gm/dL Hct 45.3 (39.0-53.0) % Plt Count 228 (150-450) k/uL Comprehensive Metabolic Panel 10/02/21 Range/Units 20:11 Sodium 135 L (137-145) mmol/L Potassium (3.5-5.1) mmol/L Chloride 108 H (98-107) mmol/L Carbon Dioxide 19 L (22-30) mmol/L BUN 20 (9-20) mg/dL Creatinine 0.95 (0.66-1.25) mg/dL Glucose 127 H (74-99) mg/dL Calcium 8.2 L (8.4-10.2) mg/dL AST 74 H (17-59) U/L ALT 29 (4-49) U/L Alkaline Phosphatase 55 (38-126) U/L Total Protein 7.1 (6.3-8.2) g/dL Albumin 4.0 (3.5-5.0) g/dL Current Medications Generic Name Dose Route Start Last Admin Trade Name Freq PRN Reason Stop Dose Admin Albuterol Sulfate 2.5 mg 10/03/21 12:27 Albuterol Nebulized 2.5 Mg/3 Ml INHALATION RT-Q4H PRN Wheezing Ascorbic Acid 500 mg 10/04/21 09:00 Ascorbic Acid 500 Mg Tab PO DAILY [facility] Atorvastatin Calcium 20 mg 10/03/21 17:30 Atorvastatin 20 Mg Tab PO W/SUPPER [facility] Budesonide/Formoterol Fumarate 1 puff 10/03/21 20:00 Symbicort 80-4.5 Mcg Inhaler INHALATION RT-BID [facility] Calcium Carbonate 1 each 10/04/21 09:00 Calcium Carb-Vit D 500 Mg-5 Mcg Tab PO DAILY [facility] Dicyclomine HCl 10 mg 10/03/21 12:27 Dicyclomine 10 Mg Cap PO TID PRN ibs/bloating Gabapentin 100 mg 10/03/21 21:00 Gabapentin 100 Mg Cap PO HS [facility] Sodium Chloride 1,000 mls @ 20 mls/hr 10/03/21 01:00 10/03/21 06:33 Saline 0.9% IV 20 mls/hr .Q24H KAYLA Administration Levothyroxine Sodium 50 mcg 10/04/21 07:30 Levothyroxine 50 Mcg Tab PO AC-BRKFST KAYLA Naloxone HCl 0.2 mg 10/03/21 00:53 Naloxone 0.4 Mg/Ml 1 Ml Vial IV Q2M PRN Opioid Reversal Pantoprazole Sodium 40 mg 10/03/21 17:30 Pantoprazole 40 Mg Tablet PO AC-BID [facility] Rivaroxaban 20 mg 10/03/21 17:30 Rivaroxaban 20 Mg Tab PO W/SUPPER [facility] Protocol Silver Sulfadiazine 1 applic 10/03/21 12:30 Silver Sulfadiazine 1% Cream 25 Gm Tube TOPICAL BID [facility] Protocol Trazodone HCl 25 mg 10/03/21 21:00 Trazodone Hcl 50 Mg Tab PO [facility] Intake and Output 10/02/21 10/03/21 10/03/21 22:59 06:59 14:59 Other: Voiding Method Urinal # Voids 1 Weight 81.647 kg 81.647 kg 10/02/21 20:11 10/02/21 20:11
[2021-10-03] MEDS: DICYCLOMINE 10 MG CAP PO PRN (15:32)
[2021-10-03] MEDS: ATORVASTATIN 20 MG TAB PO SCH (17:16)
[2021-10-03] MEDS: PANTOPRAZOLE 40 MG TABLET PO SCH (17:16)
[2021-10-03] MEDS: RIVAROXABAN 20 MG TAB PO SCH (17:17)
[2021-10-03] MEDS: CALCIUM CARBONATE LIQUID 500 MG/5 ML CUP PO SCH (17:17)
[2021-10-03] MEDS: traZODone HCL 50 MG TAB PO SCH (19:14)
[2021-10-03] MEDS: GABAPENTIN 100 MG CAP PO SCH (19:14)
[2021-10-03] MEDS: AMIODARONE 200 MG TAB PO SCH (19:14)
[2021-10-03] MEDS: SYMBICORT 80-4.5 MCG INHALER INHALATION SCH (20:15)
--- NOTE | 2021-10-03 20:52 | P.HPIM ---
History of Present Illness H&P Date: 10/03/21 Chief Complaint: Near-syncope History of presenting complaint: This is a pleasant 56-year-old patient of Dr. Smyth. Chronic stable medical conditions include hypothyroid, hyperlipidemia, bipolar disorder, hypertension, dilated cardiomyopathy 20-25%, paroxysmal atrial fibrillation, GERD, some rectal prolapse. Patient has some mental impairment. Lives by himself. Does use a walker at baseline Patient was discharged from here on September 24. Had presented with syncope. He had tested positive for COVID-19. No symptoms. Found to be hypotensive. Pacemaker interrogation had shown several episodes of nonsustained V. tach. An episode of V. tach and V. fib that were shock. That was on September 18. Patient was loaded with amiodarone. Patient now presents with dizziness even sitting up. No palpitations. Oral intake fair. No arrhythmia noted in the ER. Patient has not passed out. No chest pain. Review of systems: GEN.: Tired EYES: Right eye deviated laterally HEENT: Recent injury healed NECK: None RESPIRATORY: As above CARDIOVASCULAR: None GASTROINTESTINAL: Heartburn GENITOURINARY: None MUSCULOSKELETAL: None LYMPHATICS: None HEMATOLOGICAL: None PSYCHIATRY: Anxious NEUROLOGICAL: No focal symptoms. Past medical history to include: GERD, bleeding peptic ulcer, mitral and tricuspid valve repair, hypothyroid, hyperlipidemia, bipolar, dilated cardiomyopathy EF 20-25%, paroxysmal atrial fibrillation, GERD rectal prolapse, pacemaker. V. tach V. fib on interrogation. Social history: Smokes about 8 cigarettes a day used to smoke much more for many years. Has some help at home. Does not drink alcohol. Not employed. Lives in his own apartment.. Physical examination: VITAL SIGNS: 97.7, 58, 20, 112/66, 90% on 6 L GENERAL: BMI 24.4 reclining in bed, anxious EYES: Pupils equal. Conjunctiva normal, with right eye strabismus . HEENT: External appearance of nose and ears normal, oral cavity grossly normal. NECK: JVD not raised; masses not palpable. HEART: Heart sounds irregular; no edema]. LUNGS: Respiratory rate normal. breath sounds decreased ABDOMEN: Soft, mild epigastric tenderness liver spleen not palpable, no masses palpable. PSYCH: Alert and oriented x3; mood and affect anxious NEUROLOGICAL: Cranial nerves grossly intact; no facial asymmetry, power and sensation grossly intact. LYMPHATICS: No lymph nodes palpable in the axilla and neck INVESTIGATIONS, reviewed in the clinical context: White count 7.6 hemoglobin 14.5 platelets 228 sodium 135 BUN 20 creatinine 0.95 total bilirubin 2.4 EKG tracing personally reviewed by me-atrial fibrillation. Rate 71. Chest x-ray film personally reviewed by me-infiltrates and/or pulmonary edema Troponin I 0.050 Previous admission Device interrogation: Multiple episodes of NSVT. One episode of V. tach and V. fib. Patient was shocked on 09/18 2-D echocardiogram [February 2021] EF 20-25% severe MR mild to moderate TR Assessment and plan: -Near Syncope: From hypotension. Rule out arrhythmia. -On recent admission patient had Multiple episodes of NSVT and one episode of V. tach V. fib on 09/18 with device interrogation.. amiodarone -Hypotension from ischemic cardiomyopathy - chronic congestive heart failure, from systolic dysfunction EF 20-25%: Stable Watch fluid status -Persistent atrial fibrillation, rate controlled, Amiodarone. Xarelto 20 mg with supper -COPD in a current smoker Symbicort. Ventolin HFA -GERD Protonix -Chronic gait dysfunction uses a walker at baseline Fall precautions -Chronic nicotine dependence patient cigarette smoker Nicotine patch -Right eye strabismus -Hypothyroid Synthroid 50 g -Moderate to severe mitral and tricuspid regurgitation Follow clinically Cardiology consulted. . Patient denies any cough or sputum. Check pro- calcitonin and BnP. Resume home medications. Past Medical History Past Medical History: Atrial Fibrillation, Coronary Artery Disease (CAD), Chest Pain / Angina, GERD/Reflux, Thyroid Disorder Additional Past Medical History / Comment(s): hypotension, nonischemic cardiomyopathy with ejection fraction 25-30%, atrial fibrillation, GI bleed, thrombocytopenia, ventricular tachycardia History of Any Multi-Drug Resistant Organisms: None Reported Past Surgical History: Coronary Bypass/CABG, Pacemaker, Tonsillectomy Additional Past Surgical History / Comment(s): Mitral and tricuspid heart valve repair no bypassed arteries, hiatal hernia. Pt is unsure if he has an AICD or a pacemaker. Past Anesthesia/Blood Transfusion Reactions: No Reported Reaction Type of Cardiac Device: Permanent Pacemaker Device Placement Date:: october 2019 Past Psychological History: Anxiety, Depression Additional Psychological History / Comment(s): Pt states he was diagnosed as bipolar but no longer takes medication. Smoking Status: Former smoker Past Alcohol Use History: None Reported Additional Past Alcohol Use History / Comment(s): Pt states he quit smoking a few weeks ago. Past Drug Use History: None Reported - Past Family History Mother Additional Family Medical History / Comment(s): heart conditions Father Family Medical History: Cancer Additional Family Medical History / Comment(s): Lung CA Medications and Allergies Home Medications Medication Instructions Recorded Confirmed Type Levothyroxine Sodium [Synthroid] 50 mcg PO AC-BRKFST 08/28/17 10/02/21 History Atorvastatin [Lipitor] 20 mg PO W/SUPPER 07/18/19 10/02/21 History Rivaroxaban [Xarelto] 20 mg PO W/SUPPER 09/19/19 10/02/21 History traZODone HCL 25 mg PO HS 05/19/20 10/02/21 History Gabapentin [Neurontin] 100 mg PO HS 02/08/21 10/02/21 History Pantoprazole [Protonix] 40 mg PO AC-BID #60 tablet. 02/12/21 10/02/21 Rx Calcium Carbonate/Vitamin D3 1 tab PO DAILY 04/03/21 10/02/21 History [Calcium 600 mg-Vit D3 5 mcg (200 unit)] Spironolactone [Aldactone] 25 mg PO DAILY #30 tablet 04/05/21 10/02/21 Rx Albuterol Sulfate [Albuterol 1 puff INHALATION RT-Q4H PRN 09/19/21 10/02/21 History Sulfate Hfa] Ascorbic Acid [Vitamin C] 500 mg PO DAILY 09/19/21 10/02/21 History Budesonide/Formoterol Fumarate 1 puff INHALATION RT-BID 09/19/21 10/02/21 History [Symbicort 80-4.5 Mcg Inhaler] Dicyclomine [Bentyl] 10 mg PO TID PRN 09/19/21 10/02/21 History Amiodarone [Cordarone] See Taper PO DIRECTED 10/02/21 10/02/21 History SILVER sulfADIAZINE CREAM 1 applic TOPICAL BID 10/02/21 10/02/21 History [Silvadene Cream] Allergies Allergy/AdvReac Type Severity Reaction Status Date / Time aspirin AdvReac "has Verified 10/02/21 21:19 stomach problems" NSAIDS (Non-Steroidal AdvReac "has Verified 10/02/21 21:19 Anti-Inflamma stomach problems" Physical Exam Vitals: Vital Signs Temp Pulse Pulse Pulse Pulse Pulse Resp 10/03/21 17:28 52 L 10/03/21 17:19 51 L 20 10/03/21 17:05 10/03/21 13:50 97.8 F 51 L 22 10/03/21 07:10 97.7 F 58 L 69 51 L 20 10/03/21 02:51 10/03/21 02:45 18 10/03/21 02:10 97.4 F L 52 L 19 10/03/21 01:54 78 18 10/02/21 22:39 10/02/21 22:00 10/02/21 20:54 71 18 BP BP BP BP BP Pulse Ox 10/03/21 17:28 10/03/21 17:19 10/03/21 17:05 116/62 10/03/21 13:50 86/60 91 L 10/03/21 07:10 112/66 95/56 97/63 90 L 10/03/21 02:51 85 L 10/03/21 02:45 10/03/21 02:10 102/70 90 L 10/03/21 01:54 98/65 96 10/02/21 22:39 97/56 10/02/21 22:00 91 L 10/02/21 20:54 96/74 93 L Intake and Output 10/03/21 10/03/21 10/03/21 06:59 14:59 22:59 Intake Total 118 Output Total 100 Balance 18 Intake: Oral 118 Output: Urine 100 Other: Voiding Method Urinal # Voids 1 # Bowel Movements 1 Weight 81.647 kg Results CBC & Chem 7: 10/02/21 20:11 10/02/21 20:11 Labs: Abnormal Lab Results - Last 24 Hours (Table) 10/02/21 10/02/21 10/02/21 Range/Units 20:11 20:11 20:11 Lymphocytes # 0.9 L (1.0-4.8) k/uL PT (9.0-12.0) sec INR (<1.2) APTT (22.0-30.0) sec Sodium 135 L (137-145) mmol/L Chloride 108 H (98-107) mmol/L Carbon Dioxide 19 L (22-30) mmol/L Glucose 127 H (74-99) mg/dL Calcium 8.2 L (8.4-10.2) mg/dL Total Bilirubin 2.4 H (0.2-1.3) mg/dL AST 74 H (17-59) U/L Troponin I 0.050 H* (0.000-0.034) ng/mL Urine Protein (Negative) 10/02/21 10/03/21 Range/Units 22:00 05:02 Lymphocytes # (1.0-4.8) k/uL PT 16.8 H (9.0-12.0) sec INR 1.6 H (<1.2) APTT 38.4 H (22.0-30.0) sec Sodium (137-145) mmol/L Chloride (98-107) mmol/L Carbon Dioxide (22-30) mmol/L Glucose (74-99) mg/dL Calcium (8.4-10.2) mg/dL Total Bilirubin (0.2-1.3) mg/dL AST (17-59) U/L Troponin I (0.000-0.034) ng/mL Urine Protein Trace H (Negative) Thrombosis Risk Factor Assmnt - Choose All That Apply Any of the Below Risk Factors Present?: Yes Each Factor Represents 1 point: Age 41-60 years Thrombosis Risk Factor Assessment Total Risk Factor Score: 1 Thrombosis Risk Factor Assessment Level: Low Risk
--- NOTE | 2021-10-04 06:04 | P.CONS ---
History of Present Illness - Chief Complaint Medical debility - History of Present Illness I had the opportunity to see patient for inpatient rehab consultation with regard to medical debility. Patient admitted to [facility] October 03 history of recent admission for Covid pneumonia and hypoxic respiratory failure. Admitted with chief complaint of lightheadedness when standing. Seen medically by Dr. herring. Seen by cardiology, Dr. Plascencia, for atrial fibrillation, cardiomyopathy and CHF. Chest x-ray demonstrates cardiomegaly and congestion. Admitted PT and OT at this time. Previous functional history as elicited from patient: 56-year-old right-handed white male who is lives in second-floor apartment, elevator, alone. On disability. Describes independent with own cooking, laundry, standing shower and gait with either standard cane or 4 wheeled walker. Been using the walker s laquita recent discharge. Does not drive. PCP and cardiology Dr. Beltran. Denies tobacco or alcohol. Review of Systems Review of systems: ENT: Denies sneezes or discharge. Eyes: Denies discharge or photophobia. Cardiac: Denies chest pain or palpitation. Pulmonary: Mild shortness of breath. Gastrointestinal: Denies nausea, emesis, constipation, diarrhea. Genitourinary: Denies discharge or frequency. Musculoskeletal: Denies muscle or bone aches. Neurologic: Weakness and lightheadedness when standing. Endocrine: Denies shakes or sweats. Oncology: Denies cancers. Dermatologic: Denies rash, itching, pruritus. ALLERGY/immunology: Denies sneezes, rashes. Past Medical History Past Medical History: Atrial Fibrillation, Coronary Artery Disease (CAD), Chest Pain / Angina, GERD/Reflux, Thyroid Disorder Additional Past Medical History / Comment(s): hypotension, nonischemic cardiomyopathy with ejection fraction 25-30%, atrial fibrillation, GI bleed, thrombocytopenia, ventricular tachycardia History of Any Multi-Drug Resistant Organisms: None Reported Past Surgical History: Coronary Bypass/CABG, Pacemaker, Tonsillectomy Additional Past Surgical History / Comment(s): Mitral and tricuspid heart valve repair no bypassed arteries, hiatal hernia. Pt is unsure if he has an AICD or a pacemaker. Past Anesthesia/Blood Transfusion Reactions: No Reported Reaction Type of Cardiac Device: Permanent Pacemaker Device Placement Date:: october 2019 Past Psychological History: Anxiety, Depression Additional Psychological History / Comment(s): Pt states he was diagnosed as bipolar but no longer takes medication. Smoking Status: Former smoker Past Alcohol Use History: None Reported Additional Past Alcohol Use History / Comment(s): Pt states he quit smoking a few weeks ago. Past Drug Use History: None Reported - Past Family History Mother Additional Family Medical History / Comment(s): heart conditions Father Family Medical History: Cancer Additional Family Medical History / Comment(s): Lung CA Medications and Allergies Home Medications Medication Instructions Recorded Confirmed Type Levothyroxine Sodium [Synthroid] 50 mcg PO AC-BRKFST 08/28/17 10/02/21 History Atorvastatin [Lipitor] 20 mg PO W/SUPPER 07/18/19 10/02/21 History Rivaroxaban [Xarelto] 20 mg PO W/SUPPER 09/19/19 10/02/21 History traZODone HCL 25 mg PO HS 05/19/20 10/02/21 History Gabapentin [Neurontin] 100 mg PO HS 02/08/21 10/02/21 History Pantoprazole [Protonix] 40 mg PO AC-BID #60 tablet. 02/12/21 10/02/21 Rx Calcium Carbonate/Vitamin D3 1 tab PO DAILY 04/03/21 10/02/21 History [Calcium 600 mg-Vit D3 5 mcg (200 unit)] Spironolactone [Aldactone] 25 mg PO DAILY #30 tablet 04/05/21 10/02/21 Rx Albuterol Sulfate [Albuterol 1 puff INHALATION RT-Q4H PRN 09/19/21 10/02/21 History Sulfate Hfa] Ascorbic Acid [Vitamin C] 500 mg PO DAILY 09/19/21 10/02/21 History Budesonide/Formoterol Fumarate 1 puff INHALATION RT-BID 09/19/21 10/02/21 History [Symbicort 80-4.5 Mcg Inhaler] Dicyclomine [Bentyl] 10 mg PO TID PRN 09/19/21 10/02/21 History Amiodarone [Cordarone] See Taper PO DIRECTED 10/02/21 10/02/21 History SILVER sulfADIAZINE CREAM 1 applic TOPICAL BID 10/02/21 10/02/21 History [Silvadene Cream] Allergies Allergy/AdvReac Type Severity Reaction Status Date / Time aspirin AdvReac "has Verified 10/02/21 21:19 stomach problems" NSAIDS (Non-Steroidal AdvReac "has Verified 10/02/21 21:19 Anti-Inflamma stomach problems" Physical Exam Vitals: Vital Signs Temp Pulse Pulse Pulse Pulse Resp BP 10/04/21 01:06 97.5 F L 66 20 10/03/21 19:05 98.0 F 51 L 22 10/03/21 17:28 52 L 10/03/21 17:19 51 L 20 10/03/21 17:05 116/62 10/03/21 13:50 97.8 F 51 L 22 10/03/21 07:10 97.7 F 58 L 69 51 L 20 112/66 BP BP Pulse Ox 10/04/21 01:06 87/53 87 L 10/03/21 19:05 93/58 91 L 10/03/21 17:28 10/03/21 17:19 10/03/21 17:05 10/03/21 13:50 86/60 91 L 10/03/21 07:10 95/56 97/63 90 L Intake and Output 10/03/21 10/03/21 10/04/21 14:59 22:59 06:59 Intake Total 118 Output Total 100 300 250 Balance 18 -300 -250 Intake: Oral 118 Output: Urine 100 300 250 Other: # Voids 1 # Bowel Movements 1 Skin: Good color, texture, turgor. General: Medium build and comfortable appearance. Head: Normocephalic, atraumatic. Eyes: Symmetric. Pupils equal round. Ears: Symmetric. Hearing within normal limits. Mouth: Clear. Neck: Supple. Carotid without bruit. Cardiac: Regular rate and rhythm. Lungs: Clear anteriorly and posteriorly. Abdomen: Soft active nontender. Extremities: Normal tone. Neurological: Mental status: Alert, cooperative, pleasant. Cranial nerves: Symmetric facial tone and trapezius. Motor: Normal strength and isolation all 4 limbs. Sensation: Intact throughout. DTRs: Symmetric and equal throughout. Mobility: Reports requires assistance when standing due to lightheadedness. Results CBC & Chem 7: 10/02/21 20:11 10/02/21 20:11 Assessment and Plan (1) Atrial fibrillation Current Visit: Yes Status: Acute Code(s): I48.91 - UNSPECIFIED ATRIAL FIBRILLATION SNOMED Code(s): 40138897 (2) Dizziness Current Visit: Yes Status: Acute Code(s): R42 - DIZZINESS AND GIDDINESS SNOMED Code(s): 913799948 (3) Acute non-ST elevation myocardial infarction (NSTEMI) Current Visit: No Status: Acute Code(s): I21.4 - NON-ST ELEVATION (NSTEMI) MYOCARDIAL INFARCTION SNOMED Code(s): 303506036 (4) CHF (congestive heart failure) Current Visit: No Status: Acute Code(s): I50.9 - HEART FAILURE, UNSPECIFIED SNOMED Code(s): 08211002 Plan: Comments and plan: At this time we'll prescribe PT and OT and follow therapies with yourself. Patient has concerns and I'm sure he is at the start of a protracted recovery course from his Covid pneumonia.
[2021-10-04 06:59] LABS: African American GFR (CKD) >90 (>60 ml/min/1.73 sqM); Anion Gap 4 mmol/L; Blood Urea Nitrogen 19 mg/dL (9-20); Calcium 8.7 mg/dL (8.4-10.2); Carbon Dioxide 27 mmol/L (22-30); Chloride 106 mmol/L (98-107); Glucose 98 mg/dL (74-99); Non-African American GFR(CKD) 79 (>60 ml/min/1.73 sqM); Potassium 4.7 mmol/L (3.5-5.1); Sodium 137 mmol/L (137-145)
[2021-10-04] MEDS: PANTOPRAZOLE 40 MG TABLET PO SCH ×2 (07:39→17:28)
[2021-10-04] MEDS: ASCORBIC ACID 500 MG TAB PO SCH (07:39)
[2021-10-04] MEDS: LEVOTHYROXINE 50 MCG TAB PO SCH (07:39)
[2021-10-04] MEDS: CALCIUM CARB-VIT D 500 MG-5 MCG TAB PO SCH (07:40)
[2021-10-04] MEDS: SYMBICORT 80-4.5 MCG INHALER INHALATION SCH ×2 (07:47→20:38)
[2021-10-04] MEDS: CALCIUM CARBONATE LIQUID 500 MG/5 ML CUP PO SCH ×3 (07:51→17:28)
[2021-10-04] MEDS: AMIODARONE 200 MG TAB PO SCH ×2 (07:51→19:39)
--- NOTE | 2021-10-04 10:07 | P.PN ---
Subjective Progress Note Date: 10/04/21 HISTORY OF PRESENT ILLNESS: The patient is a 56-year-old male with a known history of paroxysmal atrial fibrillation, cardiomyopathy, prior history of congestive heart failure and s tatus post mitral valve repair and ICD implantation who presented with symptoms of dizziness and progressive dyspnea. He is followed on a regular basis by Dr. Beltran. He was recently in the hospital with a syncopal episode with injury to his head and was found to have ventricular tachycardia. He was started on amiodarone. At home yesterday he felt lightheaded and dizzy but had no syncope but he is feeling progressively fatigued with lack of energy and progressively dyspneic. He has no chest discomfort and no palpitations. There is no evidence of ventricular tachycardia and he is in atrial fibrillation at the time of admission. He has no PND, orthopnea or peripheral edema. His echocardiogram in January of last year showed an ejection fraction of 20-25% with global hypokinesis and severe mitral regurgitation was mild to moderate tricuspid regurgitation. The patient was diagnosed with COVID-19 recently. He has underwent a cardiac catheterization in 2011 that showed no evidence of obstructive disease with nonischemic cardiomyopathy and mitral regurgitation. The patient activity is limited and he is quite concerned about his progressive fatigue and dyspnea. He has been maintained on anticoagulation. He has a history of hyperlipidemia, he stopped smoking 3 weeks ago. He has no history of diabetes her His medications at the time of admission include spironolactone 25 mg daily, Xarelto 20 mg daily, Lipitor 20 mg daily, amiodarone, levothyroxine, Symbicort, albuterol. 10/04/2021 Patient examined this morning at the bedside. Patient denies chest pain or pressure. States his breathing is not labored and does not feel very SOB. He is on 12L NC. Patient is currently not on telemetry. Blood pressure 92/68. PHYSICAL EXAM: VITAL SIGNS: Reviewed. GENERAL: Well-developed in no acute distress. NECK: Supple. No JVD or thyromegaly LUNGS: Respirations even and unlabored. Lungs diminished bilaterally. HEART: Regular rate and rhythm. S1 and S2 heard. Systolic murmur noted. EXTREMITIES: Normal range of motion. No clubbing or cyanosis. Peripheral pulses intact. No lower extremity edema ASSESSMENT: 1. Symptoms of dizziness, no evidence of syncope, could be related to hypotension 2. Recent episode of ventricular tachycardia, no documented recurrence 3. Paroxysmal atrial fibrillation, anticoagulated 4. Severe cardiomyopathy, EF 2025 percent, and chronic dyspnea on exertion with chronic CHF 5. Prior history of smoking until 3 weeks ago 6. Status post ICD implantation 7. Status post mitral valve repair 8. Recent diagnosis of Covid 19 9. Acute hypoxic respiratory failure requiring supplemental oxygen PLAN: Continue to monitor blood pressure Continue amiodarone Recommend adding GARLAND inhibitor down the road if patient's blood pressure is able to tolerate Continue anticoagulation with Xarelto Begin telemetry monitoring Interrogate AICD Further recommendations pending patient course Nurse practitioner note has been reviewed by physician. Signing provider agrees with the documented findings, assessment, and plan of care. Objective - Vital Signs Vital signs: Vital Signs Temp 97.6 F 10/04/21 07:00 Pulse 48 L 10/04/21 07:00 Resp 20 10/04/21 07:40 BP 92/68 10/04/21 07:00 Pulse Ox 91 L 10/04/21 07:00 Intake & Output 10/03/21 10/04/21 10/04/21 18:59 06:59 18:59 Intake Total 118 118 Output Total 100 550 Balance 18 -550 118 Intake: Oral 118 118 Output: Urine 100 550 Other: Voiding Method Urinal # Voids 1 # Bowel Movements 1 - Labs CBC & Chem 7: 10/02/21 20:11 10/04/21 06:06
--- NOTE | 2021-10-04 12:48 | XR ---
EXAMINATION TYPE: XR chest 1V portable DATE OF EXAM: 10/04/2021 COMPARISON: 10/02/2021 HISTORY: Shortness of breath FINDINGS: There are bilateral pleural effusions with cardiomegaly and bibasilar infiltrate. There is a diffuse interstitial pattern. Postsurgical change and cardiac device noted. No pneumothorax. IMPRESSION: 1. Stable x-ray correlate for CHF otherwise consider diffuse interstitial pneumonia.
[2021-10-04] MEDS: RIVAROXABAN 20 MG TAB PO SCH (17:28)
[2021-10-04] MEDS: ATORVASTATIN 20 MG TAB PO SCH (17:28)
--- NOTE | 2021-10-04 17:41 | P.PN ---
Progress Note - Text Progress Note Date: 10/04/21 Chief Complaint: Near-syncope History of presenting complaint: This is a pleasant 56-year-old patient of Dr. Smyth. Chronic stable medical conditions include hypothyroid, hyperlipidemia, bipolar disorder, hypertension, dilated cardiomyopathy 20-25%, paroxysmal atrial fibrillation, GERD, some rectal prolapse. Patient has some mental impairment. Lives by himself. Does use a walker at baseline Patient was discharged from here on September 24. Had presented with syncope. He had tested positive for COVID-19. No symptoms. Found to be hypotensive. Pacemaker interrogation had shown several episodes of nonsustained V. tach. An episode of V. tach and V. fib that were shock. That was on September 18. Patient was loaded with amiodarone. Patient now presents with dizziness even sitting up. No palpitations. Oral intake fair. No arrhythmia noted in the ER. Patient has not passed out. No chest pain. October 04: Patient's blood pressure in lower side. Seen by cardiology. They will do a AICD interrogation. Patient also noted to be on 12 L nasal cannula. Appears rather comfortable. Eating well. Pulmonary being consulted. Chest x- ray compared to the one from admission May. Possible previous changes from COVID-19. Patient has no cough. No sputum. Active Medications Acetaminophen (Acetaminophen Oral Susp (Peds) 3,840 Mg/120 Ml Bottle) 500 mg PO Q6HR PRN PRN Reason: Fever, pain Albuterol Sulfate (Albuterol Nebulized 2.5 Mg/3 Ml) 2.5 mg INHALATION RT-Q4H PRN PRN Reason: Wheezing Amiodarone HCl (Amiodarone 200 Mg Tab) 200 mg PO BID [facility] Last Admin: 10/04/21 07:51 Dose: 200 mg Documented by: Ascorbic Acid (Ascorbic Acid 500 Mg Tab) 500 mg PO DAILY [facility] Last Admin: 10/04/21 07:39 Dose: 500 mg Documented by: Atorvastatin Calcium (Atorvastatin 20 Mg Tab) 20 mg PO W/SUPPER [facility] Last Admin: 10/04/21 17:28 Dose: 20 mg Documented by: Budesonide/Formoterol Fumarate (Symbicort 80-4.5 Mcg Inhaler) 1 puff INHALATION RT-BID [facility] Last Admin: 10/04/21 07:47 Dose: 1 puff Documented by: Calcium Carbonate (Calcium Carb-Vit D 500 Mg-5 Mcg Tab) 1 each PO DAILY [facility] Last Admin: 10/04/21 07:40 Dose: 1 each Documented by: Calcium Carbonate/Glycine (Calcium Carbonate Liquid 500 Mg/5 Ml Cup) 500 mg PO TID-W/MEALS [facility] Last Admin: 10/04/21 17:28 Dose: 500 mg Documented by: Dicyclomine HCl (Dicyclomine 10 Mg Cap) 10 mg PO TID PRN PRN Reason: ibs/bloating Last Admin: 10/03/21 15:32 Dose: 10 mg Documented by: Gabapentin (Gabapentin 100 Mg Cap) 100 mg PO [facility] Last Admin: 10/03/21 19:14 Dose: 100 mg Documented by: Levothyroxine Sodium (Levothyroxine 50 Mcg Tab) 50 mcg PO AC-BRKFST [facility] Last Admin: 10/04/21 07:39 Dose: 50 mcg Documented by: Naloxone HCl (Naloxone 0.4 Mg/Ml 1 Ml Vial) 0.2 mg IV Q2M PRN PRN Reason: Opioid Reversal Pantoprazole Sodium (Pantoprazole 40 Mg Tablet) 40 mg PO AC-BID [facility] Last Admin: 10/04/21 17:28 Dose: 40 mg Documented by: Rivaroxaban (Rivaroxaban 20 Mg Tab) 20 mg PO W/SUPPER [facility]; Protocol Last Admin: 10/04/21 17:28 Dose: 20 mg Documented by: Silver Sulfadiazine (Silver Sulfadiazine 1% Cream 25 Gm Tube) 1 applic TOPICAL BID [facility]; Protocol Last Admin: 10/04/21 17:29 Dose: 1 applic Documented by: Sodium Chloride (Sodium Chloride 0.9% Flush 10 Ml Syringe) 10 ml IV Q12HR [facility] Last Admin: 10/03/21 22:39 Dose: Not Given Documented by: Sodium Chloride (Sodium Chloride 0.9% Flush 10 Ml Syringe) 10 ml IV DIRECTED PRN PRN Reason: FLUSH Trazodone HCl (Trazodone Hcl 50 Mg Tab) 25 mg PO [facility] Last Admin: 10/03/21 19:14 Dose: 25 mg Documented by: Past medical history to include: GERD, bleeding peptic ulcer, mitral and tricuspid valve repair, hypothyroid, hyperlipidemia, bipolar, dilated cardiomyopathy EF 20-25%, paroxysmal atrial fibrillation, GERD rectal prolapse, pacemaker. V. tach V. fib on interrogation. Social history: Smokes about 8 cigarettes a day used to smoke much more for many years. Has some help at home. Does not drink alcohol. Not employed. Lives in his own apartment.. Physical examination: VITAL SIGNS: 98.1, 60, 18, 99/64, 91% on 2 L GENERAL: Sitting up in bed, anxious, not in significant short of breath. EYES: Pupils equal. Conjunctiva normal, with right eye strabismus . HEENT: External appearance of nose and ears normal, oral cavity grossly normal. NECK: JVD not raised; masses not palpable. HEART: Heart sounds irregular; no edema]. LUNGS: Respiratory rate increased. breath sounds decreased ABDOMEN: Soft, mild epigastric tenderness liver spleen not palpable, no masses palpable. PSYCH: Alert and oriented x3; mood and affect anxious NEUROLOGICAL: Cranial nerves grossly intact; no facial asymmetry, power and sensation grossly intact. LYMPHATICS: No lymph nodes palpable in the axilla and neck INVESTIGATIONS, reviewed in the clinical context: October 04: Potassium 4.7 creatinine 1.06 proBNP 13,000 pro-calcitonin 0.05 White count 7.6 hemoglobin 14.5 platelets 228 sodium 135 BUN 20 creatinine 0.95 total bilirubin 2.4 EKG tracing personally reviewed by me-atrial fibrillation. Rate 71. Chest x-ray film personally reviewed by me-infiltrates and/or pulmonary edema Troponin I 0.050 Previous admission Device interrogation: Multiple episodes of NSVT. One episode of V. tach and V. fib. Patient was shocked on 09/18 2-D echocardiogram [February 2021] EF 20-25% severe MR mild to moderate TR Assessment and plan: -Near Syncope: From hypotension. Rule out arrhythmia. -On recent admission patient had Multiple episodes of NSVT and one episode of V. tach V. fib on 09/18 with device interrogation.. On amiodarone. AICD interrogation pending. -Acute hypoxic respiratory failure:new On 12 L nasal cannula. Note patient's is mouth breathing. Positive for the shortest of breath. Normal procalcitonin. Consult pulmonary. -Hypotension from ischemic cardiomyopathy - chronic congestive heart failure, from systolic dysfunction EF 20-25%: Stable Watch fluid status -Persistent atrial fibrillation, rate controlled, Amiodarone. Xarelto 20 mg with supper -COPD in a current smoker Symbicort. Ventolin HFA -GERD Protonix -Chronic gait dysfunction uses a walker at baseline Fall precautions -Chronic nicotine dependence patient cigarette smoker Nicotine patch -Right eye strabismus -Hypothyroid Synthroid 50 g -Moderate to severe mitral and tricuspid regurgitation Follow clinically Pending AICD instrumentation. Consult pulmonary. Up in a chair. Discussed with patient. Did attempt to call patient's sister on her phone. Went into voicemail. Discussed care with the nurse.
[2021-10-04] MEDS: ACETAMINOPHEN ORAL SUSP (PEDS) 3,840 MG/120 ML BOTTLE PO PRN (18:24)
[2021-10-04] MEDS: GABAPENTIN 100 MG CAP PO SCH (19:39)
[2021-10-04] MEDS: traZODone HCL 50 MG TAB PO SCH (22:55)
[2021-10-05 06:38] LABS: Basophils % (A) 0 %; Eosinophils # (A) 0.1 k/uL (0-0.7); Eosinophils % (A) 1 %; HGB 14.8 gm/dL (13.0-17.5); Hypochromasia Moderate; Lymphocytes # (A) 0.8 k/uL (1.0-4.8); Lymphocytes % (A) 12 %; MCH 30.6 pg (25.0-35.0); MCHC 30.9 g/dL (31.0-37.0); Mean Platelet Volume 7.6; Monocytes # (A) 0.7 k/uL (0-1.0); Monocytes % (A) 10 %; Neutrophils # (A) 5.2 k/uL (1.3-7.7); Neutrophils % (A) 76 %; Platelet Count 198 k/uL (150-450); RBC 4.85 m/uL (4.30-5.90); RDW 13.6 % (11.5-15.5); WBC 6.9 k/uL (3.8-10.6)
[2021-10-05] MEDS: SYMBICORT 80-4.5 MCG INHALER INHALATION SCH ×2 (07:47→20:27)
[2021-10-05] MEDS: CALCIUM CARBONATE LIQUID 500 MG/5 ML CUP PO SCH ×3 (08:31→18:04)
[2021-10-05] MEDS: AMIODARONE 200 MG TAB PO SCH ×2 (08:31→19:51)
[2021-10-05] MEDS: ASCORBIC ACID 500 MG TAB PO SCH (08:31)
[2021-10-05] MEDS: PANTOPRAZOLE 40 MG TABLET PO SCH ×2 (08:32→18:03)
[2021-10-05] MEDS: CALCIUM CARB-VIT D 500 MG-5 MCG TAB PO SCH (08:32)
[2021-10-05] MEDS: LEVOTHYROXINE 50 MCG TAB PO SCH (09:25)
--- NOTE | 2021-10-05 10:39 | P.PN ---
Subjective Progress Note Date: 10/05/21 HISTORY OF PRESENT ILLNESS: The patient is a 56-year-old male with a known history of paroxysmal atrial fibrillation, cardiomyopathy, prior history of congestive heart failure and s tatus post mitral valve repair and ICD implantation who presented with symptoms of dizziness and progressive dyspnea. He is followed on a regular basis by Dr. Beltran. He was recently in the hospital with a syncopal episode with injury to his head and was found to have ventricular tachycardia. He was started on amiodarone. At home yesterday he felt lightheaded and dizzy but had no syncope but he is feeling progressively fatigued with lack of energy and progressively dyspneic. He has no chest discomfort and no palpitations. There is no evidence of ventricular tachycardia and he is in atrial fibrillation at the time of admission. He has no PND, orthopnea or peripheral edema. His echocardiogram in January of last year showed an ejection fraction of 20-25% with global hypokinesis and severe mitral regurgitation was mild to moderate tricuspid regurgitation. The patient was diagnosed with COVID-19 recently. He has underwent a cardiac catheterization in 2011 that showed no evidence of obstructive disease with nonischemic cardiomyopathy and mitral regurgitation. The patient activity is limited and he is quite concerned about his progressive fatigue and dyspnea. He has been maintained on anticoagulation. He has a history of hyperlipidemia, he stopped smoking 3 weeks ago. He has no history of diabetes her His medications at the time of admission include spironolactone 25 mg daily, Xarelto 20 mg daily, Lipitor 20 mg daily, amiodarone, levothyroxine, Symbicort, albuterol. 10/04/2021 Patient examined this morning at the bedside. Patient denies chest pain or pressure. States his breathing is not labored and does not feel very SOB. He is on 12L NC. Patient is currently not on telemetry. Blood pressure 92/68. 10/05/2021 Patient examined this morning at the bedside. Patient denies any chest pain or pressure. He reports he got up to the bathroom this morning to have a bowel movement and felt very short of breath after ambulating. He denies any dizziness or lightheadedness. Blood pressure improved today with a recent reading of 106/54. Heart rate is in the 60s. Pacemaker interrogation completed with no events noted. PHYSICAL EXAM: VITAL SIGNS: Reviewed. GENERAL: Well-developed in no acute distress. NECK: Supple. No JVD or thyromegaly LUNGS: Respirations even and unlabored. Lungs diminished bilaterally. HEART: Regular rate and rhythm. S1 and S2 heard. Systolic murmur noted. EXTREMITIES: Normal range of motion. No clubbing or cyanosis. Peripheral pulses intact. No lower extremity edema ASSESSMENT: 1. Symptoms of dizziness, no evidence of syncope, could be related to hypotension 2. Recent episode of ventricular tachycardia, no documented recurrence 3. Paroxysmal atrial fibrillation, anticoagulated 4. Severe cardiomyopathy, EF 2025 percent, and chronic dyspnea on exertion with chronic CHF 5. Prior history of smoking until 3 weeks ago 6. Status post ICD implantation 7. Status post mitral valve repair 8. Recent diagnosis of Covid 19 9. Acute hypoxic respiratory failure requiring supplemental oxygen PLAN: Continue to monitor blood pressure Continue amiodarone Recommend adding [place] inhibitor down the road if patient's blood pressure is able to tolerate Patient is current stable from a cardiac standpoint We will follow on an as needed basis. Please call with questions or concerns. *[employer] called and spoke with patients sister Geno traylor. Updated on patient condition from a cardiac standpoint. All questions answered* Nurse practitioner note has been reviewed by physician. Signing provider agrees with the documented findings, assessment, and plan of care. Objective - Vital Signs Vital signs: Vital Signs Temp 97.8 F 10/05/21 08:00 Pulse 64 10/05/21 08:42 Resp 18 10/05/21 08:00 BP 106/54 10/05/21 08:00 Pulse Ox 91 L 10/05/21 08:00 Intake & Output 10/04/21 10/05/21 10/05/21 18:59 06:59 18:59 Intake Total 716 240 Output Total 605 Balance 111 240 Intake: Oral 716 240 Output: Urine 605 Other: Voiding Method Urinal # Voids 2 1 1 # Bowel Movements 1 1 - Labs CBC & Chem 7: 10/05/21 05:42 10/04/21 06:06 Labs: Abnormal Lab Results - Last 24 Hours (Table) 10/05/21 Range/Units 05:42 MCHC 30.9 L (31.0-37.0) g/dL Lymphocytes # 0.8 L (1.0-4.8) k/uL
--- NOTE | 2021-10-05 11:38 | P.CNPUL ---
History of Present Illness Consult date: 10/05/21 Requesting physician: Lamine Gaitan Reason for consult: dyspnea Chief complaint: Dizziness, lightheadedness History of present illness: This is a 56-year-old male patient who was admitted back on 10/02/2021 with complaints of dizziness and lightheadedness. He has a history of atrial fibrillation, valvular heart disease with previous mitral and tricuspid valve repair, nonischemic cardiomyopathy with ejection fraction 25-30% status post AICD placement, hypothyroidism, chronic and ongoing tobacco dependence. We're consulted today for ongoing hypoxemia. Chest x-ray reveals evidence of conges tive heart failure and possible interstitial pneumonia. He is requiring 12 L high flow nasal cannula to maintain O2 saturations at 90%. He is afebrile. No leukocytosis. D-dimer 0.26. Pro-calcitonin 0.05. ProBNP 13,000. Sodium 137. Potassium 4.7. Creatinine 1.06. Hemoglobin 14.8. He's been initiated on Symbicort, albuterol, Xarelto. Review of Systems REVIEW OF SYSTEMS: CONSTITUTIONAL: Positive for dizziness, lightheadedness. Denies any recent significant weight loss or weight gain. EYES: Denies change in vision. EARS, NOSE, MOUTH, THROAT: Denies headaches, denies sore throat. CARDIOVASCULAR: Denies chest pain, palpitations or syncopal episodes. RESPIRATORY: Positive for shortness of breath, no cough, congestion or hemoptysis. GASTROINTESTINAL: Denies change in appetite, denies abdominal pain GENITOURINARY: Denies hematuria, denies infections. MUSKULOSKELETAL: Denies pain, denies swelling. INTEGUMENTARY: Denies rash, denies eczema. NEUROLOGICAL: Denies recent memory loss, no recent seizure activity. PSYCHIATRIC: Denies anxiety, denies depression. HEMATOLOGIC/LYMPHATIC: Denies anemia, denies enlarged lymph nodes. Past Medical History Past Medical History: Atrial Fibrillation, Coronary Artery Disease (CAD), Chest Pain / Angina, GERD/Reflux, Thyroid Disorder Additional Past Medical History / Comment(s): hypotension, nonischemic cardiomyopathy with ejection fraction 25-30%, atrial fibrillation, GI bleed, thrombocytopenia, ventricular tachycardia History of Any Multi-Drug Resistant Organisms: None Reported Past Surgical History: Coronary Bypass/CABG, Pacemaker, Tonsillectomy Additional Past Surgical History / Comment(s): Mitral and tricuspid heart valve repair no bypassed arteries, hiatal hernia. Pt is unsure if he has an AICD or a pacemaker. Past Anesthesia/Blood Transfusion Reactions: No Reported Reaction Type of Cardiac Device: Permanent Pacemaker Device Placement Date:: october 2019 Past Psychological History: Anxiety, Depression Additional Psychological History / Comment(s): Pt states he was diagnosed as bipolar but no longer takes medication. Smoking Status: Former smoker Past Alcohol Use History: None Reported Additional Past Alcohol Use History / Comment(s): Pt states he quit smoking a few weeks ago. Past Drug Use History: None Reported - Past Family History Mother Additional Family Medical History / Comment(s): heart conditions Father Family Medical History: Cancer Additional Family Medical History / Comment(s): Lung CA Medications and Allergies Home Medications Medication Instructions Recorded Confirmed Type Levothyroxine Sodium [Synthroid] 50 mcg PO AC-BRKFST 08/28/17 10/02/21 History Atorvastatin [Lipitor] 20 mg PO W/SUPPER 07/18/19 10/02/21 History Rivaroxaban [Xarelto] 20 mg PO W/SUPPER 09/19/19 10/02/21 History traZODone HCL 25 mg PO HS 05/19/20 10/02/21 History Gabapentin [Neurontin] 100 mg PO HS 02/08/21 10/02/21 History Pantoprazole [Protonix] 40 mg PO AC-BID #60 tablet. 02/12/21 10/02/21 Rx Calcium Carbonate/Vitamin D3 1 tab PO DAILY 04/03/21 10/02/21 History [Calcium 600 mg-Vit D3 5 mcg (200 unit)] Spironolactone [Aldactone] 25 mg PO DAILY #30 tablet 04/05/21 10/02/21 Rx Albuterol Sulfate [Albuterol 1 puff INHALATION RT-Q4H PRN 09/19/21 10/02/21 History Sulfate Hfa] Ascorbic Acid [Vitamin C] 500 mg PO DAILY 09/19/21 10/02/21 History Budesonide/Formoterol Fumarate 1 puff INHALATION RT-BID 09/19/21 10/02/21 History [Symbicort 80-4.5 Mcg Inhaler] Dicyclomine [Bentyl] 10 mg PO TID PRN 09/19/21 10/02/21 History Amiodarone [Cordarone] See Taper PO DIRECTED 10/02/21 10/02/21 History SILVER sulfADIAZINE CREAM 1 applic TOPICAL BID 10/02/21 10/02/21 History [Silvadene Cream] Allergies Allergy/AdvReac Type Severity Reaction Status Date / Time aspirin AdvReac "has Verified 10/02/21 21:19 stomach problems" NSAIDS (Non-Steroidal AdvReac "has Verified 10/02/21 21:19 Anti-Inflamma stomach problems" Physical Exam Vitals: Vital Signs Temp Pulse Pulse Pulse Resp BP BP 10/05/21 08:42 64 10/05/21 08:00 97.8 F 53 L 18 106/54 10/05/21 03:08 97/61 10/05/21 01:29 98.0 F 77 20 80/51 10/04/21 19:55 97.8 F 63 24 96/63 10/04/21 15:50 98.1 F 60 18 99/64 10/04/21 13:47 20 Pulse Ox 10/05/21 08:42 10/05/21 08:00 91 L 10/05/21 03:08 10/05/21 01:29 90 L 10/04/21 19:55 90 L 10/04/21 15:50 91 L 10/04/21 13:47 Intake and Output 10/04/21 10/05/21 10/05/21 22:59 06:59 14:59 Intake Total 598 240 Output Total 375 Balance 223 240 Intake: Oral 598 240 Output: Urine 375 Other: # Voids 1 1 1 # Bowel Movements 1 1 GENERAL EXAM: Alert, pleasant 56-year-old gentleman, up in a chair at the bedside, on comfortable in no apparent distress. HEAD: Normocephalic. EYES: Normal reaction of pupils, equal size. NOSE: Clear with pink turbinates. THROAT: No erythema or exudates. NECK: No masses, no JVD. CHEST: No chest wall deformity. LUNGS: Equal air entry with crackles in the bilateral bases. CVS: S1 and S2 normal with no audible murmur, irregular rhythm. ABDOMEN: No hepatosplenomegaly, normal bowel sounds, no guarding or rigidity. SPINE: No scoliosis or deformity SKIN: No rashes CENTRAL NERVOUS SYSTEM: No focal deficits, tone is normal in all 4 extremities. EXTREMITIES: There is 1 + peripheral edema. No clubbing, no cyanosis. Peripheral pulses are intact. Results - Laboratory Findings CBC and BMP: 10/05/21 05:42 10/04/21 06:06 PT/INR, D-dimer PT 16.8 sec (9.0-12.0) H 10/02/21 22:00 INR 1.6 (<1.2) H 10/02/21 22:00 D-Dimer 0.26 mg/L FEU (<0.60) 10/05/21 05:42 Abnormal lab findings: Abnormal Labs 10/02/21 10/02/21 10/02/21 20:11 20:11 20:11 MCHC Lymphocytes # 0.9 L PT INR APTT Sodium 135 L Chloride 108 H Carbon Dioxide 19 L Glucose 127 H Calcium 8.2 L Total Bilirubin 2.4 H AST 74 H Troponin I 0.050 H* Urine Protein 10/02/21 10/03/21 10/05/21 22:00 05:02 05:42 MCHC 30.9 L Lymphocytes # 0.8 L PT 16.8 H INR 1.6 H APTT 38.4 H Sodium Chloride Carbon Dioxide Glucose Calcium Total Bilirubin AST Troponin I Urine Protein Trace H - Diagnostic Findings Chest x-ray: image reviewed Assessment and Plan Assessment: 1 Acute hypoxemic respiratory failure suspect secondary to acute exacerbation of systolic congestive heart failure. Procalciton negative. D-dimer negative. 2 History of nonischemic cardiomyopathy status post AICD placement. Ejection fraction 20-25% 3 History of valvular heart disease with previous mitral and tricuspid valve repair 4 Atrial fibrillation, anticoagulated with Xarelto 5 Hyperlipidemia 6 Hypertension 7 Hypothyroidism 8 History of bipolar disorder 9 History of ventricular tachycardia, continued on amiodarone at 200 mg twice a day Plan: The patient was seen and evaluated Chest x-ray and labs reviewed No clear evidence of pneumonia Most likely CHF, add diuretics Observe for amiodarone toxicity Follow-up chest x-ray in a.m. Titrate down the FiO2 as tolerated We will continue to follow and make further recommendations based on his clinical status I, the cosigning physician, performed a history & physical examination of the patient. Lungs sounds crackles in the bilateral bases. Maintaining O2 saturations in the 90s on 12 L high flow nasal cannula. I discussed the assessment and plan of care with my nurse practitioner, Jennifer Thakur. I attest to the above consultation as dictated by her. Time with Patient: Greater than 30
[2021-10-05] MEDS ORDERED: FUROSEMIDE 10 MG/ML 4 ML VIAL IV SCH (11:45)
[2021-10-05] MEDS: RIVAROXABAN 20 MG TAB PO SCH (18:03)
[2021-10-05] MEDS: ATORVASTATIN 20 MG TAB PO SCH (18:03)
[2021-10-05] MEDS: GABAPENTIN 100 MG CAP PO SCH (19:50)
[2021-10-05] MEDS: traZODone HCL 50 MG TAB PO SCH ×2 (19:50→19:52)
--- NOTE | 2021-10-05 21:44 | P.PN ---
Progress Note - Text Progress Note Date: 10/05/21 Chief Complaint: Near-syncope History of presenting complaint: This is a pleasant 56-year-old patient of Dr. Smyth. Chronic stable medical conditions include hypothyroid, hyperlipidemia, bipolar disorder, hypertension, dilated cardiomyopathy 20-25%, paroxysmal atrial fibrillation, GERD, some rectal prolapse. Patient has some mental impairment. Lives by himself. Does use a walker at baseline Patient was discharged from here on September 24. Had presented with syncope. He had tested positive for COVID-19. No symptoms. Found to be hypotensive. Pacemaker interrogation had shown several episodes of nonsustained V. tach. An episode of V. tach and V. fib that were shock. That was on September 18. Patient was loaded with amiodarone. Patient now presents with dizziness even sitting up. No palpitations. Oral intake fair. No arrhythmia noted in the ER. Patient has not passed out. No chest pain. October 04: Patient's blood pressure in lower side. Seen by cardiology. They will do a AICD interrogation. Patient also noted to be on 12 L nasal cannula. Appears rather comfortable. Eating well. Pulmonary being consulted. Chest x- ray compared to the one from admission May. Possible previous changes from COVID-19. Patient has no cough. No sputum. October 05: Patient has been on 12 L nasal cannula. Eating well. I discussed with Dr. Traore from pulmonary. He does not feel his anybody component. Thinks it is all CHF. Signed off the case. I didn't did speak to Dr. Oliver from cardiology. He will drop right heart catheterization tomorrow. Patient be moved to the cardiology telemetry floor. Did try to drop patient's FiO2 patient became hypoxic. RT was unable to do blood gases. Lasix started earlier has been held pending cardiac catheterization. Also update his patient's sister on the phone this morning. Active Medications Acetaminophen (Acetaminophen Oral Susp (Peds) 3,840 Mg/120 Ml Bottle) 500 mg PO Q6HR PRN PRN Reason: Fever, pain Last Admin: 10/04/21 18:24 Dose: 500 mg Documented by: Albuterol Sulfate (Albuterol Nebulized 2.5 Mg/3 Ml) 2.5 mg INHALATION RT-Q4H PRN PRN Reason: Wheezing Amiodarone HCl (Amiodarone 200 Mg Tab) 200 mg PO BID [facility] Last Admin: 10/05/21 19:51 Dose: 200 mg Documented by: Ascorbic Acid (Ascorbic Acid 500 Mg Tab) 500 mg PO DAILY [facility] Last Admin: 10/05/21 08:31 Dose: 500 mg Documented by: Atorvastatin Calcium (Atorvastatin 20 Mg Tab) 20 mg PO W/SUPPER [facility] Last Admin: 10/05/21 18:03 Dose: 20 mg Documented by: Budesonide/Formoterol Fumarate (Symbicort 80-4.5 Mcg Inhaler) 1 puff INHALATION RT-BID [facility] Last Admin: 10/05/21 20:27 Dose: 1 puff Documented by: Calcium Carbonate (Calcium Carb-Vit D 500 Mg-5 Mcg Tab) 1 each PO DAILY [facility] Last Admin: 10/05/21 08:32 Dose: 1 each Documented by: Calcium Carbonate/Glycine (Calcium Carbonate Liquid 500 Mg/5 Ml Cup) 500 mg PO TID-W/MEALS [facility] Last Admin: 10/05/21 18:04 Dose: 500 mg Documented by: Dicyclomine HCl (Dicyclomine 10 Mg Cap) 10 mg PO TID PRN PRN Reason: ibs/bloating Last Admin: 10/03/21 15:32 Dose: 10 mg Documented by: Gabapentin (Gabapentin 100 Mg Cap) 100 mg PO HS [facility] Last Admin: 10/05/21 19:50 Dose: 100 mg Documented by: Levothyroxine Sodium (Levothyroxine 50 Mcg Tab) 50 mcg PO AC-BRKFST [facility] Last Admin: 10/05/21 09:25 Dose: 50 mcg Documented by: Naloxone HCl (Naloxone 0.4 Mg/Ml 1 Ml Vial) 0.2 mg IV Q2M PRN PRN Reason: Opioid Reversal Pantoprazole Sodium (Pantoprazole 40 Mg Tablet) 40 mg PO AC-BID [facility] Last Admin: 10/05/21 18:03 Dose: 40 mg Documented by: Rivaroxaban (Rivaroxaban 20 Mg Tab) 20 mg PO W/SUPPER [facility]; Protocol Last Admin: 10/05/21 18:03 Dose: 20 mg Documented by: Silver Sulfadiazine (Silver Sulfadiazine 1% Cream 25 Gm Tube) 1 applic TOPICAL BID [facility]; Protocol Last Admin: 10/05/21 19:55 Dose: 1 applic Documented by: Sodium Chloride (Sodium Chloride 0.9% Flush 10 Ml Syringe) 10 ml IV Q12HR [facility] Last Admin: 10/05/21 19:51 Dose: 10 ml Documented by: Sodium Chloride (Sodium Chloride 0.9% Flush 10 Ml Syringe) 10 ml IV DIRECTED PRN PRN Reason: FLUSH Trazodone HCl (Trazodone Hcl 50 Mg Tab) 25 mg PO HS [facility] Last Admin: 10/05/21 19:50 Dose: 25 mg Documented by: Past medical history to include: GERD, bleeding peptic ulcer, mitral and tricuspid valve repair, hypothyroid, hyperlipidemia, bipolar, dilated cardiomyopathy EF 20-25%, paroxysmal atrial fibrillation, GERD rectal prolapse, pacemaker. V. tach V. fib on interrogation. Social history: Smokes about 8 cigarettes a day used to smoke much more for many years. Has some help at home. Does not drink alcohol. Not employed. Lives in his own apartment.. Physical examination: VITAL SIGNS: 97.8, 54, 18, 112/55, 90% on 12 L GENERAL: Sitting up in bed, anxious, not in significant short of breath. EYES: Pupils equal. Conjunctiva normal, with right eye strabismus . HEENT: External appearance of nose and ears normal, oral cavity grossly normal. NECK: JVD not raised; masses not palpable. HEART: Heart sounds irregular; no edema]. LUNGS: Respiratory rate increased. breath sounds decreased ABDOMEN: Soft, mild epigastric tenderness liver spleen not palpable, no masses palpable. PSYCH: Alert and oriented x3; mood and affect anxious NEUROLOGICAL: Cranial nerves grossly intact; no facial asymmetry, power and sensation grossly intact. LYMPHATICS: No lymph nodes palpable in the axilla and neck INVESTIGATIONS, reviewed in the clinical context: October 05: White count 6.9 hemoglobin 14.8 d-dimer 0.26 October 04: Potassium 4.7 creatinine 1.06 proBNP 13,000 pro-calcitonin 0.05 White count 7.6 hemoglobin 14.5 platelets 228 sodium 135 BUN 20 creatinine 0.95 total bilirubin 2.4 EKG tracing personally reviewed by me-atrial fibrillation. Rate 71. Chest x-ray film personally reviewed by me-infiltrates and/or pulmonary edema Troponin I 0.050 Previous admission Device interrogation: Multiple episodes of NSVT. One episode of V. tach and V. fib. Patient was shocked on 09/18 2-D echocardiogram [February 2021] EF 20-25% severe MR mild to moderate TR Assessment and plan: -Near Syncope: From hypotension. No arrhythmia on this admission AICD interrogation. -On recent admission patient had Multiple episodes of NSVT and one episode of V. tach V. fib on 09/18 with device interrogation.. On amiodarone. AICD interrogation unremarkable this admission. -Acute hypoxic respiratory failure:new On 12 L nasal cannula. Possible congestive heart failure. Negative procalcitonin. There may be some contribution from recent COVID-19. -Hypotension from ischemic cardiomyopathy - chronic congestive heart failure, from systolic dysfunction EF 20-25%: Discussed with Dr. Oliver. For right heart catheterization tomorrow. -Persistent atrial fibrillation, rate controlled, Amiodarone. Xarelto 20 mg with supper -COPD in a current smoker Symbicort. Ventolin HFA -GERD Protonix -Chronic gait dysfunction uses a walker at baseline Fall precautions -Chronic nicotine dependence patient cigarette smoker Nicotine patch -Right eye strabismus -Hypothyroid Synthroid 50 g -Moderate to severe mitral and tricuspid regurgitation Follow clinically AICD interrogation unremarkable. Discussed with Dr. Cortez from pulmonary. Not felt to be pulmonary cause. Discussed with Dr. Oliver for right heart catheterization tomorrow. Patient moved to the cardiology floor. Hold Lasix for now. Total time spent today 50 minutes with over 25 minutes of discussion.
[2021-10-06] MEDS: LEVOTHYROXINE 50 MCG TAB PO SCH (05:58)
[2021-10-06] MEDS: CALCIUM CARBONATE LIQUID 500 MG/5 ML CUP PO SCH ×3 (05:58→15:42)
[2021-10-06] MEDS: PANTOPRAZOLE 40 MG TABLET PO SCH ×2 (05:59→15:41)
[2021-10-06 06:56] LABS: African American GFR (CKD) >90 (>60 ml/min/1.73 sqM); Anion Gap 5 mmol/L; Blood Urea Nitrogen 21 mg/dL (9-20); Calcium 8.8 mg/dL (8.4-10.2); Carbon Dioxide 28 mmol/L (22-30); Chloride 104 mmol/L (98-107); Glucose 85 mg/dL (74-99); Non-African American GFR(CKD) 79 (>60 ml/min/1.73 sqM); Potassium 4.4 mmol/L (3.5-5.1); Sodium 137 mmol/L (137-145)
[2021-10-06] MEDS ORDERED: IPRATROPIUM-ALBUTEROL 3 ML NEB INHALATION PRN (08:33)
--- NOTE | 2021-10-06 08:49 | P.PN ---
Subjective Progress Note Date: 10/06/21 This is a 56-year-old male patient who was admitted back on 10/02/2021 with complaints of dizziness and lightheadedness. He has a history of atrial fibrillation, valvular heart disease with previous mitral and tricuspid valve repair, nonischemic cardiomyopathy with ejection fraction 25-30% status post AIC D placement, hypothyroidism, chronic and ongoing tobacco dependence. We're consulted today for ongoing hypoxemia. Chest x-ray reveals evidence of congestive heart failure and possible interstitial pneumonia. He is requiring 12 L high flow nasal cannula to maintain O2 saturations at 90%. He is afebrile. No leukocytosis. D-dimer 0.26. Pro-calcitonin 0.05. ProBNP 13,000. Sodium 137. Potassium 4.7. Creatinine 1.06. Hemoglobin 14.8. He's been initiated on Symbicort, albuterol, Xarelto. On 10/06/2021 patient seen in follow-up on selective care unit. Patient was transferred from regular medical surgical floor last night in view of continued shortness of breath and worsening hypoxia, currently he is on 15 L per high flow nasal cannula, however his pulse ox is ranging between 86-90%. Most the time he is around 87%, she states his breathing is better compared to yesterday, however he is bronchospastic, with diffuse wheezes throughout his lung valdez, mildly congested cough, no phlegm production, denied any chest pain, his had no fever or chills, his pro-calcitonin level on admission was negative, his proBNP was significantly elevated at 13,000 suggesting acute exacerbation of CHF with systolic dysfunction. Patient has received intermittent diuretics, and he is currently in -3.6 L net fluid balance over last 24 hours, remains in A. fib, the rate is controlled, he is on is a relative for anticoagulation, he is sitting up in the recliner, he states he was having difficult time laying flat in bed and for that reason she slept in a recliner last night, no swelling in his lower extremities. Today's chest x-ray is pending, patient is a former smoker, she quit one year ago, prior to that smoked for 27 years. His maintenance inhaler is Symbicort 804 0.5 mics twice daily, and albuterol rescue inhaler. Most recent echocardiogram from 02/09/2021 showed severely impaired left ventricle systolic function with EF of 20-25%, severe mitral regurgitation with MV repair, mild to moderate tricuspid regurgitation with TV repair amount and there was severe global hypokinesis of LV. Pacer wire was seen in the RV and RA. Objective - Vital Signs Vital signs: Vital Signs Temp 97.8 F 10/06/21 04:00 Pulse 62 10/06/21 04:00 Resp 18 10/06/21 04:00 BP 81/64 10/06/21 04:00 Pulse Ox 90 L 10/06/21 04:00 Intake & Output 10/05/21 10/06/21 10/06/21 18:59 06:59 18:59 Intake Total 355 Output Total 1670 2300 Balance -1315 -2300 Intake: Oral 355 Output: Urine 1670 2300 Other: Voiding Method Urinal Urinal # Voids 2 3 # Bowel Movements 1 - Exam GENERAL EXAM: Alert, pleasant, 56-year-old white male, on 15 L per high flow nasal cannula with a pulse ox of 85-89% recliner, comfortable in no apparent distress. HEAD: Normocephalic/atraumatic. EYES: Normal reaction of pupils, equal size. Conjunctiva pink, sclera white. NOSE: Clear with pink turbinates. THROAT: No erythema or exudates. NECK: No masses, no JVD, no thyroid enlargement, no adenopathy. CHEST: No chest wall deformity. Symmetrical expansion. LUNGS: Equal air entry with diffuse wheezes bilaterally CVS: Irregular rate and rhythm, normal S1 and S2, no gallops, no murmurs, no rubs ABDOMEN: Soft, nontender. No hepatosplenomegaly, normal bowel sounds, no guarding or rigidity. EXTREMITIES: No clubbing, no edema, no cyanosis, 2+ pulses and upper and lower extremities. MUSCULOSKELETAL: Muscle strength and tone normal. SPINE: No scoliosis or deformity SKIN: No rashes CENTRAL NERVOUS SYSTEM: Alert and oriented -3. No focal deficits, tone is normal in all 4 extremities. PSYCHIATRIC: Alert and oriented -3. Appropriate affect. Intact judgment and insight. - Labs CBC & Chem 7: 10/05/21 05:42 10/06/21 06:02 Labs: Abnormal Lab Results - Last 24 Hours (Table) 10/06/21 Range/Units 06:02 BUN 21 H (9-20) mg/dL Assessment and Plan Plan: Assessment: #1. Acute hypoxic respiratory failure secondary to acute exacerbation of CHF with systolic dysfunction and acute exacerbation of COPD. Patient tested negati ve for COVID-19, pro-calcitonin level was negative, d-dimer is negative. #2. History of nonischemic cardiomyopathy, status post AICD placement, ejection fraction is 20-25% #3. History of valvular heart disease, with previous mitral and tricuspid valve repair #4. Chronic atrial fibrillation, on Xarelto #5. Acute exacerbation of COPD, patient is not normally oxygen dependent on a regular basis #6. History of GERD and gastritis and esophagitis, currently asymptomatic #7. History of hypothyroidism #8. History of benign essential hypertension #9. History of bipolar disorder #10. History of nicotine dependence syndrome, currently in remission, patient carries [id number] smoking history #11. 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 Episode of V. tach, currently on amiodarone Plan: We'll obtain a follow-up chest x-ray We'll place the patient on Airvo and titrate FiO2 to keep O2 sats patient's at around 90% Patient is quite bronchospastic today, we'll add IV cellulitis 60 mg every 6 hours Continue Symbicort, we will add DuoNeb nebulized treatments Patient is maintaining negative net fluid balance Continue oral anticoagulation, Diuretics for cardiology recommendations We'll continue to follow his clinical course I performed a history & physical examination of the patient and discussed their management with my nurse practitioner, Tereza Javier. I reviewed the nurse practitioner's note and agree with the documented findings and plan of care. Lung sounds are positive for diffuse wheezes throughout the lung valdez. The findings and the impression was discussed with the patient. I attest to the documentation by the nurse practitioner. Time with Patient: Less than 30
--- NOTE | 2021-10-06 09:12 | XR ---
EXAMINATION TYPE: XR chest 1V portable DATE OF EXAM: 10/06/2021 COMPARISON: Chest x-ray 10/04/2021 HISTORY: Shortness of breath TECHNIQUE: Single frontal view of the chest is obtained. FINDINGS: There is artifact present centrally, patient is rotated. Pacemaker is again seen, lead pro jecting over the right ventricle. Interstitium is increased. There is blunting the costophrenic angle s. There is improvement in the interstitium, aeration. No evident pneumothorax. There are overlying a rtifacts. Cardiac mediastinal silhouette likely stable accounting for differences in technique. IMPRESSION: Suspect improvement in patient's volume status, aeration. Persistent basilar effusions.
[2021-10-06] MEDS: ASCORBIC ACID 500 MG TAB PO SCH (10:39)
[2021-10-06] MEDS: methylPREDNISolone SOD SUCCI 125 MG/2 ML VIAL IV SCH ×3 (10:39→21:44)
[2021-10-06] MEDS: AMIODARONE 200 MG TAB PO SCH ×2 (10:40→21:44)
[2021-10-06] MEDS: CALCIUM CARB-VIT D 500 MG-5 MCG TAB PO SCH (10:40)
[2021-10-06] MEDS: IPRATROPIUM-ALBUTEROL 3 ML NEB INHALATION SCH ×3 (12:00→20:42)
[2021-10-06] MEDS: SYMBICORT 80-4.5 MCG INHALER INHALATION SCH (12:06)
[2021-10-06] MEDS ORDERED: RX INFO: IV CONTRAST WAS GIVEN 1 EACH MISC MISCELLANE PRN (12:12)
[2021-10-06] MEDS: INSULIN ASPART (NovoLOG) 100 UNIT/ML VIAL SQ SCH ×3 (12:27→21:44)
--- NOTE | 2021-10-06 14:06 | CT ---
EXAMINATION TYPE: CT chest angio for PE DATE OF EXAM: 10/06/2021 COMPARISON: Radiograph 10/06/[address] chest 05/20/2020 HISTORY: 56 year-old male shortness of breath, ELEVATED D DIMER, rule out PE CT DLP: 449.1 mGycm Automated exposure control for dose reduction was used. TECHNIQUE: CT Chest for pulmonary embolism performed with with IV Contrast, patient injected with 80 mL of Isovue 370. Coronal and sagittal MIP reconstructions performed. FINDINGS: Left anterior chest wall AICD generator right ventricular leads. There are median sternotomy wires wi th tricuspid and mitral annuloplasty change. New moderate cardiomegaly with pronounced dilatation of the left atrium and also in the left ventricl e. No pericardial effusion. No flattening of the interventricular septum. Reflux of contrast into the IVC. Aorta normal caliber with conventional arch vessel branching anatomy. A number of nonenlarged lymph nodes and borderline or enlarged mediastinal lymph nodes are present me asuring up to 1.2 cm AP window, 1.5 cm lower paratracheal, 3.2 cm right hilum. Large caliber to the main right and the pulmonary arteries that 3.3 and 3.0 cm, respectively, compati ble with underlying pulmonary artery hypertension. There is satisfactory opacification of the pulmonary arterial system. There is a solitary tiny fillin g defect within a segmental branch of the right lower lobe, reference axial image 93. There are moderate bilateral pleural effusions, right greater than left with dependent groundglass op acity and more extensive consolidation adjacent to the pleural effusions in the lower lobes. Patchy c onsolidation periphery of the right midlung. Diffuse interstitial thickening. Background moderate karlos trilobular emphysema. Incidental gastric fundal diverticulum left upper quadrant. Bones: Accentuated midthoracic kyphosis. Moderate degenerative disc disease throughout. IMPRESSION: 1. Exam positive for a small solitary pulmonary embolus within a segmental branch of the right lower lobe. 2. New moderate cardiomegaly with marked dilatation of the left atrium and left ventricle. Correspond ing pulmonary arterial hypertension. Correlate for CHF. Background moderate COPD. 3. Moderate bilateral pleural effusions. Dependent consolidation in the lower lobes and dependent melvina undglass elsewhere. Correlate for developing pulmonary edema. 4. Mediastinal hilar lymphadenopathy measuring up to 3.2 cm likely reactive. 3 month follow-up CT to ensure resolution. Critical finding called to nurse Nelly Villa on [facility]SCARD at 2pm.
--- NOTE | 2021-10-06 14:32 | P.PN ---
Subjective The patient is a 56-year-old male with a known history of paroxysmal atrial fibrillation, non-ischemic cardiomyopathy s/p ICD implantation 10/2019, prior history of congestive heart failure with reduced EF, mitral regurgitation with history of mitral valve repair in 2014 , hyperlipidemia, he stopped smoking 3 weeks ago, Covid-19 in 09/19/2021. Patient follows in the office with Dr. Beltran. Patient presented with symptoms of dizziness and progressive dyspnea. He was recently in the hospital with a syncopal episode with injury to his head and was found to have ventricular tachycardia. He was started on amiodarone. Prior to admission he felt lightheaded and dizzy but had no syncope but he is feeling progressively fatigued with lack of energy and progressively dyspneic. He has no chest discomfort and no palpitations. There is no evidence of ventricular tachycardia and he is in atrial fibrillation at the time of admission. Patient was taken off all beta blockers, lasix, antihypertensives due to hypotension. His echocardiogram in January 2021 showed an ejection fraction of 20-25% with global hypokinesis and severe mitral regurgitation was mild to moderate tricuspid regurgitation. He has underwent a cardiac catheterization in 2011 that showed no evidence of obstructive disease with nonischemic cardiomyopathy and mitral regurgitation. His medications at the time of admission included spironolactone 25 mg daily, Xarelto 20 mg daily, Lipitor 20 mg daily, amiodarone, levothyroxine, Symbicort, albuterol. Pacemaker interrogation completed this admission with no events noted. 10/06/2021 Patient examined this morning at the bedside. Patient denies any chest pain or pressure. He denies shortness of breath, but does have shortness of breath with activity. He recieved 1 dose of 40mg IV Lasix yesterday with 3970mL urine output. He states he does have to sleep in the recliner for comfort. He occasionally has episodes of orthopnea. He denies any dizziness or lightheadedness.Telemetry reviewed, patient in atrial fibrillation with controlled ventricular rates. Meds: He is currently maintained on amiodarone 200 mg twice a day, atorvastatin 20 mg nightly, IV Lasix 20 mg twice a day, Xarelto 20 mg nightly Labs: Sodium 137, potassium 4.4, BUN 21, serum creatinine 1.0, proBNP 13,000, pro-calcitonin negative PHYSICAL EXAM: VITAL SIGNS: Reviewed. GENERAL: Well-developed in no acute distress. NECK: Supple. No JVD LUNGS: Respirations even and unlabored. Lungs bilateral wheezing to auscultation HEART: Irregular rate and rhythm. S1 and S2 heard. Systolic murmur noted. EXTREMITIES: Normal range of motion. No clubbing or cyanosis. Peripheral pulses intact. No lower extremity edema ASSESSMENT: Acute on chronic heart failure with reduced ejection fraction Symptoms of dizziness, no evidence of syncope, could be related to hypotension Recent episode of ventricular tachycardia in August 2021, no documented recurrence Persistent atrial fibrillation, anticoagulated with Xarelto Severe non-ischemic cardiomyopathy, EF 5% Status post ICD implantation 10/2019 Prior history of smoking until 3 weeks ago Mitral regurgitation Status post mitral valve repair 2014 Recent diagnosis of Covid September 19, 2021 Acute hypoxic respiratory failure requiring supplemental oxygen Hypotension, improving PLAN: Patient's symptoms and recent hospitalizations concerning for end stage heart failure. We will repeat echocardiogram Continue IV Lasix 20mg BID Monitor renal function and electrolytes, I/Os, daily weights Start Lisinopril 2.5mg Daily and monitor patient's blood pressure Continue amiodarone, statin, and Xarelto At this time we do not recommend right heart catheterization. Pulmonary following Further recommendations based on clinical course Nurse practitioner note has been reviewed by physician. Signing provider agrees with the documented findings, assessment, and plan of care. Objective - Vital Signs Vital signs: Vital Signs Temp 97.8 F 10/06/21 04:00 Pulse 62 10/06/21 04:00 Resp 18 10/06/21 04:00 BP 81/64 10/06/21 04:00 Pulse Ox 90 L 10/06/21 04:00 Intake & Output 10/05/21 10/06/21 10/06/21 18:59 06:59 18:59 Intake Total 355 Output Total 1670 2300 Balance -1315 -2300 Intake: Oral 355 Output: Urine 1670 2300 Other: Voiding Method Urinal Urinal # Voids 2 3 # Bowel Movements 1 - Labs CBC & Chem 7: 10/05/21 05:42 10/06/21 06:02 Labs: Abnormal Lab Results - Last 24 Hours (Table) 10/06/21 Range/Units 06:02 BUN 21 H (9-20) mg/dL
[2021-10-06] MEDS: FUROSEMIDE 10 MG/ML 2 ML VIAL IV SCH ×2 (15:40→21:44)
[2021-10-06] MEDS: RIVAROXABAN 20 MG TAB PO SCH (15:41)
[2021-10-06] MEDS: ATORVASTATIN 20 MG TAB PO SCH (15:41)
[2021-10-06 16:55] LABS: Glucose,Whole Blood 264 mg/dL (75-99)
[2021-10-06 18:16] LABS: Glucose,Whole Blood 232 mg/dL (75-99)
[2021-10-06 20:09] LABS: Glucose,Whole Blood 224 mg/dL (75-99)
--- NOTE | 2021-10-06 20:16 | P.PN ---
Progress Note - Text Progress Note Date: 10/06/21 Chief Complaint: Near-syncope History of presenting complaint: This is a pleasant 56-year-old patient of Dr. Smyth. Chronic stable medical conditions include hypothyroid, hyperlipidemia, bipolar disorder, hypertension, dilated cardiomyopathy 20-25%, paroxysmal atrial fibrillation, GERD, some rectal prolapse. Patient has some mental impairment. Lives by himself. Does use a walker at baseline Patient was discharged from here on September 24. Had presented with syncope. He had tested positive for COVID-19. No symptoms. Found to be hypotensive. Pacemaker interrogation had shown several episodes of nonsustained V. tach. An episode of V. tach and V. fib that were shock. That was on September 18. Patient was loaded with amiodarone. Patient now presents with dizziness even sitting up. No palpitations. Oral intake fair. No arrhythmia noted in the ER. Patient has not passed out. No chest pain. October 04: Patient's blood pressure in lower side. Seen by cardiology. They will do a AICD interrogation. Patient also noted to be on 12 L nasal cannula. Appears rather comfortable. Eating well. Pulmonary being consulted. Chest x- ray compared to the one from admission May. Possible previous changes from COVID-19. Patient has no cough. No sputum. October 05: Patient has been on 12 L nasal cannula. Eating well. I discussed with Dr. Traore from pulmonary. He does not feel his anybody component. Thinks it is all CHF. Signed off the case. I didn't did speak to Dr. Oliver from cardiology. He will drop right heart catheterization tomorrow. Patient be moved to the cardiology telemetry floor. Did try to drop patient's FiO2 patient became hypoxic. RT was unable to do blood gases. Lasix started earlier has been held pending cardiac catheterization. Also update his patient's sister on the phone this morning. October 06: Sitting up in a recliner. Patient had to be bumped up in Air-vo. Put back and IV Lasix. Put significant urine output yesterday. She short of breath. Also put on's bronchodilators and steroids. Significant component of CHF. Also a COPD component. Computed tomography scan of chest negative for any significant PE. May be a small. That could be chronic. Also IV Solu-Medrol DuoNeb added for wheezing. Active Medications Acetaminophen (Acetaminophen Oral Susp (Peds) 3,840 Mg/120 Ml Bottle) 500 mg PO Q6HR PRN PRN Reason: Fever, pain Last Admin: 10/04/21 18:24 Dose: 500 mg Documented by: Albuterol/Ipratropium (Ipratropium-Albuterol 3 Ml Neb) 3 ml INHALATION RT-Q2H PRN PRN Reason: Shortness Of Breath Or Wheezing Last Admin: 10/06/21 09:34 Dose: 3 ml Documented by: Albuterol/Ipratropium (Ipratropium-Albuterol 3 Ml Neb) 3 ml INHALATION RT-QID [facility] Last Admin: 10/06/21 15:41 Dose: 3 ml Documented by: Amiodarone HCl (Amiodarone 200 Mg Tab) 200 mg PO BID [facility] Last Admin: 10/06/21 10:40 Dose: 200 mg Documented by: Ascorbic Acid (Ascorbic Acid 500 Mg Tab) 500 mg PO DAILY [facility] Last Admin: 10/06/21 10:39 Dose: 500 mg Documented by: Atorvastatin Calcium (Atorvastatin 20 Mg Tab) 20 mg PO W/SUPPER [facility] Last Admin: 10/06/21 15:41 Dose: 20 mg Documented by: Budesonide/Formoterol Fumarate (Symbicort 160-4.5 Mcg Inhaler) 2 puff INHALATION RT-BID [facility] Calcium Carbonate (Calcium Carb-Vit D 500 Mg-5 Mcg Tab) 1 each PO DAILY [facility] Last Admin: 10/06/21 10:40 Dose: 1 each Documented by: Calcium Carbonate/Glycine (Calcium Carbonate Liquid 500 Mg/5 Ml Cup) 500 mg PO TID-W/MEALS [facility] Last Admin: 10/06/21 15:42 Dose: 500 mg Documented by: Dicyclomine HCl (Dicyclomine 10 Mg Cap) 10 mg PO TID PRN PRN Reason: ibs/bloating Last Admin: 10/03/21 15:32 Dose: 10 mg Documented by: Furosemide (Furosemide 10 Mg/Ml 2 Ml Vial) 20 mg IV Q12HR [facility] Last Admin: 10/06/21 15:40 Dose: 20 mg Documented by: Gabapentin (Gabapentin 100 Mg Cap) 100 mg PO HS [facility] Last Admin: 10/05/21 19:50 Dose: 100 mg Documented by: Insulin Aspart (Insulin Aspart (Novolog) 100 Unit/Ml Vial) 0 unit SQ ACHS [facility]; Protocol Last Admin: 10/06/21 18:18 Dose: 8 unit Documented by: Levothyroxine Sodium (Levothyroxine 50 Mcg Tab) 50 mcg PO AC-BRKFST [facility] Last Admin: 10/06/21 05:58 Dose: 50 mcg Documented by: Lisinopril (Lisinopril 2.5 Mg Tab) 2.5 mg PO DAILY [facility] Last Admin: 10/06/21 15:43 Dose: 2.5 mg Documented by: Methylprednisolone Sodium Succinate (Methylprednisolone Sod Succi 125 Mg/2 Ml Vial) 60 mg IV Q6H [facility] Last Admin: 10/06/21 15:40 Dose: 60 mg Documented by: Miscellaneous Information (Rx Info: Iv Contrast Was Given 1 Each Misc) 1 each MISCELLANE DAILY PRN PRN Reason: Per Protocol Stop: 10/08/21 12:13 Naloxone HCl (Naloxone 0.4 Mg/Ml 1 Ml Vial) 0.2 mg IV Q2M PRN PRN Reason: Opioid Reversal Pantoprazole Sodium (Pantoprazole 40 Mg Tablet) 40 mg PO AC-BID [facility] Last Admin: 10/06/21 15:41 Dose: 40 mg Documented by: Rivaroxaban (Rivaroxaban 20 Mg Tab) 20 mg PO W/SUPPER [facility]; Protocol Last Admin: 10/06/21 15:41 Dose: 20 mg Documented by: Silver Sulfadiazine (Silver Sulfadiazine 1% Cream 25 Gm Tube) 1 applic TOPICAL BID [facility]; Protocol Last Admin: 10/06/21 10:40 Dose: 1 applic Documented by: Sodium Chloride (Sodium Chloride 0.9% Flush 10 Ml Syringe) 10 ml IV Q12HR [facility] Last Admin: 10/06/21 10:40 Dose: Not Given Documented by: Sodium Chloride (Sodium Chloride 0.9% Flush 10 Ml Syringe) 10 ml IV DIRECTED PRN PRN Reason: FLUSH Trazodone HCl (Trazodone Hcl 50 Mg Tab) 25 mg PO HS [facility] Last Admin: 10/05/21 19:52 Dose: 25 mg Documented by: Past medical history to include: GERD, bleeding peptic ulcer, mitral and tricuspid valve repair, hypothyroid, hyperlipidemia, bipolar, dilated cardiomyopathy EF 20-25%, paroxysmal atrial fibrillation, GERD rectal prolapse, pacemaker. V. tach V. fib on interrogation. Social history: Smokes about 8 cigarettes a day used to smoke much more for many years. Has some help at home. Does not drink alcohol. Not employed. Lives in his own apartment.. Physical examination: VITAL SIGNS: 98.2, 59, 21, 100/67, 94% on Airvo 60/90 GENERAL: Recliner, short of breath EYES: Pupils equal. Conjunctiva normal, with right eye strabismus . HEENT: External appearance of nose and ears normal, oral cavity grossly normal. NECK: JVD possibly raised; masses not palpable. HEART: Heart sounds irregular; no edema]. LUNGS: Respiratory rate increased. Some basal crackles ABDOMEN: Soft, no tenderness liver spleen not palpable, no masses palpable. PSYCH: Alert and oriented x3; mood and affect anxious NEUROLOGICAL: Cranial nerves grossly intact; no facial asymmetry, power and sensation grossly intact. LYMPHATICS: No lymph nodes palpable in the axilla and neck INVESTIGATIONS, reviewed in the clinical context: October 06: Potassium 4.4 creatinine 1.06.Chest x-ray film personally reviewed by me-pleural effusion. Pulmonary edema. Chest CTA: Moderate bilateral pleural effusion. Right greater than left. More extensive consolidation to the pleural effusion lower lobes. Diffuse interstitial thickening. October 05: White count 6.9 hemoglobin 14.8 d-dimer 0.26 October 04: Potassium 4.7 creatinine 1.06 proBNP 13,000 pro-calcitonin 0.05 White count 7.6 hemoglobin 14.5 platelets 228 sodium 135 BUN 20 creatinine 0.95 total bilirubin 2.4 EKG tracing personally reviewed by me-atrial fibrillation. Rate 71. Chest x-ray film personally reviewed by me-infiltrates and/or pulmonary edema Troponin I 0.050 Previous admission Device interrogation: Multiple episodes of NSVT. One episode of V. tach and V. fib. Patient was shocked on 09/18 2-D echocardiogram [February 2021] EF 20-25% severe MR mild to moderate TR Assessment and plan: -Near Syncope: From hypotension. No arrhythmia on this admission AICD interrogation. -On recent admission patient had Multiple episodes of NSVT and one episode of V. tach V. fib on 09/18 with device interrogation.. On amiodarone. AICD interrogation unremarkable this admission. -Acute hypoxic respiratory failure: [place] to be predominantly CHF. Possibly some contribution from underlying recent COVID-19, COPD exacerbation.: Worsening On Airvo. Negative procalcitonin. -Hypotension from ischemic cardiomyopathy - Acute on chronic congestive heart failure, from systolic dysfunction EF 20- 25%: IV Lasix 20 mg every 12. Right heart catheterization now deferred by cardiology. -Persistent atrial fibrillation, rate controlled, Amiodarone. Xarelto 20 mg with supper -Acute COPD exacerbation in a current smoker IV Solu-Medrol DuoNeb -GERD Protonix -Chronic gait dysfunction uses a walker at baseline Fall precautions -Chronic nicotine dependence patient cigarette smoker Nicotine patch -Right eye strabismus -Hypothyroid Synthroid 50 g -Moderate to severe mitral and tricuspid regurgitation Follow clinically Patient started today on DuoNeb, IV Solu-Medrol, IV Lasix 20 mg every 12. Strict I's and O's. FiO2 bumped up to Airvo. Prognosis guarded. Patient now being followed by pulmonary and cardiology.
[2021-10-06] MEDS: SYMBICORT 160-4.5 MCG INHALER INHALATION SCH (20:42)
[2021-10-06] MEDS: GABAPENTIN 100 MG CAP PO SCH (21:44)
[2021-10-06] MEDS: traZODone HCL 50 MG TAB PO SCH (23:10)
[2021-10-07] MEDS: methylPREDNISolone SOD SUCCI 125 MG/2 ML VIAL IV SCH (03:41)
[2021-10-07 05:51] LABS: Glucose,Whole Blood 262 mg/dL (75-99)
[2021-10-07] MEDS: LEVOTHYROXINE 50 MCG TAB PO SCH (06:47)
[2021-10-07] MEDS: INSULIN ASPART (NovoLOG) 100 UNIT/ML VIAL SQ SCH ×4 (06:47→20:35)
[2021-10-07] MEDS: PANTOPRAZOLE 40 MG TABLET PO SCH ×2 (06:47→17:18)
[2021-10-07] MEDS: CALCIUM CARBONATE LIQUID 500 MG/5 ML CUP PO SCH ×4 (06:49→17:25)
[2021-10-07] MEDS: IPRATROPIUM-ALBUTEROL 3 ML NEB INHALATION SCH ×5 (08:10→19:57)
[2021-10-07] MEDS: SYMBICORT 160-4.5 MCG INHALER INHALATION SCH ×3 (08:10→20:11)
--- NOTE | 2021-10-07 08:46 | P.PN ---
Subjective Progress Note Date: 10/07/21 This is a 56-year-old male patient who was admitted back on 10/02/2021 with complaints of dizziness and lightheadedness. He has a history of atrial fibrillation, valvular heart disease with previous mitral and tricuspid valve repair, nonischemic cardiomyopathy with ejection fraction 25-30% status post AIC D placement, hypothyroidism, chronic and ongoing tobacco dependence. We're consulted today for ongoing hypoxemia. Chest x-ray reveals evidence of congestive heart failure and possible interstitial pneumonia. He is requiring 12 L high flow nasal cannula to maintain O2 saturations at 90%. He is afebrile. No leukocytosis. D-dimer 0.26. Pro-calcitonin 0.05. ProBNP 13,000. Sodium 137. Potassium 4.7. Creatinine 1.06. Hemoglobin 14.8. He's been initiated on Symbicort, albuterol, Xarelto. On 10/06/2021 patient seen in follow-up on selective care unit. Patient was transferred from regular medical surgical floor last night in view of continued shortness of breath and worsening hypoxia, currently he is on 15 L per high flow nasal cannula, however his pulse ox is ranging between 86-90%. Most the time he is around 87%, she states his breathing is better compared to yesterday, however he is bronchospastic, with diffuse wheezes throughout his lung valdez, mildly congested cough, no phlegm production, denied any chest pain, his had no fever or chills, his pro-calcitonin level on admission was negative, his proBNP was significantly elevated at 13,000 suggesting acute exacerbation of CHF with systolic dysfunction. Patient has received intermittent diuretics, and he is currently in -3.6 L net fluid balance over last 24 hours, remains in A. fib, the rate is controlled, he is on is a relative for anticoagulation, he is sitting up in the recliner, he states he was having difficult time laying flat in bed and for that reason she slept in a recliner last night, no swelling in his lower extremities. Today's chest x-ray is pending, patient is a former smoker, she quit one year ago, prior to that smoked for 27 years. His maintenance inhaler is Symbicort 804 0.5 mics twice daily, and albuterol rescue inhaler. Most recent echocardiogram from 02/09/2021 showed severely impaired left ventricle systolic function with EF of 20-25%, severe mitral regurgitation with MV repair, mild to moderate tricuspid regurgitation with TV repair amount and there was severe global hypokinesis of LV. Pacer wire was seen in the RV and RA. On 10/07/2021 patient is seen in follow-up on selective care unit, he states his breathing easier today, his lung sounds are much improved, his lungs are clear on today's exam, no wheezing, diminished breath sounds at the bases, no rhonchi no rails. he remains on Airvo at 60 L and FiO2 of 90% his pulse ox is 91-92%. Patient appears to be in no acute distress, he remains on Lasix 20 mg IV push twice daily, he is in -3.6 L net fluid balance over the last 24 hours, has an occasional cough, no phlegm production. No complaints of chest discomfort. He continues on inhaled and nebulized bronchodilators, he is on IV Solu-Medrol 60 mg every 6 hours. His much less bronchospastic on today's exam. Yesterday he had the CTA chest and it showed a small solitary pulmonary embolus within the segmental branch of the right lower lobe. New moderate cardiomegaly with marked dilatation of the left atrium and left ventricle, corresponding pulmonary arterial hypertension, correlate for CHF with background moderate COPD. Moderate bilateral pleural effusions dependent consolidation in the lower lobes mediastinal hilar lymphadenopathy measuring up to 3.2 cm which is possibly reactive. Patient is on home dose Xarelto 20 mg once daily. Otherwise no acute events overnight, patient has been sleeping in his recliner, he states he is more comfortable sleeping in the recliner compared to his bed. Objective - Vital Signs Vital signs: Vital Signs Temp 98.0 F 10/07/21 04:00 Pulse 57 L 10/07/21 04:00 Resp 21 10/07/21 04:00 BP 87/53 10/07/21 04:00 Pulse Ox 91 L 10/07/21 04:00 Intake & Output 10/06/21 10/07/21 10/07/21 18:59 06:59 18:59 Intake Total 1080 600 Output Total 350 1650 Balance 730 -1050 Weight 84.2 kg Intake: Oral 1080 600 Output: Urine 350 1650 Other: Voiding Method Urinal Urinal # Voids 0 1 # Bowel Movements 0 - Exam GENERAL EXAM: Alert, pleasant, 56-year-old white male, on Airvo at 60 L and FiO2 of 90% with a pulse ox of 90-92%, comfortable in no apparent distress. HEAD: Normocephalic/atraumatic. EYES: Normal reaction of pupils, equal size. Conjunctiva pink, sclera white. NOSE: Clear with pink turbinates. THROAT: No erythema or exudates. NECK: No masses, positive JVD, no thyroid enlargement, no adenopathy. CHEST: No chest wall deformity. Symmetrical expansion. LUNGS: Equal air entry with no wheezes, no rales, no rhonchi CVS: Irregular rate and rhythm, normal S1 and S2, no gallops, no murmurs, no rubs ABDOMEN: Soft, nontender. No hepatosplenomegaly, normal bowel sounds, no guarding or rigidity. EXTREMITIES: No clubbing, no edema, no cyanosis, 2+ pulses and upper and lower extremities. MUSCULOSKELETAL: Muscle strength and tone normal. SPINE: No scoliosis or deformity SKIN: No rashes CENTRAL NERVOUS SYSTEM: Alert and oriented -3. No focal deficits, tone is normal in all 4 extremities. PSYCHIATRIC: Alert and oriented -3. Appropriate affect. Intact judgment and insight. - Labs CBC & Chem 7: 10/05/21 05:42 10/06/21 06:02 Labs: Abnormal Lab Results - Last 24 Hours (Table) 10/06/21 10/06/21 10/06/21 Range/Units 16:54 18:15 20:08 POC Glucose (mg/dL) 264 H 232 H 224 H (75-99) mg/dL 10/07/21 Range/Units 05:50 POC Glucose (mg/dL) 262 H (75-99) mg/dL Assessment and Plan Plan: Assessment: #1. Acute hypoxic respiratory failure secondary to acute exacerbation of CHF with systolic dysfunction and acute exacerbation of COPD. Patient tested negative for COVID-19, pro-calcitonin level was negative, d-dimer is negative. #2. Small segmental branch pulmonary embolism seen on the CTA chest on 10/06/2021 in the right lower lobe, and patient is on home dose Xarelto 20 mg daily. #3. History of nonischemic cardiomyopathy, status post AICD placement, ejection fraction is 20-25% #4. History of valvular heart disease, with previous mitral and tricuspid valve repair #5. Chronic atrial fibrillation, on Xarelto #6. Acute exacerbation of COPD, patient is not normally oxygen dependent on a regular basis #7. History of GERD and gastritis and esophagitis, currently asymptomatic #8. History of hypothyroidism #9. History of benign essential hypertension #10. History of bipolar disorder #11. History of nicotine dependence syndrome, currently in remission, patient carries [id number] smoking history #12. 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 Episode of V. tach, currently on amiodarone Plan: Remains on Airvo at 60 L and 90% FiO2 However breathing easier today, no wheezing on today's exam, we'll stop IV Solu- Medrol and switch him to prednisone taper starting at 30 mg tomorrow Continue with Lasix 20 mg IV push twice daily Continue Symbicort, continue DuoNeb Continue Xarelto CTA chest has been reviewed Pulmonary embolism in the right lower lobe is small in the segmental branch Daily weights, accurate intake and output, monitor I's and renal profile Wean FiO2 to keep O2 sats ration is at or above 90% We'll continue to follow I performed a history & physical examination of the patient and discussed their management with my nurse practitioner, Tereza Javier. I reviewed the nurse practitioner's note and agree with the documented findings and plan of care. Lung sounds are positive for diffuse wheezes throughout the lung valdez. The findings and the impression was discussed with the patient. I attest to the d ocumentation by the nurse practitioner. Time with Patient: Less than 30
[2021-10-07] MEDS: predniSONE 10 MG TAB PO SCH (08:53)
[2021-10-07] MEDS: FUROSEMIDE 10 MG/ML 2 ML VIAL IV SCH ×2 (08:53→20:25)
[2021-10-07] MEDS: ASCORBIC ACID 500 MG TAB PO SCH (08:53)
[2021-10-07] MEDS: CALCIUM CARB-VIT D 500 MG-5 MCG TAB PO SCH (08:53)
[2021-10-07] MEDS: AMIODARONE 200 MG TAB PO SCH ×3 (09:20→20:24)
[2021-10-07 09:47] LABS: African American GFR (CKD) >90 (>60 ml/min/1.73 sqM); Anion Gap 6 mmol/L; Blood Urea Nitrogen 26 mg/dL (9-20); Calcium 8.9 mg/dL (8.4-10.2); Carbon Dioxide 27 mmol/L (22-30); Chloride 104 mmol/L (98-107); Glucose 117 mg/dL (74-99); Non-African American GFR(CKD) >90 (>60 ml/min/1.73 sqM); Potassium 4.3 mmol/L (3.5-5.1); Sodium 137 mmol/L (137-145)
--- NOTE | 2021-10-07 10:36 | ECHOF ---
Referral Reason:Repeat Full Echo for evaluation of mitral valve MEASUREMENTS -------- HEIGHT: 180.3 cm WEIGHT: 81.6 kg BP: IVSd: 0.9 cm (0.6 - 1.1) LVIDd: 9.6 cm (3.9 - 5.3) LVPWd: 1.2 cm (0.6 - 1.1) IVSs: 1.4 cm LVIDs: 8.3 cm LVPWs: 1.3 cm LAESV Index (A-L): 126.69 ml/m MV E Ezequiel: 2.04 m/s MV DecT: 234 ms MV A Ezequiel: 0.96 m/s MV E/A Ratio: 2.13 AR PHT: 210 ms RAP: 15.00 mmHg RVSP: 27.67 mmHg FINDINGS -------- Pacerwire seen in RV and RA. This was a technically adequate study. The left ventricle is severely dilated. Left ventricular wall thickness is normal. Overall left v entricular systolic function is severely impaired with, an EF between 20 - 25 %. The right ventricle is normal in size. LA is severely dilated >40 ml/m2 The right atrial size is normal. The aortic valve is trileaflet and appears structurally normal. Trace amount of aortic regurgitatio n. [id number] mitral regurgitation is present. The peak and mean MV gradients are 18.66mmHg 8 .18mmHg as measured by doppler. MV Repair. The tricuspid valve appears structurally normal. Mild tricuspid regurgitation present. Right vent ricular systolic pressure is normal at < 35 mmHg. There is no pulmonic regurgitation present. The aortic root size is normal. The inferior vena cava is mildly dilated. There is no pericardial effusion. CONCLUSIONS -------- 1. Pacerwire seen in RV and RA. 2. The left ventricle is severely dilated. 3. Left ventricular wall thickness is normal. 4. Overall left ventricular systolic function is severely impaired with, an EF between 20 - 25 %. 5. LA is severely dilated >40 ml/m2 6. Trace amount of aortic regurgitation. 7. [id number]-xgnllv mitral regurgitation is present. 8. The peak and mean MV gradients are 18.66mmHg 8.18mmHg as measured by doppler. 9. MV Repair. 10. Mild tricuspid regurgitation present. 11. The inferior vena cava is mildly dilated. 12. There is no pericardial effusion. STEAMFITTER: Darcy Jin RDCS
[2021-10-07 11:23] LABS: Glucose,Whole Blood 133 mg/dL (75-99)
--- NOTE | 2021-10-07 13:18 | P.PN ---
Subjective The patient is a 56-year-old male with a known history of paroxysmal atrial fibrillation, non-ischemic cardiomyopathy s/p ICD implantation 10/2019, prior history of congestive heart failure with reduced EF, mitral regurgitation with history of mitral valve repair in 2014 , hyperlipidemia, he stopped smoking 3 weeks ago, Covid-19 in 09/19/2021. Patient follows in the office with Dr. Beltran. Patient presented with symptoms of dizziness and progressive dyspnea. He was recently in the hospital with a syncopal episode with injury to his head and was found to have ventricular tachycardia. He was started on amiodarone. Prior to admission he felt lightheaded and dizzy but had no syncope but he is feeling progressively fatigued with lack of energy and progressively dyspneic. He has no chest discomfort and no palpitations. There is no evidence of ventricular tachycardia and he is in atrial fibrillation at the time of admission. Patient was taken off all beta blockers, lasix, antihypertensives due to hypotension. His echocardiogram in January 2021 showed an ejection fraction of 20-25% with global hypokinesis and severe mitral regurgitation was mild to moderate tricuspid regurgitation. He has underwent a cardiac catheterization in 2011 that showed no evidence of obstructive disease with nonischemic cardiomyopathy and mitral regurgitation. His medications at the time of admission included spironolactone 25 mg daily, Xarelto 20 mg daily, Lipitor 20 mg daily, amiodarone, levothyroxine, Symbicort, albuterol. Pacemaker interrogation completed this admission with no events noted. 10/07/2021 Patient examined this morning at the bedside. Patient denies any chest pain or pressure. He denies shortness of breath. He denies any further dizziness or lightheadedness. He was started on IV Lasix 20mg BID with 2L urine output. Telemetry reviewed, patient in atrial fibrillation with controlled ventricular rates, left bundle branch block. Echocardiogram revealed EF 20-25% moderate to severe mitral regurgitation and mild tricuspid regurgitation Meds: He is currently maintained on amiodarone 200 mg twice a day, atorvastatin 20 mg nightly, IV Lasix 20 mg twice a day, Xarelto 20 mg nightly, lisinopril 2.5mg daily Labs: Sodium 137 K 4.3, BUN 26 sCr 0.91 PHYSICAL EXAM: VITAL SIGNS: Reviewed. GENERAL: Well-developed in no acute distress. NECK: Supple. No JVD LUNGS: Respirations even and unlabored. Lungs bilateral wheezing to auscultation HEART: Irregular rate and rhythm. S1 and S2 heard. Systolic murmur noted. EXTREMITIES: Normal range of motion. No clubbing or cyanosis. Peripheral pulses intact. No lower extremity edema ASSESSMENT: Acute on chronic heart failure with reduced ejection fraction Symptoms of dizziness, no evidence of syncope, could be related to hypotension Recent episode of ventricular tachycardia in August 2021, no documented recurrence Persistent atrial fibrillation, anticoagulated with Xarelto Severe non-ischemic cardiomyopathy, EF 5% Status post ICD implantation 10/2019 Prior history of smoking until 3 weeks ago Mitral regurgitation Status post mitral valve repair 2014 Recent diagnosis of Covid September 19, 2021 Acute hypoxic respiratory failure requiring supplemental oxygen Hypotension, improving PLAN: -Patient's symptoms and recent hospitalizations concerning for end stage heart failure. We will perform right heart catheterization tomorrow, patient is agreeable. -I have discussed the risks, benefits and alternative therapies for the above- mentioned procedure and for both sedation/analgesia as well as necessary blood product administration, if indicated, as they pertain to this patient. The patient has indicated understanding and acceptance of the risks and procedures discussed. Questions have been answered appropriately and he is agreeable to move forward with the above-stated procedure. -We will hold Xarelto tonight for procedure -NPO after midnight -Hold antihypertensive if MAP <60 -Continue IV Lasix 20mg BID -Monitor renal function and electrolytes, -I/Os, daily weights -Continue Lisinopril 2.5mg Daily -Continue amiodarone, statin -Further recommendations based on clinical course Nurse practitioner note has been reviewed by physician. Signing provider agrees with the documented findings, assessment, and plan of care. Objective - Vital Signs Vital signs: Vital Signs Temp 98 F 10/07/21 12:04 Pulse 73 10/07/21 12:04 Resp 19 10/07/21 12:04 BP 81/53 10/07/21 12:04 Pulse Ox 94 L 10/07/21 12:04 Intake & Output 10/06/21 10/07/21 10/07/21 18:59 06:59 18:59 Intake Total 1080 600 Output Total 350 1650 275 Balance 730 -1050 -275 Weight 84.2 kg Intake: Oral 1080 600 Output: Urine 350 1650 275 Other: Voiding Method Urinal Urinal Urinal # Voids 0 1 # Bowel Movements 0 1 - Labs CBC & Chem 7: 10/05/21 05:42 10/07/21 08:52 Labs: Abnormal Lab Results - Last 24 Hours (Table) 10/06/21 10/06/21 10/06/21 Range/Units 16:54 18:15 20:08 BUN (9-20) mg/dL Glucose (74-99) mg/dL POC Glucose (mg/dL) 264 H 232 H 224 H (75-99) mg/dL 10/07/21 10/07/21 10/07/21 Range/Units 05:50 08:52 11:22 BUN 26 H (9-20) mg/dL Glucose 117 H (74-99) mg/dL POC Glucose (mg/dL) 262 H 133 H (75-99) mg/dL
[2021-10-07 16:23] LABS: Glucose,Whole Blood 187 mg/dL (75-99)
[2021-10-07] MEDS: ATORVASTATIN 20 MG TAB PO SCH (17:18)
--- NOTE | 2021-10-07 19:01 | P.PN ---
Progress Note - Text Progress Note Date: 10/07/21 Chief Complaint: Near-syncope History of presenting complaint: This is a pleasant 56-year-old patient of Dr. Smyth. Chronic stable medical conditions include hypothyroid, hyperlipidemia, bipolar disorder, hypertension, dilated cardiomyopathy 20-25%, paroxysmal atrial fibrillation, GERD, some rectal prolapse. Patient has some mental impairment. Lives by himself. Does use a walker at baseline Patient was discharged from here on September 24. Had presented with syncope. He had tested positive for COVID-19. No symptoms. Found to be hypotensive. Pacemaker interrogation had shown several episodes of nonsustained V. tach. An episode of V. tach and V. fib that were shock. That was on September 18. Patient was loaded with amiodarone. Patient now presents with dizziness even sitting up. No palpitations. Oral intake fair. No arrhythmia noted in the ER. Patient has not passed out. No chest pain. October 04: Patient's blood pressure in lower side. Seen by cardiology. They will do a AICD interrogation. Patient also noted to be on 12 L nasal cannula. Appears rather comfortable. Eating well. Pulmonary being consulted. Chest x- ray compared to the one from admission May. Possible previous changes from COVID-19. Patient has no cough. No sputum. October 05: Patient has been on 12 L nasal cannula. Eating well. I discussed with Dr. Traore from pulmonary. He does not feel his anybody component. Thinks it is all CHF. Signed off the case. I didn't did speak to Dr. Oliver from cardiology. He will drop right heart catheterization tomorrow. Patient be moved to the cardiology telemetry floor. Did try to drop patient's FiO2 patient became hypoxic. RT was unable to do blood gases. Lasix started earlier has been held pending cardiac catheterization. Also update his patient's sister on the phone this morning. October 06: Sitting up in a recliner. Patient had to be bumped up in Air-vo. Put back and IV Lasix. Put significant urine output yesterday. She short of breath. Also put on's bronchodilators and steroids. Significant component of CHF. Also a COPD component. Computed tomography scan of chest negative for any significant PE. May be a small. That could be chronic. Also IV Solu-Medrol DuoNeb added for wheezing. October 07: Up in a recliner. On Air-vo. 60/90. Eating 100%. IV Lasix 20 mg every 12. Changed over to by mouth prednisone. Immanuel. Cardiology is planning a right heart catheterization tomorrow. Active Medications Acetaminophen (Acetaminophen Oral Susp (Peds) 3,840 Mg/120 Ml Bottle) 500 mg PO Q6HR PRN PRN Reason: Fever, pain Last Admin: 10/04/21 18:24 Dose: 500 mg Documented by: Albuterol/Ipratropium (Ipratropium-Albuterol 3 Ml Neb) 3 ml INHALATION RT-Q2H PRN PRN Reason: Shortness Of Breath Or Wheezing Last Admin: 10/06/21 09:34 Dose: 3 ml Documented by: Albuterol/Ipratropium (Ipratropium-Albuterol 3 Ml Neb) 3 ml INHALATION RT-QID [facility] Last Admin: 10/07/21 15:38 Dose: 3 ml Documented by: Amiodarone HCl (Amiodarone 200 Mg Tab) 200 mg PO BID [facility] Last Admin: 10/07/21 14:51 Dose: 200 mg Documented by: Ascorbic Acid (Ascorbic Acid 500 Mg Tab) 500 mg PO DAILY [facility] Last Admin: 10/07/21 08:53 Dose: 500 mg Documented by: Atorvastatin Calcium (Atorvastatin 20 Mg Tab) 20 mg PO W/SUPPER [facility] Last Admin: 10/07/21 17:18 Dose: 20 mg Documented by: Budesonide/Formoterol Fumarate (Symbicort 160-4.5 Mcg Inhaler) 2 puff INHALATION RT-BID [facility] Last Admin: 10/07/21 08:18 Dose: Not Given Documented by: Calcium Carbonate (Calcium Carb-Vit D 500 Mg-5 Mcg Tab) 1 each PO DAILY [facility] Last Admin: 10/07/21 08:53 Dose: 1 each Documented by: Calcium Carbonate/Glycine (Calcium Carbonate Liquid 500 Mg/5 Ml Cup) 500 mg PO TID-W/MEALS [facility] Last Admin: 10/07/21 17:25 Dose: 500 mg Documented by: Dicyclomine HCl (Dicyclomine 10 Mg Cap) 10 mg PO TID PRN PRN Reason: ibs/bloating Last Admin: 10/03/21 15:32 Dose: 10 mg Documented by: Furosemide (Furosemide 10 Mg/Ml 2 Ml Vial) 20 mg IV Q12HR [facility] Last Admin: 10/07/21 08:53 Dose: 20 mg Documented by: Gabapentin (Gabapentin 100 Mg Cap) 100 mg PO HS [facility] Last Admin: 10/06/21 21:44 Dose: 100 mg Documented by: Heparin Sodium (Porcine) 10, (000 unit/ Sodium Chloride) 1,001 mls @ 999 mls/hr IRRIGATION ONCE PRN PRN Reason: INTRA-OP Stop: 10/08/21 23:00 Heparin Sodium (Porcine) 2,500 (unit/ Sodium Chloride) 250.5 mls @ 250 mls/hr IRRIGATION ONCE PRN PRN Reason: INTRA-OP Stop: 10/08/21 23:00 Sodium Chloride 1,000 ml/ IV (Solution) 1,000 mls @ 84.2 mls/hr IV .[id number] [facility] Insulin Aspart (Insulin Aspart (Novolog) 100 Unit/Ml Vial) 0 unit SQ ACHS [facility]; Protocol Last Admin: 10/07/21 17:18 Dose: 5 unit Documented by: Levothyroxine Sodium (Levothyroxine 50 Mcg Tab) 50 mcg PO AC-BRKFST [facility] Last Admin: 10/07/21 06:47 Dose: 50 mcg Documented by: Lisinopril (Lisinopril 2.5 Mg Tab) 2.5 mg PO DAILY [facility] Last Admin: 10/07/21 14:51 Dose: 2.5 mg Documented by: Miscellaneous Information (Rx Info: Iv Contrast Was Given 1 Each Misc) 1 each MISCELLANE DAILY PRN PRN Reason: Per Protocol Stop: 10/08/21 12:13 Naloxone HCl (Naloxone 0.4 Mg/Ml 1 Ml Vial) 0.2 mg IV Q2M PRN PRN Reason: Opioid Reversal Pantoprazole Sodium (Pantoprazole 40 Mg Tablet) 40 mg PO AC-BID [facility] Last Admin: 10/07/21 17:18 Dose: 40 mg Documented by: Prednisone (Prednisone 10 Mg Tab) 30 mg PO DAILY [facility] Last Admin: 10/07/21 08:53 Dose: 30 mg Documented by: Silver Sulfadiazine (Silver Sulfadiazine 1% Cream 25 Gm Tube) 1 applic TOPICAL BID [facility]; Protocol Last Admin: 10/07/21 08:54 Dose: 1 applic Documented by: Sodium Chloride (Sodium Chloride 0.9% Flush 10 Ml Syringe) 10 ml IV Q12HR [facility] Last Admin: 10/07/21 08:53 Dose: 10 ml Documented by: Sodium Chloride (Sodium Chloride 0.9% Flush 10 Ml Syringe) 10 ml IV DIRECTED PRN PRN Reason: FLUSH Trazodone HCl (Trazodone Hcl 50 Mg Tab) 25 mg PO HS [facility] Last Admin: 10/06/21 23:10 Dose: 25 mg Documented by: Past medical history to include: GERD, bleeding peptic ulcer, mitral and tricuspid valve repair, hypothyroid, hyperlipidemia, bipolar, dilated cardiomyopathy EF 20-25%, paroxysmal atrial fibrillation, GERD rectal prolapse, pacemaker. V. tach V. fib on interrogation. Social history: Smokes about 8 cigarettes a day used to smoke much more for many years. Has some help at home. Does not drink alcohol. Not employed. Lives in his own apartment.. Physical examination: VITAL SIGNS: 98, 73, 19, 81/53, 94% on Airvo 60/90 GENERAL: Recliner, short of breath EYES: Pupils equal. Conjunctiva normal, with right eye strabismus . HEENT: External appearance of nose and ears normal, oral cavity grossly normal. NECK: JVD possibly raised; masses not palpable. HEART: Heart sounds irregular; no edema]. LUNGS: Respiratory rate increased. Some basal crackles ABDOMEN: Soft, no tenderness liver spleen not palpable, no masses palpable. PSYCH: Alert and oriented x3; mood and affect anxious NEUROLOGICAL: Cranial nerves grossly intact; no facial asymmetry, power and sensation grossly intact. LYMPHATICS: No lymph nodes palpable in the axilla and neck INVESTIGATIONS, reviewed in the clinical context: October 07: Potassium 4.3 creatinine 0.91 October 06: Potassium 4.4 creatinine 1.06.Chest x-ray film personally reviewed by me-pleural effusion. Pulmonary edema. Chest CTA: Moderate bilateral pleural effusion. Right greater than left. More extensive consolidation to the pleural effusion lower lobes. Diffuse interstitial thickening. October 05: White count 6.9 hemoglobin 14.8 d-dimer 0.26 October 04: Potassium 4.7 creatinine 1.06 proBNP 13,000 pro-calcitonin 0.05 White count 7.6 hemoglobin 14.5 platelets 228 sodium 135 BUN 20 creatinine 0.95 total bilirubin 2.4 EKG tracing personally reviewed by me-atrial fibrillation. Rate 71. Chest x-ray film personally reviewed by me-infiltrates and/or pulmonary edema Troponin I 0.050 Previous admission Device interrogation: Multiple episodes of NSVT. One episode of V. tach and V. fib. Patient was shocked on 09/18 2-D echocardiogram [February 2021] EF 20-25% severe MR mild to moderate TR Assessment and plan: -Near Syncope: From hypotension. No arrhythmia on this admission AICD interrogation. -On recent admission patient had Multiple episodes of NSVT and one episode of V. tach V. fib on 09/18 with device interrogation.. On amiodarone. AICD interrogation unremarkable this admission. -Acute hypoxic respiratory failure: [place] to be predominantly CHF. some contribution from underlying recent COVID-19, COPD exacerbation.: Not improving On Airvo. Negative procalcitonin. -Hypotension from ischemic cardiomyopathy - Acute on chronic congestive heart failure, from systolic dysfunction EF 20- 25%: IV Lasix 20 mg every 12. Right heart catheterization being planned for tomorrow. -Persistent atrial fibrillation, rate controlled, Amiodarone. Xarelto 20 mg with supper -Acute COPD exacerbation in a current smoker IV Solu-Medrol: Change to by mouth prednisone DuoNeb 4 times a day -GERD Protonix -Chronic gait dysfunction uses a walker at baseline Fall precautions -Chronic nicotine dependence patient cigarette smoker Nicotine patch -Right eye strabismus -Hypothyroid Synthroid 50 g -Moderate to severe mitral and tricuspid regurgitation Follow clinically Remains on Airvo 60/90. DuoNeb. Oral steroids. IV Lasix. Bronchodilators. Cardiology is planning a right heart catheterization tomorrow.
[2021-10-07 20:16] LABS: Glucose,Whole Blood 152 mg/dL (75-99)
[2021-10-07] MEDS: traZODone HCL 50 MG TAB PO SCH (20:24)
[2021-10-07] MEDS: GABAPENTIN 100 MG CAP PO SCH (20:24)
[2021-10-08] MEDS ORDERED: SODIUM CHLORIDE 0.9% 1,000 ML in EMPTY BAG 1 BAG IV SCH
[2021-10-08] MEDS: traZODone HCL 50 MG TAB PO SCH ×2 (00:11→21:01)
[2021-10-08] MEDS: INSULIN ASPART (NovoLOG) 100 UNIT/ML VIAL SQ SCH ×4 (05:58→21:01)
[2021-10-08 05:59] LABS: Glucose,Whole Blood 99 mg/dL (75-99)
[2021-10-08] MEDS: LEVOTHYROXINE 50 MCG TAB PO SCH (06:00)
[2021-10-08] MEDS: PANTOPRAZOLE 40 MG TABLET PO SCH ×2 (06:00→17:08)
[2021-10-08] MEDS: CALCIUM CARBONATE LIQUID 500 MG/5 ML CUP PO SCH ×3 (06:00→17:08)
[2021-10-08] MEDS ORDERED: HEPARIN SODIUM,PORCINE 10,000 UNIT in SODIUM CHLORIDE 0.9% 1,000 ML IRRIGATION PRN (07:00)
[2021-10-08] MEDS ORDERED: HEPARIN SODIUM,PORCINE 2,500 UNIT in SODIUM CHLORIDE 0.9% 250 ML IRRIGATION PRN (07:00)
[2021-10-08] MEDS: SYMBICORT 160-4.5 MCG INHALER INHALATION SCH ×2 (08:07→19:32)
[2021-10-08] MEDS: IPRATROPIUM-ALBUTEROL 3 ML NEB INHALATION SCH ×4 (08:07→19:33)
[2021-10-08 08:38] LABS: African American GFR (CKD) >90 (>60 ml/min/1.73 sqM); Anion Gap 5 mmol/L; Blood Urea Nitrogen 33 mg/dL (9-20); Calcium 8.7 mg/dL (8.4-10.2); Carbon Dioxide 27 mmol/L (22-30); Chloride 104 mmol/L (98-107); Glucose 83 mg/dL (74-99); Non-African American GFR(CKD) 88 (>60 ml/min/1.73 sqM); Potassium 4.3 mmol/L (3.5-5.1); Sodium 136 mmol/L (137-145)
--- NOTE | 2021-10-08 09:01 | XR ---
EXAMINATION TYPE: XR chest 1V portable DATE OF EXAM: 10/08/2021 COMPARISON: 10/06/2021 HISTORY: Shortness of breath TECHNIQUE: Single frontal view of the chest is obtained. FINDINGS: Postsurgical change, cardiomegaly, and cardiac device stable. Hyperinflation suggests COPD . Exam limited by patient positioning and rotation and there is diffuse bilateral interstitial patter n with bilateral infiltrate and pleural effusion. IMPRESSION: 1. Stable x-ray correlate for CHF. Underlying COPD or chronic interstitial lung disease in the differ ential diagnosis. Underlying pneumonia not excluded
[2021-10-08] MEDS: AMIODARONE 200 MG TAB PO SCH (09:40)
[2021-10-08] MEDS: CALCIUM CARB-VIT D 500 MG-5 MCG TAB PO SCH (09:40)
[2021-10-08] MEDS: predniSONE 10 MG TAB PO SCH (09:40)
[2021-10-08] MEDS: FUROSEMIDE 10 MG/ML 2 ML VIAL IV SCH (09:40)
[2021-10-08] MEDS: ASCORBIC ACID 500 MG TAB PO SCH (09:40)
--- NOTE | 2021-10-08 10:09 | P.PN ---
Subjective Progress Note Date: 10/08/21 This is a 56-year-old male patient who was admitted back on 10/02/2021 with complaints of dizziness and lightheadedness. He has a history of atrial fibrillation, valvular heart disease with previous mitral and tricuspid valve repair, nonischemic cardiomyopathy with ejection fraction 25-30% status post AI CD placement, hypothyroidism, chronic and ongoing tobacco dependence. We're consulted today for ongoing hypoxemia. Chest could be residual CoVID. evidence of congestive heart failure and possible interstitial pneumonia. He is requiring 12 L high flow nasal cannula to maintain O2 saturations at 90%. He is afebrile. No leukocytosis. D-dimer 0.26. Pro-calcitonin 0.05. ProBNP 13,000. Sodium 137. Potassium 4.7. Creatinine 1.06. Hemoglobin 14.8. He's been initiated on Symbicort, albuterol, Xarelto. On 10/06/2021 patient seen in follow-up on selective care unit. Patient was transferred from regular medical surgical floor last night in view of continued shortness of breath and worsening hypoxia, currently he is on 15 L per high flow nasal cannula, however his pulse ox is ranging between 86-90%. Most the time he is around 87%, she states his breathing is better compared to yesterday, however he is bronchospastic, with diffuse wheezes throughout his lung valdez, mildly congested cough, no phlegm production, denied any chest pain, his had no fever or chills, his pro-calcitonin level on admission was negative, his proBNP was significantly elevated at 13,000 suggesting acute exacerbation of CHF with systolic dysfunction. Patient has received intermittent diuretics, and he is cu rrently in -3.6 L net fluid balance over last 24 hours, remains in A. fib, the rate is controlled, he is on is a relative for anticoagulation, he is sitting up in the recliner, he states he was having difficult time laying flat in bed and for that reason she slept in a recliner last night, no swelling in his lower extremities. Today's chest x-ray is pending, patient is a former smoker, she quit one year ago, prior to that smoked for 27 years. His maintenance inhaler is Symbicort 804 0.5 mics twice daily, and albuterol rescue inhaler. Most recent echocardiogram from 02/09/2021 showed severely impaired left ventricle systolic function with EF of 20-25%, severe mitral regurgitation with MV repair, mild to moderate tricuspid regurgitation with TV repair amount and there was severe global hypokinesis of LV. Pacer wire was seen in the RV and RA. On 10/07/2021 patient is seen in follow-up on selective care unit, he states his breathing easier today, his lung sounds are much improved, his lungs are clear on today's exam, no wheezing, diminished breath sounds at the bases, no rhonchi no rails. he remains on Airvo at 60 L and FiO2 of 90% his pulse ox is 91-92%. Patient appears to be in no acute distress, he remains on Lasix 20 mg IV push twice daily, he is in -3.6 L net fluid balance over the last 24 hours, has an occasional cough, no phlegm production. No complaints of chest discomfort. He continues on inhaled and nebulized bronchodilators, he is on IV Solu-Medrol 60 mg every 6 hours. His much less bronchospastic on today's exam. Yesterday he had the CTA chest and it showed a small solitary pulmonary embolus within the segmental branch of the right lower lobe. New moderate cardiomegaly with marked dilatation of the left atrium and left ventricle, corresponding pulmonary arterial hypertension, correlate for CHF with background moderate COPD. Moderate bilateral pleural effusions dependent consolidation in the lower lobes mediastinal hilar lymphadenopathy measuring up to 3.2 cm which is possibly reactive. Patient is on home dose Xarelto 20 mg once daily. Otherwise no acute events overnight, patient has been sleeping in his recliner, he states he is more comfortable sleeping in the recliner compared to his bed. The patient is seen today 10/08/2021 in follow-up on the selective care unit. He is currently sitting up in a chair at the bedside. Awake and alert in no acute distress. He is on AirVo high flow oxygen at 60 L and 90% FiO2. O2 saturations staying in the 90s. He's been afebrile. Chest x-ray reveals stable findings of suspected congestive heart failure. Underlying COPD. Possible residual CoVID. Possible chronic ILD. Sodium 136. Potassium 4.3. Creatinine 0.97. He is continued on DuoNeb inhalations, Symbicort. Remains on IV diuret ics. Currently in a -1650 ML balance. The plan is for cardiac catheterization today. Objective - Vital Signs Vital signs: Vital Signs Temp 98.0 F 10/08/21 04:00 Pulse 66 10/08/21 08:21 Resp 18 10/08/21 04:00 BP 93/51 10/08/21 04:00 Pulse Ox 96 10/08/21 04:00 Intake & Output 10/07/21 10/08/21 10/08/21 18:59 06:59 18:59 Intake Total 600 Output Total 525 1650 Balance 75 -1650 Weight 83.053 kg Intake: Oral 600 Output: Urine 525 1650 Other: Voiding Method Urinal Urinal # Bowel Movements 1 - Exam GENERAL EXAM: Alert, pleasant, 56-year-old male patient, on Airvo at 60 L and FiO2 of 90%, comfortable in no apparent distress. HEAD: Normocephalic/atraumatic. EYES: Normal reaction of pupils, equal size. Conjunctiva pink, sclera white. NOSE: Clear with pink turbinates. THROAT: No erythema or exudates. NECK: No masses, positive JVD, no thyroid enlargement, no adenopathy. CHEST: No chest wall deformity. Symmetrical expansion. LUNGS: Equal air entry with crackles in the bilateral bases CVS: Irregular rate and rhythm, normal S1 and S2, no gallops, no murmurs, no rubs ABDOMEN: Soft, nontender. No hepatosplenomegaly, normal bowel sounds, no guarding or rigidity. EXTREMITIES: No clubbing, no edema, no cyanosis, 2+ pulses and upper and lower extremities. MUSCULOSKELETAL: Muscle strength and tone normal. SPINE: No scoliosis or deformity SKIN: No rashes CENTRAL NERVOUS SYSTEM: No focal deficits, tone is normal in all 4 extremities. PSYCHIATRIC: Alert and oriented -3. Appropriate affect. Intact judgment and insight. - Labs CBC & Chem 7: 10/05/21 05:42 10/08/21 07:54 Labs: Abnormal Lab Results - Last 24 Hours (Table) 10/07/21 10/07/21 10/07/21 Range/Units 11:22 16:22 20:05 Sodium (137-145) mmol/L BUN (9-20) mg/dL POC Glucose (mg/dL) 133 H 187 H 152 H (75-99) mg/dL 10/08/21 Range/Units 07:54 Sodium 136 L (137-145) mmol/L BUN 33 H (9-20) mg/dL POC Glucose (mg/dL) (75-99) mg/dL Assessment and Plan Assessment: 1 Acute hypoxemic respiratory failure suspect secondary to acute exacerbation of systolic congestive heart failure. Procalciton negative. D-dimer negative. On Xarelto. CT angiogram did find a small solitary pulmonary embolus with this and a solid segmental branch of the right lower lobe. There is new moderate cardiomegaly with markedly dilatation of the left atrium and left ventricle. Corresponding with pulmonary arterial hypertension. Correlate for congestive heart failure. Echo around moderate COPD. There is moderate bilateral pleural effusions. Correlate for developing pulmonary edema. There is mediastinal hilar lymphadenopathy measuring up to 3.2 cm likely reactive. 2 History of nonischemic cardiomyopathy status post AICD placement. Ejection fraction 20-25% and confirmed again on echocardiogram 10/06/2021 3 History of valvular heart disease with previous mitral and tricuspid valve repair. Echocardiogram reveals moderate to severe mitral regurgitation. 4 Atrial fibrillation, anticoagulated with Xarelto. 5 Hyperlipidemia 6 Hypertension 7 Hypothyroidism 8 History of bipolar disorder 9 History of ventricular tachycardia, continued on amiodarone at 200 mg twice a day Plan: The patient was seen and evaluated Chest x-ray and labs reviewed Repeat echocardiogram reviewed Plan is for cardiac catheterization today Continue bronchodilators Titrate down the FiO2 as tolerated We will continue to follow I, the cosigning physician, performed a history & physical examination of the patient. Lungs sounds crackles in the bilateral bases. Maintaining O2 saturations in the 90s on AirVo high flow oxygen at 60 L and 90% FiO2. I discussed the assessment and plan of care with my nurse practitioner, Jennifer Thakur. I attest to the above note as dictated by her.
[2021-10-08] MEDS ORDERED: RIVAROXABAN 20 MG TAB PO STA (10:38)
[2021-10-08 11:47] LABS: Glucose,Whole Blood 116 mg/dL (75-99)
--- NOTE | 2021-10-08 12:56 | P.PN ---
Subjective The patient is a 56-year-old male with a known history of paroxysmal atrial fibrillation, non-ischemic cardiomyopathy s/p ICD implantation 10/2019, prior history of congestive heart failure with reduced EF, mitral regurgitation with history of mitral valve repair in 2014 , hyperlipidemia, he stopped smoking 3 weeks ago, Covid-19 in 09/19/2021. Patient follows in the office with Dr. Beltran. Patient presented with symptoms of dizziness and progressive dyspnea. He was recently in the hospital with a syncopal episode with injury to his head and was found to have ventricular tachycardia. He was started on amiodarone. Prior to admission he felt lightheaded and dizzy but had no syncope but he is feeling progressively fatigued with lack of energy and progressively dyspneic. He has no chest discomfort and no palpitations. There is no evidence of ventricular tachycardia and he is in atrial fibrillation at the time of admission. Patient was taken off all beta blockers, lasix, antihypertensives due to hypotension. His echocardiogram in January 2021 showed an ejection fraction of 20-25% with global hypokinesis and severe mitral regurgitation was mild to moderate tricuspid regurgitation. He has underwent a cardiac catheterization in 2011 that showed no evidence of obstructive disease with nonischemic cardiomyopathy and mitral regurgitation. His medications at the time of admission included spironolactone 25 mg daily, Xarelto 20 mg daily, Lipitor 20 mg daily, amiodarone, levothyroxine, Symbicort, albuterol. Pacemaker interrogation completed this admission with no events noted. 10/08/2021 Patient examined this morning at the bedside. Patient denies any chest pain or pressure. He denies shortness of breath. He had a brief episode of lightheadedness yesterday evening that resolved. He is diuresing well. Long discussion was done with him and his family and they have decided to not proceed with Right Heart Catheterization at this time. He is maintained on IV Lasix 20mg BID with 2175mL urine output. Telemetry reviewed, patient in atrial fibrillation with controlled ventricular rates, left bundle branch block. He is tolerating the Lisinopril Echocardiogram revealed EF 20-25% moderate to severe mitral regurgitation and mild tricuspid regurgitation Meds: He is currently maintained on amiodarone 200 mg twice a day, atorvastatin 20 mg nightly, IV Lasix 20 mg twice a day, Xarelto 20 mg nightly, lisinopril 2.5mg daily Labs: Sodium 136, potassium 4.3, BUN 33, serum creatinine 0.97 PHYSICAL EXAM: VITAL SIGNS: Reviewed. GENERAL: Well-developed in no acute distress. NECK: Supple. No JVD LUNGS: Respirations even and unlabored. Lungs bilateral wheezing to auscultation HEART: Irregular rate and rhythm. S1 and S2 heard. Systolic murmur noted. EXTREMITIES: Normal range of motion. No clubbing or cyanosis. Peripheral pulses intact. No lower extremity edema ASSESSMENT: Acute on chronic heart failure with reduced ejection fraction Symptoms of dizziness, no evidence of syncope, could be related to hypotension Recent episode of ventricular tachycardia in August 2021, no documented recurrence Persistent atrial fibrillation, anticoagulated with Xarelto Severe non-ischemic cardiomyopathy, EF 5% Status post ICD implantation 10/2019 Prior history of smoking until 3 weeks ago Mitral regurgitation Status post mitral valve repair 2014 Recent diagnosis of Covid September 19, 2021 Acute hypoxic respiratory failure requiring supplemental oxygen Hypotension, improving PLAN: -Patient's symptoms and recent hospitalizations concerning for end stage heart failure. We have discussed the risks and benefits of the right heart catheterization with the patient and family. At this time, family and patient would like to hold off on undergoing right heart catheterization at this time and attempt to optimize heart failure regimen. -Restart Xarelto -Continue Lisinopril 2.5mg daily -Continue IV Lasix 20mg BID -Monitor renal function and electrolytes, -I/Os, daily weights -Continue amiodarone, statin -Further recommendations based on clinical course Nurse practitioner note has been reviewed by physician. Signing provider agrees with the documented findings, assessment, and plan of care. Objective - Vital Signs Vital signs: Vital Signs Temp 97.9 F 10/08/21 09:35 Pulse 70 10/08/21 09:35 Resp 20 10/08/21 09:35 BP 95/46 10/08/21 09:35 Pulse Ox 87 L 10/08/21 09:35 Intake & Output 10/07/21 10/08/21 10/08/21 18:59 06:59 18:59 Intake Total 600 Output Total 525 1650 Balance 75 -1650 Weight 83.053 kg Intake: Oral 600 Output: Urine 525 1650 Other: Voiding Method Urinal Urinal Urinal # Bowel Movements 1 - Labs CBC & Chem 7: 10/05/21 05:42 10/08/21 07:54 Labs: Abnormal Lab Results - Last 24 Hours (Table) 10/07/21 10/07/21 10/07/21 Range/Units 11:22 16:22 20:05 Sodium (137-145) mmol/L BUN (9-20) mg/dL POC Glucose (mg/dL) 133 H 187 H 152 H (75-99) mg/dL 10/08/21 Range/Units 07:54 Sodium 136 L (137-145) mmol/L BUN 33 H (9-20) mg/dL POC Glucose (mg/dL) (75-99) mg/dL
[2021-10-08] MEDS ORDERED: AMIODARONE 360 MG in DEXTROSE 5% IN WATER 200 ML IV ONE ×2 (16:10)
[2021-10-08 16:26] LABS: Glucose,Whole Blood 133 mg/dL (75-99)
[2021-10-08] MEDS: ATORVASTATIN 20 MG TAB PO SCH (17:08)
--- NOTE | 2021-10-08 19:23 | P.PN ---
Progress Note - Text Progress Note Date: 10/08/21 Chief Complaint: Near-syncope History of presenting complaint: This is a pleasant 56-year-old patient of Dr. Smyth. Chronic stable medical conditions include hypothyroid, hyperlipidemia, bipolar disorder, hypertension, dilated cardiomyopathy 20-25%, paroxysmal atrial fibrillation, GERD, some rectal prolapse. Patient has some mental impairment. Lives by himself. Does use a walker at baseline Patient was discharged from here on September 24. Had presented with syncope. He had tested positive for COVID-19. No symptoms. Found to be hypotensive. Pacemaker interrogation had shown several episodes of nonsustained V. tach. An episode of V. tach and V. fib that were shock. That was on September 18. Patient was loaded with amiodarone. Patient now presents with dizziness even sitting up. No palpitations. Oral intake fair. No arrhythmia noted in the ER. Patient has not passed out. No chest pain. October 04: Patient's blood pressure in lower side. Seen by cardiology. They will do a AICD interrogation. Patient also noted to be on 12 L nasal cannula. Appears rather comfortable. Eating well. Pulmonary being consulted. Chest x- ray compared to the one from admission May. Possible previous changes from COVID-19. Patient has no cough. No sputum. October 05: Patient has been on 12 L nasal cannula. Eating well. I discussed with Dr. Traore from pulmonary. He does not feel his anybody component. Thinks it is all CHF. Signed off the case. I didn't did speak to Dr. Oliver from cardiology. He will drop right heart catheterization tomorrow. Patient be moved to the cardiology telemetry floor. Did try to drop patient's FiO2 patient became hypoxic. RT was unable to do blood gases. Lasix started earlier has been held pending cardiac catheterization. Also update his patient's sister on the phone this morning. October 06: Sitting up in a recliner. Patient had to be bumped up in Air-vo. Put back and IV Lasix. Put significant urine output yesterday. She short of breath. Also put on's bronchodilators and steroids. Significant component of CHF. Also a COPD component. Computed tomography scan of chest negative for any significant PE. May be a small. That could be chronic. Also IV Solu-Medrol DuoNeb added for wheezing. October 07: Up in a recliner. On Air-vo. 60/90. Eating 100%. IV Lasix 20 mg every 12. Changed over to by mouth prednisone. Immanuel. Cardiology is planning a right heart catheterization tomorrow. October 08: Up in a recliner with interval. 60/100. Eating well. Changed her to by mouth Lasix. I spoke to Dr. Ramires about possible biventricular AICD. He will discuss this further with the patient's art historian and Dr. Smith. Discussed with the patient. His decisions undertaken by his sister/guardian. Active Medications Acetaminophen (Acetaminophen Oral Susp (Peds) 3,840 Mg/120 Ml Bottle) 500 mg PO Q6HR PRN PRN Reason: Fever, pain Last Admin: 10/04/21 18:24 Dose: 500 mg Documented by: Albuterol/Ipratropium (Ipratropium-Albuterol 3 Ml Neb) 3 ml INHALATION RT-Q2H PRN PRN Reason: Shortness Of Breath Or Wheezing Last Admin: 10/06/21 09:34 Dose: 3 ml Documented by: Albuterol/Ipratropium (Ipratropium-Albuterol 3 Ml Neb) 3 ml INHALATION RT-QID [facility] Last Admin: 10/08/21 15:27 Dose: 3 ml Documented by: Amiodarone HCl (Amiodarone 200 Mg Tab) 200 mg PO BID [facility] Last Admin: 10/08/21 09:40 Dose: 200 mg Documented by: Ascorbic Acid (Ascorbic Acid 500 Mg Tab) 500 mg PO DAILY [facility] Last Admin: 10/08/21 09:40 Dose: 500 mg Documented by: Atorvastatin Calcium (Atorvastatin 20 Mg Tab) 20 mg PO W/SUPPER [facility] Last Admin: 10/08/21 17:08 Dose: 20 mg Documented by: Budesonide/Formoterol Fumarate (Symbicort 160-4.5 Mcg Inhaler) 2 puff INHALATION RT-BID [facility] Last Admin: 10/08/21 08:07 Dose: 2 puff Documented by: Calcium Carbonate (Calcium Carb-Vit D 500 Mg-5 Mcg Tab) 1 each PO DAILY [facility] Last Admin: 10/08/21 09:40 Dose: 1 each Documented by: Calcium Carbonate/Glycine (Calcium Carbonate Liquid 500 Mg/5 Ml Cup) 500 mg PO TID-W/MEALS [facility] Last Admin: 10/08/21 17:08 Dose: 500 mg Documented by: Dicyclomine HCl (Dicyclomine 10 Mg Cap) 10 mg PO TID PRN PRN Reason: ibs/bloating Last Admin: 10/03/21 15:32 Dose: 10 mg Documented by: Furosemide (Furosemide 40 Mg Tab) 40 mg PO BID@0900,1600 KAYLA Gabapentin (Gabapentin 100 Mg Cap) 100 mg PO HS [facility] Last Admin: 10/07/21 20:24 Dose: 100 mg Documented by: Amiodarone HCl 360 mg/ (Dextrose/Water) 200 mls @ 33.333 mls/hr IV .Q6H ONE; Protocol Stop: 10/08/21 22:09 Last Admin: 10/08/21 17:07 Dose: 1 mg/min, 33.333 mls/hr Documented by: Insulin Aspart (Insulin Aspart (Novolog) 100 Unit/Ml Vial) 0 unit SQ ACHS [facility]; Protocol Last Admin: 10/08/21 17:08 Dose: 1 unit Documented by: Levothyroxine Sodium (Levothyroxine 50 Mcg Tab) 50 mcg PO AC-BRKFST [facility] Last Admin: 10/08/21 06:00 Dose: 50 mcg Documented by: Lisinopril (Lisinopril 2.5 Mg Tab) 2.5 mg PO DAILY [facility] Last Admin: 10/08/21 13:22 Dose: 2.5 mg Documented by: Naloxone HCl (Naloxone 0.4 Mg/Ml 1 Ml Vial) 0.2 mg IV Q2M PRN PRN Reason: Opioid Reversal Pantoprazole Sodium (Pantoprazole 40 Mg Tablet) 40 mg PO AC-BID [facility] Last Admin: 10/08/21 17:08 Dose: 40 mg Documented by: Prednisone (Prednisone 10 Mg Tab) 30 mg PO DAILY [facility] Last Admin: 10/08/21 09:40 Dose: 30 mg Documented by: Rivaroxaban (Rivaroxaban 20 Mg Tab) 20 mg PO W/SUPPER [facility]; Protocol Silver Sulfadiazine (Silver Sulfadiazine 1% Cream 25 Gm Tube) 1 applic TOPICAL BID [facility]; Protocol Last Admin: 10/08/21 09:41 Dose: 1 applic Documented by: Sodium Chloride (Sodium Chloride 0.9% Flush 10 Ml Syringe) 10 ml IV Q12HR [facility] Last Admin: 10/08/21 09:41 Dose: 10 ml Documented by: Sodium Chloride (Sodium Chloride 0.9% Flush 10 Ml Syringe) 10 ml IV DIRECTED PRN PRN Reason: FLUSH Trazodone HCl (Trazodone Hcl 50 Mg Tab) 25 mg PO HS [facility] Last Admin: 10/08/21 00:11 Dose: 25 mg Documented by: Past medical history to include: GERD, bleeding peptic ulcer, mitral and tricuspid valve repair, hypothyroid, hyperlipidemia, bipolar, dilated cardiomyopathy EF 20-25%, paroxysmal atrial fibrillation, GERD rectal prolapse, pacemaker. V. tach V. fib on interrogation. Social history: Smokes about 8 cigarettes a day used to smoke much more for many years. Has some help at home. Does not drink alcohol. Not employed. Lives in his own apartment.. Physical examination: VITAL SIGNS: 97.9, 110, 18, 109/53, 84% on Airvo 60/100 GENERAL: Recliner, short of breath EYES: Pupils equal. Conjunctiva normal, with right eye strabismus . HEENT: External appearance of nose and ears normal, oral cavity grossly normal. NECK: JVD possibly raised; masses not palpable. HEART: Heart sounds irregular; no edema]. LUNGS: Respiratory rate increased. Some basal crackles ABDOMEN: Soft, no tenderness liver spleen not palpable, no masses palpable. PSYCH: Alert and oriented x3; mood and affect anxious NEUROLOGICAL: Cranial nerves grossly intact; no facial asymmetry, power and sensation grossly intact. LYMPHATICS: No lymph nodes palpable in the axilla and neck INVESTIGATIONS, reviewed in the clinical context: October 08: Sodium 136 potassium 4.3 creatinine 0.97 October 07: Potassium 4.3 creatinine 0.91 October 06: Potassium 4.4 creatinine 1.06.Chest x-ray film personally reviewed by me-pleural effusion. Pulmonary edema. Chest CTA: Moderate bilateral pleural effusion. Right greater than left. More extensive consolidation to the pleural effusion lower lobes. Diffuse interstitial thickening. October 05: White count 6.9 hemoglobin 14.8 d-dimer 0.26 October 04: Potassium 4.7 creatinine 1.06 proBNP 13,000 pro-calcitonin 0.05 White count 7.6 hemoglobin 14.5 platelets 228 sodium 135 BUN 20 creatinine 0.95 total bilirubin 2.4 EKG tracing personally reviewed by me-atrial fibrillation. Rate 71. Chest x-ray film personally reviewed by me-infiltrates and/or pulmonary edema Troponin I 0.050 Previous admission Device interrogation: Multiple episodes of NSVT. One episode of V. tach and V. fib. Patient was shocked on 09/18 2-D echocardiogram [February 2021] EF 20-25% severe MR mild to moderate TR Assessment and plan: -Near Syncope: From hypotension. No arrhythmia on this admission AICD interrogation. -On recent admission patient had Multiple episodes of NSVT and one episode of V. tach V. fib on 09/18 with device interrogation.. On amiodarone. AICD interrogation unremarkable this admission. -Acute hypoxic respiratory failure: Seaman to be predominantly CHF. some contribution from underlying recent COVID-19, COPD exacerbation.: Not improving On Airvo 60/90. Negative procalcitonin. -Hypotension from ischemic cardiomyopathy - Acute on chronic congestive heart failure, from systolic dysfunction EF 20- 25%: IV Lasix 20 mg every 12, changed to 2 by mouth day 6. Patient and guardian declined cardiac catheterization. -Persistent atrial fibrillation, rate controlled, Amiodarone. Xarelto 20 mg with supper -Acute COPD exacerbation in a current smoker IV Solu-Medrol: Change to by mouth prednisone DuoNeb 4 times a day -GERD Protonix -Chronic gait dysfunction uses a walker at baseline Fall precautions -Chronic nicotine dependence patient cigarette smoker Nicotine patch -Right eye strabismus -Hypothyroid Synthroid 50 g -Moderate to severe mitral and tricuspid regurgitation Follow clinically Remains on Airvo 60/100. By mouth steroids. By mouth Lasix. Discussed with patient and Dr. Ramires from cardiology. Consider biventricular AICD. Total time spent today about 45 minutes with over 25 minutes of discussion.
[2021-10-08] MEDS: FUROSEMIDE 40 MG TAB PO SCH (19:45)
[2021-10-08 20:02] LABS: Glucose,Whole Blood 139 mg/dL (75-99)
[2021-10-08] MEDS: GABAPENTIN 100 MG CAP PO SCH (21:01)
[2021-10-08 23:20] VITALS: TEMP 97.9
[2021-10-08] MEDS: AMIODARONE 450 MG in DEXTROSE 5% IN WATER 250 ML IV SCH ×2 (23:29)
[2021-10-09] MEDS: DICYCLOMINE 10 MG CAP PO PRN ×3 (03:41→22:40)
[2021-10-09] MEDS: METOPROLOL TARTRATE 25 MG TAB PO SCH ×3 (05:06→20:34)
[2021-10-09 06:10] LABS: Glucose,Whole Blood 107 mg/dL (75-99)
[2021-10-09] MEDS: INSULIN ASPART (NovoLOG) 100 UNIT/ML VIAL SQ SCH ×4 (06:25→20:23)
[2021-10-09] MEDS: LEVOTHYROXINE 50 MCG TAB PO SCH (06:40)
[2021-10-09] MEDS: PANTOPRAZOLE 40 MG TABLET PO SCH ×2 (06:40→15:32)
[2021-10-09] MEDS: CALCIUM CARBONATE LIQUID 500 MG/5 ML CUP PO SCH ×3 (06:40→15:32)
[2021-10-09] MEDS: SYMBICORT 160-4.5 MCG INHALER INHALATION SCH ×2 (08:12→19:34)
[2021-10-09] MEDS: IPRATROPIUM-ALBUTEROL 3 ML NEB INHALATION SCH ×4 (08:12→19:34)
[2021-10-09 08:20] LABS: Calcium 8.6 mg/dL (8.4-10.2); Potassium 4.5 mmol/L (3.5-5.1)
[2021-10-09] MEDS: CALCIUM CARB-VIT D 500 MG-5 MCG TAB PO SCH (09:11)
[2021-10-09] MEDS: FUROSEMIDE 40 MG TAB PO SCH ×2 (09:11→15:32)
[2021-10-09] MEDS: predniSONE 10 MG TAB PO SCH (09:11)
[2021-10-09] MEDS: ASCORBIC ACID 500 MG TAB PO SCH (09:11)
[2021-10-09] MEDS: ACETAMINOPHEN ORAL SUSP (PEDS) 3,840 MG/120 ML BOTTLE PO PRN (09:16)
--- NOTE | 2021-10-09 09:42 | P.PN ---
Subjective Progress Note Date: 10/09/21 This is a 56-year-old male patient who was admitted back on 10/02/2021 with complaints of dizziness and lightheadedness. He has a history of atrial fibrillation, valvular heart disease with previous mitral and tricuspid valve repair, nonischemic cardiomyopathy with ejection fraction 25-30% status post AI CD placement, hypothyroidism, chronic and ongoing tobacco dependence. We're consulted today for ongoing hypoxemia. Chest could be residual CoVID. evidence of congestive heart failure and possible interstitial pneumonia. He is requiring 12 L high flow nasal cannula to maintain O2 saturations at 90%. He is afebrile. No leukocytosis. D-dimer 0.26. Pro-calcitonin 0.05. ProBNP 13,000. Sodium 137. Potassium 4.7. Creatinine 1.06. Hemoglobin 14.8. He's been initiated on Symbicort, albuterol, Xarelto. On 10/06/2021 patient seen in follow-up on selective care unit. Patient was transferred from regular medical surgical floor last night in view of continued shortness of breath and worsening hypoxia, currently he is on 15 L per high flow nasal cannula, however his pulse ox is ranging between 86-90%. Most the time he is around 87%, she states his breathing is better compared to yesterday, however he is bronchospastic, with diffuse wheezes throughout his lung valdez, mildly congested cough, no phlegm production, denied any chest pain, his had no fever or chills, his pro-calcitonin level on admission was negative, his proBNP was significantly elevated at 13,000 suggesting acute exacerbation of CHF with systolic dysfunction. Patient has received intermittent diuretics, and he is cu rrently in -3.6 L net fluid balance over last 24 hours, remains in A. fib, the rate is controlled, he is on is a relative for anticoagulation, he is sitting up in the recliner, he states he was having difficult time laying flat in bed and for that reason she slept in a recliner last night, no swelling in his lower extremities. Today's chest x-ray is pending, patient is a former smoker, she quit one year ago, prior to that smoked for 27 years. His maintenance inhaler is Symbicort 804 0.5 mics twice daily, and albuterol rescue inhaler. Most recent echocardiogram from 02/09/2021 showed severely impaired left ventricle systolic function with EF of 20-25%, severe mitral regurgitation with MV repair, mild to moderate tricuspid regurgitation with TV repair amount and there was severe global hypokinesis of LV. Pacer wire was seen in the RV and RA. On 10/07/2021 patient is seen in follow-up on selective care unit, he states his breathing easier today, his lung sounds are much improved, his lungs are clear on today's exam, no wheezing, diminished breath sounds at the bases, no rhonchi no rails. he remains on Airvo at 60 L and FiO2 of 90% his pulse ox is 91-92%. Patient appears to be in no acute distress, he remains on Lasix 20 mg IV push twice daily, he is in -3.6 L net fluid balance over the last 24 hours, has an occasional cough, no phlegm production. No complaints of chest discomfort. He continues on inhaled and nebulized bronchodilators, he is on IV Solu-Medrol 60 mg every 6 hours. His much less bronchospastic on today's exam. Yesterday he had the CTA chest and it showed a small solitary pulmonary embolus within the segmental branch of the right lower lobe. New moderate cardiomegaly with marked dilatation of the left atrium and left ventricle, corresponding pulmonary arterial hypertension, correlate for CHF with background moderate COPD. Moderate bilateral pleural effusions dependent consolidation in the lower lobes mediastinal hilar lymphadenopathy measuring up to 3.2 cm which is possibly reactive. Patient is on home dose Xarelto 20 mg once daily. Otherwise no acute events overnight, patient has been sleeping in his recliner, he states he is more comfortable sleeping in the recliner compared to his bed. The patient is seen today 10/08/2021 in follow-up on the selective care unit. He is currently sitting up in a chair at the bedside. Awake and alert in no acute distress. He is on AirVo high flow oxygen at 60 L and 90% FiO2. O2 saturations staying in the 90s. He's been afebrile. Chest x-ray reveals stable findings of suspected congestive heart failure. Underlying COPD. Possible residual CoVID. Possible chronic ILD. Sodium 136. Potassium 4.3. Creatinine 0.97. He is continued on DuoNeb inhalations, Symbicort. Remains on IV diuret ics. Currently in a -1650 ML balance. The plan is for cardiac catheterization today. The patient is seen today 10/09/2021 in follow-up on the selective care unit. He is currently sitting up in a recliner. He is having some issues with nausea this morning. No worsening shortness of breath, cough or congestion. No chest pain or palpitations. The patient and his family had declined a right heart catheterization yesterday. He was resumed on his Xarelto. Continued on diuretics. Currently in a -950 ML balance. Sodium 133. Potassium 4.5. BUN 31. Creatinine 1.05. Bicarb 24. Glucose 149. He did have ongoing issues with atrial fibrillation and rapid ventricular response last evening. He was initiated on amiodarone drip. He remains on 0.5 mg/m currently. He is still requiring 15 L high flow nasal cannula to maintain O2 saturations in the 90s. Recent chest x-ray continues to reveal evidence of fluid volume overload/CHF. There is underlying COPD and possible chronic interstitial lung disease. Objective - Vital Signs Vital signs: Vital Signs Temp 97.9 F 10/08/21 23:19 Pulse 109 H 10/09/21 09:10 Resp 22 10/09/21 03:41 BP 115/88 10/09/21 09:10 Pulse Ox 90 L 10/09/21 09:10 Intake & Output 10/08/21 10/09/21 10/09/21 18:59 06:59 18:59 Intake Total 360 Output Total 625 900 Balance -265 -900 Intake: Oral 360 Output: Urine 625 900 Other: Voiding Method Urinal Bedside Commode Urinal - Exam GENERAL EXAM: Alert, pleasant, 56-year-old male patient, on 15 L high flow nasal cannula FiO2 of 90%, comfortable in no apparent distress. HEAD: Normocephalic/atraumatic. EYES: Normal reaction of pupils, equal size. Conjunctiva pink, sclera white. NOSE: Clear with pink turbinates. THROAT: No erythema or exudates. NECK: No masses, positive JVD, no thyroid enlargement, no adenopathy. CHEST: No chest wall deformity. Symmetrical expansion. LUNGS: Equal air entry with crackles in the bilateral bases CVS: Irregular rate and rhythm, normal S1 and S2 ABDOMEN: Soft, nontender. No hepatosplenomegaly, normal bowel sounds, no guarding or rigidity. EXTREMITIES: No clubbing, no edema, no cyanosis, 2+ pulses and upper and lower extremities. MUSCULOSKELETAL: Muscle strength and tone normal. SPINE: No scoliosis or deformity SKIN: No rashes CENTRAL NERVOUS SYSTEM: No focal deficits, tone is normal in all 4 extremities. PSYCHIATRIC: Alert and oriented -3. Appropriate affect. Intact judgment and insight. - Labs CBC & Chem 7: 10/05/21 05:42 10/09/21 07:54 Labs: Abnormal Lab Results - Last 24 Hours (Table) 10/08/21 10/08/21 10/08/21 Range/Units 11:45 16:24 20:00 Sodium (137-145) mmol/L BUN (9-20) mg/dL Glucose (74-99) mg/dL POC Glucose (mg/dL) 116 H 133 H 139 H (75-99) mg/dL 10/09/21 10/09/21 Range/Units 06:06 07:54 Sodium 133 L (137-145) mmol/L BUN 31 H (9-20) mg/dL Glucose 149 H (74-99) mg/dL POC Glucose (mg/dL) 107 H (75-99) mg/dL Assessment and Plan Assessment: 1 Acute hypoxemic respiratory failure suspect secondary to acute exacerbation of systolic congestive heart failure. Procalciton negative. D-dimer negative. On Xarelto. CT angiogram did find a small solitary pulmonary embolus with this and a solid segmental branch of the right lower lobe. There is new moderate cardiomegaly with markedly dilatation of the left atrium and left ventricle. Corresponding with pulmonary arterial hypertension. Correlate for congestive heart failure. Underlying COPD. There is moderate bilateral pleural effusions. Correlate for developing pulmonary edema. There is mediastinal hilar lymphadenopathy measuring up to 3.2 cm likely reactive. 2 History of nonischemic cardiomyopathy status post AICD placement. Ejection fraction 20-25% and confirmed again on echocardiogram 10/06/2021 3 History of valvular heart disease with previous mitral and tricuspid valve repair. Echocardiogram reveals moderate to severe mitral regurgitation. 4 Atrial fibrillation, anticoagulated with Xarelto. With recurrent RVR on . Currently on amiodarone drip at 0.5 mg/m 5 Hyperlipidemia 6 Hypertension 7 Hypothyroidism 8 History of bipolar disorder 9 History of ventricular tachycardia, was on amiodarone at 200 mg twice a day Plan: The patient was seen and evaluated Labs reviewed Currently on amiodarone drip for A. fib RVR Patient and family had declined a right heart catheterization Continues with an ejection fraction of 20-25% Plan is for possible upgrade to a biventricular device in the outpatient setting Continue bronchodilators, continue diuretics Titrate down the FiO2 as tolerated Condition is guarded We will continue to follow I, the cosigning physician, performed a history & physical examination of the patient. Lungs sounds crackles in the bilateral bases. Maintaining O2 saturations in the 90s on 15 L high flow nasal cannula. I discussed the assessment and plan of care with my nurse practitioner, Jennifer Thakur. I attest to the above note as dictated by her.
[2021-10-09 11:34] LABS: Glucose,Whole Blood 127 mg/dL (75-99)
--- NOTE | 2021-10-09 14:38 | P.PN ---
Progress Note - Text Progress Note Date: 10/09/21 Chief Complaint: Near-syncope History of presenting complaint: This is a pleasant 56-year-old patient of Dr. Smyth. Chronic stable medical conditions include hypothyroid, hyperlipidemia, bipolar disorder, hypertension, dilated cardiomyopathy 20-25%, paroxysmal atrial fibrillation, GERD, some rectal prolapse. Patient has some mental impairment. Lives by himself. Does use a walker at baseline Patient was discharged from here on September 24. Had presented with syncope. He had tested positive for COVID-19. No symptoms. Found to be hypotensive. Pacemaker interrogation had shown several episodes of nonsustained V. tach. An episode of V. tach and V. fib that were shock. That was on September 18. Patient was loaded with amiodarone. Patient now presents with dizziness even sitting up. No palpitations. Oral intake fair. No arrhythmia noted in the ER. Patient has not passed out. No chest pain. October 04: Patient's blood pressure in lower side. Seen by cardiology. They will do a AICD interrogation. Patient also noted to be on 12 L nasal cannula. Appears rather comfortable. Eating well. Pulmonary being consulted. Chest x- ray compared to the one from admission May. Possible previous changes from COVID-19. Patient has no cough. No sputum. October 05: Patient has been on 12 L nasal cannula. Eating well. I discussed with Dr. Traore from pulmonary. He does not feel his anybody component. Thinks it is all CHF. Signed off the case. I didn't did speak to Dr. Oliver from cardiology. He will drop right heart catheterization tomorrow. Patient be moved to the cardiology telemetry floor. Did try to drop patient's FiO2 patient became hypoxic. RT was unable to do blood gases. Lasix started earlier has been held pending cardiac catheterization. Also update his patient's sister on the phone this morning. October 06: Sitting up in a recliner. Patient had to be bumped up in Air-vo. Put back and IV Lasix. Put significant urine output yesterday. She short of breath. Also put on's bronchodilators and steroids. Significant component of CHF. Also a COPD component. Computed tomography scan of chest negative for any significant PE. May be a small. That could be chronic. Also IV Solu-Medrol DuoNeb added for wheezing. October 07: Up in a recliner. On Air-vo. 60/90. Eating 100%. IV Lasix 20 mg every 12. Changed over to by mouth prednisone. Immanuel. Cardiology is planning a right heart catheterization tomorrow. October 08: Up in a recliner with interval. 60/100. Eating well. Changed her to by mouth Lasix. I spoke to Dr. Ramires about possible biventricular AICD. 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 Smith. Discussed with the patient. His decisions undertaken by his sister/guardian. October 09: In the recliner. On high flow oxygen 15 L. Eating on his food. By mouth Lasix 40 mg twice a day. Some shortness of breath. On IV amiodarone. A. fib somewhat uncontrolled Active Medications Acetaminophen (Acetaminophen Oral Susp (Peds) 3,840 Mg/120 Ml Bottle) 500 mg PO Q6HR PRN PRN Reason: Fever, pain Last Admin: 10/09/21 09:16 Dose: 500 mg Documented by: Albuterol/Ipratropium (Ipratropium-Albuterol 3 Ml Neb) 3 ml INHALATION RT-Q2H PRN PRN Reason: Shortness Of Breath Or Wheezing Last Admin: 10/06/21 09:34 Dose: 3 ml Documented by: Albuterol/Ipratropium (Ipratropium-Albuterol 3 Ml Neb) 3 ml INHALATION RT-QID [facility] Last Admin: 10/09/21 11:56 Dose: Not Given Documented by: Ascorbic Acid (Ascorbic Acid 500 Mg Tab) 500 mg PO DAILY [facility] Last Admin: 10/09/21 09:11 Dose: 500 mg Documented by: Atorvastatin Calcium (Atorvastatin 20 Mg Tab) 20 mg PO W/SUPPER [facility] Last Admin: 10/08/21 17:08 Dose: 20 mg Documented by: Budesonide/Formoterol Fumarate (Symbicort 160-4.5 Mcg Inhaler) 2 puff INHALATION RT-BID [facility] Last Admin: 10/09/21 08:12 Dose: Not Given Documented by: Calcium Carbonate (Calcium Carb-Vit D 500 Mg-5 Mcg Tab) 1 each PO DAILY [facility] Last Admin: 10/09/21 09:11 Dose: 1 each Documented by: Calcium Carbonate/Glycine (Calcium Carbonate Liquid 500 Mg/5 Ml Cup) 500 mg PO TID-W/MEALS [facility] Last Admin: 10/09/21 12:45 Dose: 500 mg Documented by: Dicyclomine HCl (Dicyclomine 10 Mg Cap) 10 mg PO TID PRN PRN Reason: ibs/bloating Last Admin: 10/09/21 09:15 Dose: 10 mg Documented by: Furosemide (Furosemide 40 Mg Tab) 40 mg PO BID@0900,1600 [facility] Last Admin: 10/09/21 09:11 Dose: 40 mg Documented by: Gabapentin (Gabapentin 100 Mg Cap) 100 mg PO HS [facility] Last Admin: 10/08/21 21:01 Dose: 100 mg Documented by: Amiodarone HCl 450 mg/ (Dextrose/Water) 250 mls @ 16.667 mls/hr IV .Q15H [facility]; Protocol Stop: 10/09/21 17:29 Last Admin: 10/08/21 23:29 Dose: 0.5 mg/min, 16.667 mls/hr Documented by: Insulin Aspart (Insulin Aspart (Novolog) 100 Unit/Ml Vial) 0 unit SQ ACHS [facility]; Protocol Last Admin: 10/09/21 12:25 Dose: Not Given Documented by: Levothyroxine Sodium (Levothyroxine 50 Mcg Tab) 50 mcg PO AC-BRKFST [facility] Last Admin: 10/09/21 06:40 Dose: 50 mcg Documented by: Lisinopril (Lisinopril 2.5 Mg Tab) 2.5 mg PO DAILY [facility] Last Admin: 10/09/21 09:11 Dose: 2.5 mg Documented by: Metoprolol Tartrate (Metoprolol Tartrate 25 Mg Tab) 25 mg PO BID [facility] Last Admin: 10/09/21 12:45 Dose: 25 mg Documented by: Naloxone HCl (Naloxone 0.4 Mg/Ml 1 Ml Vial) 0.2 mg IV Q2M PRN PRN Reason: Opioid Reversal Pantoprazole Sodium (Pantoprazole 40 Mg Tablet) 40 mg PO AC-BID [facility] Last Admin: 10/09/21 06:40 Dose: 40 mg Documented by: Prednisone (Prednisone 10 Mg Tab) 30 mg PO DAILY [facility] Last Admin: 10/09/21 09:11 Dose: 30 mg Documented by: Rivaroxaban (Rivaroxaban 20 Mg Tab) 20 mg PO W/SUPPER [facility]; Protocol Silver Sulfadiazine (Silver Sulfadiazine 1% Cream 25 Gm Tube) 1 applic TOPICAL BID [facility]; Protocol Last Admin: 10/09/21 09:18 Dose: 1 applic Documented by: Sodium Chloride (Sodium Chloride 0.9% Flush 10 Ml Syringe) 10 ml IV Q12HR [facility] Last Admin: 10/09/21 09:22 Dose: 10 ml Documented by: Sodium Chloride (Sodium Chloride 0.9% Flush 10 Ml Syringe) 10 ml IV DIRECTED PRN PRN Reason: FLUSH Trazodone HCl (Trazodone Hcl 50 Mg Tab) 25 mg PO HS [facility] Last Admin: 10/08/21 21:01 Dose: 25 mg Documented by: Past medical history to include: GERD, bleeding peptic ulcer, mitral and tricuspid valve repair, hypothyroid, hyperlipidemia, bipolar, dilated cardiomyopathy EF 20-25%, paroxysmal atrial fibrillation, GERD rectal prolapse, pacemaker. V. tach V. fib on interrogation. Social history: Smokes about 8 cigarettes a day used to smoke much more for many years. Has some help at home. Does not drink alcohol. Not employed. Lives in his own apartment.. Physical examination: VITAL SIGNS: 97.9, 110, 20, 115/88, 90% on 15 L GENERAL: Recliner, short of breath EYES: Pupils equal. Conjunctiva normal, with right eye strabismus . HEENT: External appearance of nose and ears normal, oral cavity grossly normal. NECK: JVD possibly raised; masses not palpable. HEART: Heart sounds irregular; no edema]. LUNGS: Respiratory rate increased. Some basal crackles ABDOMEN: Soft, no tenderness liver spleen not palpable, no masses palpable. PSYCH: Alert and oriented x3; mood and affect anxious NEUROLOGICAL: Cranial nerves grossly intact; no facial asymmetry, power and sensation grossly intact. LYMPHATICS: No lymph nodes palpable in the axilla and neck INVESTIGATIONS, reviewed in the clinical context: October 09: Potassium 4.5 creatinine 1.08 October 08: Sodium 136 potassium 4.3 creatinine 0.97 October 07: Potassium 4.3 creatinine 0.91 October 06: Potassium 4.4 creatinine 1.06.Chest x-ray film personally reviewed by me-pleural effusion. Pulmonary edema. Chest CTA: Moderate bilateral pleural effusion. Right greater than left. More extensive consolidation to the pleural effusion lower lobes. Diffuse interstitial thickening. October 05: White count 6.9 hemoglobin 14.8 d-dimer 0.26 October 04: Potassium 4.7 creatinine 1.06 proBNP 13,000 pro-calcitonin 0.05 White count 7.6 hemoglobin 14.5 platelets 228 sodium 135 BUN 20 creatinine 0.95 total bilirubin 2.4 EKG tracing personally reviewed by me-atrial fibrillation. Rate 71. Chest x-ray film personally reviewed by me-infiltrates and/or pulmonary edema Troponin I 0.050 Previous admission Device interrogation: Multiple episodes of NSVT. One episode of V. tach and V. fib. Patient was shocked on 09/18 2-D echocardiogram [February 2021] EF 20-25% severe MR mild to moderate TR Assessment and plan: -Near Syncope: From hypotension. No arrhythmia on this admission AICD interrogation. -On recent admission patient had Multiple episodes of NSVT and one episode of V. tach V. fib on 09/18 with device interrogation.. On amiodarone. AICD interrogation unremarkable this admission. -Acute hypoxic respiratory failure: Mostly CHF. some contribution from underlying recent COVID-19, COPD exacerbation.: Not improving -Flow oxygen 15 L -Hypotension from ischemic cardiomyopathy - Acute on chronic congestive heart failure, from systolic dysfunction EF 20- 25%: Lasix 40 mg by mouth every 12. Patient and guardian declined cardiac catheterization. -Persistent atrial fibrillation, rate uncontrolled IV Amiodarone. Xarelto 20 mg with supper -Acute COPD exacerbation in a current smoker By mouth prednisone DuoNeb 4 times a day -GERD Protonix -Chronic gait dysfunction uses a walker at baseline Fall precautions -Chronic nicotine dependence patient cigarette smoker Nicotine patch -Right eye strabismus -Hypothyroid Synthroid 50 g -Moderate to severe mitral and tricuspid regurgitation Follow clinically By mouth Lasix 40 mg twice a day. IV amiodarone. A. fib uncontrolled.--High flow Oxygen 15 L. Oral prednisone.
[2021-10-09] MEDS: ATORVASTATIN 20 MG TAB PO SCH (15:32)
[2021-10-09] MEDS: AMIODARONE 450 MG in DEXTROSE 5% IN WATER 250 ML IV SCH ×2 (15:33)
--- NOTE | 2021-10-09 15:55 | P.PN ---
Subjective The patient is a 56-year-old male with a known history of paroxysmal atrial fibrillation, non-ischemic cardiomyopathy s/p ICD implantation 10/2019, prior history of congestive heart failure with reduced EF, mitral regurgitation with history of mitral valve repair in 2014 , hyperlipidemia, he stopped smoking 3 weeks ago, Covid-19 in 09/19/2021. Patient follows in the office with Dr. Beltran. Patient presented with symptoms of dizziness and progressive dyspnea. He was recently in the hospital with a syncopal episode with injury to his head and was found to have ventricular tachycardia. He was started on amiodarone. Prior to admission he felt lightheaded and dizzy but had no syncope but he is feeling progressively fatigued with lack of energy and progressively dyspneic. He has no chest discomfort and no palpitations. There is no evidence of ventricular tachycardia and he is in atrial fibrillation at the time of admission. Patient was taken off all beta blockers, lasix, antihypertensives due to hypotension. His echocardiogram in January 2021 showed an ejection fraction of 20-25% with global hypokinesis and severe mitral regurgitation was mild to moderate tricuspid regurgitation. He has underwent a cardiac catheterization in 2011 that showed no evidence of obstructive disease with nonischemic cardiomyopathy and mitral regurgitation. His medications at the time of admission included spironolactone 25 mg daily, Xarelto 20 mg daily, Lipitor 20 mg daily, amiodarone, levothyroxine, Symbicort, albuterol. Pacemaker interrogation completed this admission with no events noted. 10/08/2021 Patient examined this morning at the bedside. Patient denies any chest pain or pressure. He denies shortness of breath. He had a brief episode of lightheadedness yesterday evening that resolved. He is diuresing well. Long discussion was done with him and his family and they have decided to not proceed with Right Heart Catheterization at this time. He is maintained on IV Lasix 20mg BID with 2175mL urine output. Telemetry reviewed, patient in atrial fibrillation with controlled ventricular rates, left bundle branch block. He is tolerating the Lisinopril Echocardiogram revealed EF 20-25% moderate to severe mitral regurgitation and mild tricuspid regurgitation Meds: He is currently maintained on amiodarone 200 mg twice a day, atorvastatin 20 mg nightly, IV Lasix 20 mg twice a day, Xarelto 20 mg nightly, lisinopril 2.5mg daily Labs: Sodium 136, potassium 4.3, BUN 33, serum creatinine 0.97 10/09 Seen and examined. Patient did have A. fib with mild RVR with heart rates initially 110s up to 140s last night and therefore metoprolol 25 mg twice a day was added. We were attempting to hold beta skyler secondary to suspicion of end-stage heart failure however given continued A. fib he has been tolerating this. Blood pressures have been borderline in the 80s however no lightheadedness or dizziness. He has been continued on the diuretics and states he has good urine output. PHYSICAL EXAM: VITAL SIGNS: Reviewed. GENERAL: Well-developed in no acute distress. NECK: Supple. No JVD LUNGS: Respirations even and unlabored. Lungs bilateral wheezing to auscultation HEART: Irregular rate and rhythm. S1 and S2 heard. Systolic murmur noted. EXTREMITIES: Normal range of motion. No clubbing or cyanosis. Peripheral pulses intact. No lower extremity edema ASSESSMENT: Acute on chronic heart failure with reduced ejection fraction Symptoms of dizziness, no evidence of syncope, could be related to hypotension Recent episode of ventricular tachycardia in August 2021, no documented recurrence Persistent atrial fibrillation, anticoagulated with Xarelto Severe non-ischemic cardiomyopathy, EF 5% Status post single lead ICD implantation 10/2019 Prior history of smoking until 3 weeks ago Mitral regurgitation Status post mitral valve repair 2014 Recent diagnosis of Covid September 19, 2021 Acute hypoxic respiratory failure requiring supplemental oxygen Hypotension, improving PLAN: -Patient's symptoms and recent hospitalizations concerning for end stage heart failure. We have discussed the risks and benefits of the right heart catheterization with the patient and family. At this time, family and patient would like to hold off on undergoing right heart catheterization at this time and attempt to optimize heart failure regimen. -Continue Xarelto -Continue diuretics and monitor I's and O's, Cr - Initially attempting to hold beta skyler given concern of stage D heart failure however still having A. fib with RVR and will continue with current dose. Transition amiodarone 2 oral amiodarone. Ideally biventricular AICD however we will readdress as an outpatient. Objective - Vital Signs Vital signs: Vital Signs Temp 97.9 F 10/08/21 23:19 Pulse 88 10/09/21 15:41 Resp 16 10/09/21 15:41 BP 88/51 10/09/21 15:41 Pulse Ox 97 10/09/21 15:41 Intake & Output 10/08/21 10/09/21 10/09/21 18:59 06:59 18:59 Intake Total 360 980 Output Total 625 900 300 Balance -265 -900 680 Intake: Intake, IV Titration 380 Amount Amiodarone 360 mg In 130 Dextrose 5% in Water 200 ml @ 1 MG/MIN 33.333 mls/ hr IV .Q6H [facility] Rx#: [id number] Amiodarone 450 mg In 250 Dextrose 5% in Water 250 ml @ 0.5 MG/MIN 16.667 mls/hr IV .Q15H [facility] Rx#: [id number] Oral 360 600 Output: Urine 625 900 300 Other: Voiding Method Urinal Bedside Commode Bedside Commode Urinal Urinal - Labs CBC & Chem 7: 10/05/21 05:42 10/09/21 07:54 Labs: Abnormal Lab Results - Last 24 Hours (Table) 10/08/21 10/08/21 10/09/21 Range/Units 16:24 20:00 06:06 Sodium (137-145) mmol/L BUN (9-20) mg/dL Glucose (74-99) mg/dL POC Glucose (mg/dL) 133 H 139 H 107 H (75-99) mg/dL 10/09/21 10/09/21 Range/Units 07:54 11:32 Sodium 133 L (137-145) mmol/L BUN 31 H (9-20) mg/dL Glucose 149 H (74-99) mg/dL POC Glucose (mg/dL) 127 H (75-99) mg/dL
[2021-10-09 16:52] LABS: Glucose,Whole Blood 177 mg/dL (75-99)
[2021-10-09 20:28] LABS: Glucose,Whole Blood 119 mg/dL (75-99)
[2021-10-09] MEDS: AMIODARONE 200 MG TAB PO SCH ×2 (20:32→20:34)
[2021-10-09] MEDS: GABAPENTIN 100 MG CAP PO SCH (20:34)
[2021-10-09] MEDS ORDERED: RIVAROXABAN 20 MG TAB PO SCH (21:00)
[2021-10-09] MEDS: traZODone HCL 50 MG TAB PO SCH (22:40)
[2021-10-10 06:36] LABS: Glucose,Whole Blood 118 mg/dL (75-99)
[2021-10-10] MEDS: INSULIN ASPART (NovoLOG) 100 UNIT/ML VIAL SQ SCH ×3 (06:51→18:15)
[2021-10-10] MEDS: LEVOTHYROXINE 50 MCG TAB PO SCH (06:55)
[2021-10-10] MEDS: PANTOPRAZOLE 40 MG TABLET PO SCH ×2 (06:55→19:36)
[2021-10-10] MEDS: CALCIUM CARBONATE LIQUID 500 MG/5 ML CUP PO SCH ×2 (06:55→12:33)
[2021-10-10] MEDS: IPRATROPIUM-ALBUTEROL 3 ML NEB INHALATION SCH ×3 (08:03→16:22)
[2021-10-10] MEDS: SYMBICORT 160-4.5 MCG INHALER INHALATION SCH (08:03)
[2021-10-10] MEDS: CALCIUM CARB-VIT D 500 MG-5 MCG TAB PO SCH (09:19)
[2021-10-10] MEDS: predniSONE 10 MG TAB PO SCH (09:20)
[2021-10-10] MEDS: METOPROLOL TARTRATE 25 MG TAB PO SCH (09:20)
[2021-10-10] MEDS: ASCORBIC ACID 500 MG TAB PO SCH (09:20)
[2021-10-10] MEDS: AMIODARONE 200 MG TAB PO SCH (09:20)
[2021-10-10] MEDS: FUROSEMIDE 40 MG TAB PO SCH ×2 (09:20→19:36)
[2021-10-10 11:46] LABS: Glucose,Whole Blood 177 mg/dL (75-99)
--- NOTE | 2021-10-10 14:41 | P.PN ---
Subjective The patient is a 56-year-old male with a known history of paroxysmal atrial fibrillation, non-ischemic cardiomyopathy s/p ICD implantation 10/2019, prior history of congestive heart failure with reduced EF, mitral regurgitation with history of mitral valve repair in 2014 , hyperlipidemia, he stopped smoking 3 weeks ago, Covid-19 in 09/19/2021. Patient follows in the office with Dr. Beltran. Patient presented with symptoms of dizziness and progressive dyspnea. He was recently in the hospital with a syncopal episode with injury to his head and was found to have ventricular tachycardia. He was started on amiodarone. Prior to admission he felt lightheaded and dizzy but had no syncope but he is feeling progressively fatigued with lack of energy and progressively dyspneic. He has no chest discomfort and no palpitations. There is no evidence of ventricular tachycardia and he is in atrial fibrillation at the time of admission. Patient was taken off all beta blockers, lasix, antihypertensives due to hypotension. His echocardiogram in January 2021 showed an ejection fraction of 20-25% with global hypokinesis and severe mitral regurgitation was mild to moderate tricuspid regurgitation. He has underwent a cardiac catheterization in 2011 that showed no evidence of obstructive disease with nonischemic cardiomyopathy and mitral regurgitation. His medications at the time of admission included spironolactone 25 mg daily, Xarelto 20 mg daily, Lipitor 20 mg daily, amiodarone, levothyroxine, Symbicort, albuterol. Pacemaker interrogation completed this admission with no events noted. 10/08/2021 Patient examined this morning at the bedside. Patient denies any chest pain or pressure. He denies shortness of breath. He had a brief episode of lightheadedness yesterday evening that resolved. He is diuresing well. Long discussion was done with him and his family and they have decided to not proceed with Right Heart Catheterization at this time. He is maintained on IV Lasix 20mg BID with 2175mL urine output. Telemetry reviewed, patient in atrial fibrillation with controlled ventricular rates, left bundle branch block. He is tolerating the Lisinopril Echocardiogram revealed EF 20-25% moderate to severe mitral regurgitation and mild tricuspid regurgitation Meds: He is currently maintained on amiodarone 200 mg twice a day, atorvastatin 20 mg nightly, IV Lasix 20 mg twice a day, Xarelto 20 mg nightly, lisinopril 2.5mg daily Labs: Sodium 136, potassium 4.3, BUN 33, serum creatinine 0.97 10/09 Seen and examined. Patient did have A. fib with mild RVR with heart rates initially 110s up to 140s last night and therefore metoprolol 25 mg twice a day was added. We were attempting to hold beta skyler secondary to suspicion of end-stage heart failure however given continued A. fib he has been tolerating this. Blood pressures have been borderline in the 80s however no lightheadedness or dizziness. He has been continued on the diuretics and states he has good urine output. 10/10 Patient seen and examined. Patient continues to not progress that much. He still has bad mornings and states he felt very short of breath and fatigued this morning. No chest pain. He did feel somewhat lightheaded temporarily. He states he is still been having good urine output with the Lasix. PHYSICAL EXAM: VITAL SIGNS: Reviewed. GENERAL: Well-developed in no acute distress. NECK: Supple. No JVD LUNGS: Respirations even and unlabored. Lungs bilateral wheezing to auscultation HEART: Irregular rate and rhythm. S1 and S2 heard. Systolic murmur noted. EXTREMITIES: Normal range of motion. No clubbing or cyanosis. Peripheral pulses intact. No lower extremity edema ASSESSMENT: Acute on chronic heart failure with reduced ejection fraction Symptoms of dizziness, no evidence of syncope, could be related to hypotension Recent episode of ventricular tachycardia in August 2021, no documented recurrence Persistent atrial fibrillation, anticoagulated with Xarelto Severe non-ischemic cardiomyopathy, EF 5% Status post single lead ICD implantation 10/2019 Prior history of smoking until 3 weeks ago Mitral regurgitation Status post mitral valve repair 2014 Recent diagnosis of Covid September 19, 2021 Acute hypoxic respiratory failure requiring supplemental oxygen Hypotension, improving PLAN: -Patient's symptoms and recent hospitalizations concerning for end stage heart failure. We have discussed the risks and benefits of the right heart catheterization with the patient and family. At this time, family and patient would like to hold off on undergoing right heart catheterization at this time and attempt to optimize heart failure regimen. -Continue Xarelto -Continue diuretics and monitor I's and O's, Cr - Initially attempting to hold beta skyler given concern of stage D heart failure however still having A. fib with RVR and will continue with current dose. Continue oral amiodarone in attempt for rate control Prognosis guarded. Ideally biventricular AICD however we will readdress as an outpatient. Objective - Vital Signs Vital signs: Vital Signs Temp 97.9 F 10/09/21 20:00 Pulse 120 H 10/10/21 12:00 Resp 20 10/10/21 14:00 BP 82/53 10/10/21 12:00 Pulse Ox 90 L 10/10/21 12:00 Intake & Output 10/09/21 10/10/21 10/10/21 18:59 06:59 18:59 Intake Total 1160 240 Output Total 300 300 Balance 860 -300 240 Weight 82 kg Intake: Intake, IV Titration 380 Amount Amiodarone 360 mg In 130 Dextrose 5% in Water 200 ml @ 1 MG/MIN 33.333 mls/ hr IV .Q6H [facility] Rx#: [id number] Amiodarone 450 mg In 250 Dextrose 5% in Water 250 ml @ 0.5 MG/MIN 16.667 mls/hr IV .Q15H [facility] Rx#: [id number] Oral 780 240 Output: Urine 300 300 Other: Voiding Method Bedside Commode Bedside Commode Bedside Commode Urinal Urinal Urinal - Labs CBC & Chem 7: 10/05/21 05:42 10/09/21 07:54 Labs: Abnormal Lab Results - Last 24 Hours (Table) 10/09/21 10/09/21 10/10/21 Range/Units 16:49 20:05 06:28 POC Glucose (mg/dL) 177 H 119 H 118 H (75-99) mg/dL 10/10/21 Range/Units 11:44 POC Glucose (mg/dL) 177 H (75-99) mg/dL
--- NOTE | 2021-10-10 14:53 | P.PN ---
Progress Note - Text Progress Note Date: 10/10/21 Chief Complaint: Near-syncope History of presenting complaint: This is a pleasant 56-year-old patient of Dr. Smyth. Chronic stable medical conditions include hypothyroid, hyperlipidemia, bipolar disorder, hypertension, dilated cardiomyopathy 20-25%, paroxysmal atrial fibrillation, GERD, some rectal prolapse. Patient has some mental impairment. Lives by himself. Does use a walker at baseline Patient was discharged from here on September 24. Had presented with syncope. He had tested positive for COVID-19. No symptoms. Found to be hypotensive. Pacemaker interrogation had shown several episodes of nonsustained V. tach. An episode of V. tach and V. fib that were shock. That was on September 18. Patient was loaded with amiodarone. Patient now presents with dizziness even sitting up. No palpitations. Oral intake fair. No arrhythmia noted in the ER. Patient has not passed out. No chest pain. October 04: Patient's blood pressure in lower side. Seen by cardiology. They will do a AICD interrogation. Patient also noted to be on 12 L nasal cannula. Appears rather comfortable. Eating well. Pulmonary being consulted. Chest x- ray compared to the one from admission May. Possible previous changes from COVID-19. Patient has no cough. No sputum. October 05: Patient has been on 12 L nasal cannula. Eating well. I discussed with Dr. Traore from pulmonary. He does not feel his anybody component. Thinks it is all CHF. Signed off the case. I didn't did speak to Dr. Oliver from cardiology. He will drop right heart catheterization tomorrow. Patient be moved to the cardiology telemetry floor. Did try to drop patient's FiO2 patient became hypoxic. RT was unable to do blood gases. Lasix started earlier has been held pending cardiac catheterization. Also update his patient's sister on the phone this morning. October 06: Sitting up in a recliner. Patient had to be bumped up in Air-vo. Put back and IV Lasix. Put significant urine output yesterday. She short of breath. Also put on's bronchodilators and steroids. Significant component of CHF. Also a COPD component. Computed tomography scan of chest negative for any significant PE. May be a small. That could be chronic. Also IV Solu-Medrol DuoNeb added for wheezing. October 07: Up in a recliner. On Air-vo. 60/90. Eating 100%. IV Lasix 20 mg every 12. Changed over to by mouth prednisone. Immanuel. Cardiology is planning a right heart catheterization tomorrow. October 08: Up in a recliner with interval. 60/100. Eating well. Changed her to by mouth Lasix. I spoke to Dr. Ramires about possible biventricular AICD. He will discuss this further with the patient's sampling expert and Dr. Smith. Discussed with the patient. His decisions undertaken by his sister/guardian. October 09: In the recliner. On high flow oxygen 15 L. Eating on his food. By mouth Lasix 40 mg twice a day. Some shortness of breath. On IV amiodarone. A. fib somewhat uncontrolled October 10: Short of breath. 15 L nasal cannula. Oral Lasix. A. fib uncontrolled. On by mouth amiodarone. Lopressor. Active Medications Acetaminophen (Acetaminophen Oral Susp (Peds) 3,840 Mg/120 Ml Bottle) 500 mg PO Q6HR PRN PRN Reason: Fever, pain Last Admin: 10/09/21 09:16 Dose: 500 mg Documented by: Albuterol/Ipratropium (Ipratropium-Albuterol 3 Ml Neb) 3 ml INHALATION RT-Q2H PRN PRN Reason: Shortness Of Breath Or Wheezing Last Admin: 10/06/21 09:34 Dose: 3 ml Documented by: Albuterol/Ipratropium (Ipratropium-Albuterol 3 Ml Neb) 3 ml INHALATION RT-QID [facility] Last Admin: 10/10/21 11:20 Dose: 3 ml Documented by: Amiodarone HCl (Amiodarone 200 Mg Tab) 400 mg PO BID [facility] Last Admin: 10/10/21 09:20 Dose: 400 mg Documented by: Ascorbic Acid (Ascorbic Acid 500 Mg Tab) 500 mg PO DAILY [facility] Last Admin: 10/10/21 09:20 Dose: 500 mg Documented by: Atorvastatin Calcium (Atorvastatin 20 Mg Tab) 20 mg PO W/SUPPER [facility] Last Admin: 10/09/21 15:32 Dose: 20 mg Documented by: Budesonide/Formoterol Fumarate (Symbicort 160-4.5 Mcg Inhaler) 2 puff INHALATION RT-BID [facility] Last Admin: 10/10/21 08:03 Dose: 2 puff Documented by: Calcium Carbonate (Calcium Carb-Vit D 500 Mg-5 Mcg Tab) 1 each PO DAILY [facility] Last Admin: 10/10/21 09:19 Dose: 1 each Documented by: Calcium Carbonate/Glycine (Calcium Carbonate Liquid 500 Mg/5 Ml Cup) 500 mg PO TID-W/MEALS [facility] Last Admin: 10/10/21 12:33 Dose: 500 mg Documented by: Dicyclomine HCl (Dicyclomine 10 Mg Cap) 10 mg PO TID PRN PRN Reason: ibs/bloating Last Admin: 10/09/21 22:40 Dose: 10 mg Documented by: Furosemide (Furosemide 40 Mg Tab) 40 mg PO BID@0900,1600 [facility] Last Admin: 10/10/21 09:20 Dose: 40 mg Documented by: Gabapentin (Gabapentin 100 Mg Cap) 100 mg PO HS [facility] Last Admin: 10/09/21 20:34 Dose: 100 mg Documented by: Insulin Aspart (Insulin Aspart (Novolog) 100 Unit/Ml Vial) 0 unit SQ ACHS [facility]; Protocol Last Admin: 10/10/21 12:33 Dose: 4 unit Documented by: Levothyroxine Sodium (Levothyroxine 50 Mcg Tab) 50 mcg PO AC-BRKFST [facility] Last Admin: 10/10/21 06:55 Dose: 50 mcg Documented by: Lisinopril (Lisinopril 2.5 Mg Tab) 2.5 mg PO DAILY [facility] Last Admin: 10/10/21 12:35 Dose: Not Given Documented by: Metoprolol Tartrate (Metoprolol Tartrate 25 Mg Tab) 25 mg PO BID [facility] Last Admin: 10/10/21 09:20 Dose: 25 mg Documented by: Naloxone HCl (Naloxone 0.4 Mg/Ml 1 Ml Vial) 0.2 mg IV Q2M PRN PRN Reason: Opioid Reversal Pantoprazole Sodium (Pantoprazole 40 Mg Tablet) 40 mg PO AC-BID [facility] Last Admin: 10/10/21 06:55 Dose: 40 mg Documented by: Prednisone (Prednisone 10 Mg Tab) 30 mg PO DAILY [facility] Last Admin: 10/10/21 09:20 Dose: 30 mg Documented by: Rivaroxaban (Rivaroxaban 20 Mg Tab) 20 mg PO W/SUPPER [facility]; Protocol Last Admin: 10/09/21 20:37 Dose: 20 mg Documented by: Silver Sulfadiazine (Silver Sulfadiazine 1% Cream 25 Gm Tube) 1 applic TOPICAL BID [facility]; Protocol Last Admin: 10/10/21 09:20 Dose: 1 applic Documented by: Sodium Chloride (Sodium Chloride 0.9% Flush 10 Ml Syringe) 10 ml IV Q12HR [facility] Last Admin: 10/10/21 09:20 Dose: 10 ml Documented by: Sodium Chloride (Sodium Chloride 0.9% Flush 10 Ml Syringe) 10 ml IV DIRECTED PRN PRN Reason: FLUSH Trazodone HCl (Trazodone Hcl 50 Mg Tab) 25 mg PO HS [facility] Last Admin: 10/09/21 22:40 Dose: 25 mg Documented by: Past medical history to include: GERD, bleeding peptic ulcer, mitral and tricuspid valve repair, hypothyroid, hyperlipidemia, bipolar, dilated cardiomyopathy EF 20-25%, paroxysmal atrial fibrillation, GERD rectal prolapse, pacemaker. V. tach V. fib on interrogation. Social history: Smokes about 8 cigarettes a day used to smoke much more for many years. Has some help at home. Does not drink alcohol. Not employed. Lives in his own apartment.. Physical examination: VITAL SIGNS: Afebrile, 120, 22, 82/53, 90% on 15 L GENERAL: On Recliner, short of breath EYES: Pupils equal. Conjunctiva normal, with right eye strabismus . HEENT: External appearance of nose and ears normal, oral cavity grossly normal. NECK: JVD possibly raised; masses not palpable. HEART: Heart sounds irregular; no edema]. LUNGS: Respiratory rate increased. Some basal crackles ABDOMEN: Soft, no tenderness liver spleen not palpable, no masses palpable. PSYCH: Alert and oriented x3; mood and affect anxious NEUROLOGICAL: Cranial nerves grossly intact; no facial asymmetry, power and sensation grossly intact. INVESTIGATIONS, reviewed in the clinical context: October 09: Potassium 4.5 creatinine 1.08 October 08: Sodium 136 potassium 4.3 creatinine 0.97 October 07: Potassium 4.3 creatinine 0.91 October 06: Potassium 4.4 creatinine 1.06.Chest x-ray film personally reviewed by me-pleural effusion. Pulmonary edema. Chest CTA: Moderate bilateral pleural effusion. Right greater than left. More extensive consolidation to the pleural effusion lower lobes. Diffuse interstitial thickening. October 05: White count 6.9 hemoglobin 14.8 d-dimer 0.26 October 04: Potassium 4.7 creatinine 1.06 proBNP 13,000 pro-calcitonin 0.05 White count 7.6 hemoglobin 14.5 platelets 228 sodium 135 BUN 20 creatinine 0.95 total bilirubin 2.4 EKG tracing personally reviewed by me-atrial fibrillation. Rate 71. Chest x-ray film personally reviewed by me-infiltrates and/or pulmonary edema Troponin I 0.050 Previous admission Device interrogation: Multiple episodes of NSVT. One episode of V. tach and V. fib. Patient was shocked on 09/18 2-D echocardiogram [February 2021] EF 20-25% severe MR mild to moderate TR Assessment and plan: -Near Syncope: From hypotension. No arrhythmia on this admission AICD interrogation. -On recent admission patient had Multiple episodes of NSVT and one episode of V. tach V. fib on 09/18 with device interrogation.. On amiodarone. AICD interrogation unremarkable this admission. -Acute hypoxic respiratory failure: Mostly CHF. some contribution from underlying recent COVID-19, COPD exacerbation.: Not improving High Flow oxygen 15 L -Hypotension from ischemic cardiomyopathy - Acute on chronic congestive heart failure, from systolic dysfunction EF 20- 25%: Lasix 40 mg by mouth every 12. Patient and guardian declined cardiac catheterization. -Persistent atrial fibrillation, rate uncontrolled po Amiodarone. Xarelto 20 mg with supper -Acute COPD exacerbation in a current smoker po prednisone DuoNeb 4 times a day -GERD Protonix -Chronic gait dysfunction uses a walker at baseline Fall precautions -Chronic nicotine dependence patient cigarette smoker Nicotine patch -Right eye strabismus -Hypothyroid Synthroid 50 g -Moderate to severe mitral and tricuspid regurgitation Follow clinically po Lasix 40 mg twice a day. po amiodarone. A. fib uncontrolled.--High flow Oxygen 15 L. Oral prednisone.
[2021-10-10 16:21] LABS: Glucose,Whole Blood 162 mg/dL (75-99)
[2021-10-10] MEDS ORDERED: DEXTROSE 5% IN WATER 50 ML BAG ONE (16:54)
[2021-10-10] MEDS ORDERED: AMIODARONE 50 MG/ML 3 ML VIAL IV ONE (16:54)
[2021-10-10] MEDS ORDERED: CALCIUM CHLORIDE 100 MG/ML 10 ML SYRINGE ONE (16:54)
[2021-10-10] MEDS ORDERED: SODIUM BICARB 8.4% 50 ML SYR (1 MEQ/ML) ONE (16:54)
[2021-10-10] MEDS ORDERED: EPINEPHrine 10 ML SYRINGE (0.1 MG/ML) ONE (16:54)
[2021-10-10 17:00] LABS: Glucose,Whole Blood 170 mg/dL (75-99)
[2021-10-10] MEDS ORDERED: propofoL 100 ML IV ONE (17:04)
--- NOTE | 2021-10-10 17:19 | P.PN ---
Progress Note - Text Progress Note Date: 10/10/21 CODE BLUE: Approximately 4:50 PM CODE IMMANUEL was called. When into the room the patient was found to be V. tach with pulse. 1 dose of epinephrine was administered. He was given 300 of amiodarone and started on amiodarone drip. Soon after patient was awake and very agitated. He was intubated and currently be transferred to intensive care unit.
[2021-10-10 17:25] LABS: Albumin 3.2 g/dL (3.5-5.0); Calcium 8.1 mg/dL (8.4-10.2); Total Bilirubin 1.6 mg/dL (0.2-1.3)
[2021-10-10 17:33] LABS: Basophils % (A) 0 %; Eosinophils % (A) 0 %; HCT 43.6 % (39.0-53.0); HGB 14.1 gm/dL (13.0-17.5); Hypochromasia Slight; Lymphocytes # (A) 0.4 k/uL (1.0-4.8); Lymphocytes % (A) 3 %; MCH 30.9 pg (25.0-35.0); MCHC 32.4 g/dL (31.0-37.0); MCV 95.4 fL (80.0-100.0); Mean Platelet Volume 8.4; Monocytes # (A) 0.7 k/uL (0-1.0); Monocytes % (A) 6 %; Neutrophils # (A) 10.2 k/uL (1.3-7.7); Neutrophils % (A) 88 %; RBC 4.57 m/uL (4.30-5.90); RDW 14.2 % (11.5-15.5); WBC 11.6 k/uL (3.8-10.6)
[2021-10-10 17:36] LABS: Potassium 4.3 mmol/L (3.5-5.1)
[2021-10-10] MEDS ORDERED: AMIODARONE 360 MG in DEXTROSE 5% IN WATER 200 ML IV ONE ×2 (17:45)
[2021-10-10 17:47] LABS: Glucose,Whole Blood 175 mg/dL (75-99)
--- NOTE | 2021-10-10 17:53 | XR ---
EXAMINATION TYPE: XR chest 1V DATE OF EXAM: 10/10/2021 COMPARISON: 10/08/2021 HISTORY: Respiratory failure TECHNIQUE: Single view FINDINGS: Endotracheal tube is 4 cm from the irais. There is left axillary pacemaker. There are ches t leads. There is pulmonary interstitial and airspace edema. Heart is enlarged. There are sternal wir es. There is nasogastric tube in the stomach. IMPRESSION: Congestive heart failure with pulmonary edema and no significant change compared to the o ld exam.
[2021-10-10 17:54] LABS: Platelet Count 87 k/uL (150-450)
[2021-10-10 18:15] LABS: ABG Base Excess -5.7 mmol/L; ABG HCO3 21 mmol/L (21-25); ABG Oxygen Saturation 96.2 % (94-97); ABG PCO2 46 mmHg (35-45); ABG PH 7.27 (7.35-7.45); ABG PO2 100 mmHg (83-108); ABG TCO2 23 mmol/L (19-24); Allen Test Performed? Yes
[2021-10-10] MEDS: ATORVASTATIN 20 MG TAB PO SCH (19:36)
[2021-10-10] MEDS ORDERED: MAGNESIUM SULFATE-D5W PMX 1 GM in DEXTROSE/WATER 1 100ML.BAG IVPB ONE (20:20)
[2021-10-10 21:00] LABS: HCT 44.9 % (39.0-53.0); HGB 14.1 gm/dL (13.0-17.5); Hypochromasia Marked; MCH 30.8 pg (25.0-35.0); MCHC 31.4 g/dL (31.0-37.0); MCV 98.1 fL (80.0-100.0); Mean Platelet Volume 8.1; Platelet Count 88 k/uL (150-450); RBC 4.57 m/uL (4.30-5.90); RDW 14.3 % (11.5-15.5); WBC 15.6 k/uL (3.8-10.6)
--- NOTE | 2021-10-10 21:11 | P.EN ---
Code Blue Note Activated @ 8:02. Arrived on the scene shortly after. The patient was undergoing ACLS protocol for PEA. Reviewed the chart and discussed the case with the RN. The patient was admitted for near syncope and hypotension and had developed V. tach earlier today with subsequent cardiac arrest requiring intubation and transfer to medical ICU. During this episode, a total of epinephrine IV push 3, sodium HCO3 IV push 1, and calcium chloride 1 were administered with subsequent ROSC. The case was discussed with the patient's brother britnig noted to the family wishes for the patient to be a DO NOT RESUSCITATE. The patient was subsequently made a no code. The case was discussed with automatic line set up mechanic front of house manager Dr Dotson. Total time spent providing critical care for this patient: 40 minutes
[2021-10-10 21:31] LABS: Magnesium 2.5 mg/dL (1.6-2.3); Potassium 5.3 mmol/L (3.5-5.1)
[2021-10-10 21:57] VITALS: BP 167/39; PULSE 40; RESP 22
[2021-10-10] MEDS ORDERED: AMIODARONE 450 MG in DEXTROSE 5% IN WATER 250 ML IV SCH ×2 (23:45)
--- NOTE | 2021-10-12 19:45 | P.DS ---
Providers Date of admission: 10/04/21 13:07 Expected date of discharge: 10/10/21 (Patient ) Attending physician: Lamine Gaitan Consults: 10/03/21 20:51 Consult Physician Routine Consulting Provider: Hussain New Consult Reason/Comments: [facility] rehab Do you want consulting provider notified?: Yes 10/04/21 17:33 Consult Physician Routine Consulting Provider: Eric Cortez Consult Reason/Comments: Hypoxia Do you want consulting provider notified?: Yes 10/05/21 13:41 Consult Physician Routine Consulting Provider: Shin Ramires Consult Reason/Comments: CHF exacebation Do you want consulting provider notified?: Yes Primary care physician: [facility] Course: Chief Complaint: Near-syncope History of presenting complaint: This is a pleasant 56-year-old patient of Dr. Smyth. Chronic stable medical conditions include hypothyroid, hyperlipidemia, bipolar disorder, hypertension, dilated cardiomyopathy 20-25%, paroxysmal atrial fibrillation, GERD, some rectal prolapse. Patient has some mental impairment. Lives by himself. Does use a walker at baseline Patient was discharged from here on September 24. Had presented with syncope. He had tested positive for COVID-19. No symptoms. Found to be hypotensive. Pacemaker interrogation had shown several episodes of nonsustained V. tach. An episode of V. tach and V. fib that were shock. That was on September 18. Patient was loaded with amiodarone. Patient now presents with dizziness even sitting up. No palpitations. Oral intake fair. No arrhythmia noted in the ER. Patient has not passed out. No chest pain. October 04: Patient's blood pressure in lower side. Seen by cardiology. They will do a AICD interrogation. Patient also noted to be on 12 L nasal cannula. Appears rather comfortable. Eating well. Pulmonary being consulted. Chest x- ray compared to the one from admission May. Possible previous changes from COVID-19. Patient has no cough. No sputum. October 05: Patient has been on 12 L nasal cannula. Eating well. I discussed with Dr. Traore from pulmonary. He does not feel his anybody component. Thinks it is all CHF. Signed off the case. I didn't did speak to Dr. Oliver from cardiology. He will drop right heart catheterization tomorrow. Patient be moved to the cardiology telemetry floor. Did try to drop patient's FiO2 patient became hypoxic. RT was unable to do blood gases. Lasix started earlier has been held pending cardiac catheterization. Also update his patient's sister on the phone this morning. October 06: Sitting up in a recliner. Patient had to be bumped up in Air-vo. Put back and IV Lasix. Put significant urine output yesterday. She short of breath. Also put on's bronchodilators and steroids. Significant component of CHF. Also a COPD component. Computed tomography scan of chest negative for any significant PE. May be a small. That could be chronic. Also IV Solu-Medrol DuoNeb added for wheezing. October 07: Up in a recliner. On Air-vo. 60/90. Eating 100%. IV Lasix 20 mg every 12. Changed over to by mouth prednisone. DuoNeb. Cardiology is planning a right heart catheterization tomorrow. October 08: Up in a recliner with interval. 60/100. Eating well. Changed her to by mouth Lasix. I spoke to Dr. Ramires about possible biventricular AICD. He will discuss this further with the patient's clinical laboratory science professor and Dr. Smith. Discussed with the patient. His decisions undertaken by his sister/guardian. October 09: In the recliner. On high flow oxygen 15 L. Eating on his food. By mouth Lasix 40 mg twice a day. Some shortness of breath. On IV amiodarone. A. fib somewhat uncontrolled October 10: Short of breath. 15 L nasal cannula. Oral Lasix. A. fib uncontrolled. On by mouth amiodarone. Lopressor. Late in the day patient into further respiratory distress. Cardiac arrest team was called. Intubated taken to the ICU. Sister was called. Patient Past medical history to include: GERD, bleeding peptic ulcer, mitral and tricuspid valve repair, hypothyroid, hyperlipidemia, bipolar, dilated cardiomyopathy EF 20-25%, paroxysmal atrial fibrillation, GERD rectal prolapse, pacemaker. V. tach V. fib on interrogation. Social history: Smokes about 8 cigarettes a day used to smoke much more for many years. Has some help at home. Does not drink alcohol. Not employed. Lives in his own apartment.. INVESTIGATIONS, reviewed in the clinical context: October 09: Potassium 4.5 creatinine 1.08 October 08: Sodium 136 potassium 4.3 creatinine 0.97 October 07: Potassium 4.3 creatinine 0.91 October 06: Potassium 4.4 creatinine 1.06.Chest x-ray film personally reviewed by me-pleural effusion. Pulmonary edema. Chest CTA: Moderate bilateral pleural effusion. Right greater than left. More extensive consolidation to the pleural effusion lower lobes. Diffuse interstitial thickening. October 05: White count 6.9 hemoglobin 14.8 d-dimer 0.26 October 04: Potassium 4.7 creatinine 1.06 proBNP 13,000 pro-calcitonin 0.05 White count 7.6 hemoglobin 14.5 platelets 228 sodium 135 BUN 20 creatinine 0.95 total bilirubin 2.4 EKG tracing personally reviewed by me-atrial fibrillation. Rate 71. Chest x-ray film personally reviewed by me-infiltrates and/or pulmonary edema Troponin I 0.050 Previous admission Device interrogation: Multiple episodes of NSVT. One episode of V. tach and V. fib. Patient was shocked on 09/18 2-D echocardiogram [February 2021] EF 20-25% severe MR mild to moderate TR Cause of : Chronic obstructive pulmonary disease COVID-19 Assessment and plan: -Near Syncope: From hypotension. No arrhythmia on this admission AICD interrogation. -On recent admission patient had Multiple episodes of NSVT and one episode of V. tach V. fib on 09/18 with device interrogation.. On amiodarone. AICD interrogation unremarkable this admission. -Acute hypoxic respiratory failure: Mostly CHF. some contribution from underlying recent COVID-19, COPD exacerbation.: Not improving High Flow oxygen 15 L -Hypotension from ischemic cardiomyopathy - Acute on chronic congestive heart failure, from systolic dysfunction EF 20-25%: Lasix 40 mg by mouth every 12. Patient and guardian declined cardiac catheterization. -Persistent atrial fibrillation, rate uncontrolled po Amiodarone. Xarelto 20 mg with supper -Acute COPD exacerbation in a current smoker po prednisone DuoNeb 4 times a day -GERD Protonix -Chronic gait dysfunction uses a walker at baseline Fall precautions -Chronic nicotine dependence patient cigarette smoker Nicotine patch -Right eye strabismus -Hypothyroid Synthroid 50 g -Moderate to severe mitral and tricuspid regurgitation Follow clinically po Lasix 40 mg twice a day. po amiodarone. A. fib uncontrolled.--High flow Oxygen 15 L. Oral prednisone. Plan - Discharge Summary New Discharge Prescriptions: No Action Levothyroxine Sodium [Synthroid] 50 mcg PO AC-BRKFST Atorvastatin [Lipitor] 20 mg PO W/SUPPER Rivaroxaban [Xarelto] 20 mg PO W/SUPPER traZODone HCL 25 mg PO HS Pantoprazole [Protonix] 40 mg PO AC-BID #60 tablet. Calcium Carbonate/Vitamin D3 [Calcium 600 mg-Vit D3 5 mcg (200 unit)] 1 tab PO DAILY Spironolactone [Aldactone] 25 mg PO DAILY #30 tablet Dicyclomine [Bentyl] 10 mg PO TID PRN PRN Reason: ibs/bloating Gabapentin [Neurontin] 100 mg PO HS Albuterol Sulfate [Albuterol Sulfate Hfa] 1 puff INHALATION RT-Q4H PRN PRN Reason: Wheezing Ascorbic Acid [Vitamin C] 500 mg PO DAILY Budesonide/Formoterol Fumarate [Symbicort 80-4.5 Mcg Inhaler] 1 puff INHALATION RT-BID Amiodarone [Cordarone] See Taper PO DIRECTED SILVER sulfADIAZINE CREAM [Silvadene Cream] 1 applic TOPICAL BID Discharge Medication List Levothyroxine Sodium [Synthroid] 50 mcg PO AC-BRKFST 08/28/17 [History] Atorvastatin [Lipitor] 20 mg PO W/SUPPER 07/18/19 [History] Rivaroxaban [Xarelto] 20 mg PO W/SUPPER 09/19/19 [History] traZODone HCL 25 mg PO HS 05/19/20 [History] Gabapentin [Neurontin] 100 mg PO HS 02/08/21 [History] Pantoprazole [Protonix] 40 mg PO AC-BID #60 tablet. 02/12/21 [Rx] Calcium Carbonate/Vitamin D3 [Calcium 600 mg-Vit D3 5 mcg (200 unit)] 1 tab PO DAILY 04/03/21 [History] Spironolactone [Aldactone] 25 mg PO DAILY #30 tablet 04/05/21 [Rx] Albuterol Sulfate [Albuterol Sulfate Hfa] 1 puff INHALATION RT-Q4H PRN 09/19/21 [History] Ascorbic Acid [Vitamin C] 500 mg PO DAILY 09/19/21 [History] Budesonide/Formoterol Fumarate [Symbicort 80-4.5 Mcg Inhaler] 1 puff INHALATION RT-BID 09/19/21 [History] Dicyclomine [Bentyl] 10 mg PO TID PRN 09/19/21 [History] Amiodarone [Cordarone] See Taper PO DIRECTED 10/02/21 [History] SILVER sulfADIAZINE CREAM [Silvadene Cream] 1 applic TOPICAL BID 10/02/21 [History] Follow up Appointment(s)/Referral(s): Juancho Smyth MD [Primary Care Provider] - 1-2 days Discharge Disposition: - Preliminary Cause of Preliminary Cause of : Chronic obstructive pulmonary disease
--- NOTE | 2021-10-13 09:33 | CDI ---
Documentation Clarification Form Date: 10/13/2021 08:54:00 AM From: Katiana Shaw Admit Date: 10/04/2021 01:07:00 PM Patient Name: Jun Mejia Visit Number: [id number] Discharge Date: 10/10/2021 11:30:00 PM ATTENTION: The Clinical Documentation Specialists (CDI) and [facility] Coding Staff appreciate your assistance in clarifying documentation. Please respond to the clarification below the line at the bottom and electronically sign. The CDI & [facility] Coding staff will review the response and follow-up if needed. Please note: Queries are made part of the Legal Health Record. If you have any questions, please contact the author of this message via ITS. Dr. Lamine Gaitan Acute NSTEMI is documented in Medical Consult 10/04/2021. This diagnosis is not carried through the chart. Additional clarification regarding if the patient had an NJ and if so, type of NSTEMI. History/Risk Factors: CHF exacerbation, atrial fib, T tach, V fib, hypotension, dilated cardiomyopathy, history of mitral valve repair Clinical Indicators: Troponin: .050 EKG Results: Abnormal EKG, LBBB and atrial fib Treatment: Heparin Please clarify the type of NJ, if known: [ ] NSTEMI ruled out [ ] NSTEMI (type 1) [ ] Type II NJ due to (please specify etiology) [ ] Unable to determine [ ] Other Condition, please specify Cardiology is on the case: query should go to them. [facility]
--- NOTE | 2021-10-13 09:54 | CDI ---
Documentation Clarification Form Date: 10/13/2021 09:35:00 AM From: Katiana Shaw Admit Date: 10/04/2021 01:07:00 PM Patient Name: Jun Mejia Visit Number: [id number] Discharge Date: 10/10/2021 11:30:00 PM ATTENTION: The Clinical Documentation Specialists (CDI) and [facility] Coding Staff appreciate your assistance in clarifying documentation. Please respond to the clarification below the line at the bottom and electronically sign. The CDI & [facility] Coding staff will review the response and follow-up if needed. Please note: Queries are made part of the Legal Health Record. If you have any questions, please contact the author of this message via ITS. Dr. Lamine Gaitan Patient presents with a recent history of Covid pneumonia. Current Covid serology is negative. Patient on 10/10 and [facility] documents cause of as COPD and Covid 19. Please clarify if patient has a history of COVID or current Covid. History/risk factors: COPD exacerbation, respiratory failure, CHF, recent history of covid pneumonia. Clinical Indicators: Treatment: high flow oxygen, IV soluMedrol and DuoNeb Please clarify the COVID-19 status: [ ] False negative, treating for COVID-19 infection [ ] COVID-19 ruled out [ ] Personal history of Covid 19 infection [ ] Other, please specify __COVID-19 ruled out MTDD
--- NOTE | 2021-10-15 09:54 | CDI ---
Documentation Clarification Form Date: 10/13/2021 08:54:00 AM From: Katiana Shaw Admit Date: 10/04/2021 01:07:00 PM Patient Name: Jun Mejia Visit Number: [id number] Discharge Date: 10/10/2021 11:30:00 PM ATTENTION: The Clinical Documentation Specialists (CDI) and [facility] Coding Staff appreciate your assistance in clarifying documentation. Please respond to the clarification below the line at the bottom and electronically sign. The CDI & [facility] Coding staff will review the response and follow-up if needed. Please note: Queries are made part of the Legal Health Record. If you have any questions, please contact the author of this message via ITS. Dr. Perla Plascencia Acute NSTEMI is documented in Medical Consult 10/04/2021. This diagnosis is not carried through the chart. Additional clarification regarding if the patient had an ME and if so, type of NSTEMI. History/Risk Factors: CHF exacerbation, atrial fib, T tach, V fib, hypotension, dilated cardiomyopathy, history of mitral valve repair Clinical Indicators: Troponin: .050 EKG Results: Abnormal EKG, LBBB and atrial fib Treatment: Heparin Please clarify the type of ME, if known: [ ] NSTEMI ruled out [ ] NSTEMI (type 1) [ xxx ] Type II ME due to (please specify etiology) [ ] Unable to determine [ ] Other Condition, please specify MTDD
== END 2021-10-10 23:30 | disposition expired ==
LOC: EC 19:45 → 6NMEDSUR 10-03 00:53 → OBSVTOIN 10-04 13:07 → 3SCARD 10-05 15:59 → 2SICU 10-10 17:18
PROVIDERS: ADMIT Hospitalist; ATTEND Hospitalist
PROC: 4B02XTZ Measurement of Cardiac Defibrillator, External Approach (ICD-10-PCS; principal; 2021-10-04)
PROC: 5A0955A Assistance with Respiratory Ventilation, Greater than 96 Consecutive Hours, High Flow/Velocity Cannula (ICD-10-PCS; 2021-10-04)
PROC: 3E043XZ Introduction of Vasopressor into Central Vein, Percutaneous Approach (ICD-10-PCS; 2021-10-10)
PROC: 0BH17EZ Insertion of Endotracheal Airway into Trachea, Via Natural or Artificial Opening (ICD-10-PCS; 2021-10-10)
PROC: 5A1935Z Respiratory Ventilation, Less than 24 Consecutive Hours (ICD-10-PCS; 2021-10-10)
PROC: 5A12012 Performance of Cardiac Output, Single, Manual (ICD-10-PCS; 2021-10-10)
DX: I11.0 Hypertensive heart disease with heart failure (principal); I50.23 Acute on chronic systolic (congestive) heart failure; I21.A1 Myocardial infarction type 2; J96.01 Acute respiratory failure with hypoxia; I26.99 Other pulmonary embolism without acute cor pulmonale; I47.2 Ventricular tachycardia; I48.19 Other persistent atrial fibrillation; J44.1 Chronic obstructive pulmonary disease with (acute) exacerbation; H50.9 Unspecified strabismus; F41.9 Anxiety disorder, unspecified; I08.1 Rheumatic disorders of both mitral and tricuspid valves; I46.2 Cardiac arrest due to underlying cardiac condition; I25.10 Atherosclerotic heart disease of native coronary artery without angina pectoris; F17.210 Nicotine dependence, cigarettes, uncomplicated; I25.5 Ischemic cardiomyopathy; I95.9 Hypotension, unspecified; I42.0 Dilated cardiomyopathy; Z79.01 Long term (current) use of anticoagulants; I27.21 Secondary pulmonary arterial hypertension; Z66 Do not resuscitate; F31.9 Bipolar disorder, unspecified; Z95.1 Presence of aortocoronary bypass graft; Z20.822 Contact with and (suspected) exposure to COVID-19; E03.9 Hypothyroidism, unspecified; I44.7 Left bundle-branch block, unspecified; E78.5 Hyperlipidemia, unspecified; I49.01 Ventricular fibrillation; Z86.16 Personal history of COVID-19; Z87.01 Personal history of pneumonia (recurrent); K21.9 Gastro-esophageal reflux disease without esophagitis; Z87.11 Personal history of peptic ulcer disease; K58.9 Irritable bowel syndrome, unspecified; K62.3 Rectal prolapse; Z79.51 Long term (current) use of inhaled steroids; Z79.890 Hormone replacement therapy; Z79.899 Other long term (current) drug therapy; Z80.1 Family history of malignant neoplasm of trachea, bronchus and lung; Z45.02 Encounter for adjustment and management of automatic implantable cardiac defibrillator; Z90.89 Acquired absence of other organs; Z60.2 Problems related to living alone; Z53.29 Procedure and treatment not carried out because of patient's decision for other reasons
CPT/HCPCS: 36415; 36600; 71045; 71275; 80048; 80053; 81003; 82805; 83605; 83735; 83880; 84145; 84484; 85025; 85027; 85379; 85610; 85730; 87635; 92950; 93005; 93306; 94002; 94640; 94760; 99285